=== PATIENT | female | born 1945 | race Caucasian/White ===

== ENCOUNTER 2017-10-29 13:05 | Inpatient (IN) | payer BC, MEDICARE ==
[2017-10-29] MEDS ORDERED: SODIUM CHLORIDE 0.9% 500 ML IV ONE (13:21)
--- NOTE | 2017-10-29 13:24 | ED ---
Weakness HPI - General Stated complaint: Weakness Time Seen by Provider: 10/29/17 13:13 Source: patient, EMS Mode of arrival: EMS Limitations: altered mental status - History of Present Illness Initial comments: This is a 72-year-old female with a history of diabetes, hypertension, L Olivares dementia who presents emergency department for generalized fatigue and inability to take her medications. History is obtained from EMS who states that the called them because she has been unable to ambulate and also has been not taking her medications. She does live at home with her only. Does not give any assistance. There is been discussion about possibly putting her into an assisted living or a memory care unit for care. Patient does not indicate any discomfort however is unable to answer many questions. not currently at bedside during the interview. - Related Data Home Medications Medication Instructions Recorded Confirmed Valsartan 80 mg PO DAILY 11/15/14 10/29/17 aMILoride-HCTZ 5-50 mg [Moduretic 1 tab PO DAILY 11/15/14 10/29/17 5-50] metFORMIN HCL [Glucophage] 500 mg PO DAILY 11/15/14 10/29/17 Levothyroxine Sodium [Synthroid] 150 mcg PO DAILY 08/16/15 10/29/17 sitaGLIPtin [Januvia] 100 mg PO DAILY 08/16/15 10/29/17 Simvastatin [Zocor] 40 mg PO HS 07/08/16 10/29/17 ALPRAZolam [Xanax] 0.25 mg PO Q8H PRN 10/29/17 10/29/17 Aspirin EC [Ecotrin Low Dose] 81 mg PO DAILY 10/29/17 10/29/17 Ferrous Sulfate [Feosol] 325 mg PO DAILY 10/29/17 10/29/17 Ibuprofen [Motrin] 800 mg PO Q8H PRN 10/29/17 10/29/17 Allergies Allergy/AdvReac Type Severity Reaction Status Date / Time atorvastatin [From Lipitor] Allergy Unknown Verified 10/29/17 13:58 enalaprilat [From Vasotec] Allergy Unknown Verified 10/29/17 13:58 propoxyphene napsylate Allergy Unknown Verified 10/29/17 13:57 [From Darvocet-N] Sulfa (Sulfonamide Allergy Itching,daniela Verified 10/29/17 13:57 Antibiotics) h Review of Systems ROS Statement: Those systems with pertinent positive or pertinent negative responses have been documented in the HPI. ROS Other: All systems not noted in ROS Statement are negative. Past Medical History Past Medical History: Cancer, Diabetes Mellitus, Hyperlipidemia, Hypertension, Memory Impairment, Thyroid Disorder Additional Past Medical History / Comment(s): non-hodgkins lymphoma-last chemo, varicose veins, arthritis, anemia, feel and injured rt shoulder Jul 2015, uses cane or wheelchair, History of Any Multi-Drug Resistant Organisms: None Reported Past Surgical History: Back Surgery, Hernia Repair, Joint Replacement Additional Past Surgical History / Comment(s): rt knee replacement, thyroid radioactive tx, cataracts Past Anesthesia/Blood Transfusion Reactions: Previous Problems w/ Anesthesia Additional Past Anesthesia/Blood Transfusion Reaction / Comment(s): years ago had diff breathing with anesthesia Past Psychological History: No Psychological Hx Reported Smoking Status: Never smoker Past Alcohol Use History: None Reported Past Drug Use History: None Reported - Past Family History Sister(s) Family Medical History: Cancer General Exam - General Exam Comments Initial Comments: Constitutional: Awake alert Appears comfortable Head: Normocephalic atraumatic Eyes: no conjunctival injection No scleral icterus EOMI Neck: No JVD Supple Heart: Regular rate rhythm normal S1-S2 no murmurs Lungs: Clear to auscultation bilaterally No wheezing No rales Abdomen: Soft nondistended nontender Extremities: Non edematous DP pulses intact Radial pulses intact Neuro: Awake and alert however does not answer questions. Is not somnolent No focal neurologic deficits Psych: Appropriate mood and affect Limitations: altered mental status Course Vital Signs 10/29/17 10/29/17 10/29/17 13:15 14:22 15:52 Pulse Rate 52 L 75 55 L Respiratory 18 20 13 Rate Blood Pressure 119/54 112/57 80/51 O2 Sat by Pulse 95 97 Oximetry EKG Findings - EKG Comments: EKG Findings:: EKG showing sinus bradycardia with a first-degree AV block at a rate of 49. There is no abnormal ST segment changes or T-wave inversions. QTC is 429. Other intervals normal. There is a right bundle-branch pattern. Medical Decision Making - Medical Decision Making This is a 72-year-old female who presents emergency department for difficulty with ambulation and mental status changes. She does have a history of dementia however usually she can get up and walk around. She is not anemic been able to walk at home. Is not taking her medications. She was evaluated and it was difficult to obtain a accurate temperature on her. She was placed on a bear hugger for possible hypothermia. She was found have a urinary tract infection and given antibiotics. Patient was given normal saline for mild dehydration as well. Due to her debility she's had be admitted to the hospital for further evaluation and for her urinary tract infection. at bedside agrees with plan - Lab Data Result diagrams: 10/29/17 14:02 10/29/17 14:02 Lab Results 10/29/17 10/29/17 10/29/17 Range/Units 13:55 14:02 14:02 WBC 5.5 (3.8-10.6) k/uL RBC 3.07 L (3.80-5.40) m/uL Hgb 9.7 L (11.4-16.0) gm/dL Hct 28.0 L (34.0-46.0) % MCV 91.2 (80.0-100.0) fL MCH 31.6 (25.0-35.0) pg MCHC 34.6 (31.0-37.0) g/dL RDW 14.6 (11.5-15.5) % Plt Count 95 L (150-450) k/uL Neutrophils % 88 % Lymphocytes % 4 % Monocytes % 5 % Eosinophils % 1 % Basophils % 0 % Neutrophils # 4.9 (1.3-7.7) k/uL Lymphocytes # 0.2 L (1.0-4.8) k/uL Monocytes # 0.3 (0-1.0) k/uL Eosinophils # 0.0 (0-0.7) k/uL Basophils # 0.0 (0-0.2) k/uL Manual Slide Review Performed Poikilocytosis Slight PT (9.0-12.0) sec INR (<1.2) APTT (22.0-30.0) sec Sodium 136 L (137-145) mmol/L Potassium 5.5 H (3.5-5.1) mmol/L Chloride 107 (98-107) mmol/L Carbon Dioxide 19 L (22-30) mmol/L Anion Gap 10 mmol/L BUN 58 H (7-17) mg/dL Creatinine 1.30 H (0.52-1.04) mg/dL Est GFR (MDRD) Af Amer 49 (>60 ml/min/1.73 sqM) Est GFR (MDRD) Non-Af 40 (>60 ml/min/1.73 sqM) Glucose 80 (74-99) mg/dL POC Glucose (mg/dL) 86 (75-99) mg/dL POC Glu Environmental Program Manager ID Laquita Gross Calcium 9.3 (8.4-10.2) mg/dL Total Bilirubin 0.3 (0.2-1.3) mg/dL AST 55 H (14-36) U/L ALT 86 H (9-52) U/L Alkaline Phosphatase 173 H (38-126) U/L CK-MB (CK-2) (0.0-2.4) ng/mL Troponin I (0.000-0.034) ng/mL Total Protein 5.4 L (6.3-8.2) g/dL Albumin 3.3 L (3.5-5.0) g/dL TSH (0.465-4.680) mIU/L Free T4 (0.78-2.19) ng/dL Urine Color Urine Appearance (Clear) Urine pH (5.0-8.0) Ur Specific [place] (1.001-1.035) Urine Protein (Negative) Urine Glucose (UA) (Negative) Urine Ketones (Negative) Urine Blood (Negative) Urine Nitrite (Negative) Urine Bilirubin (Negative) Urine Urobilinogen (<2.0) mg/dL Ur Leukocyte Esterase (Negative) Urine RBC (0-5) /hpf Urine WBC (0-5) /hpf Urine WBC Clumps (None) /hpf Urine Bacteria (None) /hpf Urine Mucus (None) /hpf 10/29/17 10/29/17 10/29/17 Range/Units 14:02 14:02 14:02 WBC (3.8-10.6) k/uL RBC (3.80-5.40) m/uL Hgb (11.4-16.0) gm/dL Hct (34.0-46.0) % MCV (80.0-100.0) fL MCH (25.0-35.0) pg MCHC (31.0-37.0) g/dL RDW (11.5-15.5) % Plt Count (150-450) k/uL Neutrophils % % Lymphocytes % % Monocytes % % Eosinophils % % Basophils % % Neutrophils # (1.3-7.7) k/uL Lymphocytes # (1.0-4.8) k/uL Monocytes # (0-1.0) k/uL Eosinophils # (0-0.7) k/uL Basophils # (0-0.2) k/uL Manual Slide Review Poikilocytosis PT 9.5 (9.0-12.0) sec INR 1.0 (<1.2) APTT 26.8 (22.0-30.0) sec Sodium (137-145) mmol/L Potassium (3.5-5.1) mmol/L Chloride (98-107) mmol/L Carbon Dioxide (22-30) mmol/L Anion Gap mmol/L BUN (7-17) mg/dL Creatinine (0.52-1.04) mg/dL Est GFR (MDRD) Af Amer (>60 ml/min/1.73 sqM) Est GFR (MDRD) Non-Af (>60 ml/min/1.73 sqM) Glucose (74-99) mg/dL POC Glucose (mg/dL) (75-99) mg/dL POC Glu Environmental Program Manager ID Calcium (8.4-10.2) mg/dL Total Bilirubin (0.2-1.3) mg/dL AST (14-36) U/L ALT (9-52) U/L Alkaline Phosphatase (38-126) U/L CK-MB (CK-2) 9.1 H* (0.0-2.4) ng/mL Troponin I <0.012 (0.000-0.034) ng/mL Total Protein (6.3-8.2) g/dL Albumin (3.5-5.0) g/dL TSH (0.465-4.680) mIU/L Free T4 (0.78-2.19) ng/dL Urine Color Yellow Urine Appearance Cloudy H (Clear) Urine pH 5.0 (5.0-8.0) Ur Specific [place] 1.009 (1.001-1.035) Urine Protein Negative (Negative) Urine Glucose (UA) Negative (Negative) Urine Ketones Negative (Negative) Urine Blood Negative (Negative) Urine Nitrite Positive H (Negative) Urine Bilirubin Negative (Negative) Urine Urobilinogen <2.0 (<2.0) mg/dL Ur Leukocyte Esterase Large H (Negative) Urine RBC 1 (0-5) /hpf Urine WBC 104 H (0-5) /hpf Urine WBC Clumps Many H (None) /hpf Urine Bacteria Many H (None) /hpf Urine Mucus Rare H (None) /hpf 10/29/17 Range/Units 14:02 WBC (3.8-10.6) k/uL RBC (3.80-5.40) m/uL Hgb (11.4-16.0) gm/dL Hct (34.0-46.0) % MCV (80.0-100.0) fL MCH (25.0-35.0) pg MCHC (31.0-37.0) g/dL RDW (11.5-15.5) % Plt Count (150-450) k/uL Neutrophils % % Lymphocytes % % Monocytes % % Eosinophils % % Basophils % % Neutrophils # (1.3-7.7) k/uL Lymphocytes # (1.0-4.8) k/uL Monocytes # (0-1.0) k/uL Eosinophils # (0-0.7) k/uL Basophils # (0-0.2) k/uL Manual Slide Review Poikilocytosis PT (9.0-12.0) sec INR (<1.2) APTT (22.0-30.0) sec Sodium (137-145) mmol/L Potassium (3.5-5.1) mmol/L Chloride (98-107) mmol/L Carbon Dioxide (22-30) mmol/L Anion Gap mmol/L BUN (7-17) mg/dL Creatinine (0.52-1.04) mg/dL Est GFR (MDRD) Af Amer (>60 ml/min/1.73 sqM) Est GFR (MDRD) Non-Af (>60 ml/min/1.73 sqM) Glucose (74-99) mg/dL POC Glucose (mg/dL) (75-99) mg/dL POC Glu Environmental Program Manager ID Calcium (8.4-10.2) mg/dL Total Bilirubin (0.2-1.3) mg/dL AST (14-36) U/L ALT (9-52) U/L Alkaline Phosphatase (38-126) U/L CK-MB (CK-2) (0.0-2.4) ng/mL Troponin I (0.000-0.034) ng/mL Total Protein (6.3-8.2) g/dL Albumin (3.5-5.0) g/dL TSH 0.233 L (0.465-4.680) mIU/L Free T4 2.43 H (0.78-2.19) ng/dL Urine Color Urine Appearance (Clear) Urine pH (5.0-8.0) Ur Specific [place] (1.001-1.035) Urine Protein (Negative) Urine Glucose (UA) (Negative) Urine Ketones (Negative) Urine Blood (Negative) Urine Nitrite (Negative) Urine Bilirubin (Negative) Urine Urobilinogen (<2.0) mg/dL Ur Leukocyte Esterase (Negative) Urine RBC (0-5) /hpf Urine WBC (0-5) /hpf Urine WBC Clumps (None) /hpf Urine Bacteria (None) /hpf Urine Mucus (None) /hpf Disposition Clinical Impression: UTI (urinary tract infection), Dehydration, Ambulatory dysfunction Disposition: ADMITTED IP TO THIS HOSP Condition: Stable
[2017-10-29 14:15] LABS: Glucose,Whole Blood 86 mg/dL (75-99)
[2017-10-29 14:40] LABS: Partial Thromboplastin Time 26.8 sec (22.0-30.0); Prothrombin Time 9.5 sec (9.0-12.0)
[2017-10-29 14:41] LABS: Albumin 3.3 g/dL (3.5-5.0); Calcium 9.3 mg/dL (8.4-10.2); Potassium 5.5 mmol/L (3.5-5.1); Total Bilirubin 0.3 mg/dL (0.2-1.3); Total Protein 5.4 g/dL (6.3-8.2)
--- NOTE | 2017-10-29 14:45 | XR ---
EXAMINATION TYPE: XR chest 1V DATE OF EXAM: 10/29/2017 COMPARISON: 08/13/2015 HISTORY: Pain TECHNIQUE: Single frontal view of the chest is obtained. FINDINGS: Postsurgical change right shoulder. Lungs are clear. No pneumothorax or pleural effusion. No overt failure. Heart size stable. Curvature the spine with hypertrophic and degenerative changes. IMPRESSION: No acute process.
[2017-10-29 14:48] LABS: Basophils % (A) 0 %; Eosinophils % (A) 1 %; HGB 9.7 gm/dL (11.4-16.0); Lymphocytes # (A) 0.2 k/uL (1.0-4.8); Lymphocytes % (A) 4 %; MCH 31.6 pg (25.0-35.0); MCHC 34.6 g/dL (31.0-37.0); MCV 91.2 fL (80.0-100.0); Mean Platelet Volume 8.9; Monocytes # (A) 0.3 k/uL (0-1.0); Monocytes % (A) 5 %; Neutrophils # (A) 4.9 k/uL (1.3-7.7); Neutrophils % (A) 88 %; Poikilocytosis Slight; RBC 3.07 m/uL (3.80-5.40); RDW 14.6 % (11.5-15.5); WBC 5.5 k/uL (3.8-10.6)
[2017-10-29 15:01] LABS: Troponin I <0.012 ng/mL (0.000-0.034)
[2017-10-29 15:03] LABS: Appearance,Urine Cloudy (Clear); Bacteria,Urine Many /hpf; Bilirubin,Urine Negative (Negative); Blood,Urine Negative (Negative); Color,Urine Yellow; Glucose,Urine (UA) Negative (Negative); Ketones,Urine Negative (Negative); Leukocyte Esterase,Urine Large (Negative); Mucus,Urine Rare /hpf; Protein,Urine Negative (Negative); RBC,Urine 1 /hpf (0-5); Specific Gravity,Urine 1.009 (1.001-1.035); Urobilinogen,Urine <2.0 mg/dL (<2.0); WBC,Urine 104 /hpf (0-5)
[2017-10-29 15:06] LABS: Creatine Kinase MB 9.1 ng/mL (0.0-2.4)
[2017-10-29] MEDS ORDERED: cefTRIAXone IN SWFI 1,000 MG/10 ML SYRINGE IVP STA (15:07)
[2017-10-29] MEDS: SODIUM CHLORIDE 0.9% 1,000 ML IV SCH (15:13)
[2017-10-29 15:14] LABS: Platelet Count 95 k/uL (150-450)
[2017-10-29 15:35] LABS: T4, Free (Free Thyroxine) 2.43 ng/dL (0.78-2.19)
[2017-10-29] MEDS ORDERED: SODIUM CHLORIDE 0.9% 1,000 ML IV ONE (15:53)
[2017-10-29] MEDS ORDERED: NALOXONE 0.4 MG/ML 1 ML VIAL IV PRN (15:56)
[2017-10-29] MEDS ORDERED: IBUPROFEN 800 MG TAB PO PRN (15:57)
--- NOTE | 2017-10-29 18:56 | CT ---
EXAMINATION TYPE: CT brain wo con DATE OF EXAM: 10/29/2017 COMPARISON: 07/08/2016 HISTORY: WEAKNESS CT DLP: 1153.9 mGycm Automated exposure control for dose reduction was used. FINDINGS: There is mild cerebral cortical atrophy. There is no mass effect nor midline shift. There is no sign of intracranial hemorrhage. The calvarium is intact. IMPRESSION: MILD CEREBRAL ATROPHY. NO ACUTE INTRACRANIAL ABNORMALITY. NO SIGNIFICANT CHANGE COMPARED TO OLD EXAM.
[2017-10-29 21:02] LABS: Glucose,Whole Blood 67 mg/dL (75-99)
[2017-10-29 21:17] LABS: Glucose,Whole Blood 104 mg/dL (75-99)
[2017-10-29] MEDS ORDERED: LORazepam 2 MG/ML INJ IV PRN (22:46)
--- NOTE | 2017-10-30 05:44 | HP ---
HISTORY AND PHYSICAL DATE OF SERVICE: 10/29/2017 CHIEF COMPLAINT: Weakness. HISTORY OF PRESENT ILLNESS: This 72-year-old woman with a past medical history of diabetes, hypertension, hyperlipidemia, history of memory impairment, non-Hodgkin's lymphoma, history of back surgery being followed by Dr. Pandya in the outpatient setting was found to be weak and confused. The patient has significant dementia. Apparently the was taking care of her. The patient has to be supported after getting extremely weak according to her and patient came to [facility] and was admitted for further evaluation and treatment. Otherwise the patient is stuporous, is unable to give coherent history. Most of the history taken from my discussion with staff and review of the chart. The patient had features of UTI, UTI with sepsis suspected. Patient has multiple biochemical and lab abnormalities also. The patient also had a low TSH and high free T4 also. PAST MEDICAL HISTORY: History of diabetes, hypertension, hyperlipidemia, memory impairment, hypothyroidism, non-Hodgkin's lymphoma. MEDICATIONS: Prior to admission include: 1. Levothyroxine 150 mcg. 2. Iron sulfate 325 mg. 3. Xanax 0.25 q.2h p.r.n. 4. Januvia 100 mg daily. 5. Glucophage 500 mg p.o. daily. 6. Moduretic 1 tab p.o. 7. Valsartan 80 mg p.o. 8. Zocor 40 mg q.h.s. 9. Motrin 800 mg q8h p.o. p.r.n. 10.Ecotrin 81 mg p.o. daily. ALLERGIES: LIPITOR, VASOTEC, DARVOCET N100 AND SULFONAMIDE. Family history, social history and review of systems could not be taken because of the change in mental status. PHYSICAL EXAMINATION: Patient is confused, not fully arousable. Pulse 77, blood pressure 140/52, respirations 18, temperature 98.7, pulse ox 94% on room air. HEENT: Conjunctivae normal. Oral mucosa moist. Neck is no jugular venous distention. No carotid bruit. No lymph node enlargement. Cardiovascular: S1-S2 muffled. Respiratory: Breath sounds diminished in the bases. A few scattered rhonchi and crackles. ABDOMEN: Soft, obese, nontender. LEGS: Minimal edema. Nervous system: The patient is extremely weak. A full neurologic exam cannot be done or carried out. The patient is unable to cooperate. SKIN: No ulcer, rash or bleeding. Lymphatics: No lymph nodes palpable in the neck, axillae or groin. Joints no active deforming arthropathy. LABS: WBC 5.5, hemoglobin 9.7, sodium 130, potassium 5.5, creatinine 1.30, AST is 55, ALT is 86, alkaline phosphatase 173, CK-MB is 9.1, total protein is 5.4. TSH is 0.2233 and free T4 is 2.43. UA noted. ASSESSMENT: 1. Urinary tract infection with sepsis present on admission. 2. Change in mental status, acute metabolic acidosis secondary to sepsis. 3. Increased AST and ALT. 4. Decrease TSH and increased T4 with possibly iatrogenic hyperthyroidism. 5. Hyperkalemia. 6. Hyponatremia. 7. Increased creatinine with mild acute renal failure. 8. Anemia normocytic anemia of chronic disease. 9. History of diabetes type 2. 10.Hypertension. 11.Hyperlipidemia. 12.History of dementia. 13.Gait dysfunction. 14.History of non-Hodgkin lymphoma. 15.History of degenerative joint disease. 16.History of back surgery. 17.FULL CODE. RECOMMENDATIONS AND DISCUSSION: This 72-year-old woman who presented with multiple complex medical issues, we will monitor the patient closely, continue the current medications, management and symptomatic treatment. We will initiate broad-spectrum IV antibiotics. Follow the cultures. Resume the home medication except levothyroxine which will be held and continue to monitor. Otherwise, continue IV fluids. The patient's lactic acid is low, but however the patient clinically has symptoms of sepsis. We will continue to monitor. Will also monitor blood sugars closely. PT, OT evaluation, possible ECF rehab. Overall prognosis guarded because of multiple complex medical issues. Discussed with staff. Medication reconciliation was done. Further recommendations to follow. A copy of dictation being forwarded to Dr. Pandya who is the primary physician. MMODL / IJN: [id number] /
[2017-10-30] MEDS ORDERED: LEVOTHYROXINE 75 MCG TAB PO SCH (06:30)
[2017-10-30 06:38] LABS: Glucose,Whole Blood 59 mg/dL (75-99)
[2017-10-30 06:50] LABS: Albumin 2.6 g/dL (3.5-5.0); Calcium 8.5 mg/dL (8.4-10.2); Total Bilirubin 0.2 mg/dL (0.2-1.3); Total Protein 4.5 g/dL (6.3-8.2)
[2017-10-30] MEDS: NON-FORMULARY DRUG (Simvastatin 40 MG) PO SCH ×2 (06:54→20:14)
[2017-10-30] MEDS: INSULIN ASPART 100 UNIT/ML 1 ML 10 ML VIAL SQ SCH ×4 (06:54→20:17)
[2017-10-30] MEDS: metFORMIN 500 MG TAB PO SCH (06:55)
[2017-10-30] MEDS: SODIUM CHLORIDE 0.9% 1,000 ML IV SCH ×5 (06:55→20:10)
[2017-10-30 06:59] LABS: Glucose,Whole Blood 192 mg/dL (75-99)
[2017-10-30] MEDS ORDERED: INSULIN REGULAR 100 UNIT/ML VIAL IV ONE (07:09)
[2017-10-30] MEDS ORDERED: DEXTROSE 50%-WATER 50 ML SYRINGE IVP ONE (07:12)
[2017-10-30] MEDS: LINAGLIPTIN 5 MG TABLET PO SCH (08:14)
[2017-10-30] MEDS: DEXTROSE 5%-0.45% NACL 1,000 ML IV SCH ×2 (08:14→20:17)
[2017-10-30] MEDS: ASPIRIN 81 MG PO SCH (08:24)
[2017-10-30] MEDS: FERROUS SULFATE 325 MG TAB PO SCH (08:24)
[2017-10-30] MEDS: VALSARTAN 80 MG TAB PO SCH (09:19)
[2017-10-30] MEDS: cefTRIAXone IN SWFI 1,000 MG/10 ML SYRINGE IVP SCH (09:19)
[2017-10-30 10:42] LABS: Glucose,Whole Blood 73 mg/dL (75-99)
[2017-10-30 12:25] LABS: Hemoglobin A1C 7.4 % (4.0-6.0)
[2017-10-30 12:38] LABS: Glucose,Whole Blood 92 mg/dL (75-99)
[2017-10-30 12:38] LABS: Glucose,Whole Blood 66 mg/dL (75-99)
--- NOTE | 2017-10-30 15:03 | CDI ---
Last Revision, August 2017 Documentation Clarification Form Date: 10/30/2017 2:49:00 PM From: Beverley CareyGermanERICK, CCDS Admit Date: 10/29/2017 3:56:00 PM Patient Name: Carla Crowley Visit Number: [id number] Discharge Date: ATTENTION: The Clinical Documentation Specialists (CDI) and [facility] Coding Staff appreciate your assistance in clarifying documentation. Please respond to the clarification below the line at the bottom and electronically sign. The CDI & [facility] Coding staff will review the response and follow-up if needed. Please note: Queries are made part of the Legal Health Record. If you have any questions, please contact the author of this message via ITS. Dr. Fabiano Fairbanks: Per the History & Physical documentation: "Urinary tract infection with sepsis present on admission. Change in mental status, acute metabolic acidosis secondary to sepsis." History/Risk factors: DM, Hypertension, Hyperlipidemia, hypothyroidism, history of Non-Hodgkin's lymphoma. Clinical Indicators: 72 yo, presented from home with generalized fatigue & inability to take her medications, unable to ambulate. Per H/P, patient is stuporus. VS: T 85.4*, P 52*, R 18, BP 119/54, PO 100 ra LAB: WBC (5.5), Na 136*, K 5.5^, BUN 58^, Cr 1.30^, Lactic Acid <0.5*, Alk Phos 173^, CKMB 9.1^^ Treatment: Blood & urine cultures (pending), IV fluid bolus x2, IV fluid rate 100, IV Rocephin, IV Narcan, IV Ativan In your professional opinion, can you please clarify the patients mental status , if known? Metabolic Encephalopathy Septic Encephalopathy Toxic Encephalopathy Other, please specify Unable to determine Please continue to document in your progress notes and discharge summary in order to capture severity of illness and risk of mortality. Include clinical findings that support your diagnosis. Metabolic Encephalopathy MTDD
[2017-10-30] MEDS ORDERED: SODIUM CHLORIDE 0.9% 500 ML IV ONE (16:31)
[2017-10-30 16:39] LABS: Glucose,Whole Blood 115 mg/dL (75-99)
[2017-10-30 17:04] LABS: Glucose,Whole Blood 103 mg/dL (75-99)
[2017-10-30] MEDS ORDERED: NOREPINEPHRIN 4 MG-0.9% NS PMX 4 MG/250 ML ML IV SCH (17:45)
--- NOTE | 2017-10-30 20:09 | P.PN ---
Subjective Progress Note Date: 10/30/17 Progress notel being dictated for Dr. Fairbanks. Interval history: This a 72-year-old female admitted with severe sepsis, acute UTI, acute metabolic encephalopathy and multiple other medical issues. Maintained on broad-spectrum IV antibiotics, IV fluid hydration. Creatinine mildly worsened. Urine cultures reporting gram-negative bacilli. Receiving fluid boluses for hypotension. Blood pressure dropped to 72/38, pulse 71, temperature 98.6, O2 sat on room air 99%, Became unresponsive, responding only to noxious stimuli, telemetry reporting around of ventricular tachycardia 18 beats. A team called, transferred to ICU. Review systems unable to obtain Active Medications Aspirin (Aspirin) 81 mg PO DAILY COUNTS INCLUDE 234 BEDS AT THE [facility] Last Admin: 10/30/17 08:24 Dose: 81 mg Ceftriaxone Sodium (Rocephin) 1,000 mg IVP Q24HR COUNTS INCLUDE 234 BEDS AT THE [facility] Last Admin: 10/30/17 09:19 Dose: 1,000 mg Ferrous Sulfate (Feosol) 325 mg PO DAILY COUNTS INCLUDE 234 BEDS AT THE [facility] Last Admin: 10/30/17 08:24 Dose: 325 mg Heparin Sodium (Porcine) (Heparin) 5,000 unit SQ Q8HR COUNTS INCLUDE 234 BEDS AT THE [facility] Sodium Chloride (Saline 0.9%) 1,000 mls @ 100 mls/hr IV .Q10H COUNTS INCLUDE 234 BEDS AT THE [facility] Last Admin: 10/30/17 15:54 Dose: Not Given Dextrose/Sodium Chloride (Dextrose 5%-1/2ns Iv Soln) 1,000 mls @ 75 mls/hr IV .[id number] COUNTS INCLUDE 234 BEDS AT THE [facility] Last Admin: 10/30/17 08:14 Dose: 75 mls/hr Norepinephrine Bitartrate (Levophed-0.9% Nacl 4 Mg/250ml Pmx) 4 mg in 250 mls @ 0 mls/hr IV .Q0M COUNTS INCLUDE 234 BEDS AT THE [facility]; Titrate PRN Reason: Protocol Ibuprofen (Motrin) 800 mg PO Q8H PRN PRN Reason: Mild Pain Insulin Aspart (Novolog) 0 unit SQ ACHS JOSEPH PRN Reason: Protocol Last Admin: 10/30/17 18:33 Dose: Not Given Linagliptin (Tradjenta) 5 mg PO DAILY COUNTS INCLUDE 234 BEDS AT THE [facility] Last Admin: 10/30/17 08:14 Dose: Not Given Lorazepam (Ativan) 0.5 mg IV Q6HR PRN PRN Reason: Agitation Metformin HCl (Glucophage) 500 mg PO AC-BRKFST COUNTS INCLUDE 234 BEDS AT THE [facility] Last Admin: 10/30/17 06:55 Dose: Not Given Naloxone HCl (Narcan) 0.2 mg IV Q2M PRN PRN Reason: Opioid Reversal Non-Formulary Medication (Simvastatin) 40 mg PO HS COUNTS INCLUDE 234 BEDS AT THE [facility] Last Admin: 10/30/17 06:54 Dose: Not Given Pantoprazole Sodium (Protonix) 40 mg IV DAILY COUNTS INCLUDE 234 BEDS AT THE [facility] Valsartan (Diovan) 80 mg PO DAILY COUNTS INCLUDE 234 BEDS AT THE [facility] Last Admin: 10/30/17 09:19 Dose: 80 mg Objective - Vital Signs Vital signs: Vital Signs Temp 98.6 F 10/30/17 16:00 Pulse 71 10/30/17 16:00 Resp 20 10/30/17 16:00 BP 72/38 10/30/17 16:00 Pulse Ox 99 10/30/17 16:00 Intake & Output 10/29/17 10/30/17 10/30/17 18:59 06:59 18:59 Intake Total 800 180 Balance 800 180 Weight 90.718 kg 87.5 kg Intake: Intake, IV Titration 800 Amount Sodium Chloride 0.9% 1, 800 000 ml @ 100 mls/hr IV . Q10H COUNTS INCLUDE 234 BEDS AT THE [facility] Rx#:[id number] Oral 180 Other: # Voids 1 1 # Bowel Movements 0 - Exam PHYSICAL EXAM: VITAL SIGNS: As above GENERAL: Unresponsive, responds to noxious stimuli only HEENT: Conjunctivae normal. eyes normal. NECK: No JVD. No thyroid enlargement. No LNs CARDIOVASCULAR: S1, S2 muffled. No murmur RESPIRATION: Breath sounds diminished in the bases. No rhonchi or crackles. ABDOMEN: Soft, nontender . No guarding. no masses palpable.Bowel sounds heard. LEGS: No edema. no swelling PSYCHIATRY/NERVOUS SYSTEM: Unable to evaluate at this time - Labs CBC & Chem 7: 10/29/17 14:02 10/30/17 10:30 Labs: Abnormal Lab Results - Last 24 Hours (Table) 10/29/17 10/29/17 10/29/17 Range/Units 14:03 19:49 20:43 Potassium (3.5-5.1) mmol/L Chloride (98-107) mmol/L Carbon Dioxide (22-30) mmol/L BUN (7-17) mg/dL Creatinine (0.52-1.04) mg/dL Glucose (74-99) mg/dL POC Glucose (mg/dL) 67 L (75-99) mg/dL Hemoglobin A1c (4.0-6.0) % Plasma Lactic Acid Ismael <0.5 L <0.5 L (0.7-2.0) mmol/L AST (14-36) U/L ALT (9-52) U/L Alkaline Phosphatase (38-126) U/L Total Protein (6.3-8.2) g/dL Albumin (3.5-5.0) g/dL 10/29/17 10/30/17 10/30/17 Range/Units 21:14 05:56 05:56 Potassium 6.0 H (3.5-5.1) mmol/L Chloride 114 H (98-107) mmol/L Carbon Dioxide 17 L (22-30) mmol/L BUN 50 H (7-17) mg/dL Creatinine 1.36 H (0.52-1.04) mg/dL Glucose 51 L (74-99) mg/dL POC Glucose (mg/dL) 104 H (75-99) mg/dL Hemoglobin A1c 7.4 H (4.0-6.0) % Plasma Lactic Acid Ismael (0.7-2.0) mmol/L AST 45 H (14-36) U/L ALT 64 H (9-52) U/L Alkaline Phosphatase 141 H (38-126) U/L Total Protein 4.5 L (6.3-8.2) g/dL Albumin 2.6 L (3.5-5.0) g/dL 10/30/17 10/30/17 10/30/17 Range/Units 06:28 06:57 10:22 Potassium (3.5-5.1) mmol/L Chloride (98-107) mmol/L Carbon Dioxide (22-30) mmol/L BUN (7-17) mg/dL Creatinine (0.52-1.04) mg/dL Glucose (74-99) mg/dL POC Glucose (mg/dL) 59 L 192 H 73 L (75-99) mg/dL Hemoglobin A1c (4.0-6.0) % Plasma Lactic Acid Ismael (0.7-2.0) mmol/L AST (14-36) U/L ALT (9-52) U/L Alkaline Phosphatase (38-126) U/L Total Protein (6.3-8.2) g/dL Albumin (3.5-5.0) g/dL 10/30/17 Range/Units 11:53 Potassium (3.5-5.1) mmol/L Chloride (98-107) mmol/L Carbon Dioxide (22-30) mmol/L BUN (7-17) mg/dL Creatinine (0.52-1.04) mg/dL Glucose (74-99) mg/dL POC Glucose (mg/dL) 66 L (75-99) mg/dL Hemoglobin A1c (4.0-6.0) % Plasma Lactic Acid Ismael (0.7-2.0) mmol/L AST (14-36) U/L ALT (9-52) U/L Alkaline Phosphatase (38-126) U/L Total Protein (6.3-8.2) g/dL Albumin (3.5-5.0) g/dL Microbiology - Last 24 Hours (Table) 10/29/17 14:02 Urine Culture - Preliminary Urine,Catheterized Assessment and Plan Assessment: 1. Acute UTI with gram-negative bacilli ,severe sepsis 2. Acute metabolic encephalopathy secondary to sepsis 3. Elevated LFTs 4. Decreased TSH and increased T4 possible iatrogenic hyperthyroidism 5. Hyperkalemia 6. Hyponatremia 7. Acute renal failure 8. Anemia of chronic disease 9. Diabetes mellitus type 2 10. V. tach Plan: Continue current medication regime ,monitoring and symptomatic treatment. Fluid boluses as ordered. IV fluid hydration. Transfer to ICU. Infectious disease consulted. Dr. Taylor consulted for ICU management. Cardiology consulted, EKG, troponins, echo ordered. Prognosis guarded given multiple complex medical issues. The impression and plan of care has been dictated as directed. : I performed a history and examination of this patient, discussed the same with the dictator. I agree with the dictator's note ,documented as a scribe. Any additional findings or plans will be noted.
[2017-10-30 20:18] LABS: Glucose,Whole Blood 88 mg/dL (75-99)
[2017-10-30] MEDS: HEPARIN SODIUM,PORCINE 5,000 UNIT/ML 1 ML VIAL SQ SCH (23:11)
[2017-10-31 04:16] LABS: Basophils % (A) 0 %; Eosinophils # (A) 0.1 k/uL (0-0.7); Eosinophils % (A) 1 %; HCT 27.7 % (34.0-46.0); HGB 8.6 gm/dL (11.4-16.0); Hypochromasia Moderate; Lymphocytes # (A) 0.4 k/uL (1.0-4.8); Lymphocytes % (A) 6 %; MCH 31.1 pg (25.0-35.0); Macrocytosis Slight; Mean Platelet Volume 8.5; Monocytes # (A) 0.5 k/uL (0-1.0); Monocytes % (A) 8 %; Neutrophils % (A) 82 %; Platelet Count 112 k/uL (150-450); RBC 2.76 m/uL (3.80-5.40); RDW 14.4 % (11.5-15.5); WBC 6.1 k/uL (3.8-10.6)
[2017-10-31 04:32] LABS: Albumin 2.5 g/dL (3.5-5.0); Calcium 8.7 mg/dL (8.4-10.2); Phosphorus 3.7 mg/dL (2.5-4.5); Potassium 5.3 mmol/L (3.5-5.1); Total Bilirubin 0.3 mg/dL (0.2-1.3); Total Protein 4.6 g/dL (6.3-8.2)
[2017-10-31 04:37] LABS: MCV 100.5 fL (80.0-100.0)
[2017-10-31] MEDS: SODIUM CHLORIDE 0.9% 1,000 ML IV SCH ×2 (04:53→17:57)
[2017-10-31] MEDS: DOPamine DRIP 800 MG in DEXTROSE/WATER 1 500ML.BAG IV SCH (08:45)
--- NOTE | 2017-10-31 08:48 | CDI ---
Last Revision, August 2017 Documentation Clarification Form Date: 10/31/2017 8:39:00 AM From: Beverley GermanERICK, CCDS Admit Date: 10/29/2017 3:56:00 PM Patient Name: Carla Crowley Visit Number: [id number] Discharge Date: ATTENTION: The Clinical Documentation Specialists (CDI) and [facility] Coding Staff appreciate your assistance in clarifying documentation. Please respond to the clarification below the line at the bottom and electronically sign. The CDI & [facility] Coding staff will review the response and follow-up if needed. Please note: Queries are made part of the Legal Health Record. If you have any questions, please contact the author of this message via ITS. Dr. Fabiano Fairbanks: Per the 10/30 progress note: "This a 72-year-old female admitted with severe sepsis, acute UTI, acute metabolic encephalopathy and multiple other medical issues. Maintained on broad-spectrum IV antibiotics, IV fluid hydration. Creatinine mildly worsened. Urine cultures reporting gram-negative bacilli. Receiving fluid boluses for hypotension. Blood pressure dropped to 72/38, pulse 71, temperature 98.6, O2 sat on room air 99%, Became unresponsive, responding only to noxious stimuli, telemetry reporting around of ventricular tachycardia 18 beats. A team called, transferred to ICU. Patient history/risk factors: Hypertension, Hx Non-Hodgkin's lymphoma, Dementia. Clinical Indicators: As above. Treatment: To ICU. IV fluid bolus x2, IV Norepinephrine. In your professional opinion, can you please specify the type of shock if known ? Septic Shock Cardiogenic Shock Hypovolemic Shock Other, please specify Unable to determine Please continue to document in your progress notes and discharge summary in order to capture severity of illness and risk of mortality. Include clinical findings that support your diagnosis. MTDD
[2017-10-31 09:01] LABS: Glucose,Whole Blood 190 mg/dL (75-99)
[2017-10-31] MEDS: INSULIN ASPART 100 UNIT/ML 1 ML 10 ML VIAL SQ SCH ×4 (09:01→21:32)
[2017-10-31] MEDS: HEPARIN SODIUM,PORCINE 5,000 UNIT/ML 1 ML VIAL SQ SCH ×2 (09:06→17:56)
[2017-10-31] MEDS: PANTOPRAZOLE 40 MG/10 ML VIAL IV SCH (09:06)
[2017-10-31] MEDS: cefTRIAXone IN SWFI 1,000 MG/10 ML SYRINGE IVP SCH (09:11)
--- NOTE | 2017-10-31 09:49 | ECHOF ---
Referral Reason:arrythmia, MEASUREMENTS -------- HEIGHT: 162.6 cm WEIGHT: 89.4 kg BP: 102/53 RVIDd: 3.4 cm (< 3.3) IVSd: 1.0 cm (0.6 - 1.1) LVIDd: 4.3 cm (3.9 - 5.3) LVPWd: 1.0 cm (0.6 - 1.1) IVSs: 1.6 cm LVIDs: 2.9 cm LVPWs: 1.3 cm LA Diam: 3.9 cm (2.7 - 3.8) LAESV Index (A-L): 27.16 ml/m Ao Diam: 3.2 cm (2.0 - 3.7) AV Cusp: 2.3 cm (1.5 - 2.6) MV EXCURSION: 16.269 mm (> 18.000) MV EF SLOPE: 98 mm/s (70 - 150) EPSS: 0.2 cm MV E Moi: 1.24 m/s MV DecT: 223 ms MV A Moi: 0.89 m/s MV E/A Ratio: 1.39 RAP: 5.00 mmHg RVSP: 21.98 mmHg FINDINGS -------- Resting bradycardia (HR<60bpm). This was a technically adequate study. The left ventricular size is normal. Left ventricular wall thickness is normal. Overall left vent ricular systolic function is normal with, an EF between 55 - 60 %. The right ventricle is normal in size. Normal LA size by volume 22+/-6 ml/m2. The right atrium is normal in size. Aortic valve is trileaflet and is moderately thickened. The mitral valve leaflets are mildly thickened. Mild mitral regurgitation is present. Mild tricuspid regurgitation present. Right ventricular systolic pressure is normal at < 35 mmHg. Trace/mild (physiologic) pulmonic regurgitation. CONCLUSIONS -------- 1. Resting bradycardia (HR<60bpm). 2. This was a technically adequate study. 3. The left ventricular size is normal. 4. Left ventricular wall thickness is normal. 5. Overall left ventricular systolic function is normal with, an EF between 55 - 60 %. 6. The right ventricle is normal in size. 7. Normal LA size by volume 22+/-6 ml/m2. 8. The right atrium is normal in size. 9. The mitral valve leaflets are mildly thickened. 10. Mild mitral regurgitation is present. 11. Mild tricuspid regurgitation present. 12. Right ventricular systolic pressure is normal at < 35 mmHg. 13. Trace/mild (physiologic) pulmonic regurgitation. CELL LINER: Idalmis Bashir RDCS
[2017-10-31] MEDS: DEXTROSE 5%-0.45% NACL 1,000 ML IV SCH (09:56)
[2017-10-31] MEDS: metFORMIN 500 MG TAB PO SCH (10:04)
[2017-10-31] MEDS: ASPIRIN 81 MG PO SCH (10:04)
[2017-10-31] MEDS: VALSARTAN 80 MG TAB PO SCH (10:05)
[2017-10-31] MEDS: LINAGLIPTIN 5 MG TABLET PO SCH (10:05)
[2017-10-31 10:30] LABS: T4, Free (Free Thyroxine) 2.04 ng/dL (0.78-2.19)
--- NOTE | 2017-10-31 12:02 | P.CNPUL ---
History of Present Illness Consult date: 10/31/17 Requesting physician: Fabiano Fairbanks Reason for consult: other (Acute sepsis and septic shock) Chief complaint: Weakness and worsening mental status History of present illness: This is a 72-year-old female with history of Alzheimer's disease, profound dementia which has been present for the last 9 years at least, but over the last 2 years, the patient has been deteriorating rather significantly. Patient is usually followed by Dr. Pandya on outpatient basis, and has been seen in the past by Dr. Sherlyn paz for her dementia. Patient is also known to have history of non-Hodgkin's lymphoma, hypertension, diabetes, and hypothyroidism. Patient lives with her who seems to be taking care of the patient by himself for the last 9 years. According to him, in the last few days the patient has become weaker, unable to walk or to the bathroom any more, and she is getting more and more confused. The patient herself is unable to give any history, Workup in the ER showed that the patient had a urinary tract infection , she had slightly elevated lactic acid, she was also hypotensive and given fluid boluses in the ER. In spite of fluid boluses, patient remained hypotensive, and she was bradycardic hence dopamine was started, and she is presently at 10 mcg/kg/m of dopamine. Her urinalysis showed bacteriuria and pyuria, blood cultures are pending and urine cultures are pending. Patient was admitted to the ICU, and I was asked to see her on consultation. No headaches, no blurred vision, no dizziness, no fever documented at home, no urinary symptoms according to the at home, no nausea no vomiting no abdominal pain. Again the seems to be mostly concerned about her worsening weakness, and he is at a point where he cannot take care of the patient by himself. Review of Systems 14 point review of systems were obtained, please refer to pertinent positives and negatives as per HPI. Otherwise remaining systems are negative. Review of systems was obtained from the Past Medical History Past Medical History: Cancer, Diabetes Mellitus, Hyperlipidemia, Hypertension, Memory Impairment, Thyroid Disorder Additional Past Medical History / Comment(s): non-hodgkins lymphoma-last chemo, varicose veins, arthritis, anemia, feel and injured rt shoulder Jul 2015, uses cane or wheelchair, History of Any Multi-Drug Resistant Organisms: None Reported Past Surgical History: Back Surgery, Hernia Repair, Joint Replacement Additional Past Surgical History / Comment(s): rt knee replacement, thyroid radioactive tx, cataracts Past Anesthesia/Blood Transfusion Reactions: Previous Problems w/ Anesthesia Additional Past Anesthesia/Blood Transfusion Reaction / Comment(s): years ago had diff breathing with anesthesia Past Psychological History: No Psychological Hx Reported Smoking Status: Never smoker Past Alcohol Use History: None Reported Past Drug Use History: None Reported - Past Family History Sister(s) Family Medical History: Cancer Medications and Allergies Home Medications Medication Instructions Recorded Confirmed Type Valsartan 80 mg PO DAILY 11/15/14 10/29/17 History aMILoride-HCTZ 5-50 mg [Moduretic 1 tab PO DAILY 11/15/14 10/29/17 History 5-50] metFORMIN HCL [Glucophage] 500 mg PO DAILY 11/15/14 10/29/17 History Levothyroxine Sodium [Synthroid] 150 mcg PO DAILY 08/16/15 10/29/17 History sitaGLIPtin [Januvia] 100 mg PO DAILY 08/16/15 10/29/17 History Simvastatin [Zocor] 40 mg PO HS 07/08/16 10/29/17 History ALPRAZolam [Xanax] 0.25 mg PO Q8H PRN 10/29/17 10/29/17 History Aspirin EC [Ecotrin Low Dose] 81 mg PO DAILY 10/29/17 10/29/17 History Ferrous Sulfate [Feosol] 325 mg PO DAILY 10/29/17 10/29/17 History Ibuprofen [Motrin] 800 mg PO Q8H PRN 10/29/17 10/29/17 History Allergies Allergy/AdvReac Type Severity Reaction Status Date / Time atorvastatin [From Lipitor] Allergy Unknown Verified 10/29/17 13:58 enalaprilat [From Vasotec] Allergy Unknown Verified 10/29/17 13:58 propoxyphene napsylate Allergy Unknown Verified 10/29/17 13:57 [From Darvocet-N] Sulfa (Sulfonamide Allergy Itching,daniela Verified 10/29/17 13:57 Antibiotics) h Physical Exam Vitals: Vital Signs Temp Pulse Pulse Resp BP BP Pulse Ox 10/31/17 08:45 59 L 12 142/45 97 10/31/17 08:30 40 L 13 112/42 99 10/31/17 08:15 36 L 11 L 127/47 98 10/31/17 08:00 97.4 F L 37 L 14 97/42 98 10/31/17 07:45 36 L 14 92/35 100 10/31/17 07:30 38 L 13 88/44 99 10/31/17 07:15 44 L 14 122/43 98 10/31/17 07:00 39 L 15 100/43 97 10/31/17 06:00 40 L 13 102/53 99 10/31/17 05:00 43 L 13 91/47 98 10/31/17 04:00 97.6 F 52 L 17 98/46 97 10/31/17 03:30 48 L 14 98/50 98 10/31/17 03:00 47 L 14 87/41 98 10/31/17 02:30 46 L 15 84/43 98 10/31/17 02:00 48 L 13 97/42 98 10/31/17 01:30 48 L 11 L 96/46 98 10/31/17 01:00 74 12 96/40 90 L 10/31/17 00:30 52 L 11 L 80/32 99 10/31/17 00:00 97.9 F 64 18 74/41 97 10/30/17 23:30 71 15 100/47 97 10/30/17 23:00 83 18 108/78 95 18 22:30 82 19 86/53 92 L 10/30/17 22:00 81 11 L 99/57 96 10/30/17 21:30 84 12 131/74 94 L 18 21:00 89 16 111/46 94 L 18 20:30 82 12 103/67 93 L 18 20:00 97.8 F 81 14 90/46 97 2018 19:30 80 16 76/43 94 L 2018 19:00 71 12 98/51 97 2018 18:30 72 20 90/50 98 18 18:00 72 13 102/44 96 18 17:30 72 18 87/44 97 18 17:00 98.8 F 68 27 H 79/30 96 18 16:00 98.6 F 71 20 72/38 99 10/30/17 12:00 97.1 F L 78 18 90/50 98 Intake and Output 10/30/17 10/31/17 10/31/17 22:59 06:59 14:59 Intake Total 1225 721.563 271.250 Output Total 1850 1465 75 Balance -625 -743.437 196.250 Intake: IV 225 675 75 Dextrose 5%-0.45% NaCl 1, 225 675 75 000 ml @ 75 mls/hr IV . [id number] JOSEPH Rx#:[id number] Intake, IV Titration 1000 46.563 196.250 Amount Norepinephrin 4 mg-0.9% 46.563 196.250 Ns Pmx 4 mg In 250 ml @ Titrate IV .Q0M JOSEPH Rx#: [id number] Sodium Chloride 0.9% 1, 1000 000 ml @ 999 mls/hr IV . Q1H1M JOSEPH Rx#:[id number] Output: Urine 1850 1465 75 Other: Voiding Method Indwelling Catheter Indwelling Catheter Indwelling Catheter # Voids 1 # Bowel Movements 0 1 Weight 89.7 kg Constitutional: Awake nonverbal, but was answering simple questions yes and no, Head: Normocephalic atraumatic Eyes: PERRLA, EOMI, no icterus noted. Neck: Short neck, neck masses, no JVD, no stridor, no lymphadenopathy, no thyromegaly noted. Heart: Regular rate rhythm normal S1-S2 no murmurs Lungs: Symmetrical chest expansion, no crackles or rhonchi or wheezes. No chest wall tenderness. Abdomen: Obese, soft, nontender, no megaly, no rebound, no guarding, positive bowel sounds. Extremities: Non edematous DP pulses intact Radial pulses intact Neuro: Awake and alert however does not answer questions. Except yes and no, Psych: Blunted affect, poor mental status examination, poor judgment and insight Results - Laboratory Findings CBC and BMP: 10/31/17 03:16 10/31/17 03:16 PT/INR, D-dimer PT 9.5 sec (9.0-12.0) 10/29/17 14:02 INR 1.0 (<1.2) 10/29/17 14:02 Abnormal lab findings: Abnormal Labs 10/29/17 10/29/17 10/29/17 14:02 14:02 14:02 RBC 3.07 L Hgb 9.7 L Hct 28.0 L MCV Plt Count 95 L Lymphocytes # 0.2 L Sodium 136 L Potassium 5.5 H Chloride Carbon Dioxide 19 L BUN 58 H Creatinine 1.30 H Glucose POC Glucose (mg/dL) Hemoglobin A1c Plasma Lactic Acid Ismael AST 55 H ALT 86 H Alkaline Phosphatase 173 H CK-MB (CK-2) 9.1 H* Total Protein 5.4 L Albumin 3.3 L TSH Free T4 Urine Appearance Urine Nitrite Ur Leukocyte Esterase Urine WBC Urine WBC Clumps Urine Bacteria Urine Mucus 10/29/17 10/29/17 10/29/17 14:02 14:02 14:03 RBC Hgb Hct MCV Plt Count Lymphocytes # Sodium Potassium Chloride Carbon Dioxide BUN Creatinine Glucose POC Glucose (mg/dL) Hemoglobin A1c Plasma Lactic Acid Ismael <0.5 L AST ALT Alkaline Phosphatase CK-MB (CK-2) Total Protein Albumin TSH 0.233 L Free T4 2.43 H Urine Appearance Cloudy H Urine Nitrite Positive H Ur Leukocyte Esterase Large H Urine WBC 104 H Urine WBC Clumps Many H Urine Bacteria Many H Urine Mucus Rare H 10/29/17 10/29/17 10/29/17 19:49 20:43 21:14 RBC Hgb Hct MCV Plt Count Lymphocytes # Sodium Potassium Chloride Carbon Dioxide BUN Creatinine Glucose POC Glucose (mg/dL) 67 L 104 H Hemoglobin A1c Plasma Lactic Acid Ismael <0.5 L AST ALT Alkaline Phosphatase CK-MB (CK-2) Total Protein Albumin TSH Free T4 Urine Appearance Urine Nitrite Ur Leukocyte Esterase Urine WBC Urine WBC Clumps Urine Bacteria Urine Mucus 10/30/17 10/30/17 10/30/17 05:56 05:56 06:28 RBC Hgb Hct MCV Plt Count Lymphocytes # Sodium Potassium 6.0 H Chloride 114 H Carbon Dioxide 17 L BUN 50 H Creatinine 1.36 H Glucose 51 L POC Glucose (mg/dL) 59 L Hemoglobin A1c 7.4 H Plasma Lactic Acid Ismael AST 45 H ALT 64 H Alkaline Phosphatase 141 H CK-MB (CK-2) Total Protein 4.5 L Albumin 2.6 L TSH Free T4 Urine Appearance Urine Nitrite Ur Leukocyte Esterase Urine WBC Urine WBC Clumps Urine Bacteria Urine Mucus 10/30/17 10/30/17 10/30/17 06:57 10:22 11:53 RBC Hgb Hct MCV Plt Count Lymphocytes # Sodium Potassium Chloride Carbon Dioxide BUN Creatinine Glucose POC Glucose (mg/dL) 192 H 73 L 66 L Hemoglobin A1c Plasma Lactic Acid Ismael AST ALT Alkaline Phosphatase CK-MB (CK-2) Total Protein Albumin TSH Free T4 Urine Appearance Urine Nitrite Ur Leukocyte Esterase Urine WBC Urine WBC Clumps Urine Bacteria Urine Mucus 10/30/17 10/30/17 10/31/17 16:32 16:55 03:16 RBC Hgb Hct MCV Plt Count Lymphocytes # Sodium Potassium 5.3 H Chloride 115 H Carbon Dioxide 16 L BUN 41 H Creatinine 1.40 H Glucose 139 H POC Glucose (mg/dL) 115 H 103 H Hemoglobin A1c Plasma Lactic Acid Ismael AST 51 H ALT 58 H Alkaline Phosphatase 136 H CK-MB (CK-2) Total Protein 4.6 L Albumin 2.5 L TSH Free T4 Urine Appearance Urine Nitrite Ur Leukocyte Esterase Urine WBC Urine WBC Clumps Urine Bacteria Urine Mucus 10/31/17 10/31/17 10/31/17 03:16 03:16 08:56 RBC 2.76 L Hgb 8.6 L Hct 27.7 L MCV 100.5 H D Plt Count 112 L Lymphocytes # 0.4 L Sodium Potassium Chloride Carbon Dioxide BUN Creatinine Glucose POC Glucose (mg/dL) 190 H Hemoglobin A1c Plasma Lactic Acid Ismael AST ALT Alkaline Phosphatase CK-MB (CK-2) Total Protein Albumin TSH 0.102 L Free T4 Urine Appearance Urine Nitrite Ur Leukocyte Esterase Urine WBC Urine WBC Clumps Urine Bacteria Urine Mucus - Diagnostic Findings Chest x-ray: image reviewed (No evidence of active disease.) Additional studies: CT of the brain is basically nondiagnostic. Assessment and Plan Assessment: Impression: 1 acute sepsis and septic shock secondary to urinary tract infection secondary to gram-negative bacilli. 2 hypotension secondary to septic shock requiring fluid boluses, and dopamine infusion. 3 history of profound dementia, Alzheimer's disease. 4 remote history of non-Hodgkin's lymphoma 5 history of degenerative joint disease. 6 history of type 2 diabetes 7 history of hypothyroidism. Recommendation: Patient is presently on antibiotics in the form of Rocephin, she received over 3 L of fluid boluses, and she is now on dopamine drip. Hence I will hold her blood pressure medication for now until the blood pressure recovers. Continue in the meantime the protocol for sepsis, continue to monitor in the ICU, I had a long discussion with the regarding her condition, she is clearly a DO NOT RESUSCITATE CODE STATUS, we'll continue to follow closely. Eventually the patient will need to be evaluated by social services coordinator for placement, and the seems to be agreeable to that idea. Time with Patient: Greater than 30
[2017-10-31 12:03] LABS: Glucose,Whole Blood 135 mg/dL (75-99)
[2017-10-31] MEDS: FERROUS SULFATE 325 MG TAB PO SCH (12:15)
--- NOTE | 2017-10-31 13:29 | P.PN ---
Subjective Progress Note Date: 10/31/17 72-year-old female who presented to the emergency room on 10/29/2017 secondary to generalized weakness and fatigue. Patient has also been unable to ambulate and has not been taking her medications. She was found to have a urinary tract infection. She was admitted to the hospital and placed on antibiotics and IV fluids. 10/30/2017-Notes per Abi Mcbride NP and Dr. Fairbanks (covering for Dr. Pandya) Interval history: This a 72-year-old female admitted with severe sepsis, acute UTI, acute metabolic encephalopathy and multiple other medical issues. Maintained on broad-spectrum IV antibiotics, IV fluid hydration. Creatinine mildly worsened. Urine cultures reporting gram-negative bacilli. Receiving fluid boluses for hypotension. Blood pressure dropped to 72/38, pulse 71, temperature 98.6, O2 sat on room air 99%, Became unresponsive, responding only to noxious stimuli, telemetry reporting around of ventricular tachycardia 18 beats. A team called, transferred to ICU. 10/31/2017 Patient seen and examined in the intensive care unit by Dr. Pandya. Patient was transferred to the ICU yesterday secondary to hypotension and unresponsiveness. Dr. Gamble was consulted for ICU management. Echocardiogram was completed revealing ejection fraction of 55-60%, mild mitral regurgitation, and mild tricuspid regurgitation. Blood cultures are negative at the 24 hour gee. Preliminary urine culture is positive for gram-negative bacilli. Patient remains on ceftriaxone 1 g every 24 hours. White count this morning is 6.1. Hemoglobin 8.6. Sodium 138. Potassium 5.3. BUN 41. Creatinine 1.40. Patient remains bradycardic and hypotensive this morning. She was started on dopamine per cardiology. Nurse practitioner spoke with patients at the bedside. Discussion regarding code status. In the event of a cardiopulmonary arrest, the would like the patient to be a DNR. Objective - Vital Signs Vital signs: Vital Signs Temp 97.4 F L 10/31/17 08:00 Pulse 59 L 10/31/17 08:45 Resp 12 10/31/17 08:45 BP 142/45 10/31/17 08:45 Pulse Ox 97 10/31/17 08:45 Intake & Output 10/30/17 10/31/17 10/31/17 18:59 06:59 18:59 Intake Total 1180 946.563 271.250 Output Total 650 2665 75 Balance 530 -1718.437 196.250 Weight 89.7 kg Intake: IV 900 75 Dextrose 5%-0.45% NaCl 1, 900 75 000 ml @ 75 mls/hr IV . [id number] JOSEPH Rx#:[id number] Intake, IV Titration 1000 46.563 196.250 Amount Norepinephrin 4 mg-0.9% 46.563 196.250 Ns Pmx 4 mg In 250 ml @ Titrate IV .Q0M JOSEPH Rx#: [id number] Sodium Chloride 0.9% 1, 1000 000 ml @ 999 mls/hr IV . Q1H1M JOSEPH Rx#:[id number] Oral 180 Output: Urine 650 2665 75 Other: Voiding Method Indwelling Catheter # Voids 1 # Bowel Movements 0 1 - Exam GENERAL: This is a 72-year-old female in no apparent distress at the time of examination. HEENT: Head is atraumatic, normocephalic. Pupils are equal, round, and reactive to light. Sclerae anicteric. Conjunctivae are clear. Mucus membranes of the mouth are dry. Neck is supple. RESPIRATORY: Clear to ausculation. No wheezes, rales, or rhonchi. No use of accessory muscles. Patient maintaining oxygen saturation greater than 92%. No chest wall tenderness is noted on palpation or with deep breathing. CARDIOVASCULAR: Bradycardic. Regular rate and rhythm. S1 and S2 noted. No systolic or diastolic murmur auscultated. No JVD noted. No S3 or S4 noted. GASTROINTESTINAL: No distention noted. Abdomen soft and round. Normal active bowel sounds auscultated x 4 quadrants. No pain or tenderness noted upon palpation. INTEGUMENTARY: No cyanosis. No jaundice. No rashes noted. No cellulitis noted. EXTREMITIES: 2+ peripheral pulses. No evidence of peripheral edema. No calf tenderness noted. NEUROLOGIC: Cranial nerves II-XII intact. PSYCHIATRIC: Awake and alert. Oriented X 1, which is her baseline - Labs CBC & Chem 7: 10/31/17 03:16 10/31/17 03:16 Labs: Abnormal Lab Results - Last 24 Hours (Table) 10/30/17 10/30/17 10/30/17 Range/Units 05:56 11:53 16:32 RBC (3.80-5.40) m/uL Hgb (11.4-16.0) gm/dL Hct (34.0-46.0) % MCV (80.0-100.0) fL Plt Count (150-450) k/uL Lymphocytes # (1.0-4.8) k/uL Potassium (3.5-5.1) mmol/L Chloride (98-107) mmol/L Carbon Dioxide (22-30) mmol/L BUN (7-17) mg/dL Creatinine (0.52-1.04) mg/dL Glucose (74-99) mg/dL POC Glucose (mg/dL) 66 L 115 H (75-99) mg/dL Hemoglobin A1c 7.4 H (4.0-6.0) % AST (14-36) U/L ALT (9-52) U/L Alkaline Phosphatase (38-126) U/L Total Protein (6.3-8.2) g/dL Albumin (3.5-5.0) g/dL TSH (0.465-4.680) mIU/L 10/30/17 10/31/17 10/31/17 Range/Units 16:55 03:16 03:16 RBC 2.76 L (3.80-5.40) m/uL Hgb 8.6 L (11.4-16.0) gm/dL Hct 27.7 L (34.0-46.0) % MCV 100.5 H D (80.0-100.0) fL Plt Count 112 L (150-450) k/uL Lymphocytes # 0.4 L (1.0-4.8) k/uL Potassium 5.3 H (3.5-5.1) mmol/L Chloride 115 H (98-107) mmol/L Carbon Dioxide 16 L (22-30) mmol/L BUN 41 H (7-17) mg/dL Creatinine 1.40 H (0.52-1.04) mg/dL Glucose 139 H (74-99) mg/dL POC Glucose (mg/dL) 103 H (75-99) mg/dL Hemoglobin A1c (4.0-6.0) % AST 51 H (14-36) U/L ALT 58 H (9-52) U/L Alkaline Phosphatase 136 H (38-126) U/L Total Protein 4.6 L (6.3-8.2) g/dL Albumin 2.5 L (3.5-5.0) g/dL TSH (0.465-4.680) mIU/L 10/31/17 10/31/17 Range/Units 03:16 08:56 RBC (3.80-5.40) m/uL Hgb (11.4-16.0) gm/dL Hct (34.0-46.0) % MCV (80.0-100.0) fL Plt Count (150-450) k/uL Lymphocytes # (1.0-4.8) k/uL Potassium (3.5-5.1) mmol/L Chloride (98-107) mmol/L Carbon Dioxide (22-30) mmol/L BUN (7-17) mg/dL Creatinine (0.52-1.04) mg/dL Glucose (74-99) mg/dL POC Glucose (mg/dL) 190 H (75-99) mg/dL Hemoglobin A1c (4.0-6.0) % AST (14-36) U/L ALT (9-52) U/L Alkaline Phosphatase (38-126) U/L Total Protein (6.3-8.2) g/dL Albumin (3.5-5.0) g/dL TSH 0.102 L (0.465-4.680) mIU/L Microbiology - Last 24 Hours (Table) 10/30/17 01:16 Blood Culture - Preliminary Blood No Growth after 24 hours 10/29/17 14:02 Urine Culture - Preliminary Urine,Catheterized Gram Neg Bacilli Assessment and Plan Plan: ASSESSMENT: Urinary tract infection, present on admission, preliminary cultures revealed gram negative bacilli Sepsis, present on admission, secondary to urinary tract infection Septic shock, patient hypotensive and unresponsive, requiring IV boluses and dopamine infusion, secondary to urinary tract infection Decreased TSH and increased T4, possible iatrogenic hyperthyroidism Ventricular tachycardia, 18 beat run Hyperkalemia Acute kidney injury Anemia of chronic disease, stable Diabetes mellitus, type II PLAN: requesting patient to be DNR Infectious disease on consult. Appreciate recommendations and input ICU management per Dr. Weeks Cardiology on consult. Appreciate recommendations and input Continue IV fluids Monitor blood pressure and heart rate Monitor potassium. Recheck at 1600. Home meds as appropriate Monitor labs GI prophylaxis: Protonix 40 mg IV Daily DVT prophylaxis: Heparin 5000 units subcu every 8 hours Further recommendations pending patient's course Nurse practitioner note has been reviewed by physician. Signing provider agrees with the documented findings, assessment, and plan of care.
[2017-10-31] MEDS ORDERED: SODIUM CHLORIDE 0.9% 1,000 ML IV ONE (14:21)
--- NOTE | 2017-10-31 15:34 | CONS ---
CONSULTATION DATE OF SERVICE: 10/31/2017 REASON FOR CONSULTATION: Urinary tract infection with sepsis. HISTORY OF PRESENT ILLNESS: The patient is a 72-year-old female brought into the ER at [facility] on 10/29/2017 with chief complaints of mental status changes. Apparently the patient who did have underlying dementia had been taken care of at home by the . Over the last few days, the patient seemed to be getting very weak. No energy, unable to ambulate. On arrival to the ER, the patient was noticed to be hypertensive, systolic down to 86 for which the patient did receive multiple fluid boluses. Subsequent admitted to ICU, has required dopamine currently to 5 mcg. She was hypothermic on arrival to the ER with temperature of 85.4. She would normalize to 97.6. Patient has been bradycardic as well. Overall improvement in the heart rate. She was noticed to have the white count to be normal. However, the UA was significantly positive and mildly elevated liver enzymes. Patient has been started on Rocephin and admitted to the ICU. Infectious Disease was consulted for further recommendation of antibiotic therapy. Most of the information has been obtained by review of the chart and talking to the nursing staff. The patient did have underlying dementia and unable to provide a reliable history. REVIEW OF SYSTEMS: Review of systems could not be reliably obtained. The positive points have been mentioned in the HPI. PAST MEDICAL HISTORY: Significant for hyperlipidemia, hypertension, dementia, diabetes mellitus, non- Hodgkin's lymphoma. PAST SURGICAL HISTORY: Hernia repair, right knee replacement, thyroid radiated therapy, and cataract surgery. SOCIAL HISTORY: No history of smoking, drinking or drug use. FAMILY HISTORY: Sister with a history of cancer of unknown type. ALLERGIES: LIPITOR, ENALAPRIL, PROPOXYPHENE. MEDICATION: Include the patient is currently on aspirin, Rocephin 1 g daily. She is on dopamine, iron sulfate, heparin, Motrin, NovoLog, Synthroid, Tradjenta, Ativan, Glucophage, Narcan, Protonix. PHYSICAL EXAMINATION: Her blood pressure is 98/45 with a pulse of 83, temperature of 98. She is 96% on room air. General description is an elderly female, lying in bed in no distress. No tachypnea or accessory muscle for respiration use. HEENT: Shows slight pallor. No scleral icterus. Oral mucosa is moist. No pharyngeal edema or thrush. NECK: Trachea central, no thyromegaly. LUNGS: Unlabored breathing, clear to auscultation. No wheeze or crackle. HEART: S1, S2, regular rate and rhythm. ABDOMEN: Soft, no tenderness. No guarding or rigidity. No organomegaly. EXTREMITIES: No edema of the feet. SKIN EXAMINATION: No rash or mass palpable. NEUROLOGICAL: Patient awake and alert. Orientation could not be done because of underlying dementia. LABS: Hemoglobin 8.6, white count 6.1, BUN of 41, creatinine 1.40. Liver enzymes were mildly elevated at 51 and 58. Urine showing gram-negative. Blood culture has been negative so far. Chest x-ray with no acute process. DIAGNOSTIC IMPRESSION AND PLAN: Patient admitted to the hospital with sepsis and the patient was noted to be hypothermic, hypertensive source is likely urinary. The patient did have significantly positive UA not showing gram-negative. Patient currently on Rocephin. Still requiring a pressure support. Would recall for resistant gram-negative pathogen while waiting for the culture to finalize. No other clinical focus of infection. This is reported to be negative. No clinical findings on lung auscultation. Abdomen was soft, no tenderness or any organomegaly and no evidence of any cellulitis or joint swelling. Also need further workup to make sure no evidence of any structural abnormality. PLAN: 1. Discontinue the Rocephin. 2. We will start the patient on cefepime 2 g q.12. 3. We will obtain ultrasound of the bladder and kidney area. 4. Gentle IV fluid. 5. We will follow up on clinical condition and culture to further adjust medication if needed. Family present at the bedside. Their questions were answered. MMODL / IJN: [id number] /
[2017-10-31] MEDS: LEVOTHYROXINE 100 MCG TAB PO SCH (15:54)
[2017-10-31] MEDS: LEVOTHYROXINE 75 MCG TAB PO SCH (15:54)
[2017-10-31] MEDS: CEFEPIME 2 GM in SODIUM CHLORIDE 0.9% 50 ML IVPB SCH (16:00)
[2017-10-31] MEDS ORDERED: SODIUM CHLORIDE 0.9% 1,000 ML IV SCH (16:45)
[2017-10-31 17:43] LABS: Glucose,Whole Blood 139 mg/dL (75-99)
--- NOTE | 2017-10-31 18:42 | CONS ---
CONSULTATION This is a 72-year-old lady with a history of type 2 diabetes, hypertension, hyperlipidemia who presented to the emergency room with generalized weakness, fatigue and lack of energy, inability to take medications. Apparently, the called because she has not been able to ambulate, not taking her medication. She lives at home with her . On questioning, the patient indicates and does not give me much information. She may have underlying memory issues. Patient was not at the bedside during my interview with her. However, I was asked to see her mainly because of a significant bradycardia off which was sinus bradycardia in the low 40s that occurred while she was in the ICU. She came in with what seems to be a possibility of UTI, dehydration with underlying dementia, but while she was here on a Levophed drip to support the blood pressure and fluids, she developed bradycardia and I was asked to see her. I switched the drip from Levophed to dopamine and the heart rate came up to almost in the 80s or 90s sinus and she seems to be more stable at the time of my evaluation. PAST MEDICAL HISTORY: 1. Hypertension. 2. Type 2 diabetes mellitus. 3. Hyperlipidemia. 4. Probable underlying dementia. MEDICATIONS: At home include metformin, Synthroid, Januvia, Zocor, Xanax, aspirin. Valsartan, and Moduretic. ALLERGIES: SHE IS ALLERGIC TO ATORVASTATIN, I AM NOT SURE WHAT KIND OF ALLERGY THIS IS. VASOTEC AND SULFA. REVIEW OF SYMPTOMS: Review of systems could not be obtained. PAST SURGICAL HISTORY: Past surgical history includes right knee arthroplasty, radioactive thyroid treatment, and cataract surgery. EXAMINATION: Blood pressure is about 108/60, pulse rate is about 67 per minute. HEENT unremarkable. Fundus was not examined by me. NECK: Supple. I cannot appreciate any JVD. There is no carotid bruit. Heart examination reveals S1, S2 with somewhat distant heart sounds and there is a short systolic murmur audible at the base. Lungs reveal fine rales over both bases. ABDOMEN: Soft, nontender. Lower extremities reveal diminished pulses. Central nervous system is grossly within normal limits, but there is generalized weakness. IMPRESSION: 1. Acute sepsis probably urinary tract infection being managed by Dr. Weeks. 2. Hypotension secondary to sepsis and dehydration. 3. Dementia. 4. Remote history of non-Hodgkin's lymphoma. 5. Type 2 diabetes mellitus. 6. Hypothyroidism. 7. Asymptomatic bradycardia. RECOMMENDATION: I advised some thyroid function tests and will increase the dose of thyroid supplement to 100 mcg daily. I have also switched her from Levophed to dopamine drip. Echo revealed good systolic function. We will continue hydration and based on clinical course, I will make further recommendations. No other intervention is necessary, but we will continue telemetry, hydration, dopamine drip for the heart rate as well as for blood pressure and based on clinical course, further recommendations will be made. I discussed my thoughts in detail with the patient. Her was not available. I am not sure how much she comprehends. MMODL / IJN: [id number] /
[2017-10-31] MEDS: NON-FORMULARY DRUG (Simvastatin 40 MG) PO SCH (20:39)
[2017-10-31 21:31] LABS: Glucose,Whole Blood 117 mg/dL (75-99)
[2017-11-01] MEDS: HEPARIN SODIUM,PORCINE 5,000 UNIT/ML 1 ML VIAL SQ SCH ×4 (00:28→23:28)
[2017-11-01] MEDS: SODIUM CHLORIDE 0.9% 1,000 ML IV SCH ×4 (00:29→23:29)
[2017-11-01] MEDS: CEFEPIME 2 GM in SODIUM CHLORIDE 0.9% 50 ML IVPB SCH ×3 (00:29→23:28)
[2017-11-01 05:37] LABS: Basophils % (A) 0 %; Eosinophils # (A) 0.1 k/uL (0-0.7); Eosinophils % (A) 2 %; HCT 24.8 % (34.0-46.0); HGB 7.7 gm/dL (11.4-16.0); Lymphocytes # (A) 0.3 k/uL (1.0-4.8); Lymphocytes % (A) 5 %; MCH 30.6 pg (25.0-35.0); MCHC 31.1 g/dL (31.0-37.0); MCV 98.3 fL (80.0-100.0); Macrocytosis Slight; Mean Platelet Volume 7.4; Monocytes # (A) 0.3 k/uL (0-1.0); Monocytes % (A) 6 %; Neutrophils # (A) 4.5 k/uL (1.3-7.7); Neutrophils % (A) 86 %; Platelet Count 115 k/uL (150-450); RBC 2.52 m/uL (3.80-5.40); RDW 14.3 % (11.5-15.5); WBC 5.3 k/uL (3.8-10.6)
[2017-11-01] MEDS: LEVOTHYROXINE 75 MCG TAB PO SCH (05:43)
[2017-11-01] MEDS: LEVOTHYROXINE 100 MCG TAB PO SCH (05:43)
[2017-11-01 05:56] LABS: ALT 62 U/L (9-52); AST 44 U/L (14-36); Albumin 2.8 g/dL (3.5-5.0); Alkaline Phosphatase 157 U/L (38-126); Anion Gap 6 mmol/L; Blood Urea Nitrogen 27 mg/dL (7-17); Calcium 9.2 mg/dL (8.4-10.2); Carbon Dioxide 18 mmol/L (22-30); Chloride 116 mmol/L (98-107); Glucose 80 mg/dL (74-99); Phosphorus 3.5 mg/dL (2.5-4.5); Potassium 5.6 mmol/L (3.5-5.1); Sodium 140 mmol/L (137-145); Total Bilirubin 0.3 mg/dL (0.2-1.3); Total Protein 4.9 g/dL (6.3-8.2)
[2017-11-01] MEDS ORDERED: Magnesium Replacement Protocol 1 EACH MISC MISCELLANE PRN (06:57)
[2017-11-01 07:28] LABS: Glucose,Whole Blood 91 mg/dL (75-99)
[2017-11-01] MEDS: INSULIN ASPART 100 UNIT/ML 1 ML 10 ML VIAL SQ SCH ×4 (07:38→21:08)
[2017-11-01] MEDS: MAGNESIUM SULFATE-D5W PMX 1 GM in DEXTROSE/WATER 1 100ML.BAG IVPB SCH ×2 (07:40→08:56)
[2017-11-01] MEDS: metFORMIN 500 MG TAB PO SCH (07:41)
[2017-11-01] MEDS: LINAGLIPTIN 5 MG TABLET PO SCH (07:42)
[2017-11-01] MEDS: PANTOPRAZOLE 40 MG/10 ML VIAL IV SCH (07:42)
[2017-11-01] MEDS: ASPIRIN 81 MG PO SCH (07:42)
[2017-11-01] MEDS: DOPamine DRIP 800 MG in DEXTROSE/WATER 1 500ML.BAG IV SCH (07:43)
[2017-11-01] MEDS: FERROUS SULFATE 325 MG TAB PO SCH (07:43)
--- NOTE | 2017-11-01 08:22 | US ---
EXAMINATION TYPE: US kidneys/renal and bladder DATE OF EXAM: 10/31/2017 COMPARISON: NONE CLINICAL HISTORY: recurrent UTI/Sepsis. Recurrent UTI's, exam done portable in ICU. EXAM MEASUREMENTS: Right Kidney: 9.6 x 4.1 x 4.7 cm Left Kidney: 9.6 x 5.2 x 4.5 cm Difficult and limited study due to patient body habitus. Right Kidney: 1.8 x 1.6 x 1.3cm cystic area mid pole, possible cyst vs. Hydronephrosis, inferior pole obscured by overlying bowel gas Left Kidney: no hydro or masses seen, inferior pole obscured by overlying bowel gas Bladder: not distended, barnhart catheter Bilateral Jets seen: no Cortical medullary differentiation maintained in the visualized portions of the kidney. There is no a scites. IMPRESSION: Limited exam. No significant hydronephrosis is evident. There may be parapelvic cyst or extrarenal pe lvis on the right versus mild hydronephrosis.
[2017-11-01] MEDS ORDERED: NOREPINEPHRIN 4 MG-0.9% NS PMX 4 MG/250 ML ML IV SCH (09:00)
--- NOTE | 2017-11-01 10:08 | PN ---
PROGRESS NOTE HISTORY: This is a 72-year-old lady with underlying sick sinus syndrome, UTI, dehydration and underlying dementia. Yesterday, I placed her on a dopamine drip and her heart rate, which was low in the 30s, came back up. She is in a sinus rhythm with a long MD interval. Blood pressure is 100 systolic on 3 mics of dopamine. Advised to continue the same for now. No other intervention cardiac-vora. Her sepsis is being addressed and she also is receiving IV fluids. Blood pressure is 1/100 systolic. Pulse rate is about 84. Appears to be first-degree AV block with long MD interval. S1-S2 heard normally. Lungs reveal bilateral air entry. Abdomen is soft. Lower extremities reveal diminished pulses. Central nervous system is normal. Echo revealed preserved systolic function. PLAN: Continue current medications, treat her with antibiotics as already outlined by the technical support technician. No intervention other than the current medical regimen. Prognosis remains guarded. If she develops any hypotension, we should use Levophed for blood pressure support. MMODL / IJN: [id number] /
[2017-11-01] MEDS ORDERED: LACTATED RINGERS 1,000 ML IV ONE (10:45)
[2017-11-01 12:07] LABS: Glucose,Whole Blood 103 mg/dL (75-99)
--- NOTE | 2017-11-01 14:55 | P.PN ---
Subjective Progress Note Date: 11/01/17 Principal diagnosis: Acute sepsis and septic shock secondary to Enterobacter cloaca. Urinary tract infection This is a 72-year-old female with history of Alzheimer's disease, profound dementia which has been present for the last 9 years at least, but over the last 2 years, the patient has been deteriorating rather significantly. Patient is usually followed by Dr. Pandya on outpatient basis, and has been seen in the past by Dr. Sherlyn paz for her dementia. Patient is also known to have history of non-Hodgkin's lymphoma, hypertension, diabetes, and hypothyroidism. Patient lives with her who seems to be taking care of the patient by himself for the last 9 years. According to him, in the last few days the patient has become weaker, unable to walk or to the bathroom any more, and she is getting more and more confused. The patient herself is unable to give any history, Workup in the ER showed that the patient had a urinary tract infection , she had slightly elevated lactic acid, she was also hypotensive and given fluid boluses in the ER. In spite of fluid boluses, patient remained hypotensive, and she was bradycardic hence dopamine was started, and she is presently at 10 mcg/kg/m of dopamine. Her urinalysis showed bacteriuria and pyuria, blood cultures are pending and urine cultures are pending. Patient was admitted to the ICU, and I was asked to see her on consultation. No headaches, no blurred vision, no dizziness, no fever documented at home, no urinary symptoms according to the at home, no nausea no vomiting no abdominal pain. Again the seems to be mostly concerned about her worsening weakness, and he is at a point where he cannot take care of the patient by himself. Patient was reevaluated today on 11/01/2017, doing much better compared to yesterday, blood pressure remains marginal, still requiring 3 g of dopamine. This is being titrated, and the patient is relatively asymptomatic. Her urine culture is positive for Enterobacter cloacae. Her labs were reviewed potassium is a bit on the high side, renal profile is improving. Hemoglobin is 7.7 with normal WBC count. Objective - Vital Signs Vital signs: Vital Signs Temp 97.6 F 11/01/17 12:00 Pulse 71 11/01/17 14:00 Resp 24 11/01/17 14:00 BP 124/82 11/01/17 14:00 Pulse Ox 97 11/01/17 14:00 Intake & Output 10/31/17 11/01/17 11/01/17 18:59 06:59 18:59 Intake Total 3376.250 0383.762 7239.303 Output Total 1500 1855 1050 Balance 1876.250 -58.089 694.303 Weight 96.4 kg Intake: IV 675 1450 1699 Dextrose 5%-0.45% NaCl 1, 675 000 ml @ 75 mls/hr IV . [id number] [facility] Rx#:[id number] Lactated Ringers 1,000 ml 999 @ 999 mls/hr IV .Q1H1M [facility] Rx#:[id number] Sodium Chloride 0.9% 1, 100 700 000 ml @ 100 mls/hr IV . Q10H [facility] Rx#:[id number] Sodium Chloride 0.9% 1, 1350 000 ml @ 125 mls/hr IV . Q8H [facility] Rx#:[id number] Intake, IV Titration 2671.250 346.911 15.303 Amount Cefepime 2 gm In Sodium 100 Chloride 0.9% 50 ml @ 100 mls/hr IVPB Q12HR@0000, 1200 [facility] Rx#:[id number] DOPamine DRIP 800 mg In 346.911 15.303 Dextrose/Water 1 500ml. bag @ 5 MCG/KG/MIN 16.81 mls/hr IV .Q24H [facility] Rx#: [id number] Norepinephrin 4 mg-0.9% 196.250 Ns Pmx 4 mg In 250 ml @ Titrate IV .Q0M [facility] Rx#: [id number] Sodium Chloride 0.9% 1, 375 000 ml @ 125 mls/hr IV . Q8H [facility] Rx#:[id number] Sodium Chloride 0.9% 1, 1000 000 ml @ 999 mls/hr IV . Q1H1M [facility] Rx#:[id number] Sodium Chloride 0.9% 500 1000 ml @ 999 mls/hr IV .Q31M [facility] Rx#:[id number] Oral 30 30 Output: Urine 1500 1855 1050 Other: Voiding Method Indwelling Catheter Indwelling Catheter Indwelling Catheter - Exam Constitutional: Awake nonverbal, but was answering simple questions yes and no, Head: Normocephalic atraumatic Eyes: PERRLA, EOMI, no icterus noted. Neck: Short neck, neck masses, no JVD, no stridor, no lymphadenopathy, no thyromegaly noted. Heart: Regular rate rhythm normal S1-S2 no murmurs Lungs: Symmetrical chest expansion, no crackles or rhonchi or wheezes. No chest wall tenderness. Abdomen: Obese, soft, nontender, no megaly, no rebound, no guarding, positive bowel sounds. Extremities: Non edematous DP pulses intact Radial pulses intact Neuro: Awake and alert however does not answer questions. Except yes and no, Psych: Blunted affect, poor mental status examination, poor judgment and insight - Labs CBC & Chem 7: 11/01/17 04:51 11/01/17 04:51 Labs: Abnormal Lab Results - Last 24 Hours (Table) 10/31/17 10/31/17 10/31/17 Range/Units 16:15 17:41 20:52 RBC (3.80-5.40) m/uL Hgb (11.4-16.0) gm/dL Hct (34.0-46.0) % Plt Count (150-450) k/uL Lymphocytes # (1.0-4.8) k/uL Potassium 5.6 H (3.5-5.1) mmol/L Chloride (98-107) mmol/L Carbon Dioxide (22-30) mmol/L BUN (7-17) mg/dL POC Glucose (mg/dL) 139 H (75-99) mg/dL AST (14-36) U/L ALT (9-52) U/L Alkaline Phosphatase (38-126) U/L Troponin I 0.106 H* (0.000-0.034) ng/mL Total Protein (6.3-8.2) g/dL Albumin (3.5-5.0) g/dL 10/31/17 10/31/17 11/01/17 Range/Units 20:52 21:30 04:51 RBC 2.52 L (3.80-5.40) m/uL Hgb 7.7 L (11.4-16.0) gm/dL Hct 24.8 L (34.0-46.0) % Plt Count 115 L (150-450) k/uL Lymphocytes # 0.3 L (1.0-4.8) k/uL Potassium 5.6 H (3.5-5.1) mmol/L Chloride (98-107) mmol/L Carbon Dioxide (22-30) mmol/L BUN (7-17) mg/dL POC Glucose (mg/dL) 117 H (75-99) mg/dL AST (14-36) U/L ALT (9-52) U/L Alkaline Phosphatase (38-126) U/L Troponin I (0.000-0.034) ng/mL Total Protein (6.3-8.2) g/dL Albumin (3.5-5.0) g/dL 11/01/17 11/01/17 Range/Units 04:51 11:52 RBC (3.80-5.40) m/uL Hgb (11.4-16.0) gm/dL Hct (34.0-46.0) % Plt Count (150-450) k/uL Lymphocytes # (1.0-4.8) k/uL Potassium 5.6 H (3.5-5.1) mmol/L Chloride 116 H (98-107) mmol/L Carbon Dioxide 18 L (22-30) mmol/L BUN 27 H (7-17) mg/dL POC Glucose (mg/dL) 103 H (75-99) mg/dL AST 44 H (14-36) U/L ALT 62 H (9-52) U/L Alkaline Phosphatase 157 H (38-126) U/L Troponin I (0.000-0.034) ng/mL Total Protein 4.9 L (6.3-8.2) g/dL Albumin 2.8 L (3.5-5.0) g/dL Microbiology - Last 24 Hours (Table) 10/30/17 01:16 Blood Culture - Preliminary Blood No Growth after 48 hours 10/29/17 14:02 Urine Culture - Final Urine,Catheterized Enterobacter cloacae Assessment and Plan Assessment: Impression: 1 acute sepsis and septic shock secondary to urinary tract infection secondary to Enterobacter cloacae Sensitive to Rocephin and patient is on Rocephin. 2 hypotension secondary to septic shock requiring fluid boluses, and dopamine infusion. 3 history of profound dementia, Alzheimer's disease. 4 remote history of non-Hodgkin's lymphoma 5 history of degenerative joint disease. 6 history of type 2 diabetes 7 history of hypothyroidism. Recommendation: Patient is presently on antibiotics in the form of Rocephin, she received over 3 L of fluid boluses, and she is now on dopamine drip. At 3 mcg/kg/m, being tapered down. Continue present supportive care measures, continue to taper that dopamine and possibly discontinue today, and the patient could be transferred out of the ICU otherwise will need to keep in the ICU for another 24 hours. Time with Patient: Less than 30
[2017-11-01 17:40] LABS: Glucose,Whole Blood 104 mg/dL (75-99)
--- NOTE | 2017-11-01 17:44 | PN ---
PROGRESS NOTE DATE OF SERVICE: 11/01/2017. REASON FOR FOLLOWUP: Urinary tract infection complicated with possible sepsis. INTERVAL HISTORY: The patient is afebrile. She seems to be more awake, alert, hemodynamically stable. Denies any chest pain, abdominal pain, nausea, vomiting, diarrhea. EXAMINATION: Blood pressure 124/82 with a pulse of 71, temperature 97.6. She is 97% on 2 L nasal cannula. General description is an elderly female up in the bed in no distress. Respiratory system unlabored breathing. Clear to auscultation anteriorly. Heart S1, S2 regular rate and rhythm. Abdomen soft. No tenderness. Central nervous system: No focal deficits. LABS: Hemoglobin 7.7, white count 5.3 with a BUN of 27, creatinine 1.01. Urine with Enterobacter cloacae and sensitivity to ceftriaxone, cefepime as well as Cipro. DIAGNOSTIC IMPRESSION AND PLAN: Patient with Enterobacter urinary tract infection. Patient admitted to the hospital with sepsis. Ultrasound abdomen was negative for any significant abnormality with mild right-sided hydronephrosis. The patient continues to be on Cefepime with the plan to finish therapy with oral Cipro. has been present at bedside. His questions and concerns were answered. MMODL / IJN: [id number] /
[2017-11-01 21:06] LABS: Glucose,Whole Blood 127 mg/dL (75-99)
[2017-11-01] MEDS: NON-FORMULARY DRUG (Simvastatin 40 MG) PO SCH (21:12)
[2017-11-02 05:30] LABS: Basophils % (A) 0 %; Eosinophils # (A) 0.1 k/uL (0-0.7); Eosinophils % (A) 2 %; HCT 24.8 % (34.0-46.0); HGB 8.1 gm/dL (11.4-16.0); Lymphocytes # (A) 0.3 k/uL (1.0-4.8); Lymphocytes % (A) 6 %; MCH 31.5 pg (25.0-35.0); MCHC 32.7 g/dL (31.0-37.0); MCV 96.4 fL (80.0-100.0); Monocytes # (A) 0.3 k/uL (0-1.0); Monocytes % (A) 7 %; Neutrophils # (A) 3.7 k/uL (1.3-7.7); Neutrophils % (A) 83 %; Platelet Count 83 k/uL (150-450); Poikilocytosis Slight; RBC 2.57 m/uL (3.80-5.40); RDW 14.8 % (11.5-15.5); WBC 4.5 k/uL (3.8-10.6)
[2017-11-02 06:03] LABS: ALT 64 U/L (9-52); AST 44 U/L (14-36); Albumin 2.5 g/dL (3.5-5.0); Alkaline Phosphatase 146 U/L (38-126); Anion Gap 8 mmol/L; Blood Urea Nitrogen 24 mg/dL (7-17); Calcium 9.2 mg/dL (8.4-10.2); Carbon Dioxide 17 mmol/L (22-30); Chloride 115 mmol/L (98-107); Glucose 64 mg/dL (74-99); Phosphorus 3.3 mg/dL (2.5-4.5); Potassium 5.4 mmol/L (3.5-5.1); Sodium 140 mmol/L (137-145); Total Bilirubin 0.3 mg/dL (0.2-1.3); Total Protein 4.6 g/dL (6.3-8.2)
[2017-11-02] MEDS: LEVOTHYROXINE 100 MCG TAB PO SCH (06:37)
[2017-11-02] MEDS: LEVOTHYROXINE 75 MCG TAB PO SCH (06:37)
[2017-11-02 07:00] LABS: Glucose,Whole Blood 100 mg/dL (75-99)
[2017-11-02 07:42] LABS: Glucose,Whole Blood 82 mg/dL (75-99)
[2017-11-02] MEDS: INSULIN ASPART 100 UNIT/ML 1 ML 10 ML VIAL SQ SCH ×4 (08:10→20:38)
[2017-11-02] MEDS: HEPARIN SODIUM,PORCINE 5,000 UNIT/ML 1 ML VIAL SQ SCH ×2 (08:11→17:32)
[2017-11-02] MEDS: metFORMIN 500 MG TAB PO SCH (08:11)
[2017-11-02] MEDS: DOPamine DRIP 800 MG in DEXTROSE/WATER 1 500ML.BAG IV SCH (08:11)
[2017-11-02] MEDS: FERROUS SULFATE 325 MG TAB PO SCH (08:11)
[2017-11-02] MEDS: PANTOPRAZOLE 40 MG/10 ML VIAL IV SCH (08:12)
[2017-11-02] MEDS: ASPIRIN 81 MG PO SCH (08:12)
[2017-11-02] MEDS: LINAGLIPTIN 5 MG TABLET PO SCH (08:12)
[2017-11-02] MEDS: CEFEPIME 2 GM in SODIUM CHLORIDE 0.9% 50 ML IVPB SCH (11:24)
[2017-11-02] MEDS: SODIUM CHLORIDE 0.9% 1,000 ML IV SCH ×2 (11:26→19:48)
[2017-11-02 12:07] LABS: Glucose,Whole Blood 78 mg/dL (75-99)
--- NOTE | 2017-11-02 13:25 | P.PN ---
Subjective Progress Note Date: 11/02/17 Principal diagnosis: Acute sepsis and septic shock secondary to Enterobacter cloaca. Urinary tract infection This is a 72-year-old female with history of Alzheimer's disease, profound dementia which has been present for the last 9 years at least, but over the last 2 years, the patient has been deteriorating rather significantly. Patient is usually followed by Dr. Pandya on outpatient basis, and has been seen in the past by Dr. Sherlyn paz for her dementia. Patient is also known to have history of non-Hodgkin's lymphoma, hypertension, diabetes, and hypothyroidism. Patient lives with her who seems to be taking care of the patient by himself for the last 9 years. According to him, in the last few days the patient has become weaker, unable to walk or to the bathroom any more, and she is getting more and more confused. The patient herself is unable to give any history, Workup in the ER showed that the patient had a urinary tract infection , she had slightly elevated lactic acid, she was also hypotensive and given fluid boluses in the ER. In spite of fluid boluses, patient remained hypotensive, and she was bradycardic hence dopamine was started, and she is presently at 10 mcg/kg/m of dopamine. Her urinalysis showed bacteriuria and pyuria, blood cultures are pending and urine cultures are pending. Patient was admitted to the ICU, and I was asked to see her on consultation. No headaches, no blurred vision, no dizziness, no fever documented at home, no urinary symptoms according to the at home, no nausea no vomiting no abdominal pain. Again the seems to be mostly concerned about her worsening weakness, and he is at a point where he cannot take care of the patient by himself. Patient was reevaluated today on 11/01/2017, doing much better compared to yesterday, blood pressure remains marginal, still requiring 3 g of dopamine. This is being titrated, and the patient is relatively asymptomatic. Her urine culture is positive for Enterobacter cloacae. Her labs were reviewed potassium is a bit on the high side, renal profile is improving. Hemoglobin is 7.7 with normal WBC count. Patient was reevaluated today on 09/01/2018, doing much better, hemodynamically stable, off pressors, in no form of respiratory distress. Labs were all reviewed, medications were all reviewed, urine culture was positive for Enterobacter cloacae. Patient remains on Rocephin. Objective - Vital Signs Vital signs: Vital Signs Temp 97.4 F L 11/02/17 08:00 Pulse 77 11/02/17 09:00 Resp 24 11/02/17 09:00 BP 143/66 11/02/17 09:00 Pulse Ox 92 L 11/02/17 09:00 Intake & Output 11/01/17 11/02/17 11/02/17 18:59 06:59 18:59 Intake Total 2308.543 1100 300 Output Total 1470 1580 195 Balance 838.543 -480 105 Weight 95.5 kg Intake: IV 2199 200 Lactated Ringers 1,000 ml 999 @ 999 mls/hr IV .Q1H1M [facility] Rx#:[id number] Sodium Chloride 0.9% 1, 1200 200 000 ml @ 100 mls/hr IV . Q10H [facility] Rx#:[id number] Intake, IV Titration 79.543 1100 100 Amount DOPamine DRIP 800 mg In 79.543 Dextrose/Water 1 500ml. bag @ 5 MCG/KG/MIN 16.81 mls/hr IV .Q24H [facility] Rx#: [id number] Sodium Chloride 0.9% 1, 1100 100 000 ml @ 100 mls/hr IV . Q10H [facility] Rx#:[id number] Oral 30 Output: Urine 1470 1580 195 Other: Voiding Method Indwelling Catheter Indwelling Catheter Indwelling Catheter # Voids 1 # Bowel Movements 1 - Exam Constitutional: Awake , seems more responsive, verbalizing but confused. Head: Normocephalic atraumatic Eyes: PERRLA, EOMI, no icterus noted. Neck: Short neck, neck masses, no JVD, no stridor, no lymphadenopathy, no thyromegaly noted. Heart: Regular rate rhythm normal S1-S2 no murmurs Lungs: Symmetrical chest expansion, no crackles or rhonchi or wheezes. No chest wall tenderness. Abdomen: Obese, soft, nontender, no megaly, no rebound, no guarding, positive bowel sounds. Extremities: Non edematous DP pulses intact Radial pulses intact Neuro: Awake and alert however does not answer questions. Except yes and no, Psych: Blunted affect, poor mental status examination, poor judgment and insight - Labs CBC & Chem 7: 11/02/17 04:55 11/02/17 04:55 Labs: Abnormal Lab Results - Last 24 Hours (Table) 11/01/17 11/01/17 11/02/17 Range/Units 17:37 21:04 04:55 RBC 2.57 L (3.80-5.40) m/uL Hgb 8.1 L (11.4-16.0) gm/dL Hct 24.8 L (34.0-46.0) % Plt Count 83 L (150-450) k/uL Lymphocytes # 0.3 L (1.0-4.8) k/uL Potassium (3.5-5.1) mmol/L Chloride (98-107) mmol/L Carbon Dioxide (22-30) mmol/L BUN (7-17) mg/dL Glucose (74-99) mg/dL POC Glucose (mg/dL) 104 H 127 H (75-99) mg/dL AST (14-36) U/L ALT (9-52) U/L Alkaline Phosphatase (38-126) U/L Total Protein (6.3-8.2) g/dL Albumin (3.5-5.0) g/dL 11/02/17 11/02/17 Range/Units 04:55 06:58 RBC (3.80-5.40) m/uL Hgb (11.4-16.0) gm/dL Hct (34.0-46.0) % Plt Count (150-450) k/uL Lymphocytes # (1.0-4.8) k/uL Potassium 5.4 H (3.5-5.1) mmol/L Chloride 115 H (98-107) mmol/L Carbon Dioxide 17 L (22-30) mmol/L BUN 24 H (7-17) mg/dL Glucose 64 L (74-99) mg/dL POC Glucose (mg/dL) 100 H (75-99) mg/dL AST 44 H (14-36) U/L ALT 64 H (9-52) U/L Alkaline Phosphatase 146 H (38-126) U/L Total Protein 4.6 L (6.3-8.2) g/dL Albumin 2.5 L (3.5-5.0) g/dL Microbiology - Last 24 Hours (Table) 10/30/17 01:16 Blood Culture - Preliminary Blood No Growth after 72 hours Assessment and Plan Assessment: Impression: 1 acute sepsis and septic shock secondary to urinary tract infection secondary to Enterobacter cloacae Sensitive to Rocephin and patient is on Rocephin. 2 hypotension secondary to septic shock requiring fluid boluses, and dopamine infusion. 3 history of profound dementia, Alzheimer's disease. 4 remote history of non-Hodgkin's lymphoma 5 history of degenerative joint disease. 6 history of type 2 diabetes 7 history of hypothyroidism. Recommendation: Considering the patient is doing well today, and she is off pressors, hemodynamically stable, I will recommend morning the patient out of the ICU to a regular medical floor, continue Rocephin, and we'll continue to follow. Patient will likely need director social to evaluate for placement. Time with Patient: Less than 30
--- NOTE | 2017-11-02 16:30 | PN ---
PROGRESS NOTE DATE OF SERVICE: 11/02/2017 REASON FOR FOLLOWUP: Urinary tract infection. INTERVAL HISTORY: The patient is afebrile. She has been hemodynamically stable, breathing comfortably. Denies having any chest pain or cough. No abdominal pain or any diarrhea. PHYSICAL EXAMINATION: Blood pressure 143/66, pulse of 77, temperature 97.4. She is 92% on room air. General description is an elderly female lying in bed in no distress. RESPIRATORY SYSTEM: Unlabored breathing. Clear to auscultation anteriorly. HEART: S1, S2. Regular rate and rhythm. ABDOMEN: Soft. No tenderness. LABS: Hemoglobin 8.1, white count 4.5. BUN of 24, creatinine 0.97. DIAGNOSTIC IMPRESSION AND PLAN: Patient with enterobacter urinary tract infection, currently on cefepime. Recommend finishing therapy with oral Cipro 500 b.i.d. for another 7 to 10 days. Ultrasound was negative for abnormality. was present at bedside; his questions were answered. MMODL / IJN: [id number] /
--- NOTE | 2017-11-02 17:12 | PN ---
PROGRESS NOTE Mrs. Crowley is offered dopamine and Levophed. Her blood pressure is good. Heart rate is in the 60s. She is in sinus with a first-degree AV block. Blood pressure and heart rate are much better and she seems to be more alert. Blood pressure 120/70, pulse rate 68 per minute. S1, S2 heard normally. Short systolic murmur noted. Lungs are clear. Abdomen and lower extremity exam unchanged. She can be sent to the medical floor. I am recommending that, given her sick sinus syndrome, she should not be on any rate-lowering agents. Discussed my thoughts in detail with the patient and her . Thank you very much for the consult. I will see her as needed. MMODL / IJN: [id number] /
[2017-11-02 17:14] LABS: Glucose,Whole Blood 146 mg/dL (75-99)
[2017-11-02 19:59] LABS: Glucose,Whole Blood 108 mg/dL (75-99)
[2017-11-02] MEDS: NON-FORMULARY DRUG (Simvastatin 40 MG) PO SCH (20:40)
[2017-11-03] MEDS: HEPARIN SODIUM,PORCINE 5,000 UNIT/ML 1 ML VIAL SQ SCH ×3 (00:24→16:08)
[2017-11-03] MEDS: CEFEPIME 2 GM in SODIUM CHLORIDE 0.9% 50 ML IVPB SCH ×3 (00:24→23:58)
[2017-11-03] MEDS: SODIUM CHLORIDE 0.9% 1,000 ML IV SCH ×2 (05:32→14:59)
[2017-11-03] MEDS: LEVOTHYROXINE 75 MCG TAB PO SCH (06:06)
[2017-11-03] MEDS: LEVOTHYROXINE 100 MCG TAB PO SCH (06:06)
[2017-11-03 06:54] LABS: Glucose,Whole Blood 69 mg/dL (75-99)
[2017-11-03] MEDS: INSULIN ASPART 100 UNIT/ML 1 ML 10 ML VIAL SQ SCH ×4 (07:06→22:17)
[2017-11-03 07:12] LABS: Basophils % (A) 0 %; Eosinophils # (A) 0.1 k/uL (0-0.7); Eosinophils % (A) 2 %; HCT 23.4 % (34.0-46.0); HGB 7.8 gm/dL (11.4-16.0); Lymphocytes # (A) 0.3 k/uL (1.0-4.8); Lymphocytes % (A) 7 %; MCH 31.5 pg (25.0-35.0); MCHC 33.2 g/dL (31.0-37.0); Mean Platelet Volume 8.2; Monocytes # (A) 0.2 k/uL (0-1.0); Monocytes % (A) 6 %; Neutrophils # (A) 3.1 k/uL (1.3-7.7); Neutrophils % (A) 81 %; Poikilocytosis Slight; RBC 2.46 m/uL (3.80-5.40); RDW 14.9 % (11.5-15.5); WBC 3.8 k/uL (3.8-10.6)
[2017-11-03 07:32] LABS: ALT 51 U/L (9-52); AST 32 U/L (14-36); Albumin 2.5 g/dL (3.5-5.0); Alkaline Phosphatase 130 U/L (38-126); Anion Gap 6 mmol/L; Blood Urea Nitrogen 22 mg/dL (7-17); Carbon Dioxide 20 mmol/L (22-30); Chloride 116 mmol/L (98-107); Glucose 65 mg/dL (74-99); Phosphorus 3.1 mg/dL (2.5-4.5); Potassium 4.9 mmol/L (3.5-5.1); Sodium 142 mmol/L (137-145); Total Bilirubin 0.4 mg/dL (0.2-1.3); Total Protein 4.8 g/dL (6.3-8.2)
[2017-11-03] MEDS: metFORMIN 500 MG TAB PO SCH (07:44)
[2017-11-03] MEDS: ASPIRIN 81 MG PO SCH (07:44)
[2017-11-03] MEDS: FERROUS SULFATE 325 MG TAB PO SCH (07:44)
[2017-11-03] MEDS: LINAGLIPTIN 5 MG TABLET PO SCH (07:44)
[2017-11-03] MEDS: PANTOPRAZOLE 40 MG/10 ML VIAL IV SCH (07:44)
[2017-11-03 07:59] LABS: Platelet Count 78 k/uL (150-450)
[2017-11-03 11:31] LABS: Glucose,Whole Blood 70 mg/dL (75-99)
--- NOTE | 2017-11-03 13:07 | P.PN ---
Subjective Progress Note Date: 11/03/17 Principal diagnosis: Acute sepsis and septic shock secondary to Enterobacter cloaca. Urinary tract infection This is a 72-year-old female with history of Alzheimer's disease, profound dementia which has been present for the last 9 years at least, but over the last 2 years, the patient has been deteriorating rather significantly. Patient is usually followed by Dr. Pandya on outpatient basis, and has been seen in the past by Dr. Sherlyn paz for her dementia. Patient is also known to have history of non-Hodgkin's lymphoma, hypertension, diabetes, and hypothyroidism. Patient lives with her who seems to be taking care of the patient by himself for the last 9 years. According to him, in the last few days the patient has become weaker, unable to walk or to the bathroom any more, and she is getting more and more confused. The patient herself is unable to give any history, Workup in the ER showed that the patient had a urinary tract infection , she had slightly elevated lactic acid, she was also hypotensive and given fluid boluses in the ER. In spite of fluid boluses, patient remained hypotensive, and she was bradycardic hence dopamine was started, and she is presently at 10 mcg/kg/m of dopamine. Her urinalysis showed bacteriuria and pyuria, blood cultures are pending and urine cultures are pending. Patient was admitted to the ICU, and I was asked to see her on consultation. No headaches, no blurred vision, no dizziness, no fever documented at home, no urinary symptoms according to the at home, no nausea no vomiting no abdominal pain. Again the seems to be mostly concerned about her worsening weakness, and he is at a point where he cannot take care of the patient by himself. Patient was reevaluated today on 11/01/2017, doing much better compared to yesterday, blood pressure remains marginal, still requiring 3 g of dopamine. This is being titrated, and the patient is relatively asymptomatic. Her urine culture is positive for Enterobacter cloacae. Her labs were reviewed potassium is a bit on the high side, renal profile is improving. Hemoglobin is 7.7 with normal WBC count. Patient was reevaluated today on 09/01/2018, doing much better, hemodynamically stable, off pressors, in no form of respiratory distress. Labs were all reviewed, medications were all reviewed, urine culture was positive for Enterobacter cloacae. Patient remains on Rocephin. The patient is seen again today 11/03/2017 in follow-up on the regular medical floor. She is currently resting quite comfortably in bed. She is maintaining good O2 saturations in the high 90s on room air. She is afebrile. Hemodynamically stable. No leukocytosis. Hemoglobin 7.8. Creatinine 1.03. Her is at the bedside. Objective - Vital Signs Vital signs: Vital Signs Temp 98.0 F 11/03/17 07:00 Pulse 63 11/03/17 08:00 Resp 16 11/03/17 08:00 BP 107/74 11/03/17 07:00 Pulse Ox 99 11/03/17 07:00 Intake & Output 11/02/17 11/03/17 11/03/17 18:59 06:59 18:59 Intake Total 900 Output Total 195 Balance 705 Intake: IV 200 Sodium Chloride 0.9% 1, 200 000 ml @ 100 mls/hr IV . Q10H JOSEPH Rx#:[id number] Intake, IV Titration 700 Amount Sodium Chloride 0.9% 1, 700 000 ml @ 100 mls/hr IV . Q10H JOSEPH Rx#:[id number] Output: Urine 195 Other: Voiding Method Indwelling Catheter Incontinent Diaper Incontinent # Voids 1 # Bowel Movements 1 1 - Exam Constitutional: Resting comfortably in bed. Remains confused. Head: Normocephalic atraumatic Eyes: PERRLA, EOMI, no icterus noted. Neck: Short neck, neck masses, no JVD, no stridor, no lymphadenopathy, no thyromegaly noted. Heart: Regular rate rhythm normal S1-S2 no murmurs Lungs: Symmetrical chest expansion, no crackles or rhonchi or wheezes. No chest wall tenderness. Abdomen: Obese, soft, nontender, no megaly, no rebound, no guarding, positive bowel sounds. Extremities: Non edematous DP pulses intact Radial pulses intact Neuro: Awake and alert however does not answer questions. Except yes and no, Psych: Blunted affect, poor mental status examination, poor judgment and insight - Labs CBC & Chem 7: 11/03/17 06:49 11/03/17 06:49 Labs: Abnormal Lab Results - Last 24 Hours (Table) 11/02/17 11/02/17 11/03/17 Range/Units 17:12 19:58 06:49 RBC 2.46 L (3.80-5.40) m/uL Hgb 7.8 L (11.4-16.0) gm/dL Hct 23.4 L (34.0-46.0) % Plt Count 78 L (150-450) k/uL Lymphocytes # 0.3 L (1.0-4.8) k/uL Chloride (98-107) mmol/L Carbon Dioxide (22-30) mmol/L BUN (7-17) mg/dL Glucose (74-99) mg/dL POC Glucose (mg/dL) 146 H 108 H (75-99) mg/dL Alkaline Phosphatase (38-126) U/L Total Protein (6.3-8.2) g/dL Albumin (3.5-5.0) g/dL 11/03/17 11/03/17 11/03/17 Range/Units 06:49 06:53 11:29 RBC (3.80-5.40) m/uL Hgb (11.4-16.0) gm/dL Hct (34.0-46.0) % Plt Count (150-450) k/uL Lymphocytes # (1.0-4.8) k/uL Chloride 116 H (98-107) mmol/L Carbon Dioxide 20 L (22-30) mmol/L BUN 22 H (7-17) mg/dL Glucose 65 L (74-99) mg/dL POC Glucose (mg/dL) 69 L 70 L (75-99) mg/dL Alkaline Phosphatase 130 H (38-126) U/L Total Protein 4.8 L (6.3-8.2) g/dL Albumin 2.5 L (3.5-5.0) g/dL Microbiology - Last 24 Hours (Table) 10/30/17 01:16 Blood Culture - Preliminary Blood No Growth after 96 hours Assessment and Plan Assessment: Impression: 1 acute sepsis and septic shock secondary to urinary tract infection secondary to Enterobacter cloacae Sensitive to Rocephin and patient is on Rocephin. 2 hypotension secondary to septic shock requiring fluid boluses, and dopamine infusion. Recovered. 3 history of profound dementia, Alzheimer's disease. 4 remote history of non-Hodgkin's lymphoma 5 history of degenerative joint disease. 6 history of type 2 diabetes 7 history of hypothyroidism. Plan: The patient was seen and evaluated by Dr. Weeks. She she is stable from the pulmonary and critical care standpoint. We'll continue with her current medications. Discharge planning is in place. I, the cosigning physician, performed a history & physical examination of the patient. Lungs sounds are clear. Maintaining good O2 saturations in the 90s on room air. I discussed the assessment and plan of care with my nurse practitioner, Lisbeth Phan. I attest to the above note as dictated by her.
[2017-11-03 17:35] LABS: Glucose,Whole Blood 72 mg/dL (75-99)
[2017-11-03 19:59] LABS: Glucose,Whole Blood 116 mg/dL (75-99)
[2017-11-03] MEDS: NON-FORMULARY DRUG (Simvastatin 40 MG) PO SCH (22:17)
--- NOTE | 2017-11-03 22:30 | PN ---
PROGRESS NOTE DATE OF SERVICE: 11/03/2017 This 72-year-old woman was admitted with acute urinary tract infection with Enterobacter cloacae, is being closely monitored. At this time the patient is on . The patient is on IV pain she is evaluation progress. PT/OT are evaluating the patient for possible ECF rehab. P.o. intake appears to be very minimal. PAST MEDICAL HISTORY: Reviewed. REVIEW OF SYSTEMS: Could not be taken. CURRENT MEDICATIONS: Reviewed, include: 1. Aspirin 81 mg. 4. Heparin 5 units subcutaneously b.i.d. 5. Motrin 800 mg p.o. q.i.d. 6. NovoLog scale. 7. Levothyroxine 100 mcg p.o. daily and 75 daily. 8. Tradjenta 5 mg p.o. daily. 9. Ativan. 10.Narcan 0.2 q.2h p.r.n. 11.Simvastatin 40 mg q.h.s. 12.Protonix 40 mg p.o. daily. PHYSICAL EXAM: Patient is stuporous. The patient is the patient is conscious, but confused. Pulse 61, blood pressure 106/57, respirations 16, temperature 98.4, pulse ox 100% on room air. HEENT: Conjunctivae normal. Oral mucosa moist. NECK: No jugular venous distention. No carotid bruits. No lymph node enlargement. CARDIOVASCULAR: S1, S2 muffled. No S3. No S4. RESPIRATORY: Breath sounds diminished in the bases. A few scattered rhonchi. Expiratory wheezing present. ABDOMEN: Soft, nontender. No mass palpable. LEGS: No edema. NERVOUS SYSTEM: Diffusely weak. WBC 3.8, hemoglobin 7.8 and glucose 69, 70. ASSESSMENT: 1. Acute urinary tract infection with Enterobacter cloacae with severe sepsis, present on admission. 2. Acute metabolic encephalopathy with change in mental status secondary to sepsis. 3. Diminished p.o. intake. 4. Elevated LFTs. 5. Decreased TSH, increased T4, possibly iatrogenic hyperthyroidism. 6. Hypokalemia. 7. Hyponatremia. 8. Acute renal failure. 9. Anemia of chronic disease. 10.Diabetes mellitus type 2. 11.History of ventricular tachycardia. RECOMMENDATION AND DISCUSSION: Recommend to continue current medical management and symptomatic treatment. Otherwise at this time, I would recommend continuing with current medications, continue with IV antibiotics, continue the rest of the medications. Encourage p.o. fluids. Monitor blood sugars closely. PT/OT evaluation. Increase ambulation. Would also repeat a chest x-ray to ensure normalcy. Otherwise, CT of the brain showed mild cerebral atrophy. The abdominal ultrasound was limited. Prognosis guarded. Further recommendations to follow. IKE / MEGHAN: [id number] / MTDD
[2017-11-04] MEDS: SODIUM CHLORIDE 0.9% 1,000 ML IV SCH ×2 (00:32→14:07)
[2017-11-04] MEDS: HEPARIN SODIUM,PORCINE 5,000 UNIT/ML 1 ML VIAL SQ SCH ×3 (00:34→17:07)
[2017-11-04] MEDS: LEVOTHYROXINE 100 MCG TAB PO SCH (06:14)
[2017-11-04] MEDS: LEVOTHYROXINE 75 MCG TAB PO SCH (06:14)
[2017-11-04 07:12] LABS: Glucose,Whole Blood 82 mg/dL (75-99)
[2017-11-04] MEDS: INSULIN ASPART 100 UNIT/ML 1 ML 10 ML VIAL SQ SCH ×4 (07:15→20:26)
[2017-11-04] MEDS: LINAGLIPTIN 5 MG TABLET PO SCH (07:36)
[2017-11-04] MEDS: metFORMIN 500 MG TAB PO SCH (07:36)
[2017-11-04] MEDS: ASPIRIN 81 MG PO SCH (07:36)
[2017-11-04] MEDS: FERROUS SULFATE 325 MG TAB PO SCH (07:36)
[2017-11-04] MEDS: PANTOPRAZOLE 40 MG TABLET PO SCH (07:37)
[2017-11-04 07:58] LABS: Basophils % (A) 1 %; Eosinophils # (A) 0.1 k/uL (0-0.7); Eosinophils % (A) 2 %; HCT 22.5 % (34.0-46.0); HGB 7.1 gm/dL (11.4-16.0); Hypochromasia Slight; Lymphocytes # (A) 0.3 k/uL (1.0-4.8); Lymphocytes % (A) 7 %; MCH 31.7 pg (25.0-35.0); MCHC 31.5 g/dL (31.0-37.0); MCV 100.6 fL (80.0-100.0); Macrocytosis Slight; Mean Platelet Volume 8.1; Monocytes # (A) 0.2 k/uL (0-1.0); Monocytes % (A) 5 %; Neutrophils # (A) 3.6 k/uL (1.3-7.7); Neutrophils % (A) 84 %; RBC 2.24 m/uL (3.80-5.40); RDW 14.9 % (11.5-15.5); WBC 4.3 k/uL (3.8-10.6)
[2017-11-04 08:11] LABS: Platelet Count 78 k/uL (150-450)
[2017-11-04 11:10] LABS: Anion Gap 5 mmol/L; Blood Urea Nitrogen 20 mg/dL (7-17); Calcium 8.4 mg/dL (8.4-10.2); Carbon Dioxide 17 mmol/L (22-30); Chloride 117 mmol/L (98-107); Glucose 72 mg/dL (74-99); Potassium 4.6 mmol/L (3.5-5.1); Sodium 139 mmol/L (137-145)
[2017-11-04] MEDS: CEFEPIME 2 GM in SODIUM CHLORIDE 0.9% 50 ML IVPB SCH (11:18)
[2017-11-04 11:23] LABS: Glucose,Whole Blood 85 mg/dL (75-99)
[2017-11-04 12:01] LABS: Amorphous Sediment,Urine Occasional /hpf; Appearance,Urine Cloudy (Clear); Bilirubin,Urine Negative (Negative); Blood,Urine Negative (Negative); Color,Urine Light Yellow; Glucose,Urine (UA) Negative (Negative); Hyaline Casts,Urine 9 /lpf (0-2); Ketones,Urine Negative (Negative); Leukocyte Esterase,Urine Large (Negative); Mucus,Urine Few /hpf; Protein,Urine Negative (Negative); Specific Gravity,Urine 1.008 (1.001-1.035); Squamous Epithelial Cell,Urine 1 /hpf (0-4); Urobilinogen,Urine <2.0 mg/dL (<2.0); WBC,Urine 17 /hpf (0-5)
[2017-11-04 17:31] LABS: Glucose,Whole Blood 92 mg/dL (75-99)
--- NOTE | 2017-11-04 19:09 | PN ---
PROGRESS NOTE DATE OF SERVICE: 11/04/2017 I am covering for Dr. Pandya. This 72-year-old woman who was admitted with acute urinary tract infection with Enterobacter cloacae in the outpatient setting was monitored closely. The sensorium appears to be slightly better. The p.o. intake is also improving. No chest pain. No palpitations. No fever. PHYSICAL EXAM: Alert and oriented x2. Pulse 79. Blood pressure 129/59, respirations 16, temperature 97.8, pulse ox 97% room air. HEENT: Conjunctivae normal. NECK: No jugular venous distention. CARDIOVASCULAR: S1, S2 muffled. RESPIRATORY: Breath sounds diminished in the bases. No rhonchi, no crackles. ABDOMEN: Soft, nontender. No mass palpable. LEGS: No edema, no swelling. NEUROLOGIC: Higher function as mentioned earlier. Moves all four limbs. No focal deficits. Diffusely weak. LYMPHATIC: No lymphadenopathy in the neck, axillae, groin. SKIN: No ulcer, rash, bleeding. LABS: WBC 4.2, hemoglobin 7.1. UA noted. ASSESSMENT: 1. Acute urinary tract infection with Enterobacter cloacae with severe sepsis, present on admission. 2. Acute metabolic encephalopathy with change in mental status secondary to sepsis. 3. Diminished p.o. intake. 4. Elevated LFTs. 5. Decreased TSH and normal free T4, possibly iatrogenic hyperthyroidism. 6. Hypokalemia. 7. Hyponatremia. 8. Acute renal failure. 9. Anemia of chronic disease. 10.Diabetes mellitus type 2. 11.History ventricular tachycardia. RECOMMENDATIONS AND DISCUSSION: I recommend to continue current management and symptomatic treatment. We will monitor the patient closely. Dr. Pandya will follow. Currently patient is on IV cefepime. Infectious Disease is following the patient closely. Further recommendations to follow. Urine culture is growing Enterobacter cloacae 19. Further recommendations to follow. MMODL / IJN: [id number] /
[2017-11-04 20:13] LABS: Glucose,Whole Blood 158 mg/dL (75-99)
[2017-11-04] MEDS: NON-FORMULARY DRUG (Simvastatin 40 MG) PO SCH (20:27)
--- NOTE | 2017-11-04 21:21 | PN ---
PROGRESS NOTE DATE OF SERVICE: 11/04/2017. REASON FOR FOLLOWUP VISIT: Urinary tract infection. INTERVAL HISTORY: The patient is afebrile. She is awake, alert, pleasantly confused. Denies having any chest pain or shortness of breath or cough. No abdominal pain. No diarrhea. EXAMINATION: Blood pressure 121/59 with a pulse of 79, temperature 97.9. She is 97% on room air. General description is an elderly female up in the bed in no distress. Respiratory system: Unlabored breathing. Clear to auscultation anteriorly. Heart S1, S2. Regular rate and rhythm. Abdomen soft, no tenderness. LABS: No new labs have been obtained today. DIAGNOSTIC IMPRESSION AND PLAN: Patient with urinary tract infection on admission to the hospital with sepsis, responding to cefepime. Continue with plan to finish therapy with oral Cipro for another week. Continue supportive care. MMODL / IJN: [id number] /
[2017-11-05] MEDS: CEFEPIME 2 GM in SODIUM CHLORIDE 0.9% 50 ML IVPB SCH (00:52)
[2017-11-05] MEDS: HEPARIN SODIUM,PORCINE 5,000 UNIT/ML 1 ML VIAL SQ SCH ×4 (01:47→22:30)
[2017-11-05] MEDS: SODIUM CHLORIDE 0.9% 1,000 ML IV SCH ×3 (03:33→17:59)
[2017-11-05] MEDS: LEVOTHYROXINE 100 MCG TAB PO SCH (06:18)
[2017-11-05] MEDS: LEVOTHYROXINE 75 MCG TAB PO SCH (06:18)
[2017-11-05 07:10] LABS: Glucose,Whole Blood 78 mg/dL (75-99)
[2017-11-05] MEDS: INSULIN ASPART 100 UNIT/ML 1 ML 10 ML VIAL SQ SCH ×4 (07:50→21:40)
[2017-11-05] MEDS: PANTOPRAZOLE 40 MG TABLET PO SCH (07:52)
[2017-11-05] MEDS: metFORMIN 500 MG TAB PO SCH (07:52)
[2017-11-05] MEDS: FERROUS SULFATE 325 MG TAB PO SCH (07:53)
[2017-11-05] MEDS: ASPIRIN 81 MG PO SCH (07:53)
[2017-11-05] MEDS: LINAGLIPTIN 5 MG TABLET PO SCH (07:54)
[2017-11-05 08:09] LABS: Anion Gap 7 mmol/L; Blood Urea Nitrogen 18 mg/dL (7-17); Calcium 8.3 mg/dL (8.4-10.2); Carbon Dioxide 20 mmol/L (22-30); Chloride 114 mmol/L (98-107); Glucose 70 mg/dL (74-99); Potassium 4.6 mmol/L (3.5-5.1); Sodium 141 mmol/L (137-145)
[2017-11-05 08:11] LABS: Basophils % (A) 0 %; Eosinophils # (A) 0.1 k/uL (0-0.7); Eosinophils % (A) 1 %; Lymphocytes # (A) 0.2 k/uL (1.0-4.8); Lymphocytes % (A) 4 %; MCH 31.2 pg (25.0-35.0); MCHC 31.7 g/dL (31.0-37.0); MCV 98.5 fL (80.0-100.0); Macrocytosis Slight; Mean Platelet Volume 8.5; Monocytes # (A) 0.3 k/uL (0-1.0); Monocytes % (A) 6 %; Neutrophils # (A) 4.5 k/uL (1.3-7.7); Neutrophils % (A) 86 %; RBC 1.98 m/uL (3.80-5.40); RDW 14.8 % (11.5-15.5); WBC 5.3 k/uL (3.8-10.6)
[2017-11-05 08:31] LABS: HGB 6.2 gm/dL (11.4-16.0)
[2017-11-05 08:32] LABS: HCT 19.5 % (34.0-46.0); Platelet Count 91 k/uL (150-450)
[2017-11-05 11:51] LABS: Glucose,Whole Blood 95 mg/dL (75-99)
[2017-11-05 11:54] VITALS: BMI 36.1
--- NOTE | 2017-11-05 13:20 | P.GSCN ---
<Adriana Lopez - Last Filed: 11/05/17 13:10> History of Present Illness Consult date: 11/05/17 Reason for Consult: Rule out GI bleed History of present illness: 72-year-old female being seen at the request of the attending for a surgical eval. Patient has severe dementia who lives with a spouse who provides 24 7 for all of her care. History has been obtained from interviewing the spouse at the bedside. According to the spouse patient was brought into the hospital for generalized weakness. Was found to have an acute UTI with sepsis. Patient was has been treated with IV antibiotics. Did have an episode necessitating the need to be transferred to the intensive care unit on the due to hypotension and unresponsiveness. Patient was able to be stabilized and the indicated per advance directives patient was to be DO NOT RESUSCITATE this morning the hemoglobin was down to 6.2 from 7.1. According to the nursing staff and the patient's spouse patient has not had any bright red rectal bleeding has not had any hematemesis. According to the spouse the patient did pull her IV out last night with a moderate amount of blood noted. Spouse states he is not certain when the patient has had a colonoscopy last . Spouse is also verbalizing concerns the patient would not be able to tolerate undergoing a workup for the anemia at this time spouse is indicating incline to have conservative measures only Review of Systems Not able to adequately obtain Past Medical History Past Medical History: Cancer, Diabetes Mellitus, Hyperlipidemia, Hypertension, Memory Impairment, Thyroid Disorder Additional Past Medical History / Comment(s): non-hodgkins lymphoma-last chemo, varicose veins, arthritis, anemia, feel and injured rt shoulder Jul 2015, uses cane or wheelchair, History of Any Multi-Drug Resistant Organisms: None Reported Past Surgical History: Back Surgery, Hernia Repair, Joint Replacement Additional Past Surgical History / Comment(s): rt knee replacement, thyroid radioactive tx, cataracts Past Anesthesia/Blood Transfusion Reactions: Previous Problems w/ Anesthesia Additional Past Anesthesia/Blood Transfusion Reaction / Comm: years ago had diff breathing with anesthesia Past Psychological History: No Psychological Hx Reported Smoking Status: Never smoker Past Alcohol Use History: None Reported Past Drug Use History: None Reported - Past Family History Sister(s) Family Medical History: Cancer Medications and Allergies Home Medications Medication Instructions Recorded Confirmed Type Valsartan 80 mg PO DAILY 11/15/14 10/29/17 History aMILoride-HCTZ 5-50 mg [Moduretic 1 tab PO DAILY 11/15/14 10/29/17 History 5-50] metFORMIN HCL [Glucophage] 500 mg PO DAILY 11/15/14 10/29/17 History Levothyroxine Sodium [Synthroid] 150 mcg PO DAILY 08/16/15 10/29/17 History sitaGLIPtin [Januvia] 100 mg PO DAILY 08/16/15 10/29/17 History Simvastatin [Zocor] 40 mg PO HS 07/08/16 10/29/17 History ALPRAZolam [Xanax] 0.25 mg PO Q8H PRN 10/29/17 10/29/17 History Aspirin EC [Ecotrin Low Dose] 81 mg PO DAILY 10/29/17 10/29/17 History Ferrous Sulfate [Feosol] 325 mg PO DAILY 10/29/17 10/29/17 History Ibuprofen [Motrin] 800 mg PO Q8H PRN 10/29/17 10/29/17 History Allergies Allergy/AdvReac Type Severity Reaction Status Date / Time atorvastatin [From Lipitor] Allergy Unknown Verified 10/29/17 13:58 enalaprilat [From Vasotec] Allergy Unknown Verified 10/29/17 13:58 propoxyphene napsylate Allergy Unknown Verified 10/29/17 13:57 [From Darvocet-N] Sulfa (Sulfonamide Allergy Itching,daniela Verified 10/29/17 13:57 Antibiotics) h Surgical - Exam Vital Signs Temp Pulse Resp BP Pulse Ox 85.4 F L 52 L 18 119/54 100 10/29/17 13:15 10/29/17 13:15 10/29/17 13:15 10/29/17 13:15 10/29/17 13:15 Physical exam Severe profound dementia, Alzheimer's disease history of non-Hodgkin lymphoma Acute sepsis with septic shock secondary to urinary tract infection secondary to Enterobacter cloacae Memory impairment acute on chronic anemia unclear etiology Plan Agree with a hematology consult to workup the anemia No evidence of an acute surgical abdomen at this time We'll follow with you Patient may not be able to tolerate endoscopic as part of a workup for the anemia due to profound dementia DVT and GI prophylaxis Surgical consultation note dictated for dr lopez The above impression and plan of care have been discussed and directed by signing physician. Adriana Lopez nurse practitioner acting as scribe for signing physician. Results - Labs 11/05/17 07:14 11/05/17 07:14 Abnormal Lab Results - Last 24 Hours (Table) 11/04/17 11/05/17 11/05/17 Range/Units 20:12 07:14 07:14 RBC 1.98 L (3.80-5.40) m/uL Hgb 6.2 L* (11.4-16.0) gm/dL Hct 19.5 L* (34.0-46.0) % Plt Count 91 L (150-450) k/uL Lymphocytes # 0.2 L (1.0-4.8) k/uL Chloride 114 H (98-107) mmol/L Carbon Dioxide 20 L (22-30) mmol/L BUN 18 H (7-17) mg/dL Creatinine 1.05 H (0.52-1.04) mg/dL Glucose 70 L (74-99) mg/dL POC Glucose (mg/dL) 158 H (75-99) mg/dL Calcium 8.3 L (8.4-10.2) mg/dL Microbiology - Last 24 Hours (Table) 10/30/17 01:16 Blood Culture - Final Blood No Growth after 144 hours Diabetes panel 11/05/17 Range/Units 07:14 Sodium 141 (137-145) mmol/L Potassium 4.6 (3.5-5.1) mmol/L Chloride 114 H (98-107) mmol/L Carbon Dioxide 20 L (22-30) mmol/L BUN 18 H (7-17) mg/dL Creatinine 1.05 H (0.52-1.04) mg/dL Glucose 70 L (74-99) mg/dL Calcium 8.3 L (8.4-10.2) mg/dL Calcium panel 11/05/17 Range/Units 07:14 Calcium 8.3 L (8.4-10.2) mg/dL Pituitary panel 11/05/17 Range/Units 07:14 Sodium 141 (137-145) mmol/L Potassium 4.6 (3.5-5.1) mmol/L Chloride 114 H (98-107) mmol/L Carbon Dioxide 20 L (22-30) mmol/L BUN 18 H (7-17) mg/dL Creatinine 1.05 H (0.52-1.04) mg/dL Glucose 70 L (74-99) mg/dL Calcium 8.3 L (8.4-10.2) mg/dL Adrenal panel 11/05/17 Range/Units 07:14 Sodium 141 (137-145) mmol/L Potassium 4.6 (3.5-5.1) mmol/L Chloride 114 H (98-107) mmol/L Carbon Dioxide 20 L (22-30) mmol/L BUN 18 H (7-17) mg/dL Creatinine 1.05 H (0.52-1.04) mg/dL Glucose 70 L (74-99) mg/dL Calcium 8.3 L (8.4-10.2) mg/dL <Nader Lopez - Last Filed: 11/05/17 16:50> Surgical - Exam Vital Signs Temp Pulse Resp BP Pulse Ox 85.4 F L 52 L 18 119/54 100 10/29/17 13:15 10/29/17 13:15 10/29/17 13:15 10/29/17 13:15 10/29/17 13:15 Results - Labs 11/05/17 07:14 11/05/17 07:14 Abnormal Lab Results - Last 24 Hours (Table) 11/04/17 11/05/17 11/05/17 Range/Units 20:12 07:14 07:14 RBC 1.98 L (3.80-5.40) m/uL Hgb 6.2 L* (11.4-16.0) gm/dL Hct 19.5 L* (34.0-46.0) % Plt Count 91 L (150-450) k/uL Lymphocytes # 0.2 L (1.0-4.8) k/uL Chloride 114 H (98-107) mmol/L Carbon Dioxide 20 L (22-30) mmol/L BUN 18 H (7-17) mg/dL Creatinine 1.05 H (0.52-1.04) mg/dL Glucose 70 L (74-99) mg/dL POC Glucose (mg/dL) 158 H (75-99) mg/dL Calcium 8.3 L (8.4-10.2) mg/dL Microbiology - Last 24 Hours (Table) 10/30/17 01:16 Blood Culture - Final Blood No Growth after 144 hours Diabetes panel 11/05/17 Range/Units 07:14 Sodium 141 (137-145) mmol/L Potassium 4.6 (3.5-5.1) mmol/L Chloride 114 H (98-107) mmol/L Carbon Dioxide 20 L (22-30) mmol/L BUN 18 H (7-17) mg/dL Creatinine 1.05 H (0.52-1.04) mg/dL Glucose 70 L (74-99) mg/dL Calcium 8.3 L (8.4-10.2) mg/dL Calcium panel 11/05/17 Range/Units 07:14 Calcium 8.3 L (8.4-10.2) mg/dL Pituitary panel 11/05/17 Range/Units 07:14 Sodium 141 (137-145) mmol/L Potassium 4.6 (3.5-5.1) mmol/L Chloride 114 H (98-107) mmol/L Carbon Dioxide 20 L (22-30) mmol/L BUN 18 H (7-17) mg/dL Creatinine 1.05 H (0.52-1.04) mg/dL Glucose 70 L (74-99) mg/dL Calcium 8.3 L (8.4-10.2) mg/dL Adrenal panel 11/05/17 Range/Units 07:14 Sodium 141 (137-145) mmol/L Potassium 4.6 (3.5-5.1) mmol/L Chloride 114 H (98-107) mmol/L Carbon Dioxide 20 L (22-30) mmol/L BUN 18 H (7-17) mg/dL Creatinine 1.05 H (0.52-1.04) mg/dL Glucose 70 L (74-99) mg/dL Calcium 8.3 L (8.4-10.2) mg/dL Assessment and Plan Assessment: Anemia. Patient be observed. If she has significant GI bleed was scheduled for upper and lower endoscopy.
[2017-11-05 16:52] LABS: Glucose,Whole Blood 127 mg/dL (75-99)
[2017-11-05] MEDS: NON-FORMULARY DRUG (Simvastatin 40 MG) PO SCH (21:17)
[2017-11-05] MEDS: CIPROFLOXACIN HCL 500 MG TAB PO SCH (21:19)
[2017-11-05 21:51] LABS: Glucose,Whole Blood 145 mg/dL (75-99)
--- NOTE | 2017-11-05 23:04 | PN ---
PROGRESS NOTE DATE OF SERVICE: 11/05/2017. REASON FOR FOLLOWUP: Enterobacter urinary tract infection. INTERVAL HISTORY: The patient is afebrile. The patient remains to be pleasantly confused. Apparently the patient did pull off her IV and did have a significant amount of bleeding this morning. This morning she was noticed to have a hemoglobin of 6.2, for which Surgery has been consulted. No nausea, no vomiting. Denies any active symptoms when asked specifically. EXAMINATION: Blood pressure is 105/74 with a pulse of 70, temperature of 98.8, she is 97% on room air. GENERAL DESCRIPTION: An elderly female lying in bed in no distress. RESPIRATORY SYSTEM: Unlabored breathing. Clear to auscultation anteriorly. HEART: S1, S2. Regular rate and rhythm. ABDOMEN: Soft. EXTREMITIES: No edema of the feet. LABS: Hemoglobin 6.2 with a white count of 5.3, BUN of 18, creatinine 1.05. DIAGNOSTIC IMPRESSION AND PLAN: Patient with urinary tract infection, admitted to the hospital with sepsis. Ultrasound negative for any structural abnormality. The patient did pull of her IV. Made the decision to switch her over to oral Cipro, which she will continue for about a week to finish a course of therapy. Continue supportive care. MMODL / IJN: [id number] /
--- NOTE | 2017-11-06 01:03 | PN ---
PROGRESS NOTE DATE OF SERVICE: 11/05/2017. HISTORY: The patient is a pleasant 72-year-old. She is awake and comfortable without any complaints. However, her hemoglobin has dropped to 6.2. She had some heavy bleeding out of the IV site last evening. She denies any blood in the stool. Her is at bedside. Denies any bleeding. Blood pressure has remained stable. PHYSICAL EXAM: She is alert and answering questions. She does get pleasantly confused on occasion. HEENT: Head is normocephalic. NECK: Supple. No JVD. HEART: Regular rate and rhythm. LUNGS: Clear to auscultation. ABDOMEN: Soft, nontender. IMPRESSION: 1. Acute urinary tract infection with sepsis. 2. Acute on chronic anemia. 3. Acute metabolic encephalopathy with a baseline of Alzheimer's dementia. 4. Parkinson. 5. Chronic kidney disease with acute renal injury. 6. Diabetes. PLAN: Continue to follow management with IV hydration and antibiotics. Will ask for GI evaluation and possible Hematology consultation. MMODL / IJN: [id number] /
[2017-11-06] MEDS: LEVOTHYROXINE 75 MCG TAB PO SCH (06:07)
[2017-11-06] MEDS: LEVOTHYROXINE 100 MCG TAB PO SCH (06:07)
[2017-11-06] MEDS: SODIUM CHLORIDE 0.9% 1,000 ML IV SCH ×2 (06:08→15:05)
[2017-11-06 07:21] LABS: Glucose,Whole Blood 96 mg/dL (75-99)
[2017-11-06] MEDS: INSULIN ASPART 100 UNIT/ML 1 ML 10 ML VIAL SQ SCH ×4 (07:51→21:47)
[2017-11-06] MEDS: PANTOPRAZOLE 40 MG TABLET PO SCH (08:11)
[2017-11-06] MEDS: LINAGLIPTIN 5 MG TABLET PO SCH (08:11)
[2017-11-06] MEDS: FERROUS SULFATE 325 MG TAB PO SCH (08:11)
[2017-11-06] MEDS: metFORMIN 500 MG TAB PO SCH (08:11)
[2017-11-06] MEDS: CIPROFLOXACIN HCL 500 MG TAB PO SCH ×2 (08:11→20:58)
[2017-11-06 09:12] LABS: Anisocytosis Slight; Basophils % (A) 0 %; Eosinophils # (A) 0.1 k/uL (0-0.7); Eosinophils % (A) 1 %; HCT 21.9 % (34.0-46.0); HGB 7.2 gm/dL (11.4-16.0); Lymphocytes # (A) 0.3 k/uL (1.0-4.8); Lymphocytes % (A) 5 %; MCH 30.9 pg (25.0-35.0); MCHC 32.7 g/dL (31.0-37.0); MCV 94.6 fL (80.0-100.0); Mean Platelet Volume 8.1; Monocytes # (A) 0.4 k/uL (0-1.0); Monocytes % (A) 6 %; Neutrophils # (A) 5.2 k/uL (1.3-7.7); Neutrophils % (A) 85 %; Poikilocytosis Slight; RBC 2.32 m/uL (3.80-5.40); RDW 16.3 % (11.5-15.5); WBC 6.1 k/uL (3.8-10.6)
[2017-11-06 09:13] LABS: Platelet Count 98 k/uL (150-450)
[2017-11-06] MEDS: ASPIRIN 81 MG PO SCH (10:17)
[2017-11-06] MEDS: HEPARIN SODIUM,PORCINE 5,000 UNIT/ML 1 ML VIAL SQ SCH ×3 (10:17→23:44)
[2017-11-06 11:22] LABS: Glucose,Whole Blood 134 mg/dL (75-99)
--- NOTE | 2017-11-06 11:40 | P.PN ---
Subjective Progress Note Date: 11/06/17 9-year-old female seen and examined this morning at bedside pleasant cooperative oriented to self. Spouse at bedside. Spouse indicates that he is not interested in having any aggressive workup for the anemia is opting for conservative management hemoglobin this morning is 7.2 up from 6.2. Did receive 1 unit of packed red blood cells yesterday. This been no documentation of hematemesis or or melena . Patient has history of severe dementia lives with spouse who does provide for 24 7 care Objective - Vital Signs Vital signs: Vital Signs Temp 98.4 F 11/06/17 07:00 Pulse 58 L 11/06/17 08:00 Resp 18 11/06/17 08:00 BP 85/49 11/06/17 07:00 Pulse Ox 95 11/06/17 07:00 Intake & Output 11/05/17 11/06/17 11/06/17 18:59 06:59 18:59 Intake Total 560 720 Output Total 400 400 Balance 160 320 Weight 95.5 kg Intake: IV 250 Sodium Chloride 0.9% 1, 250 000 ml @ 100 mls/hr IV . Q10H [facility] Rx#:[id number] Oral 720 Blood Product 310 Rc As-1 Unit 310 [id number] Output: Urine 400 400 Other: Voiding Method Incontinent Incontinent Incontinent # Voids 2 # Bowel Movements 3 2 1 - Exam Physical exam 72-year-old female oriented to self sitting up in bed not able to identify spouse Lungs adequate air movement bilaterally Heart S1-S2 audible and regular Abdomen indwelling Camara catheter in place soft nondistended bowel tones present no nausea no vomiting no stool Extremities no edema noted - Labs CBC & Chem 7: 11/06/17 08:41 11/05/17 07:14 Labs: Abnormal Lab Results - Last 24 Hours (Table) 11/05/17 11/05/17 11/05/17 Range/Units 16:51 20:32 21:39 RBC (3.80-5.40) m/uL Hgb (11.4-16.0) gm/dL Hct (34.0-46.0) % RDW (11.5-15.5) % Plt Count (150-450) k/uL Lymphocytes # (1.0-4.8) k/uL POC Glucose (mg/dL) 127 H 145 H (75-99) mg/dL Crossmatch See Detail 11/06/17 11/06/17 Range/Units 08:41 11:18 RBC 2.32 L (3.80-5.40) m/uL Hgb 7.2 L (11.4-16.0) gm/dL Hct 21.9 L (34.0-46.0) % RDW 16.3 H (11.5-15.5) % Plt Count 98 L (150-450) k/uL Lymphocytes # 0.3 L (1.0-4.8) k/uL POC Glucose (mg/dL) 134 H (75-99) mg/dL Crossmatch Assessment and Plan Assessment: Impression Severe profound dementia, Alzheimer's disease history of non-Hodgkin lymphoma Acute sepsis with septic shock secondary to urinary tract infection secondary to Enterobacter cloacae Memory impairment acute on chronic anemia unclear etiology Plan Per advance directives patient is a no CODE STATUS spouse is opting for conservative workup Hematology consult pending No evidence of an acute surgical abdomen at this time Given patient's profound dementia felt patient would not be able to tolerate upper or lower endoscopic Will follow with you DVT and GI prophylaxis The above impression and plan of care have been discussed and directed by signing physician. Adriana Lopez nurse practitioner acting as scribe for signing physician.
--- NOTE | 2017-11-06 13:15 | CDI ---
Last Revision, August 2017 Documentation Clarification Form Date: 11/06/2017 1:03:00 PM From: Beverley German CCS, CCDS Admit Date: 10/29/2017 3:56:00 PM Patient Name: Carla Crowley Visit Number: [id number] Discharge Date: ATTENTION: The Clinical Documentation Specialists (CDI) and [facility] Coding Staff appreciate your assistance in clarifying documentation. Please respond to the clarification below the line at the bottom and electronically sign. The CDI & [facility] Coding staff will review the response and follow-up if needed. Please note: Queries are made part of the Legal Health Record. If you have any questions, please contact the author of this message via ITS. Dr. Sumeet Pandya: 72 yo female, admitted from home with weakness due to UTI, dehydration & ambulatory dysfunction per ED note. Per your 11/06 progress note: Chronic kidney disease with acute renal injury is documented. History/Risk Factors: DM, Hypertension, Hyperlipidemia, memory impairment, Non Hodgkin's Lymphoma, Alzheimer's dementia & Parkinson's disease. Clinical Indicators: Current BUN/CR/GFR: 58 / 1.30 / 40 Patients Current: BUN/CR/GFR: 18 / 1.05 / 52 Treatment on admission: IV fluid bolus x2, IV Rocephin, IV Narcan, IV Ativan. Current treatement: IV fluid rate 100, IV MagSulfate, IV Cefepime, IV Rocephin, Cipro Home meds: Synthroid, Feosol, Xanax, Januvia, Metformin, Valsartan, Zocor, Motrin & Ecotrin In order to capture the severity of condition, please clarify if the condition signifies: CKD Stage 1 (GFR > 90) CKD Stage 2 (GFR 60-89) CKD Stage 3 (GFR 30-59) CKD Stage 4 (GFR 15-29) CKD Stage 5 (GFR <15) ESRD Other, please specify Unable to determine Please continue to document in your progress notes and discharge summary in order to capture severity of illness and risk of mortality. Include clinical findings that support your diagnosis. MTDD
--- NOTE | 2017-11-06 14:17 | PN ---
PROGRESS NOTE DATE OF SERVICE: 11/06/2017 REASON FOR FOLLOWUP: Enterobacter urinary tract infection. INTERVAL HISTORY: The patient is afebrile. She is breathing comfortably, hemodynamically stable. No nausea, vomiting, or any diarrhea. PHYSICAL EXAMINATION: Blood pressure 107/64 with a pulse of 58, temperature 98.4. She is 95% on room air. General description is an elderly female, lying in bed in no distress. RESPIRATORY SYSTEM: Unlabored breathing, clear to auscultation anteriorly. HEART: S1, S2. Regular rate and rhythm. ABDOMEN: Soft, no tenderness. LABS: Hemoglobin is 7.2, white count of 6.1. DIAGNOSTIC IMPRESSION AND PLAN: Patient with bacteremia urinary tract infection, currently on oral Cipro. She will continue for another 5 to 7 days to finish the course of therapy. Continue supportive care. MMODL / IJN: [id number] /
--- NOTE | 2017-11-06 16:49 | P.CONS ---
History of Present Illness - Reason for Consult Consult date: 11/06/17 anemia, Hx NHL Requesting physician: Sumeet Pandya - Chief Complaint AMS - History of Present Illness Mrs. Crowley is a pleasant female who was initially seen in consult in 02/15 for anemia, Hgb in the 8 range, anemia work up was negative other than borderline iron deficiency, EGD by Dr. Ha in 03/17 was negative, colonoscopy was done within the previous 2-3 years was also been negative. She was started on PO iron and responded well, though she was not able to take the full dose due to some GI side effects, Hgb increased back to baseline. She was lost to follow up until she had a CBC done by her PCP Dr. 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 She was treated with 6 cycles of Treanda and Rituxan, completing treatment in February of 2014, she then had maintenance Rituxan, 8 cycles, competing those in 02/23, she has been on follow up since with no evidence of disease. Unfortunately pt has had underlying memory problems, progressive, she now requires 24/7 care. When seen today pt is lethargic, she opened her eyes to loud voice and touch but did not verbally answer any questions, she did not exhibit s/s of pain or respiratory distress Review of Systems ROS unobtainable: due to mental status Past Medical History Past Medical History: Cancer, Diabetes Mellitus, Hyperlipidemia, Hypertension, Memory Impairment, Thyroid Disorder Additional Past Medical History / Comment(s): non-hodgkins lymphoma-last chemo, varicose veins, arthritis, anemia, feel and injured rt shoulder Jul 2015, uses cane or wheelchair, History of Any Multi-Drug Resistant Organisms: None Reported Past Surgical History: Back Surgery, Hernia Repair, Joint Replacement Additional Past Surgical History / Comment(s): rt knee replacement, thyroid radioactive tx, cataracts Past Anesthesia/Blood Transfusion Reactions: Previous Problems w/ Anesthesia Additional Past Anesthesia/Blood Transfusion Reaction / Comm: years ago had diff breathing with anesthesia Past Psychological History: No Psychological Hx Reported Smoking Status: Never smoker Past Alcohol Use History: None Reported Past Drug Use History: None Reported - Past Family History Sister(s) Family Medical History: Cancer Medications and Allergies Home Medications Medication Instructions Recorded Confirmed Type Valsartan 80 mg PO DAILY 11/15/14 10/29/17 History aMILoride-HCTZ 5-50 mg [Moduretic 1 tab PO DAILY 11/15/14 10/29/17 History 5-50] metFORMIN HCL [Glucophage] 500 mg PO DAILY 11/15/14 10/29/17 History Levothyroxine Sodium [Synthroid] 150 mcg PO DAILY 08/16/15 10/29/17 History sitaGLIPtin [Januvia] 100 mg PO DAILY 08/16/15 10/29/17 History Simvastatin [Zocor] 40 mg PO HS 07/08/16 10/29/17 History ALPRAZolam [Xanax] 0.25 mg PO Q8H PRN 10/29/17 10/29/17 History Aspirin EC [Ecotrin Low Dose] 81 mg PO DAILY 10/29/17 10/29/17 History Ferrous Sulfate [Feosol] 325 mg PO DAILY 10/29/17 10/29/17 History Ibuprofen [Motrin] 800 mg PO Q8H PRN 10/29/17 10/29/17 History Allergies Allergy/AdvReac Type Severity Reaction Status Date / Time atorvastatin [From Lipitor] Allergy Unknown Verified 10/29/17 13:58 enalaprilat [From Vasotec] Allergy Unknown Verified 10/29/17 13:58 propoxyphene napsylate Allergy Unknown Verified 10/29/17 13:57 [From Darvocet-N] Sulfa (Sulfonamide Allergy Itching,daniela Verified 10/29/17 13:57 Antibiotics) h Physical Exam Vitals: Vital Signs Temp Pulse Pulse Pulse Pulse Resp BP 11/06/17 15:59 58 L 18 11/06/17 08:00 58 L 18 11/06/17 07:00 98.4 F 58 L 18 11/06/17 00:48 98.5 F 67 18 117/56 11/06/17 00:02 75 11/05/17 23:14 98.4 F 74 16 82/50 11/05/17 23:00 67 18 11/05/17 22:51 98.3 F 11/05/17 22:44 99.2 F 68 18 101/51 11/05/17 22:34 98.6 F 67 18 102/50 11/05/17 22:29 97.3 F L 76 20 96/49 11/05/17 21:23 11/05/17 20:30 98.5 F 84 18 BP Pulse Ox 11/06/17 15:59 11/06/17 08:00 11/06/17 07:00 85/49 95 11/06/17 00:48 100 11/06/17 00:02 107/64 11/05/17 23:14 100 11/05/17 23:00 11/05/17 22:51 11/05/17 22:44 98 11/05/17 22:34 100 11/05/17 22:29 100 11/05/17 21:23 108/59 11/05/17 20:30 80/42 98 Intake and Output 11/06/17 11/06/17 11/06/17 06:59 14:59 22:59 Intake Total 310 2520 Output Total 400 400 400 Balance -90 2120 -400 Intake: Intake, IV Titration 600 Amount Sodium Chloride 0.9% 1, 600 000 ml @ 100 mls/hr IV . Q10H [facility] Rx#:[id number] Oral 1920 Blood Product 310 Rc As-1 Unit 310 [id number] Output: Urine 400 400 400 Other: Voiding Method Incontinent Incontinent Indwelling Catheter # Voids 2 # Bowel Movements 2 1 - Constitutional lethargic, opens eyes, no verbal response to questions General appearance: obese - EENT Eyes: anicteric sclerae - Neck Neck: no lymphadenopathy - Respiratory mildly labored respirations, no audible wheezing, breath sounds anteriorly diminished but pt not taking deep inspirations - Cardiovascular Heart sounds: normal: S1, S2 leg Peripheral Edema: bilateral: 1+ - Gastrointestinal General gastrointestinal: no absent bowel sounds, no decreased bowel sounds, no distended, no hepatomegaly, no hyperactive bowel sounds, normal bowel sounds, no organomegaly, no rigid, no scaphoid, soft, no splenomegaly, no tenderness, no umbilical hernia, no ventral hernia - Integumentary Integumentary: pale - Musculoskeletal Musculoskeletal: generalized weakness - Psychiatric lethargic, no verbal communication Psychiatric: no A&O x's 3, no appropriate affect, no intact judgment & insight Results CBC & Chem 7: 11/06/17 08:41 11/05/17 07:14 Labs: Abnormal Lab Results - Last 24 Hours (Table) 11/05/17 11/05/17 11/05/17 Range/Units 16:51 20:32 21:39 RBC (3.80-5.40) m/uL Hgb (11.4-16.0) gm/dL Hct (34.0-46.0) % RDW (11.5-15.5) % Plt Count (150-450) k/uL Lymphocytes # (1.0-4.8) k/uL POC Glucose (mg/dL) 127 H 145 H (75-99) mg/dL Crossmatch See Detail 11/06/17 11/06/17 Range/Units 08:41 11:18 RBC 2.32 L (3.80-5.40) m/uL Hgb 7.2 L (11.4-16.0) gm/dL Hct 21.9 L (34.0-46.0) % RDW 16.3 H (11.5-15.5) % Plt Count 98 L (150-450) k/uL Lymphocytes # 0.3 L (1.0-4.8) k/uL POC Glucose (mg/dL) 134 H (75-99) mg/dL Crossmatch Assessment and Plan (1) Normochromic normocytic anemia Narrative/Plan: Pt does have a history of weakened marrow from past treatment and Hgb and platelet do drop when pt is acutely ill. Hgb in Aug was 12.5. Pt has been transfused with stable Hgb at this time, no evidence of acute bleeding. Conservative transfusions Iron studies are going to be falsely elevated due to transfusion. Pt has follow up with Dr. Alves in the next few weeks, will request iron studies at that time as they will more accurately reflect pt iron status. Current Visit: Yes Status: Acute Code(s): D64.9 - ANEMIA, UNSPECIFIED SNOMED Code(s): 20369080 (2) Thrombocytopenia Narrative/Plan: Plt counts known to drop in acute illness, No acute intervention. CBC will be monitored Current Visit: Yes Status: Acute Priority: Medium Code(s): D69.6 - THROMBOCYTOPENIA, UNSPECIFIED SNOMED Code(s): 259035028 (3) Non-Hodgkin lymphoma Narrative/Plan: Remote history of, treated and has been on follow up, last visit with Dr. Alves was in Aug 2017 with no evidence of disease. No further work up at this time from Hem/Onc standpoint Current Visit: No Status: Chronic Priority: Medium Code(s): C85.90 - NON- HODGKIN LYMPHOMA, UNSPECIFIED, UNSPECIFIED SITE SNOMED Code(s): 536454461 Plan: Agree with conservative mgmt of anemia and treatment of underlying infection for now.
[2017-11-06 17:21] LABS: Glucose,Whole Blood 107 mg/dL (75-99)
[2017-11-06] MEDS: NON-FORMULARY DRUG (Simvastatin 40 MG) PO SCH (20:58)
[2017-11-06 21:10] LABS: Glucose,Whole Blood 204 mg/dL (75-99)
[2017-11-07] MEDS: SODIUM CHLORIDE 0.9% 1,000 ML IV SCH ×2 (05:26→12:17)
[2017-11-07] MEDS: LEVOTHYROXINE 75 MCG TAB PO SCH (06:20)
[2017-11-07] MEDS: LEVOTHYROXINE 100 MCG TAB PO SCH (06:20)
[2017-11-07 07:31] LABS: Glucose,Whole Blood 99 mg/dL (75-99)
[2017-11-07 07:45] LABS: Anisocytosis Slight; Basophils % (A) 0 %; Eosinophils # (A) 0.1 k/uL (0-0.7); Eosinophils % (A) 2 %; HCT 20.9 % (34.0-46.0); Lymphocytes # (A) 0.3 k/uL (1.0-4.8); Lymphocytes % (A) 6 %; MCH 30.4 pg (25.0-35.0); MCHC 32.6 g/dL (31.0-37.0); MCV 93.3 fL (80.0-100.0); Mean Platelet Volume 8.7; Monocytes # (A) 0.3 k/uL (0-1.0); Monocytes % (A) 7 %; Neutrophils # (A) 4.1 k/uL (1.3-7.7); Neutrophils % (A) 83 %; Platelet Count 112 k/uL (150-450); Poikilocytosis Slight; RBC 2.24 m/uL (3.80-5.40); RDW 16.2 % (11.5-15.5); WBC 4.9 k/uL (3.8-10.6)
[2017-11-07 07:50] LABS: HGB 6.8 gm/dL (11.4-16.0)
[2017-11-07] MEDS: INSULIN ASPART 100 UNIT/ML 1 ML 10 ML VIAL SQ SCH ×4 (08:06→20:43)
[2017-11-07] MEDS: metFORMIN 500 MG TAB PO SCH (08:37)
[2017-11-07] MEDS: HEPARIN SODIUM,PORCINE 5,000 UNIT/ML 1 ML VIAL SQ SCH (08:37)
[2017-11-07] MEDS: CIPROFLOXACIN HCL 500 MG TAB PO SCH ×2 (08:37→20:43)
[2017-11-07] MEDS: FERROUS SULFATE 325 MG TAB PO SCH (08:37)
[2017-11-07] MEDS: PANTOPRAZOLE 40 MG TABLET PO SCH (08:37)
[2017-11-07] MEDS: LINAGLIPTIN 5 MG TABLET PO SCH (08:37)
[2017-11-07] MEDS: ASPIRIN 81 MG PO SCH (08:41)
--- NOTE | 2017-11-07 11:16 | P.PN ---
Subjective Progress Note Date: 11/07/17 9-year-old female seen and examined at bedside spouse at bedside sitting up in bed eyes closed does not consistently open eyes to verbal stimuli does not consistently follow simple commands. Patient did receive a unit of packed red blood cells total of 2 for hemoglobin of 6.8 this morning no hematemesis no bright red rectal bleeding stools have been dark in color likely due to the iron supplements spouse continues to verbalize not wanting to have patient undergo any upper and lower scopes as part of a workup for the anemia . He is opting for conservative management. Did note the patient has been seen yesterday by Dr. Alves oncology hematology last office visit was August 2017 was no evidence of non-Hodgkin lymphoma noted Objective - Vital Signs Vital signs: Vital Signs Temp 97.9 F 11/07/17 11:02 Pulse 64 11/07/17 11:02 Resp 16 11/07/17 11:02 BP 104/51 11/07/17 11:02 Pulse Ox 97 11/07/17 11:02 Intake & Output 11/06/17 11/07/17 11/07/17 18:59 06:59 18:59 Intake Total 2520 1500 480 Output Total 1400 600 Balance 1120 900 480 Weight 95.5 kg Intake: IV 1200 Sodium Chloride 0.9% 1, 1200 000 ml @ 100 mls/hr IV . Q10H [facility] Rx#:[id number] Intake, IV Titration 600 Amount Sodium Chloride 0.9% 1, 600 000 ml @ 100 mls/hr IV . Q10H [facility] Rx#:[id number] Oral 1920 300 480 Blood Product 0 Rc As-1 Unit 0 [id number] Output: Urine 1400 600 Straight 600 Other: Voiding Method Indwelling Catheter Indwelling Catheter Indwelling Catheter # Voids 2 # Bowel Movements 1 1 1 - Exam Physical exam 72-year-old female lethargic does not consistently open eyes to verbal stimuli Lungs adequate air movement no shortness of breath noted Heart S1-S2 audible and regular Abdomen indwelling Camara catheter in place soft nondistended bowel tones present no nausea no vomiting no stool Extremities no edema noted - Labs CBC & Chem 7: 11/07/17 07:15 11/05/17 07:14 Labs: Abnormal Lab Results - Last 24 Hours (Table) 11/05/17 11/06/17 11/06/17 Range/Units 20:32 11:18 17:19 RBC (3.80-5.40) m/uL Hgb (11.4-16.0) gm/dL Hct (34.0-46.0) % RDW (11.5-15.5) % Plt Count (150-450) k/uL Lymphocytes # (1.0-4.8) k/uL POC Glucose (mg/dL) 134 H 107 H (75-99) mg/dL Crossmatch See Detail 11/06/17 11/07/17 Range/Units 20:48 07:15 RBC 2.24 L (3.80-5.40) m/uL Hgb 6.8 L* (11.4-16.0) gm/dL Hct 20.9 L (34.0-46.0) % RDW 16.2 H (11.5-15.5) % Plt Count 112 L (150-450) k/uL Lymphocytes # 0.3 L (1.0-4.8) k/uL POC Glucose (mg/dL) 204 H (75-99) mg/dL Crossmatch Assessment and Plan Assessment: Impression Severe profound dementia, Alzheimer's disease history of non-Hodgkin lymphoma Acute sepsis with septic shock secondary to urinary tract infection secondary to Enterobacter cloacae Memory impairment acute on chronic anemia Plan Per advance directives patient is a no CODE STATUS spouse is opting for conservative workup No evidence of an acute surgical abdomen at this time Given patient's profound dementia felt patient would not be able to tolerate upper or lower endoscopic Will follow with you DVT and GI prophylaxis The above impression and plan of care have been discussed and directed by signing physician. Adriana Lopez nurse practitioner acting as scribe for signing physician.
[2017-11-07 11:25] LABS: Glucose,Whole Blood 151 mg/dL (75-99)
--- NOTE | 2017-11-07 12:03 | PN ---
PROGRESS NOTE DATE OF SERVICE: 11/07/2017 REASON FOR FOLLOWUP: Urinary tract infection. INTERVAL HISTORY: The patient is afebrile. She seems to be breathing comfortably. Hemodynamically stable. No nausea, vomiting. Still having hemoglobin. PHYSICAL EXAMINATION: On examination, blood pressure 104/51 with a pulse of 64, temperature 97.9. She is 97% on room air. General description is an elderly female, lying in bed in no distress. RESPIRATORY SYSTEM: Unlabored breathing, clear to auscultation anteriorly. HEART: S1, S2, regular rate and rhythm. ABDOMEN: Soft, no tenderness. EXTREMITIES: No edema of the feet. LABS: Hemoglobin 6.8, white count 4.9. DIAGNOSTIC IMPRESSION AND PLAN: Patient with Enterobacter urinary tract infection. will continue on the oral Cipro for another 5 days to finish course of therapy. was present at bedside. His questions and concerns were answered. MMODL / IJN: [id number] /
[2017-11-07 16:41] LABS: Glucose,Whole Blood 151 mg/dL (75-99)
[2017-11-07 20:08] LABS: Glucose,Whole Blood 208 mg/dL (75-99)
[2017-11-07] MEDS: NON-FORMULARY DRUG (Simvastatin 40 MG) PO SCH (20:46)
[2017-11-08] MEDS: SODIUM CHLORIDE 0.9% 1,000 ML IV SCH ×3 (05:45→17:22)
[2017-11-08] MEDS: LEVOTHYROXINE 100 MCG TAB PO SCH (06:08)
[2017-11-08] MEDS: LEVOTHYROXINE 75 MCG TAB PO SCH (06:08)
[2017-11-08 07:12] LABS: Anisocytosis Slight; Basophils % (A) 1 %; Eosinophils # (A) 0.1 k/uL (0-0.7); Eosinophils % (A) 2 %; HCT 25.5 % (34.0-46.0); HGB 8.2 gm/dL (11.4-16.0); Lymphocytes # (A) 0.3 k/uL (1.0-4.8); Lymphocytes % (A) 7 %; MCH 30.3 pg (25.0-35.0); MCHC 32.1 g/dL (31.0-37.0); MCV 94.4 fL (80.0-100.0); Macrocytosis Slight; Mean Platelet Volume 8.5; Monocytes # (A) 0.3 k/uL (0-1.0); Monocytes % (A) 8 %; Neutrophils # (A) 3.4 k/uL (1.3-7.7); Neutrophils % (A) 79 %; Platelet Count 136 k/uL (150-450); Poikilocytosis Slight; RDW 16.9 % (11.5-15.5); WBC 4.3 k/uL (3.8-10.6)
[2017-11-08 07:19] LABS: Glucose,Whole Blood 99 mg/dL (75-99)
[2017-11-08] MEDS: INSULIN ASPART 100 UNIT/ML 1 ML 10 ML VIAL SQ SCH ×4 (07:30→20:29)
[2017-11-08 07:37] LABS: ALT 43 U/L (9-52); AST 32 U/L (14-36); Albumin 2.1 g/dL (3.5-5.0); Alkaline Phosphatase 99 U/L (38-126); Anion Gap 6 mmol/L; Blood Urea Nitrogen 27 mg/dL (7-17); Carbon Dioxide 19 mmol/L (22-30); Chloride 116 mmol/L (98-107); Glucose 87 mg/dL (74-99); Potassium 4.9 mmol/L (3.5-5.1); Sodium 141 mmol/L (137-145); Total Bilirubin 0.5 mg/dL (0.2-1.3); Total Protein 4.2 g/dL (6.3-8.2)
[2017-11-08] MEDS: metFORMIN 500 MG TAB PO SCH (09:04)
[2017-11-08] MEDS: CIPROFLOXACIN HCL 500 MG TAB PO SCH ×2 (09:04→20:29)
[2017-11-08] MEDS: FERROUS SULFATE 325 MG TAB PO SCH (09:04)
[2017-11-08] MEDS: ASPIRIN 81 MG PO SCH (09:04)
[2017-11-08] MEDS: PANTOPRAZOLE 40 MG TABLET PO SCH (09:04)
[2017-11-08] MEDS: LINAGLIPTIN 5 MG TABLET PO SCH (09:05)
[2017-11-08 11:10] LABS: Glucose,Whole Blood 160 mg/dL (75-99)
--- NOTE | 2017-11-08 11:52 | P.PN ---
Subjective Progress Note Date: 11/08/17 72-year-old female who presented to the emergency room on 10/29/2017 secondary to generalized weakness and fatigue. Patient has also been unable to ambulate and has not been taking her medications. She was found to have a urinary tract infection. She was admitted to the hospital and placed on antibiotics and IV fluids. 10/30/2017-Notes per Abi Mcbride NP and Dr. Fairbanks (covering for Dr. Pandya) Interval history: This a 72-year-old female admitted with severe sepsis, acute UTI, acute metabolic encephalopathy and multiple other medical issues. Maintained on broad-spectrum IV antibiotics, IV fluid hydration. Creatinine mildly worsened. Urine cultures reporting gram-negative bacilli. Receiving fluid boluses for hypotension. Blood pressure dropped to 72/38, pulse 71, temperature 98.6, O2 sat on room air 99%, Became unresponsive, responding only to noxious stimuli, telemetry reporting around of ventricular tachycardia 18 beats. A team called, transferred to ICU. 10/31/2017 Patient seen and examined in the intensive care unit by Dr. Pandya. Patient was transferred to the ICU yesterday secondary to hypotension and unresponsiveness. Dr. Gamble was consulted for ICU management. Echocardiogram was completed revealing ejection fraction of 55-60%, mild mitral regurgitation, and mild tricuspid regurgitation. Blood cultures are negative at the 24 hour gee. Preliminary urine culture is positive for gram-negative bacilli. Patient remains on ceftriaxone 1 g every 24 hours. White count this morning is 6.1. Hemoglobin 8.6. Sodium 138. Potassium 5.3. BUN 41. Creatinine 1.40. Patient remains bradycardic and hypotensive this morning. She was started on dopamine per cardiology. Nurse practitioner spoke with patients at the bedside. Discussion regarding code status. In the event of a cardiopulmonary arrest, the would like the patient to be a DNR. 11/01/2017-11/06/2017- Notes per Dr. Pandya and covering providers 11/07/2017 Patient examined at the bedside on rounds with Dr. Pandya. Spouse at the bedside. Patient is lethargic but does arouse easily to verbal stimulation. Patients hemoglobin this morning is 6.8. Hgb yesterday was 7.2. Patient did receive a unit of blood on 11/05/2017 for hemoglobin of 6.2. Patient has had dark colored stools, which may be secondary to iron supplmentation. General surgery has been consulted. Patient is not a candidate for upper/lower scope at this time. Dr. Alves, hematology/oncology is also consulted. Conservative management of anemia was recommended. Patient was hypotensive this morning with SBP 80-90s which has improved. Last blood pressure is 121/59. 11/08/2017 Patient examined at the bedside on rounds with Dr. Pandya. Spouse at the bedside. Patient is much more awake and alert this morning. Eating breakfast. Patient received 1 unit of packed RBCs yesterday. Repeat hemoglobin this morning is 8.2. IV fluids infusing at 100 mL an hour. Blood pressure has improved with systolic blood pressure in the low 100s. Urine culture is positive for Enterobacter cloacae. Patient remains on Cipro. Discharge planning includes [facility]. Objective - Vital Signs Vital signs: Vital Signs Temp 98 F 11/08/17 07:00 Pulse 63 11/08/17 07:00 Resp 18 11/08/17 07:00 BP 108/69 11/08/17 07:00 Pulse Ox 96 11/08/17 07:00 Intake & Output 11/07/17 11/08/17 11/08/17 18:59 06:59 18:59 Intake Total 3380 700 Output Total 1200 1400 400 Balance 2180 -700 -400 Weight 95.5 kg Intake: IV 600 700 Sodium Chloride 0.9% 1, 600 700 000 ml @ 100 mls/hr IV . Q10H [facility] Rx#:[id number] Oral 2160 Blood Product 620 Rc As-1 Unit 310 [id number] Output: Urine 1200 1400 400 Straight 600 Uretheral (Camara) 1100 400 Other: Voiding Method Indwelling Catheter Indwelling Catheter Indwelling Catheter # Voids 600 # Bowel Movements 1 2 - Exam GENERAL: This is a 72-year-old female in no apparent distress at the time of examination. HEENT: Head is atraumatic, normocephalic. Pupils are equal, round, and reactive to light. Sclerae anicteric. Conjunctivae are clear. Mucus membranes of the mouth are moist. Neck is supple. RESPIRATORY: Clear to ausculation. No wheezes, rales, or rhonchi. No use of accessory muscles. Patient maintaining oxygen saturation greater than 92%. No chest wall tenderness is noted on palpation or with deep breathing. CARDIOVASCULAR: Regular rate and rhythm. S1 and S2 noted. No systolic or diastolic murmur auscultated. No JVD noted. No S3 or S4 noted. GASTROINTESTINAL: No distention noted. Abdomen soft and round. Normal active bowel sounds auscultated x 4 quadrants. No pain or tenderness noted upon palpation. INTEGUMENTARY: No cyanosis. No jaundice. No rashes noted. No cellulitis noted. EXTREMITIES: 2+ peripheral pulses. No evidence of peripheral edema. No calf tenderness noted. NEUROLOGIC: Cranial nerves II-XII intact. PSYCHIATRIC: Awake and alert. Oriented X 1, which is her baseline - Labs CBC & Chem 7: 11/08/17 06:37 11/08/17 06:37 Labs: Abnormal Lab Results - Last 24 Hours (Table) 11/05/17 11/07/17 11/07/17 Range/Units 20:32 16:33 20:06 RBC (3.80-5.40) m/uL Hgb (11.4-16.0) gm/dL Hct (34.0-46.0) % RDW (11.5-15.5) % Plt Count (150-450) k/uL Lymphocytes # (1.0-4.8) k/uL Chloride (98-107) mmol/L Carbon Dioxide (22-30) mmol/L BUN (7-17) mg/dL POC Glucose (mg/dL) 151 H 208 H (75-99) mg/dL Calcium (8.4-10.2) mg/dL Total Protein (6.3-8.2) g/dL Albumin (3.5-5.0) g/dL Crossmatch See Detail 11/08/17 11/08/17 11/08/17 Range/Units 06:37 06:37 11:02 RBC 2.70 L (3.80-5.40) m/uL Hgb 8.2 L (11.4-16.0) gm/dL Hct 25.5 L (34.0-46.0) % RDW 16.9 H (11.5-15.5) % Plt Count 136 L (150-450) k/uL Lymphocytes # 0.3 L (1.0-4.8) k/uL Chloride 116 H (98-107) mmol/L Carbon Dioxide 19 L (22-30) mmol/L BUN 27 H (7-17) mg/dL POC Glucose (mg/dL) 160 H (75-99) mg/dL Calcium 8.0 L (8.4-10.2) mg/dL Total Protein 4.2 L (6.3-8.2) g/dL Albumin 2.1 L (3.5-5.0) g/dL Crossmatch Assessment and Plan Plan: ASSESSMENT: Urinary tract infection, present on admission, cultures positive for Enterobacter cloacae Normochromic normocytic anemia, unspecified Sepsis, present on admission, secondary to urinary tract infection, improving Septic shock, patient hypotensive and unresponsive, requiring IV boluses and dopamine infusion, secondary to urinary tract infection, resolved Decreased TSH and increased T4, possible iatrogenic hyperthyroidism, resolved most recent TSH 0.702 Ventricular tachycardia, 18 beat run Hyperkalemia, resolved Acute kidney injury, secondary to hypotension and hemodynamic instability, improving Chronic kidney disease, stage III, GFR 52 Diabetes mellitus, type II history of non-Hodgkin's lymphoma PLAN: Monitor blood pressure. Decrease IV fluids to 50cc/hr Encourage fluid intake Monitor hemoglobin. recheck in AM Infectious disease on consult. Appreciate recommendations and input Antibiotic regimen per infectious disease. Patient currently receiving Cipro. Hematology/oncology on consult. Appreciate recommendations and input Patient to follow-up outpatient to repeat iron studies as they are falsely elevated due to transfusion Home meds as appropriate Monitor labs GI prophylaxis: Protonix 40 mg PO Daily DVT prophylaxis: Venodyne's to bilateral lower extremities Further recommendations pending patient's course Anticipate discharge tomorrow to [facility] if patient remains stable Nurse practitioner note has been reviewed by physician. Signing provider agrees with the documented findings, assessment, and plan of care.
--- NOTE | 2017-11-08 12:35 | P.PN ---
Subjective Progress Note Date: 11/08/17 72-year-old female seen and examined at bedside sitting up in bed is more awake. Oriented to self only. not able to identify spouse at bedside spouse continues to indicate that he is not interested in any aggressive workup for the anemia. Endoscopic is are on hold hemoglobin stable after 2 units total packed red blood cells the hemoglobin this morning is 8.2 no further episodes of any hematemesis or bloody stools Objective - Vital Signs Vital signs: Vital Signs Temp 98 F 11/08/17 07:00 Pulse 63 11/08/17 07:00 Resp 18 11/08/17 07:00 BP 108/69 11/08/17 07:00 Pulse Ox 96 11/08/17 07:00 Intake & Output 11/07/17 11/08/17 11/08/17 18:59 06:59 18:59 Intake Total 3380 700 Output Total 1200 1400 1100 Balance 2180 -700 -1100 Weight 95.5 kg Intake: IV 600 700 Sodium Chloride 0.9% 1, 600 700 000 ml @ 50 mls/hr IV . Q20H REPLACED BY [facility] Rx#:[id number] Oral 2160 Blood Product 620 Rc As-1 Unit 310 [id number] Output: Urine 1200 1400 1100 Straight 600 Uretheral (Camara) 1100 400 Other: Voiding Method Indwelling Catheter Indwelling Catheter Indwelling Catheter # Voids 600 # Bowel Movements 1 2 - Exam Physical exam 72-year-old female sitting up in bed oriented to self only pleasant and cooperative Lungs adequate air movement no shortness of breath noted Heart S1-S2 audible and regular Abdomen indwelling Camara catheter in place soft nondistended bowel tones present no nausea no vomiting no stool Extremities no edema noted - Labs CBC & Chem 7: 11/08/17 06:37 11/08/17 06:37 Labs: Abnormal Lab Results - Last 24 Hours (Table) 11/05/17 11/07/17 11/07/17 Range/Units 20:32 16:33 20:06 RBC (3.80-5.40) m/uL Hgb (11.4-16.0) gm/dL Hct (34.0-46.0) % RDW (11.5-15.5) % Plt Count (150-450) k/uL Lymphocytes # (1.0-4.8) k/uL Chloride (98-107) mmol/L Carbon Dioxide (22-30) mmol/L BUN (7-17) mg/dL POC Glucose (mg/dL) 151 H 208 H (75-99) mg/dL Calcium (8.4-10.2) mg/dL Total Protein (6.3-8.2) g/dL Albumin (3.5-5.0) g/dL Crossmatch See Detail 11/08/17 11/08/17 11/08/17 Range/Units 06:37 06:37 11:02 RBC 2.70 L (3.80-5.40) m/uL Hgb 8.2 L (11.4-16.0) gm/dL Hct 25.5 L (34.0-46.0) % RDW 16.9 H (11.5-15.5) % Plt Count 136 L (150-450) k/uL Lymphocytes # 0.3 L (1.0-4.8) k/uL Chloride 116 H (98-107) mmol/L Carbon Dioxide 19 L (22-30) mmol/L BUN 27 H (7-17) mg/dL POC Glucose (mg/dL) 160 H (75-99) mg/dL Calcium 8.0 L (8.4-10.2) mg/dL Total Protein 4.2 L (6.3-8.2) g/dL Albumin 2.1 L (3.5-5.0) g/dL Crossmatch Assessment and Plan Assessment: Impression Severe profound dementia, Alzheimer's disease history of non-Hodgkin lymphoma Acute sepsis with septic shock secondary to urinary tract infection secondary to Enterobacter cloacae Memory impairment acute on chronic anemia Plan We'll sign off and re-eval as needed Per advance directives patient is a no CODE STATUS spouse is opting for conservative workup No evidence of an acute surgical abdomen at this time Given patient's profound dementia felt patient would not be able to tolerate upper or lower endoscopic DVT and GI prophylaxis The above impression and plan of care have been discussed and directed by signing physician. Adriana Lopez nurse practitioner acting as scribe for signing physician.
--- NOTE | 2017-11-08 15:27 | PN ---
PROGRESS NOTE DATE OF SERVICE: 11/08/2017. REASON FOR FOLLOWUP: Enterobacter urinary tract infection. INTERVAL HISTORY: The patient is afebrile. She seems to be more awake, alert. She is up in the chair. Denies having any chest pain or shortness of breath or cough. No abdominal pain and no diarrhea. EXAMINATION: Blood pressure 108/59 with a pulse of 53, temperature of 98. She is 96% on room air. General description is an elderly female up in the chair in no distress. RESPIRATORY SYSTEM: Unlabored breathing. Clear to auscultation anteriorly. HEART: S1, S2. Regular rate and rhythm. ABDOMEN: Soft, no tenderness. LABS: Hemoglobin 8.8, white count 4.3 with a BUN of 27, creatinine 1.02. DIAGNOSTIC IMPRESSION AND PLAN: Patient with Enterobacter cloacae urinary tract infection. Currently on oral Ceftin for another 2-3 days to finish a course of therapy. Continue supportive care. was present at bedside and his questions were answered. MMODL / IJN: [id number] /
[2017-11-08 15:37] VITALS: RESP 16
[2017-11-08 17:03] LABS: Glucose,Whole Blood 148 mg/dL (75-99)
[2017-11-08] MEDS: NON-FORMULARY DRUG (Simvastatin 40 MG) PO SCH (20:08)
[2017-11-08 20:16] LABS: Glucose,Whole Blood 150 mg/dL (75-99)
[2017-11-09] MEDS: LEVOTHYROXINE 75 MCG TAB PO SCH (06:22)
[2017-11-09] MEDS: LEVOTHYROXINE 100 MCG TAB PO SCH (06:22)
--- NOTE | 2017-11-09 07:31 | P.PN ---
Subjective Progress Note Date: 11/07/17 72-year-old female who presented to the emergency room on 10/29/2017 secondary to generalized weakness and fatigue. Patient has also been unable to ambulate and has not been taking her medications. She was found to have a urinary tract infection. She was admitted to the hospital and placed on antibiotics and IV fluids. 10/30/2017-Notes per Abi Mcbride NP and Dr. Fairbanks (covering for Dr. Pandya) Interval history: This a 72-year-old female admitted with severe sepsis, acute UTI, acute metabolic encephalopathy and multiple other medical issues. Maintained on broad-spectrum IV antibiotics, IV fluid hydration. Creatinine mildly worsened. Urine cultures reporting gram-negative bacilli. Receiving fluid boluses for hypotension. Blood pressure dropped to 72/38, pulse 71, temperature 98.6, O2 sat on room air 99%, Became unresponsive, responding only to noxious stimuli, telemetry reporting around of ventricular tachycardia 18 beats. A team called, transferred to ICU. 10/31/2017 Patient seen and examined in the intensive care unit by Dr. Pandya. Patient was transferred to the ICU yesterday secondary to hypotension and unresponsiveness. Dr. Gamble was consulted for ICU management. Echocardiogram was completed revealing ejection fraction of 55-60%, mild mitral regurgitation, and mild tricuspid regurgitation. Blood cultures are negative at the 24 hour gee. Preliminary urine culture is positive for gram-negative bacilli. Patient remains on ceftriaxone 1 g every 24 hours. White count this morning is 6.1. Hemoglobin 8.6. Sodium 138. Potassium 5.3. BUN 41. Creatinine 1.40. Patient remains bradycardic and hypotensive this morning. She was started on dopamine per cardiology. Nurse practitioner spoke with patients at the bedside. Discussion regarding code status. In the event of a cardiopulmonary arrest, the would like the patient to be a DNR. 11/01/2017-11/06/2017- Notes per Dr. Pandya and covering providers 11/07/2017 Patient examined at the bedside on rounds with Dr. Pandya. Spouse at the bedside. Patient is lethargic but does arouse easily to verbal stimulation. Patients hemoglobin this morning is 6.8. Hgb yesterday was 7.2. Patient did receive a unit of blood on 11/05/2017 for hemoglobin of 6.2. Patient has had dark colored stools, which may be secondary to iron supplmentation. General surgery has been consulted. Patient is not a candidate for upper/lower scope at this time. Dr. Alves, hematology/oncology is also consulted. Conservative management of anemia was recommended. Patient was hypotensive this morning with SBP 80-90s which has improved. Last blood pressure is 121/59. Objective - Vital Signs Vital signs: Vital Signs Temp 97.8 F 11/07/17 12:55 Pulse 58 L 11/07/17 12:55 Resp 16 11/07/17 12:55 BP 121/59 11/07/17 12:55 Pulse Ox 96 11/07/17 12:55 Intake & Output 11/06/17 11/07/17 11/07/17 18:59 06:59 18:59 Intake Total 2520 1500 1510 Output Total 1400 600 Balance 9960 088 8165 Weight 95.5 kg Intake: IV 1200 Sodium Chloride 0.9% 1, 1200 000 ml @ 100 mls/hr IV . Q10H [facility] Rx#:[id number] Intake, IV Titration 600 Amount Sodium Chloride 0.9% 1, 600 000 ml @ 100 mls/hr IV . Q10H [facility] Rx#:[id number] Oral 1180 640 1651 Blood Product 310 Rc As-1 Unit 310 [id number] Output: Urine 1400 600 Straight 600 Other: Voiding Method Indwelling Catheter Indwelling Catheter Indwelling Catheter # Voids 2 # Bowel Movements 1 1 1 - Exam GENERAL: This is a 72-year-old female in no apparent distress at the time of examination. lethargic but easily arousable with verbal stimulation. HEENT: Head is atraumatic, normocephalic. Pupils are equal, round, and reactive to light. Sclerae anicteric. Conjunctivae are clear. Mucus membranes of the mouth are moist. Neck is supple. RESPIRATORY: Clear to ausculation. No wheezes, rales, or rhonchi. No use of accessory muscles. Patient maintaining oxygen saturation greater than 92%. No chest wall tenderness is noted on palpation or with deep breathing. CARDIOVASCULAR: Regular rate and rhythm. S1 and S2 noted. No systolic or diastolic murmur auscultated. No JVD noted. No S3 or S4 noted. GASTROINTESTINAL: No distention noted. Abdomen soft and round. Normal active bowel sounds auscultated x 4 quadrants. No pain or tenderness noted upon palpation. INTEGUMENTARY: No cyanosis. No jaundice. No rashes noted. No cellulitis noted. EXTREMITIES: 2+ peripheral pulses. No evidence of peripheral edema. No calf tenderness noted. NEUROLOGIC: Cranial nerves II-XII intact. PSYCHIATRIC: lethargic. Oriented X 1, which is her baseline - Labs CBC & Chem 7: 11/07/17 07:15 11/05/17 07:14 Labs: Abnormal Lab Results - Last 24 Hours (Table) 11/05/17 11/06/17 11/06/17 Range/Units 20:32 17:19 20:48 RBC (3.80-5.40) m/uL Hgb (11.4-16.0) gm/dL Hct (34.0-46.0) % RDW (11.5-15.5) % Plt Count (150-450) k/uL Lymphocytes # (1.0-4.8) k/uL POC Glucose (mg/dL) 107 H 204 H (75-99) mg/dL Crossmatch See Detail 11/07/17 11/07/17 Range/Units 07:15 11:18 RBC 2.24 L (3.80-5.40) m/uL Hgb 6.8 L* (11.4-16.0) gm/dL Hct 20.9 L (34.0-46.0) % RDW 16.2 H (11.5-15.5) % Plt Count 112 L (150-450) k/uL Lymphocytes # 0.3 L (1.0-4.8) k/uL POC Glucose (mg/dL) 151 H (75-99) mg/dL Crossmatch Assessment and Plan Plan: ASSESSMENT: Urinary tract infection, present on admission, preliminary cultures positive for Enterobacter cloacae Normochromic normocytic anemia, unspecified Sepsis, present on admission, secondary to urinary tract infection, improving Septic shock, patient hypotensive and unresponsive, requiring IV boluses and dopamine infusion, secondary to urinary tract infection, resolved Decreased TSH and increased T4, possible iatrogenic hyperthyroidism Ventricular tachycardia, 18 beat run Hyperkalemia, resolved Acute kidney injury, secondary to hypotension and hemodynamic instability, improving Chronic kidney disease, stage III, GFR 52 Diabetes mellitus, type II history of non-Hodgkin's lymphoma PLAN: Transfuse 1 unit packed RBCs. Repeat hemoglobin in a.m. Infectious disease on consult. Appreciate recommendations and input Antibiotic regimen per infectious disease. Patient currently receiving Cipro. Hematology/oncology on consult. Appreciate recommendations and input Patient to follow-up outpatient to repeat iron studies as they are falsely elevated due to transfusion Home meds as appropriate Monitor labs GI prophylaxis: Protonix 40 mg IV Daily DVT prophylaxis: Venodyne's to bilateral lower extremities Further recommendations pending patient's course Nurse practitioner note has been reviewed by physician. Signing provider agrees with the documented findings, assessment, and plan of care.
[2017-11-09] MEDS: INSULIN ASPART 100 UNIT/ML 1 ML 10 ML VIAL SQ SCH ×3 (07:33→17:40)
[2017-11-09 07:42] LABS: Glucose,Whole Blood 101 mg/dL (75-99)
[2017-11-09 07:46] LABS: Anisocytosis Slight; Basophils % (A) 1 %; Eosinophils # (A) 0.1 k/uL (0-0.7); Eosinophils % (A) 3 %; HCT 24.1 % (34.0-46.0); HGB 7.9 gm/dL (11.4-16.0); Lymphocytes # (A) 0.3 k/uL (1.0-4.8); Lymphocytes % (A) 7 %; MCH 30.4 pg (25.0-35.0); MCHC 32.6 g/dL (31.0-37.0); MCV 93.3 fL (80.0-100.0); Mean Platelet Volume 8.1; Monocytes # (A) 0.3 k/uL (0-1.0); Monocytes % (A) 9 %; Neutrophils # (A) 2.6 k/uL (1.3-7.7); Neutrophils % (A) 76 %; Platelet Count 149 k/uL (150-450); Poikilocytosis Slight; RBC 2.59 m/uL (3.80-5.40); RDW 16.6 % (11.5-15.5); WBC 3.4 k/uL (3.8-10.6)
[2017-11-09 07:58] VITALS: PULSE 57
[2017-11-09 08:08] LABS: ALT 42 U/L (9-52); AST 32 U/L (14-36); Albumin 2.2 g/dL (3.5-5.0); Alkaline Phosphatase 109 U/L (38-126); Anion Gap 6 mmol/L; Blood Urea Nitrogen 29 mg/dL (7-17); Calcium 8.3 mg/dL (8.4-10.2); Carbon Dioxide 22 mmol/L (22-30); Chloride 113 mmol/L (98-107); Glucose 91 mg/dL (74-99); Potassium 4.7 mmol/L (3.5-5.1); Sodium 141 mmol/L (137-145); Total Bilirubin 0.5 mg/dL (0.2-1.3); Total Protein 4.2 g/dL (6.3-8.2)
[2017-11-09] MEDS: LINAGLIPTIN 5 MG TABLET PO SCH (08:44)
[2017-11-09] MEDS: PANTOPRAZOLE 40 MG TABLET PO SCH (08:44)
[2017-11-09] MEDS: FERROUS SULFATE 325 MG TAB PO SCH (08:44)
[2017-11-09] MEDS: ASPIRIN 81 MG PO SCH (08:44)
[2017-11-09] MEDS: metFORMIN 500 MG TAB PO SCH (08:44)
[2017-11-09] MEDS: CIPROFLOXACIN HCL 500 MG TAB PO SCH (08:44)
[2017-11-09] MEDS: SODIUM CHLORIDE 0.9% 1,000 ML IV SCH (08:45)
--- NOTE | 2017-11-09 10:18 | P.DS ---
Providers Date of admission: 10/29/17 15:56 Expected date of discharge: 11/09/17 Attending physician: Sumeet Pandya Consults: 10/30/17 16:31 Consult Physician Routine Consulting Provider: Josy Borden Consult Reason/Comments: severe sepsis Do you want consulting provider notified?: Yes 10/30/17 16:35 Consult Physician Routine Consulting Provider: Chapito Weeks Consult Reason/Comments: ICU management Do you want consulting provider notified?: Yes 10/30/17 20:00 Consult Physician Routine Consulting Provider: Diogo Nation Consult Reason/Comments: V tach Do you want consulting provider notified?: Yes 11/05/17 08:31 Consult Physician Routine Consulting Provider: Nader Buchanan Consult Reason/Comments: GI Bleed Do you want consulting provider notified?: Already Contacted 11/05/17 12:40 Consult Physician Routine Consulting Provider: Kenny Alves Consult Reason/Comments: Anemia/Hx. of Non Hodgkins Lymphoma Do you want consulting provider notified?: Yes Primary care physician: Sumeet Pandya Hospital Course: 72-year-old female who presented to the emergency room on 10/29/2017 secondary to generalized weakness and fatigue. Patient has also been unable to ambulate and has not been taking her medications. She was found to have a urinary tract infection. She was admitted to the hospital and placed on antibiotics and IV fluids. On 10/30/2017 the patient became unresponsive and was only responding to noxious stimuli and was hypotensive with a systolic blood pressure in the 70s. the patient also had a 18 be run of V. tach. At that time the patient was transferred to the intensive care unit. She was on Levaquin for a short period of time. She was also found to be bradycardic. Cardiology evaluated the patient and she was started on dopamine. The patient's condition improved with IV fluids and medications. Her dopamine was weaned off and the patient was transferred out of the intensive care unit to a general medical floor. Echocardiogram was completed revealing ejection fraction of 55-60%, mild mitral regurgitation, and mild tricuspid regurgitation. Blood cultures are negative at the 144 hour gee. urine culture is positive for Enterobacter cloecae. Infectious disease was on consult and followed patient during hospitalization. She was on IV antibiotics and has since been transitioned to oral. Dr. Borden recommends 3 more days of Cipro at the time of discharge to complete antibiotic course. The patient has a history of anemia, but during her hospitalization hemoglobin dropped to 6.2. The patient received 1 unit of packed red blood cells. repeat hemoglobin was 7.2. the following day her hemoglobin was 6.8. At that time the patient received a second unit of packed RBCs. Repeat hemoglobin was 8.2. Hemoglobin on 11/09/2017 is 7.9. No acute bleeding has been noted. The patient has had slightly dark stools which was thought to be secondary to iron supplementation. Hematology and general surgery were consulted. Dr. Buchanan did not feel the patient was a candidate for upper or lower scope. Patient's is agreeable and wishes to continue with conservative management. Hematology recommends follow-up on an outpatient basis as iron studies are falsely elevated secondary to blood transfusion. No acute intervention during hospitalization from hematology standpoint. The patient was on aspirin prior to hospitalization. Per Dr. Pandya, the patient 's aspirin is to be held for one week and then repeat hemoglobin at [facility]. Hemoglobin remains above 8, patient may resume aspirin otherwise continue to hold at that time. The patient was expressing urinary retention during hospitalization. A indwelling urinary catheter was inserted. Patient to be discharged to [facility] with urinary catheter and to remain in place for one week and then may discontinue catheter and attempt voiding trial. Amiloride-HCTZ and Valsartan were discontinued in hospital secondary to hyperkalemia and hypotension Synthroid was increased during hospitalization per cardiology. Patient to repeat thyroid studies at follow up appointment with Dr. Pandya. The patient was deemed stable [facility] [facility]. She is to follow up on an outpatient basis. DISCHARGE DIAGNOSIS: Urinary tract infection, present on admission, cultures positive for Enterobacter cloacae Normochromic normocytic anemia, unspecified Sepsis, present on admission, secondary to urinary tract infection, resolved Septic shock, patient hypotensive and unresponsive, requiring IV boluses and dopamine infusion, secondary to urinary tract infection, resolved Decreased TSH and increased T4, possible iatrogenic hyperthyroidism, resolved most recent TSH 0.702 Ventricular tachycardia, 18 beat run Hyperkalemia, resolved Acute kidney injury, secondary to hypotension and hemodynamic instability, improving Chronic kidney disease, stage III, GFR 52 Diabetes mellitus, type II history of non-Hodgkin's lymphoma Nurse practitioner note has been reviewed by physician. Signing provider agrees with the documented findings, assessment, and plan of care. Patient Condition at Discharge: Stable Plan - Discharge Summary New Discharge Prescriptions: New Ciprofloxacin HCl [Cipro] 500 mg PO BID #6 tab Levothyroxine Sodium [Synthroid] 75 mcg PO DAILY@0630 tab Levothyroxine Sodium [Synthroid] 100 mcg PO DAILY@0630 tab Pantoprazole [Protonix] 40 mg PO DAILY tablet.dr Continue metFORMIN HCL [Glucophage] 500 mg PO DAILY sitaGLIPtin [Januvia] 100 mg PO DAILY Simvastatin [Zocor] 40 mg PO HS Ferrous Sulfate [Iron (65 MG Elemental)] 325 mg PO DAILY ALPRAZolam [Xanax] 0.25 mg PO Q8H PRN #30 tab PRN Reason: Anxiety Discontinued aMILoride-HCTZ 5-50 mg [Moduretic 5-50] 1 tab PO DAILY Valsartan 80 mg PO DAILY Levothyroxine Sodium [Synthroid] 150 mcg PO DAILY Ibuprofen [Motrin] 800 mg PO Q8H PRN PRN Reason: Pain Aspirin EC [Ecotrin Low Dose] 81 mg PO DAILY Discharge Medication List metFORMIN HCL [Glucophage] 500 mg PO DAILY 11/15/14 [History] sitaGLIPtin [Januvia] 100 mg PO DAILY 08/16/15 [History] Simvastatin [Zocor] 40 mg PO HS 07/08/16 [History] Ferrous Sulfate [Iron (65 MG Elemental)] 325 mg PO DAILY 10/29/17 [History] ALPRAZolam [Xanax] 0.25 mg PO Q8H PRN #30 tab 11/09/17 [Rx] Ciprofloxacin HCl [Cipro] 500 mg PO BID #6 tab 11/09/17 [Rx] Levothyroxine Sodium [Synthroid] 75 mcg PO DAILY@0630 tab 11/09/17 [Rx] Levothyroxine Sodium [Synthroid] 100 mcg PO DAILY@0630 tab 11/09/17 [Rx] Pantoprazole [Protonix] 40 mg PO DAILY tablet. 11/09/17 [Rx] Follow up Appointment(s)/Referral(s): Kenny Alves MD [STAFF PHYSICIAN] - 11/20/17 1:00 pm (this appt is at the [place] office ) Sumeet Pandya DO [Primary Care Provider] - 1 Week (1 week after DC from ECF) Ambulatory/Diagnostic Orders: Complete Blood Count w/diff [LAB.AMB] Time Frame: 1 Week, Location: Determined By Patient Comprehensive Metabolic Panel [LAB.AMB] Time Frame: 1 Week, Location: Determined By Patient Activity/Diet/Wound Care/Special Instructions: Patients aspirin to be held for one week and then repeat hemoglobin. If hemoglobin remains above 8.0, may resume aspirin Amiloride-HCTZ and Valsartan were discontinued in hospital secondary to hyperkalemia and hypotension Synthroid was increased during hospitalization per cardiology. Patient to repeat thyroid studies at follow up appointment with Dr. Pandya. Urinary catheter to remain in place for 1 week at [facility]. Then discontinue and attempt voiding trial Avoid NSAIDS if possible Activity as tolerated Diet: Dysphagia level II: Ground foods Discharge Disposition: TRANSFER TO SNF/ECF
[2017-11-09 12:20] LABS: Glucose,Whole Blood 146 mg/dL (75-99)
--- NOTE | 2017-11-09 14:25 | PN ---
PROGRESS NOTE DATE OF SERVICE: 11/09/2017 REASON FOR FOLLOWUP: Enterobacter urinary tract infection. INTERVAL HISTORY: The patient is afebrile. She has been breathing comfortably. Denies having any chest pain. No cough. No abdominal pain and no diarrhea. PHYSICAL EXAMINATION: Blood pressure is 111/56 with a pulse of 87, temperature 97.9, she is 95% on 2 L nasal cannula. General description is an elderly female, lying in bed in no distress. RESPIRATORY SYSTEM: Unlabored breathing, clear to auscultation anteriorly. HEART: S1, S2. Regular rate and rhythm. ABDOMEN: Soft, no tenderness. LABS: Hemoglobin is 7.8, white count of 3.4, BUN of 29, creatinine 1.04. DIAGNOSTIC IMPRESSION AND PLAN: Patient with bacteremia urinary tract infection with sepsis, underlying infection has been treated. May give a short course of oral Cipro for another day or 2. present at the bedside. His questions were answered. MMODL / IJN: [id number] /
[2017-11-09 16:13] VITALS: BP 103/68; TEMP 98
[2017-11-09 16:47] LABS: Glucose,Whole Blood 154 mg/dL (75-99)
== END 2017-11-09 18:37 | DRG 871 ==
LOC: EC 13:05 → 6SEL 15:56 → 6ICU 10-30 16:42 → 5MS5E 11-02 13:09
PROVIDERS: ADMIT Family Medicine; ATTEND Family Medicine
DX: A41.59 Other Gram-negative sepsis (principal); G93.41 Metabolic encephalopathy; R65.21 Severe sepsis with septic shock; I47.2 Ventricular tachycardia; N17.9 Acute kidney failure, unspecified; C85.90 Non-Hodgkin lymphoma, unspecified, unspecified site; N18.3 Chronic kidney disease, stage 3 (moderate); E87.1 Hypo-osmolality and hyponatremia; E87.2 Acidosis; N39.0 Urinary tract infection, site not specified; D69.6 Thrombocytopenia, unspecified; E11.22 Type 2 diabetes mellitus with diabetic chronic kidney disease; I49.5 Sick sinus syndrome; E86.0 Dehydration; D63.8 Anemia in other chronic diseases classified elsewhere; E03.9 Hypothyroidism, unspecified; E78.5 Hyperlipidemia, unspecified; E87.5 Hyperkalemia; F02.80 Dementia in other diseases classified elsewhere, unspecified severity, without behavioral disturbance, psychotic disturbance, mood disturbance, and anxiety; G20 Parkinson's disease; G30.9 Alzheimer's disease, unspecified; I08.1 Rheumatic disorders of both mitral and tricuspid valves; I12.9 Hypertensive chronic kidney disease with stage 1 through stage 4 chronic kidney disease, or unspecified chronic kidney disease; I44.0 Atrioventricular block, first degree; Z66 Do not resuscitate; Z79.4 Long term (current) use of insulin; Z79.82 Long term (current) use of aspirin; Z79.899 Other long term (current) drug therapy; Z80.9 Family history of malignant neoplasm, unspecified; Z86.79 Personal history of other diseases of the circulatory system; Z96.651 Presence of right artificial knee joint; E05.90 Thyrotoxicosis, unspecified without thyrotoxic crisis or storm; Z88.2 Allergy status to sulfonamides
CPT/HCPCS: 00000; 36415; 70450; 71045; 76770; 80048; 80053; 81001; 82553; 83036; 83605; 83735; 84100; 84132; 84439; 84443; 84481; 84484; 85025; 85610; 85730; 86850; 86900; 86901; 86920; 87040; 87077; 87086; 87186; 93005; 93306; 96361; 96374; 99285

== ENCOUNTER 2018-02-13 00:01 | Inpatient (IN) | payer MEDICARE ==
[2018-02-13] MEDS ORDERED: cefTRIAXone IN SWFI 2,000 MG/20 ML SYRINGE IVP STA (00:48)
[2018-02-13 01:17] LABS: HCT 34.5 % (34.0-46.0); HGB 12.3 gm/dL (11.4-16.0); MCH 32.4 pg (25.0-35.0); MCHC 35.7 g/dL (31.0-37.0); Mean Platelet Volume 6.9; Platelet Count 188 k/uL (150-450); RBC 3.79 m/uL (3.80-5.40); RDW 12.7 % (11.5-15.5)
[2018-02-13] MEDS: SODIUM CHLORIDE 0.9% 500 ML IV SCH ×2 (01:18→01:19)
[2018-02-13 01:21] LABS: WBC 0.9 k/uL (3.8-10.6)
[2018-02-13 01:26] LABS: Albumin 3.6 g/dL (3.5-5.0); Calcium 9.3 mg/dL (8.4-10.2); Potassium 4.2 mmol/L (3.5-5.1); Total Bilirubin 0.3 mg/dL (0.2-1.3); Total Protein 5.7 g/dL (6.3-8.2)
[2018-02-13 01:29] LABS: Appearance,Urine Cloudy (Clear); Bilirubin,Urine Negative (Negative); Blood,Urine Small (Negative); Color,Urine Yellow; Glucose,Urine (UA) Negative (Negative); Ketones,Urine Negative (Negative); Leukocyte Esterase,Urine Small (Negative); Mucus,Urine Rare /hpf; Nitrite,Urine Negative (Negative); Protein,Urine Negative (Negative); RBC,Urine 3 /hpf (0-5); Specific Gravity,Urine 1.016 (1.001-1.035); Squamous Epithelial Cell,Urine 3 /hpf (0-4); Urobilinogen,Urine <2.0 mg/dL (<2.0); WBC,Urine 4 /hpf (0-5)
[2018-02-13 01:32] LABS: Prothrombin Time 9.8 sec (9.0-12.0)
[2018-02-13 01:40] LABS: Partial Thromboplastin Time 21.9 sec (22.0-30.0)
--- NOTE | 2018-02-13 01:54 | XR ---
EXAMINATION TYPE: XR chest 2V DATE OF EXAM: 02/13/2018 COMPARISON: 10/29/2017 HISTORY: Fever TECHNIQUE: Frontal and lateral views of the chest are obtained. FINDINGS: There is no heart failure nor confluent pneumonic infiltrate. There is right shoulder pros thesis. Costophrenic angles are clear. IMPRESSION: No active cardiopulmonary disease. Heart appears increased in size compared to old exam.
--- NOTE | 2018-02-13 02:47 | ED ---
General Adult HPI - General Chief complaint: Recheck/Abnormal Lab/Rx Stated complaint: abn labs Time Seen by Provider: 02/13/18 00:39 Source: family Mode of arrival: wheelchair Limitations: no limitations - History of Present Illness Initial comments: 72 years old female with a history of non-Hodgkin's lymphoma was sent in by primary care physician considering white count was quite low, she herself has dementia hasn't noticed any fever no chills no cough she does have a history of bladder infections, devious system is unremarkable otherwise - Related Data Home Medications Medication Instructions Recorded Confirmed metFORMIN HCL [Glucophage] 500 mg PO DAILY 11/15/14 10/29/17 sitaGLIPtin [Januvia] 100 mg PO DAILY 08/16/15 10/29/17 Simvastatin [Zocor] 40 mg PO HS 07/08/16 10/29/17 Ferrous Sulfate [Iron (65 MG 325 mg PO DAILY 10/29/17 10/29/17 Elemental)] Previous Rx's Medication Instructions Recorded ALPRAZolam [Xanax] 0.25 mg PO Q8H PRN #30 tab 11/09/17 Ciprofloxacin HCl [Cipro] 500 mg PO BID #6 tab 11/09/17 Levothyroxine Sodium [Synthroid] 75 mcg PO DAILY@0630 tab 11/09/17 Levothyroxine Sodium [Synthroid] 100 mcg PO DAILY@0630 tab 11/09/17 Pantoprazole [Protonix] 40 mg PO DAILY tablet. 11/09/17 Allergies Allergy/AdvReac Type Severity Reaction Status Date / Time atorvastatin [From Lipitor] Allergy Unknown Verified 02/13/18 00:21 enalaprilat [From Vasotec] Allergy Unknown Verified 02/13/18 00:21 propoxyphene napsylate Allergy Unknown Verified 02/13/18 00:21 [From Darvocet-N] Sulfa (Sulfonamide Allergy Itching,daniela Verified 02/13/18 00:21 Antibiotics) h Review of Systems ROS Statement: Those systems with pertinent positive or pertinent negative responses have been documented in the HPI. ROS Other: All systems not noted in ROS Statement are negative. Past Medical History Past Medical History: Cancer, Diabetes Mellitus, Hyperlipidemia, Hypertension, Memory Impairment, Thyroid Disorder Additional Past Medical History / Comment(s): non-hodgkins lymphoma-last chemo, varicose veins, arthritis, anemia, feel and injured rt shoulder Jul 2015, uses cane or wheelchair, History of Any Multi-Drug Resistant Organisms: None Reported Past Surgical History: Back Surgery, Hernia Repair, Joint Replacement Additional Past Surgical History / Comment(s): rt knee replacement, thyroid radioactive tx, cataracts Past Anesthesia/Blood Transfusion Reactions: Previous Problems w/ Anesthesia Additional Past Anesthesia/Blood Transfusion Reaction / Comment(s): years ago had diff breathing with anesthesia Past Psychological History: No Psychological Hx Reported Smoking Status: Never smoker Past Alcohol Use History: None Reported Past Drug Use History: None Reported - Past Family History Sister(s) Family Medical History: Cancer General Exam - General Exam Comments Initial Comments: General: The patient is awake and alert, in no distress, and does not appear acutely ill. Skin: Skin is warm and dry and no rashes or lesions are noted. Eye: Pupils are equal, round and reactive to light, extra-ocular movements are intact; there is normal conjunctiva bilaterally. Ears, nose, mouth and throat: There are moist mucous membranes and no oral lesions. Neck: The neck is supple, there is no tenderness or JVD. Cardiovascular: There is A. fib noticed though ventricular rate is quite controlled Respiratory: To auscultation bilateral, no wheezing no rhonchi no distress respiratory vora noticed Gastrointestinal: Soft, non-distended, non-tender abdomen without masses or organomegaly noted. There is no rebound or guarding present. Bowel sounds are unremarkable. Back: There is no tenderness to palpation in the midline. There is no obvious deformity. Musculoskeletal: Normal ROM, no tenderness, There is no pedal edema. There is no calf tenderness or swelling. No cords were appreciated. Neurological: CN II-XII intact, Cranial nerves III through XII are intact. There are no obvious motor or sensory deficits. Coordination appears grossly intact. Speech is normal. Psychiatric: Cooperative, seems very quiet him a depressed he. Limitations: no limitations Course Vital Signs 02/13/18 00:16 Temperature 98.3 F Pulse Rate 66 Respiratory 20 Rate Blood Pressure 145/84 O2 Sat by Pulse 100 Oximetry Labs are reviewed, white count is 0.9 INR is negative compressive metabolic panel troponin urinalysis chest x-ray are unremarkable EKG shows atrial fibrillation he seems like it's a new onset and did get an old EKG which was sinus rhythm and I couldn't find any evidence of any A. fib in the past she be admitted considering neutropenia she had developed this neutropenia over the last few weeks her last white count and beginning of the mandibles normalafebrile will consult Dr. Zuniga and she be treated prophylactically with some antibiotics so she is afebrile and she'll get 1 mg/kg of Lovenox for atrial fibrillation since it pops up her chances of CVA and TIA EKG Findings - EKG Comments: EKG Findings:: G is atrial fibrillation with right bundle branch block ventricular rate is 60 QRS duration is 162 QT//QTc is 460/460 review of this EKG does not reveal any ST elevation Medical Decision Making - Lab Data Result diagrams: 02/13/18 01:00 02/13/18 01:00 Lab Results 02/13/18 02/13/18 02/13/18 Range/Units 01:00 01:00 01:00 WBC 0.9 L* (3.8-10.6) k/uL RBC 3.79 L (3.80-5.40) m/uL Hgb 12.3 (11.4-16.0) gm/dL Hct 34.5 (34.0-46.0) % MCV 91.0 (80.0-100.0) fL MCH 32.4 (25.0-35.0) pg MCHC 35.7 (31.0-37.0) g/dL RDW 12.7 (11.5-15.5) % Plt Count 188 (150-450) k/uL Differential Comment Manual Slide Review Performed PT (9.0-12.0) sec INR (<1.2) APTT (22.0-30.0) sec Sodium 139 (137-145) mmol/L Potassium 4.2 (3.5-5.1) mmol/L Chloride 100 (98-107) mmol/L Carbon Dioxide 28 (22-30) mmol/L Anion Gap 11 mmol/L BUN 28 H (7-17) mg/dL Creatinine 0.80 (0.52-1.04) mg/dL Est GFR (CKD-EPI)AfAm 87 (>60 ml/min/1.73 sqM) Est GFR (CKD-EPI)NonAf 75 (>60 ml/min/1.73 sqM) Glucose 130 H (74-99) mg/dL Plasma Lactic Acid Ismael 0.9 (0.7-2.0) mmol/L Calcium 9.3 (8.4-10.2) mg/dL Total Bilirubin 0.3 (0.2-1.3) mg/dL AST 33 (14-36) U/L ALT 40 (9-52) U/L Alkaline Phosphatase 134 H (38-126) U/L Troponin I (0.000-0.034) ng/mL Total Protein 5.7 L (6.3-8.2) g/dL Albumin 3.6 (3.5-5.0) g/dL Urine Color Urine Appearance (Clear) Urine pH (5.0-8.0) Ur Specific [place] (1.001-1.035) Urine Protein (Negative) Urine Glucose (UA) (Negative) Urine Ketones (Negative) Urine Blood (Negative) Urine Nitrite (Negative) Urine Bilirubin (Negative) Urine Urobilinogen (<2.0) mg/dL Ur Leukocyte Esterase (Negative) Urine RBC (0-5) /hpf Urine WBC (0-5) /hpf Ur Squamous Epith Cells (0-4) /hpf Urine Mucus (None) /hpf 02/13/18 02/13/18 02/13/18 Range/Units 01:00 01:00 01:10 WBC (3.8-10.6) k/uL RBC (3.80-5.40) m/uL Hgb (11.4-16.0) gm/dL Hct (34.0-46.0) % MCV (80.0-100.0) fL MCH (25.0-35.0) pg MCHC (31.0-37.0) g/dL RDW (11.5-15.5) % Plt Count (150-450) k/uL Differential Comment Manual Slide Review PT 9.8 (9.0-12.0) sec INR 1.0 (<1.2) APTT 21.9 L (22.0-30.0) sec Sodium (137-145) mmol/L Potassium (3.5-5.1) mmol/L Chloride (98-107) mmol/L Carbon Dioxide (22-30) mmol/L Anion Gap mmol/L BUN (7-17) mg/dL Creatinine (0.52-1.04) mg/dL Est GFR (CKD-EPI)AfAm (>60 ml/min/1.73 sqM) Est GFR (CKD-EPI)NonAf (>60 ml/min/1.73 sqM) Glucose (74-99) mg/dL Plasma Lactic Acid Ismael (0.7-2.0) mmol/L Calcium (8.4-10.2) mg/dL Total Bilirubin (0.2-1.3) mg/dL AST (14-36) U/L ALT (9-52) U/L Alkaline Phosphatase (38-126) U/L Troponin I <0.012 (0.000-0.034) ng/mL Total Protein (6.3-8.2) g/dL Albumin (3.5-5.0) g/dL Urine Color Yellow Urine Appearance Cloudy H (Clear) Urine pH 5.0 (5.0-8.0) Ur Specific [place] 1.016 (1.001-1.035) Urine Protein Negative (Negative) Urine Glucose (UA) Negative (Negative) Urine Ketones Negative (Negative) Urine Blood Small H (Negative) Urine Nitrite Negative (Negative) Urine Bilirubin Negative (Negative) Urine Urobilinogen <2.0 (<2.0) mg/dL Ur Leukocyte Esterase Small H (Negative) Urine RBC 3 (0-5) /hpf Urine WBC 4 (0-5) /hpf Ur Squamous Epith Cells 3 (0-4) /hpf Urine Mucus Rare H (None) /hpf Disposition Clinical Impression: Neutropenia, Atrial fibrillation, new onset Disposition: ADMITTED IP TO THIS [facility] Condition: Good Referrals: Rc Barr MD [Primary Care Provider] - 1-2 days
[2018-02-13] MEDS ORDERED: ENOXAPARIN 100 MG/ML SYRINGE SQ STA (03:02)
[2018-02-13] MEDS ORDERED: NALOXONE 0.4 MG/ML 1 ML VIAL IV PRN (03:04)
[2018-02-13] MEDS ORDERED: ONDANSETRON 4 MG/2 ML VIAL IVP PRN (03:04)
[2018-02-13 04:50] VITALS: BMI 34.2
[2018-02-13 06:15] LABS: Glucose,Whole Blood 141 mg/dL (75-99)
[2018-02-13] MEDS: LEVOTHYROXINE 100 MCG TAB PO SCH (07:00)
[2018-02-13] MEDS: LEVOTHYROXINE 75 MCG TAB PO SCH (07:00)
[2018-02-13] MEDS: LINAGLIPTIN 5 MG TABLET PO SCH (08:23)
[2018-02-13] MEDS: metFORMIN 500 MG TAB PO SCH (08:23)
[2018-02-13] MEDS: CIPROFLOXACIN HCL 500 MG TAB PO SCH ×2 (08:23→20:55)
[2018-02-13] MEDS: FERROUS SULFATE 325 MG TAB PO SCH (08:23)
[2018-02-13] MEDS: PANTOPRAZOLE 40 MG TABLET PO SCH (08:23)
--- NOTE | 2018-02-13 09:18 | P.CRDCN ---
History of Present Illness Consult date: 02/13/18 Requesting physician: Rc Barr Consult reason: atrial fibrillation Chief complaint: Neutropenia History of present illness: This is a pleasant 72-year-old female, most of the history was obtained from the medical record as the patient does have dementia and her is not currently present. Patient has a history of non-Hodgkin's lymphoma, diabetes, hypertension, hyperlipidemia, dementia, who was apparently directed to come to the hospital because of a low white blood count. Initial EKG performed in the emergency room was read as atrial fibrillation and for this reason a cardiology consultation was requested. Upon review of the EKG it appears that the patient is in a sinus bradycardia with a right bundle branch block pattern and occasional PACs. Chest x-ray did not reveal any active cardiopulmonary disease. Blood pressure on admission 144/80 with a heart rate in the 60s, temperature 98.3, 100% on room air. White blood cell count 0.9, hemoglobin 12.3, platelet count 188. Sodium 139, potassium 4.2, BUN 28, creatinine 0.8. Troponin 0.012. Currently on the monitor patient is in a normal sinus rhythm with occasional PACs. She is quite confused, however pleasant, denying any discomfort, no shortness of breath. Past Medical History Past Medical History: Cancer, Diabetes Mellitus, Hyperlipidemia, Hypertension, Memory Impairment, Thyroid Disorder Additional Past Medical History / Comment(s): non-hodgkins lymphoma-last chemo 2 years ago, varicose veins, arthritis, anemia, fell and injured rt shoulder Jul 2015, uses wheelchair or walker History of Any Multi-Drug Resistant Organisms: None Reported Past Surgical History: Back Surgery, Hernia Repair, Joint Replacement Additional Past Surgical History / Comment(s): rt knee replacement, rt shoulder replacement, thyroid radioactive tx, cataracts Past Anesthesia/Blood Transfusion Reactions: Previous Problems w/ Anesthesia Additional Past Anesthesia/Blood Transfusion Reaction / Comment(s): years ago had diff breathing with anesthesia Past Psychological History: No Psychological Hx Reported Smoking Status: Never smoker Past Alcohol Use History: None Reported Past Drug Use History: None Reported - Past Family History Sister(s) Family Medical History: Cancer Medications and Allergies Home Medications Medication Instructions Recorded Confirmed Type metFORMIN HCL [Glucophage] 500 mg PO HS 11/15/14 02/13/18 History Simvastatin [Zocor] 40 mg PO HS 07/08/16 02/13/18 History Ferrous Sulfate [Iron (65 MG 325 mg PO DAILY 10/29/17 02/13/18 History Elemental)] Levothyroxine Sodium [Synthroid] 75 mcg PO DAILY@0630 tab 11/09/17 02/13/18 Rx Levothyroxine Sodium [Synthroid] 100 mcg PO DAILY@0630 tab 11/09/17 02/13/18 Rx Amoxicillin 2,000 mg PO ONCE PRN 02/13/18 02/13/18 History Cranberry Fruit Concentrate 450 mg PO DAILY 02/13/18 02/13/18 History [Cranberry] Insulin Aspart [NovoLOG See Protocol SQ ACHS 02/13/18 02/13/18 History (formulary)] Melatonin 3 mg PO HS@199902/13/18 02/13/18 History Omeprazole 20 mg PO DAILY 02/13/18 02/13/18 History sitaGLIPtin [Januvia] 100 mg PO DAILY 02/13/18 02/13/18 History Allergies Allergy/AdvReac Type Severity Reaction Status Date / Time atorvastatin [From Lipitor] Allergy Unknown Verified 02/13/18 07:54 enalaprilat [From Vasotec] Allergy Unknown Verified 02/13/18 07:54 propoxyphene napsylate Allergy Unknown Verified 02/13/18 07:54 [From Darvocet-N] Sulfa (Sulfonamide Allergy Itching,daniela Verified 02/13/18 07:54 Antibiotics) h Physical Exam Vitals: Vital Signs Temp Pulse Pulse Resp BP BP Pulse Ox 02/13/18 08:00 96.7 F L 79 16 116/55 93 L 02/13/18 04:25 96.4 F L 60 18 134/61 100 02/13/18 04:08 98.1 F 79 16 133/71 98 02/13/18 00:16 98.3 F 66 20 145/84 100 Intake and Output 02/12/18 02/13/18 02/13/18 22:59 06:59 14:59 Other: Voiding Method Toilet Diaper # Voids 1 Weight 106 kg PHYSICAL EXAMINATION: GENERAL: 72-year-old female in no apparent distress at the time of my examination HEENT: Head is atraumatic, normocephalic. Pupils equal, round. Sclera anicteric. Conjunctiva are clear. Mucous membranes of the mouth are moist. Neck is supple. There is no elevated jugular venous pressure.] bruit is heard. HEART EXAMINATION: Heart S1, S2 normal. No murmur or gallop heard. CHEST EXAMINATION: Lungs are clear to auscultation and precussion. No chest wall tenderness is noted on palpation or with deep breathing. ABDOMEN: Soft, nontender. Bowel sounds are heard. No organomegaly noted. EXTREMITIES: 2+ peripheral pulses with no evidence of peripheral edema and no calf tenderness noted. NEUROLOGIC [patient is awake, alert, confused Results 02/13/18 01:00 02/13/18 01:00 Cardiac Enzymes 02/13/18 02/13/18 Range/Units 01:00 01:00 AST 33 (14-36) U/L Troponin I <0.012 (0.000-0.034) ng/mL Coagulation 02/13/18 Range/Units 01:00 PT 9.8 (9.0-12.0) sec APTT 21.9 L (22.0-30.0) sec CBC 02/13/18 Range/Units 01:00 WBC 0.9 L* (3.8-10.6) k/uL RBC 3.79 L (3.80-5.40) m/uL Hgb 12.3 (11.4-16.0) gm/dL Hct 34.5 (34.0-46.0) % Plt Count 188 (150-450) k/uL Comprehensive Metabolic Panel 02/13/18 Range/Units 01:00 Sodium 139 (137-145) mmol/L Potassium 4.2 (3.5-5.1) mmol/L Chloride 100 (98-107) mmol/L Carbon Dioxide 28 (22-30) mmol/L BUN 28 H (7-17) mg/dL Creatinine 0.80 (0.52-1.04) mg/dL Glucose 130 H (74-99) mg/dL Calcium 9.3 (8.4-10.2) mg/dL AST 33 (14-36) U/L ALT 40 (9-52) U/L Alkaline Phosphatase 134 H (38-126) U/L Total Protein 5.7 L (6.3-8.2) g/dL Albumin 3.6 (3.5-5.0) g/dL Current Medications Generic Name Dose Route Start Last Admin Trade Name Freq PRN Reason Stop Dose Admin Acetaminophen 650 mg 02/13/18 03:04 Tylenol Tab PO Q6HR PRN Mild Pain or Fever > 100.5 Alprazolam 0.25 mg 02/13/18 03:08 Xanax PO Q8H PRN Anxiety Ciprofloxacin 500 mg 02/13/18 09:00 02/13/18 08:23 Cipro PO 500 mg BID JOSEPH Administration Ferrous Sulfate 325 mg 02/13/18 09:00 02/13/18 08:23 Feosol PO 325 mg DAILY JOSEPH Administration Levothyroxine Sodium 75 mcg 02/13/18 06:30 02/13/18 07:00 Synthroid PO 75 mcg DAILY@0630 JOSEPH Administration Levothyroxine Sodium 100 mcg 02/13/18 06:30 02/13/18 07:00 Synthroid PO 100 mcg DAILY@0630 JOSEPH Administration Linagliptin 5 mg 02/13/18 09:00 02/13/18 08:23 Tradjenta PO 5 mg DAILY JOSEPH Administration Metformin HCl 500 mg 02/13/18 09:00 02/13/18 08:23 Glucophage PO 500 mg DAILY JOSEPH Administration Naloxone HCl 0.2 mg 02/13/18 03:04 Narcan IV Q2M PRN Opioid Reversal Simvastatin 40 Mg 40 mg 02/13/18 21:00 PO HS JOSEPH Ondansetron HCl 4 mg 02/13/18 03:04 Zofran IVP Q8HR PRN Nausea And Vomiting Pantoprazole Sodium 40 mg 02/13/18 09:00 02/13/18 08:23 Protonix PO 40 mg DAILY JOSEPH Administration Intake and Output 02/12/18 02/13/18 02/13/18 22:59 06:59 14:59 Other: Voiding Method Toilet Diaper # Voids 1 Weight 106 kg 02/13/18 01:00 02/13/18 01:00 EKG Interpretations (text) EKG shows a normal sinus rhythm with occasional PACs. Assessment and Plan Plan: Assessment and plan #1 neutropenia #2 questionable A. fib, upon review of the EKG patient is in a normal sinus rhythm with occasional PACs. No evidence of atrial fibrillation. #3 hypertension #4 hyperlipidemia #5 hypothyroidism #6 non-Hodgkin's lymphoma #7 dementia Plan We will not repeat an echocardiogram with Doppler study, patient had an echo performed in October 2017 which revealed a normal left ventricular systolic function. Patient does have a history of sick sinus syndrome therefore we recommend continuing to hold off on any rate lowering medications. Consult was requested for A. fib, patient does not have any evidence of atrial fibrillation. We will follow this patient with you now on an as-needed basis only, please don't hesitate to call with any questions. DNP note has been reviewed, I agree with a documented findings and plan of care. Patient was seen and examined.
[2018-02-13 11:41] LABS: Glucose,Whole Blood 116 mg/dL (75-99)
[2018-02-13] MEDS: FILGRASTIM-SNDZ 480 MCG/0.8 ML SYRINGE SQ SCH (12:04)
--- NOTE | 2018-02-13 12:19 | P.CONS ---
History of Present Illness - Reason for Consult Consult date: 02/13/18 history of lymphoma, leukopenia Requesting physician: Negro Borden - Chief Complaint abnormal lab value - History of Present Illness Ms Crowley is a very pleasantly confused female patient of Dr. Alves with a history of chemo treatment for Non-Hodgkin's lymphoma, diabetes mellitus and progressive dementia. She was last seen in the office on 12/26/2017 for post-hospitalization follow-up, she was admitted end of Oct with UTI and her CBC dropped, as it has in the past, during acute illness/hospitalization, on f/u CBC was within normal limits. Patient was sent to the hospital by PCP for abnormal white blood cell count, 0.9 with no detectable differential, hemoglobin and platelet counts are within normal limits. Patient is confused and unable to recall or discuss recent health or events, she is not sure if she' s had fever, chart review patient did not report fevers or concerns for acute illness. Patient denies nausea, pain or need to go to the bathroom, patient does not know where she is, she refers to herself by her middle name. Malignancy history: Patient seen initially seen in consult in 02/15 for acute anemia, workup showed borderline iron deficiency. EGD and colonoscopy were negative. she was briefly on oral iron supplement but had to stop due to side effects, hemoglobin returned to baseline. She did well until May 2013, routine CBC at PCP revealed hemoglobin of 7.5 with low iron indices, workup ordered, parenteral iron infused, however ferritin was elevated indicating inflammatory suppression. 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 She completed 6 cycles of chemotherapy in January 2014, had 8 cycles of maintenance Rituxan completed in February 2016, no evidence of disease since. Patient continues on monitoring. Patient does have episodes of pancytopenia with episodes of acute illness. Review of Systems review of systems that was able to be obtained is as stated in HPI ROS unobtainable: due to mental status Past Medical History Past Medical History: Cancer, Dementia, Diabetes Mellitus, Hyperlipidemia, Hypertension, Memory Impairment, Thyroid Disorder Additional Past Medical History / Comment(s): non-hodgkins lymphoma-last chemo 2 years ago, varicose veins, arthritis, anemia, fell and injured rt shoulder Jul 2015, uses wheelchair or walker History of Any Multi-Drug Resistant Organisms: None Reported Past Surgical History: Back Surgery, Hernia Repair, Joint Replacement Additional Past Surgical History / Comment(s): rt knee replacement, rt shoulder replacement, thyroid radioactive tx, cataracts, bone marrow biopsy and aspirate Past Anesthesia/Blood Transfusion Reactions: Previous Problems w/ Anesthesia Additional Past Anesthesia/Blood Transfusion Reaction / Comm: years ago had diff breathing with anesthesia Past Psychological History: No Psychological Hx Reported Smoking Status: Never smoker Past Alcohol Use History: None Reported Past Drug Use History: None Reported - Past Family History Sister(s) Family Medical History: Cancer Medications and Allergies Home Medications Medication Instructions Recorded Confirmed Type metFORMIN HCL [Glucophage] 500 mg PO HS 11/15/14 02/13/18 History Simvastatin [Zocor] 40 mg PO HS 07/08/16 02/13/18 History Ferrous Sulfate [Iron (65 MG 325 mg PO DAILY 10/29/17 02/13/18 History Elemental)] Levothyroxine Sodium [Synthroid] 75 mcg PO DAILY@0630 tab 11/09/17 02/13/18 Rx Levothyroxine Sodium [Synthroid] 100 mcg PO DAILY@0630 tab 11/09/17 02/13/18 Rx Amoxicillin 2,000 mg PO ONCE PRN 02/13/18 02/13/18 History Cranberry Fruit Concentrate 450 mg PO DAILY 02/13/18 02/13/18 History [Cranberry] Insulin Aspart [NovoLOG See Protocol SQ ACHS 02/13/18 02/13/18 History (formulary)] Melatonin 3 mg PO HS@199902/13/18 02/13/18 History Omeprazole 20 mg PO DAILY 02/13/18 02/13/18 History sitaGLIPtin [Januvia] 100 mg PO DAILY 02/13/18 02/13/18 History Allergies Allergy/AdvReac Type Severity Reaction Status Date / Time atorvastatin [From Lipitor] Allergy Unknown Verified 02/13/18 07:54 enalaprilat [From Vasotec] Allergy Unknown Verified 02/13/18 07:54 propoxyphene napsylate Allergy Unknown Verified 02/13/18 07:54 [From Darvocet-N] Sulfa (Sulfonamide Allergy Itching,daniela Verified 02/13/18 07:54 Antibiotics) h Physical Exam Vitals: Vital Signs Temp Pulse Pulse Resp BP BP Pulse Ox 02/13/18 08:00 96.7 F L 79 16 116/55 93 L 02/13/18 04:25 96.4 F L 60 18 134/61 100 02/13/18 04:08 98.1 F 79 16 133/71 98 02/13/18 00:16 98.3 F 66 20 145/84 100 Intake and Output 02/12/18 02/13/18 02/13/18 22:59 06:59 14:59 Intake Total 240 Balance 240 Intake: Oral 240 Other: Voiding Method Toilet Diaper # Voids 1 Weight 106 kg - Constitutional General appearance: cooperative, disheveled, mild distress, obese - EENT Eyes: EOMI - Neck Neck: no lymphadenopathy - Respiratory Respiratory: bilateral: CTA - Cardiovascular Heart sounds: normal: S1, S2 leg Peripheral Edema: bilateral: None - Gastrointestinal General gastrointestinal: no absent bowel sounds, no decreased bowel sounds, no distended, no hepatomegaly, no hyperactive bowel sounds, normal bowel sounds, no organomegaly, no rigid, no scaphoid, soft, no splenomegaly, no tenderness, no umbilical hernia, no ventral hernia - Integumentary Integumentary: normal - Neurologic Neurologic: CNII-XII intact - Musculoskeletal Musculoskeletal: strength equal bilaterally - Psychiatric Psychiatric: no A&O x's 3, no intact judgment & insight Results CBC & Chem 7: 02/13/18 01:00 02/13/18 01:00 Labs: Abnormal Lab Results - Last 24 Hours (Table) 02/13/18 02/13/18 02/13/18 Range/Units 01:00 01:00 01:00 WBC 0.9 L* (3.8-10.6) k/uL RBC 3.79 L (3.80-5.40) m/uL APTT 21.9 L (22.0-30.0) sec BUN 28 H (7-17) mg/dL Glucose 130 H (74-99) mg/dL POC Glucose (mg/dL) (75-99) mg/dL Alkaline Phosphatase 134 H (38-126) U/L Total Protein 5.7 L (6.3-8.2) g/dL TSH (0.465-4.680) mIU/L Urine Appearance (Clear) Urine Blood (Negative) Ur Leukocyte Esterase (Negative) Urine Mucus (None) /hpf 02/13/18 02/13/18 02/13/18 Range/Units 01:00 01:10 06:11 WBC (3.8-10.6) k/uL RBC (3.80-5.40) m/uL APTT (22.0-30.0) sec BUN (7-17) mg/dL Glucose (74-99) mg/dL POC Glucose (mg/dL) 141 H (75-99) mg/dL Alkaline Phosphatase (38-126) U/L Total Protein (6.3-8.2) g/dL TSH 9.890 H (0.465-4.680) mIU/L Urine Appearance Cloudy H (Clear) Urine Blood Small H (Negative) Ur Leukocyte Esterase Small H (Negative) Urine Mucus Rare H (None) /hpf 02/13/18 Range/Units 11:39 WBC (3.8-10.6) k/uL RBC (3.80-5.40) m/uL APTT (22.0-30.0) sec BUN (7-17) mg/dL Glucose (74-99) mg/dL POC Glucose (mg/dL) 116 H (75-99) mg/dL Alkaline Phosphatase (38-126) U/L Total Protein (6.3-8.2) g/dL TSH (0.465-4.680) mIU/L Urine Appearance (Clear) Urine Blood (Negative) Ur Leukocyte Esterase (Negative) Urine Mucus (None) /hpf Microbiology - Last 24 Hours (Table) 02/13/18 01:10 Urine Culture - Preliminary Urine,Voided Chest x-ray: report reviewed Assessment and Plan (1) Neutropenia Narrative/Plan: Acute leukopenia and neutropenia. Possibility for low white count as a viral syndrome or an underlying infection, downey cultures are pending. Empiric, prophylactic antibiotics ordered. G-CSF ordered. CBC daily Current Visit: Yes Status: Acute Priority: High Code(s): D70.9 - NEUTROPENIA, UNSPECIFIED SNOMED Code(s): 890713714 (2) Non-Hodgkin lymphoma Narrative/Plan: Patient has been treated, current on follow-up, no evidence of disease. Patient's history of treatment does make her susceptible to pancytopenia, especially during acute illness, hemoglobin and platelets are within normal limits, leukopenia being treated with GCSF. Current Visit: No Status: Chronic Priority: Low Code(s): C85.90 - NON- HODGKIN LYMPHOMA, UNSPECIFIED, UNSPECIFIED SITE SNOMED Code(s): 738910235 (3) B12 deficiency Narrative/Plan: Patient has been treated in the past for deficiency, will check labs to see if patient needs additional supplementation Current Visit: No Status: Chronic Priority: Medium Code(s): E53.8 - DEFICIENCY OF OTHER SPECIFIED B GROUP VITAMINS SNOMED Code(s): 511068593 (4) Iron deficiency anemia Narrative/Plan: Patient has history of iron deficiency, seems to be tolerating oral supplementation, and from chart review appears to be taking at home. Hemoglobin is stable and recovered from Oct visit, no additional workup at this time Current Visit: No Status: Chronic Priority: Low Code(s): D50.9 - IRON DEFICIENCY ANEMIA, UNSPECIFIED SNOMED Code(s): 21617453 Plan: Doctor attests: I performed a history and physical examination of this patient, discussed with dictator. I agree with dictators note, documented as a scribe.
--- NOTE | 2018-02-13 13:40 | HP ---
HISTORY AND PHYSICAL CHIEF COMPLAINT: A 72-year-old white female with atrial fibrillation, new onset, and severe leukopenia for which she is admitted at this time. She has a history of in remission non- Hodgkin's lymphoma, hypertension, dementia, dyslipidemia. She came in white count is 0.6. She came in for severe neutropenia and new onset atrial fibrillation. She is quite confused. Labs were reviewed, etc. PAST MEDICAL HISTORY: Non-Hodgkin's lymphoma, diabetes mellitus, dementia, hypertension, dyslipidemia, hypothyroidism, arthritis, anemia. She has hernia repair, joint replacement, back surgery, right shoulder replacement, right knee replacement, thyroid radioactive treatments. SOCIAL HISTORY: Lives at [facility]. No smoking. No alcohol. No illicit drugs. HOME MEDICATIONS: 1. Metformin for diabetes 500 mg 1 daily. 2. Zocor 40 mg daily. 3. Iron sulfate 325 daily. 4. Levothyroxine 75 mcg daily and 100 mcg daily. 5. Melatonin. 6. Omeprazole. 7. Januvia. ALLERGIES: LIPITOR, DARVOCET, SULFA. PHYSICAL EXAMINATION: Temp 96, pulse 70s, respiratory rate 16 to 18, blood pressure is 116 to 134 over 50 to 60s. She is a pleasant female. BMI is over 30. Lungs are clear. CARDIOVASCULAR: Regular rate, rhythm, S1, S2. ABDOMEN: Soft, nontender. 2+ peripheral pulses. GI: Distended due to obesity. NEUROLOGIC: Alert, oriented x1, given answers, but some confusion. White count 0.9 here at the hospital. Glucose 130. Creatinine 0.8, BUN is 28. Hemoglobin is 12.3, platelets 188. ASSESSMENT: 1. Severe neutropenia. 2. Questionable paroxysmal atrial fibrillation. 3. Hypertension. 4. Dyslipidemia. 5. Hypothyroidism. 6. Non-Hodgkin's lymphoma. 7. Dementia. 8. B-12 deficiency. 9. Iron deficiency anemia. Hematology/Oncology saw the patient. Assessed as acute leukopenia and neutropenia. Possible viral syndrome causing it. Empiric antibiotics ordered. Cultures are pending. Treat for infection. Await oncology referral. Cardiology has cleared her. Sepsis workup pending. Please see further orders. MMODL / IJN: [id number] /
--- NOTE | 2018-02-13 14:00 | ECHOF ---
Referral Reason:afib MEASUREMENTS -------- HEIGHT: 165.1 cm WEIGHT: 105.7 kg BP: 140/60 RVIDd: 2.7 cm (< 3.3) IVSd: 1.1 cm (0.6 - 1.1) LVIDd: 4.7 cm (3.9 - 5.3) LVPWd: 1.0 cm (0.6 - 1.1) IVSs: 1.4 cm LVIDs: 3.4 cm LVPWs: 1.2 cm LA Diam: 3.1 cm (2.7 - 3.8) LAESV Index (A-L): 25.55 ml/m Ao Diam: 3.1 cm (2.0 - 3.7) AV Cusp: 1.8 cm (1.5 - 2.6) LA Diam: 3.2 cm (2.7 - 3.8) MV EXCURSION: 16.312 mm (> 18.000) MV EF SLOPE: 137 mm/s (70 - 150) EPSS: 1.1 cm MV E Moi: 0.96 m/s MV DecT: 141 ms MV A Moi: 0.05 m/s MV E/A Ratio: 20.68 RAP: 5.00 mmHg RVSP: 10.82 mmHg FINDINGS -------- Sinus rhythm. This was a technically adequate study. The left ventricular size is normal. There is mild concentric left ventricular hypertrophy. Overa ll left ventricular systolic function is low-normal with, an EF between 50 - 55 %. The right ventricle is normal in size. The left atrial size is normal. The right atrial size is normal. There is mild aortic valve sclerosis. There is no evidence of aortic regurgitation. Mild mitral annular calcification present. Mild mitral regurgitation is present. Mild tricuspid regurgitation present. There is no evidence of pulmonary hypertension. The right v entricular systolic pressure, as measured by Doppler, is 10.82mmHg. There is no pulmonic regurgitation present. The aortic root size is normal. There is no pericardial effusion. CONCLUSIONS -------- 1. This was a technically adequate study. 2. The left ventricular size is normal. 3. There is mild concentric left ventricular hypertrophy. 4. Overall left ventricular systolic function is low-normal with, an EF between 50 - 55 %. 5. The left atrial size is normal. 6. There is mild aortic valve sclerosis. 7. Mild mitral annular calcification present. 8. Mild mitral regurgitation is present. 9. Mild tricuspid regurgitation present. 10. There is no evidence of pulmonary hypertension. 11. There is no pulmonic regurgitation present. 12. The aortic root size is normal. 13. There is no pericardial effusion. HSE SPECIALIST: Elizabeth Luna RDCS
[2018-02-13 16:27] LABS: Glucose,Whole Blood 161 mg/dL (75-99)
[2018-02-13 20:51] LABS: Glucose,Whole Blood 197 mg/dL (75-99)
--- NOTE | 2018-02-13 23:10 | CONS ---
CONSULTATION DATE OF SERVICE: 02/13/2018 REASON FOR CONSULTATION: Neutropenia and antibiotic recommendation. HISTORY OF PRESENT ILLNESS: The patient is a 72-year-old female with a past medical history significant for low-grade B-cell non-Hodgkin lymphoma, for which apparently the patient completed her chemotherapy in January of 2014 followed by 8 cycles of maintenance Rituxan completed back in February of 2016. The patient was evaluated in the outpatient setting by her primary care physician, where the patient did have a CBC. She was noticed to have evidence of leukopenia with a white count of 0.9, for which the patient has been admitted to hospital for further workup of the same. The patient's main symptom has been feeling weak and tired, with no energy, though denies having any high-grade fever, rigors or any chill. The patient denies having any chest pain or shortness of breath or cough. No abdominal pain or any diarrhea. With these symptoms the patient was evaluated by the ER physician. On arrival in the ER the patient had a chest x-ray which showed no acute cardiopulmonary disease. The patient had a UA which showed small leukocyte esterases but no significant pyuria. Her liver enzymes have been normal as well as BUN and creatinine. White count was 0.9 with no differential performed. The patient had blood cultures obtained which are currently pending. The patient did receive a dose of Rocephin in the ER. Subsequently she was started on ciprofloxacin. Infectious Disease was consulted for further recommendations regarding antibiotic therapy. The patient has been evaluated by Hematology/Oncology and she has been started on Zarxio to boost her white cells. REVIEW OF SYSTEMS: CONSTITUTIONAL: Positive for weakness. No fever or chill. EYES: No complaint. ENT: No complaint. RESPIRATORY: No complaint. CARDIOVASCULAR: No complaint. GENITOURINARY: No complaint. GASTROINTESTINAL: No complaint. MUSCULOSKELETAL: No complaint. INTEGUMENTARY: No complaint. PSYCHOLOGICAL: No complaint. ENDOCRINE: No complaint. NEUROLOGICAL: No complaint. PAST MEDICAL HISTORY: 1. Dementia. 2. Diabetes mellitus. 3. Hypertension. 4. Hyperlipidemia. 5. Hypothyroidism. 6. Non-Hodgkin lymphoma. Last chemo 2 years ago. PAST SURGERY HISTORY: 1. Right knee replacement. 2. Right shoulder replacement. 3. Radioactive treatment related to thyroid. 4. Bone biopsy and aspirate. 5. Back surgery. SOCIAL HISTORY: No history of smoking, drinking or drug use. FAMILY HISTORY: Sister with a history of cancer. ALLERGIES: 1. LIPITOR. 2. ENALAPRIL. 3. PROPOXYPHENE. 4. SULFA. CURRENT MEDICATIONS: 1. Tylenol. 2. Xanax. 3. Ciprofloxacin. 4. Iron sulfate. 5. Zarxio. 6. Synthroid. 7. Tradjenta. 8. Glucophage. 9. Narcan. 10.Protonix. PHYSICAL EXAMINATION: Blood pressure is 171/90 with a pulse of 89, temperature 97.1. She is 95% on room air. General description is an elderly female lying in bed in no distress. No tachypnea or accessory muscle of respiration use. HEENT examination shows no pallor or scleral icterus. Oral mucosa membrane is moist. No pharyngeal erythema or thrush. NECK: Trachea is central. No thyromegaly. LUNGS: Unlabored breathing. Clear to auscultation. No wheeze or crackle. HEART: S1, S2. Regular rate and rhythm. No added sound. ABDOMEN: Soft. No tenderness. No guarding or rigidity. No organomegaly. EXTREMITIES: No edema of feet. SKIN EXAMINATION: No rash or mass palpable. Neurologically patient is awake, alert, oriented x2. Mood and affect normal. LABS: Hemoglobin is 12.3, white count 0.9, BUN of 28, creatinine 0.80. Electrolytes have been normal. Liver enzymes are normal. Urine culture currently pending. Blood culture so far negative. DIAGNOSTIC IMPRESSION AND PLAN: Patient with neutropenia in a patient with underlying history of non-Hodgkin lymphoma without any clear focus of infection. Main symptom has been weakness. UA was very mildly positive, but no significant urinary symptoms. No evidence of any pneumonia or cellulitis. PLAN: 1. Antibiotic will be adjusted to Levaquin, which is usually recommended. Patient is expected to be more than 7 days. 2. Will watch her clinical course closely as well as cultures. If the patient spikes any fever, the culture will be repeated before starting her on any broad-spectrum antibiotic therapy. Thank you for this consultation. Will follow this patient along with you. MMODL / IJN: [id number] /
[2018-02-14] MEDS: LEVOTHYROXINE 75 MCG TAB PO SCH (06:49)
[2018-02-14] MEDS: LEVOTHYROXINE 100 MCG TAB PO SCH (06:49)
[2018-02-14 07:18] LABS: Glucose,Whole Blood 117 mg/dL (75-99)
[2018-02-14] MEDS: PANTOPRAZOLE 40 MG TABLET PO SCH (07:40)
[2018-02-14] MEDS: LEVOFLOXACIN 500 MG TAB PO SCH (07:40)
[2018-02-14] MEDS: LINAGLIPTIN 5 MG TABLET PO SCH (07:40)
[2018-02-14] MEDS: metFORMIN 500 MG TAB PO SCH (07:40)
[2018-02-14] MEDS: FERROUS SULFATE 325 MG TAB PO SCH (07:40)
[2018-02-14 08:13] LABS: HCT 33.4 % (34.0-46.0); HGB 11.6 gm/dL (11.4-16.0); MCH 31.9 pg (25.0-35.0); MCHC 34.8 g/dL (31.0-37.0); MCV 91.6 fL (80.0-100.0); Mean Platelet Volume 7.2; Platelet Count 159 k/uL (150-450); RBC 3.64 m/uL (3.80-5.40); RDW 12.4 % (11.5-15.5)
[2018-02-14 08:14] LABS: WBC 0.9 k/uL (3.8-10.6)
[2018-02-14] MEDS: FILGRASTIM-SNDZ 480 MCG/0.8 ML SYRINGE SQ SCH (08:26)
[2018-02-14] MEDS: ALPRAZolam 0.25 MG TAB PO PRN (09:51)
[2018-02-14 11:28] LABS: Glucose,Whole Blood 140 mg/dL (75-99)
[2018-02-14 17:55] LABS: Glucose,Whole Blood 178 mg/dL (75-99)
[2018-02-14 19:58] LABS: Glucose,Whole Blood 242 mg/dL (75-99)
--- NOTE | 2018-02-14 22:38 | PN ---
PROGRESS NOTE DATE OF SERVICE: 02/14/2018. REASON FOR FOLLOWUP: Neutropenia. INTERVAL HISTORY: The patient is afebrile. She is breathing comfortably. Denies having any chest pain, shortness of breath or cough. No abdominal pain or any diarrhea. EXAMINATION: Blood pressure 124/77, pulse of 84, temperature of 99. She is 97% on room air. General description is an elderly female, lying in bed in no distress. RESPIRATORY SYSTEM: Unlabored breathing. Clear to auscultation anteriorly. HEART: S1, S2. Regular rate and rhythm. ABDOMEN: Soft. No tenderness. LABS: Hemoglobin is 11.3, white count 0.9. Blood and urine cultures were negative. DIAGNOSTIC IMPRESSION AND PLAN: Patient admitted to the hospital with significant weakness in a patient who did have evidence of neutropenia, currently afebrile, has no clear focus of infection, on antibiotic Levaquin that will be continued, watching her clinical course closely. Continue with supportive care. MMODL / IJN: [id number] /
--- NOTE | 2018-02-14 23:02 | PN ---
PROGRESS NOTE DATE OF SERVICE: 02/14/2018. SUBJECTIVE: A 72-year-old white female with leukopenia, Dr. Borden has her on Levaquin. White count is under 1, down to 0.7. IV injections to stimulate white blood cell count. Cardiovascular S1 and S2. Lungs clear. GI soft. Hematology. Negative Homans. Psych fair mood and affect. Neurologic alert and oriented x3. ASSESSMENT: 1. Non-Hodgkin's lymphoma. 2. Leukopenia secondary to possible non-Hodgkin's lymphoma. 3. Dementia. 4. Diabetes mellitus. 5. Hypertension. 6. Hypothyroidism. 7. Dementia. PLAN: Continue current treatments. Levaquin will be given. White count stimulating medications will be given. Please see further orders. MMODL / IJN: [id number] /
[2018-02-15] MEDS: LEVOTHYROXINE 75 MCG TAB PO SCH (06:09)
[2018-02-15] MEDS: LEVOTHYROXINE 100 MCG TAB PO SCH (06:09)
[2018-02-15 06:59] LABS: Glucose,Whole Blood 111 mg/dL (75-99)
[2018-02-15 07:06] LABS: HCT 32.6 % (34.0-46.0); HGB 11.3 gm/dL (11.4-16.0); MCHC 34.8 g/dL (31.0-37.0); MCV 91.8 fL (80.0-100.0); Mean Platelet Volume 7.1; Platelet Count 137 k/uL (150-450); RBC 3.55 m/uL (3.80-5.40); RDW 12.5 % (11.5-15.5)
[2018-02-15 07:19] LABS: Albumin 3.1 g/dL (3.5-5.0); Calcium 8.6 mg/dL (8.4-10.2); Potassium 4.2 mmol/L (3.5-5.1); Total Bilirubin 0.6 mg/dL (0.2-1.3); Total Protein 4.8 g/dL (6.3-8.2)
[2018-02-15 07:23] LABS: WBC 1.4 k/uL (3.8-10.6)
[2018-02-15 07:56] LABS: Basophils # (M) 0.06 k/uL (0-0.2); Eosinophils # (M) 0.07 k/uL (0-0.7); Monocytes # (M) 0.46 k/uL (0-1.0); Neutrophils # (M) 0.11 k/uL (1.3-7.7); Neutrophils % (M) 8 %; Nucleated Red Blood Cells 0 /100 WBC (0-0); Total Cells Counted 100
[2018-02-15 07:57] LABS: Anisocytosis (M) Present; Spherocytes Present
[2018-02-15] MEDS: metFORMIN 500 MG TAB PO SCH (08:23)
[2018-02-15] MEDS: LINAGLIPTIN 5 MG TABLET PO SCH (08:23)
[2018-02-15] MEDS: FERROUS SULFATE 325 MG TAB PO SCH (08:23)
[2018-02-15] MEDS: PANTOPRAZOLE 40 MG TABLET PO SCH (08:23)
[2018-02-15] MEDS: LEVOFLOXACIN 500 MG TAB PO SCH (08:24)
[2018-02-15] MEDS: ALPRAZolam 0.25 MG TAB PO PRN ×2 (08:25→20:33)
[2018-02-15] MEDS: FILGRASTIM-SNDZ 480 MCG/0.8 ML SYRINGE SQ SCH (08:25)
[2018-02-15 11:42] LABS: Glucose,Whole Blood 122 mg/dL (75-99)
--- NOTE | 2018-02-15 15:54 | P.PN ---
Subjective Progress Note Date: 02/15/18 The patient remains lethargic, and confused with poor recall. No history of fevers/chills/nausea/vomiting/obvious bleeding/skin rash/joint swelling. Objective - Vital Signs Vital signs: Vital Signs Temp 98 F 02/15/18 13:55 Pulse 75 02/15/18 13:55 Resp 18 02/15/18 13:55 BP 118/70 02/15/18 13:55 Pulse Ox 97 02/15/18 13:55 Intake & Output 02/14/18 02/15/18 02/15/18 18:59 06:59 18:59 Intake Total 590 Balance 590 Intake: Oral 590 Other: Voiding Method Toilet Toilet Toilet # Voids 2 1 1 - Constitutional General appearance: Present: no acute distress - EENT Eyes: Present: PERRLA ENT: Present: hearing grossly normal, normal oropharynx - Respiratory Respiratory: bilateral: CTA - Cardiovascular Rhythm: regular Heart sounds: normal: S1, S2 - Gastrointestinal General gastrointestinal: Present: normal bowel sounds, soft - Integumentary Integumentary: Present: normal - Neurologic Neurologic: Present: CNII-XII intact - Musculoskeletal Musculoskeletal: Present: generalized weakness, strength equal bilaterally - Psychiatric Psychiatric Comment(s): Confused, lethargic, slow affect and poor recall - Labs CBC & Chem 7: 02/15/18 06:41 02/15/18 06:41 Labs: Abnormal Lab Results - Last 24 Hours (Table) 02/13/18 02/14/18 02/14/18 Range/Units 01:00 17:14 19:57 WBC (3.8-10.6) k/uL RBC (3.80-5.40) m/uL Hgb (11.4-16.0) gm/dL Hct (34.0-46.0) % Plt Count (150-450) k/uL Neutrophils # (Manual) (1.3-7.7) k/uL Lymphocytes # (Manual) (1.0-4.8) k/uL BUN (7-17) mg/dL Glucose (74-99) mg/dL POC Glucose (mg/dL) 178 H 242 H (75-99) mg/dL AST (14-36) U/L Total Protein (6.3-8.2) g/dL Albumin (3.5-5.0) g/dL RBC Folate 1,008 H (280 - 791) ng/mL 02/15/18 02/15/18 02/15/18 Range/Units 06:41 06:41 06:49 WBC 1.4 L* (3.8-10.6) k/uL RBC 3.55 L (3.80-5.40) m/uL Hgb 11.3 L (11.4-16.0) gm/dL Hct 32.6 L (34.0-46.0) % Plt Count 137 L (150-450) k/uL Neutrophils # (Manual) 0.11 L (1.3-7.7) k/uL Lymphocytes # (Manual) 0.70 L (1.0-4.8) k/uL BUN 22 H (7-17) mg/dL Glucose 110 H (74-99) mg/dL POC Glucose (mg/dL) 111 H (75-99) mg/dL AST 12 L (14-36) U/L Total Protein 4.8 L (6.3-8.2) g/dL Albumin 3.1 L (3.5-5.0) g/dL RBC Folate (280 - 791) ng/mL 02/15/18 Range/Units 11:39 WBC (3.8-10.6) k/uL RBC (3.80-5.40) m/uL Hgb (11.4-16.0) gm/dL Hct (34.0-46.0) % Plt Count (150-450) k/uL Neutrophils # (Manual) (1.3-7.7) k/uL Lymphocytes # (Manual) (1.0-4.8) k/uL BUN (7-17) mg/dL Glucose (74-99) mg/dL POC Glucose (mg/dL) 122 H (75-99) mg/dL AST (14-36) U/L Total Protein (6.3-8.2) g/dL Albumin (3.5-5.0) g/dL RBC Folate (280 - 791) ng/mL Microbiology - Last 24 Hours (Table) 02/13/18 01:10 Urine Culture - Final Urine,Voided 02/13/18 01:00 Blood Culture - Preliminary Blood No Growth after 48 hours Assessment and Plan (1) Neutropenia Narrative/Plan: The patient is isolated neutropenia, which is fortunately asymptomatic at this time. So far she has had essentially no response from filgrastim. The etiology of this is unknown at this time. This is unlikely to be suppression from a viral type infection, as that would typically respond quickly to filgrastim. Given her prior history of possibility could be an autoimmune phenomenon. At this time I will continue the filgrastim, and give her a trial of steroids and IVIG. If she does respond, indicating an autoimmune phenomenon, then we can consider repeating Rituxan as an outpatient. The above was discussed in detail with her was present at the bedside Current Visit: Yes Status: Acute Priority: High Code(s): D70.9 - NEUTROPENIA, UNSPECIFIED SNOMED Code(s): 430865828 (2) Non-Hodgkin lymphoma Narrative/Plan: The patient has been in remission for several years. Recurrence of her lymphoma as a cause for neutropenia is unlikely, as previously all cell lines were affected. However if her WBC does not respond, we would need to consider repeat bone marrow Current Visit: No Status: Chronic Priority: Low Code(s): C85.90 - NON- HODGKIN LYMPHOMA, UNSPECIFIED, UNSPECIFIED SITE SNOMED Code(s): 658978665
[2018-02-15] MEDS ORDERED: IMMUNE GLOBULIN (HUMAN-IGG) 10 GM in EMPTY BAG 1 BAG IV ONE (16:00)
[2018-02-15] MEDS ORDERED: IMMUNE GLOBULIN (HUMAN-IGG) 20 GM in EMPTY BAG 1 BAG IV ONE (16:00)
--- NOTE | 2018-02-15 16:09 | PN ---
PROGRESS NOTE DATE OF SERVICE: 02/15/2018 REASON FOR FOLLOWUP: Neutropenia. INTERVAL HISTORY: The patient is currently afebrile. She seemed to be breathing comfortably. Denies having any chest pain or shortness of breath, cough, no abdominal pain or any diarrhea. PHYSICAL EXAMINATION: VITAL SIGNS: Blood pressure 118/72 with a pulse of 95, temperature 98. She is 97% on room air. GENERAL DESCRIPTION is an elderly female up in the chair in no distress. RESPIRATORY system: Unlabored breathing. Clear to auscultation anteriorly. HEART S1, S2 regular rate and rhythm. ABDOMEN: Soft, no tenderness. LABS: Hemoglobin 11.2, white count of 1.4, BUN of 22, creatinine 0.95. Blood and urine culture so far negative. DIAGNOSTIC IMPRESSION AND PLAN: Patient with neutropenia with no evidence of any fever. So far, no clear focus of infection. Currently on oral Levaquin. Continue while waiting for her neutropenia to resolve. Continue supportive care. has been present at bedside and his questions were all answered. MMODL / IJN: [id number] /
[2018-02-15] MEDS ORDERED: IMMUNE GLOBULIN 20 GM/200 ML IV ONE (16:15)
[2018-02-15] MEDS: methylPREDNISolone SOD SUCCI 40 MG/ML 1 ML VIAL IV SCH ×2 (16:29→22:53)
[2018-02-15 17:07] LABS: Glucose,Whole Blood 142 mg/dL (75-99)
--- NOTE | 2018-02-15 19:54 | PN ---
PROGRESS NOTE SUBJECTIVE: This is a white female with neutropenia, systemic inflammatory response syndrome, non- Hodgkin's lymphoma, dementia, hypertension; remains on medicine to increase white count. On oral Levaquin for infection prophylaxis. CARDIOVASCULAR: S1, S2. LUNGS: Clear. GI: Soft. PSYCH: Alert and oriented x1. ASSESSMENT: 1. Dementia. 2. Hypertension. 3. Non-Hodgkin's lymphoma. 4. Neutropenia. 5. Systemic inflammatory response syndrome. Continue current treatment. Follow up in the next 24 to 48 hours and will go from there for possible discharge home on oral Levaquin if the white count increases back to the rehab center at [facility] under Dr. Barr's name. MMODL / IJN: [id number] /
[2018-02-15 20:14] LABS: Glucose,Whole Blood 343 mg/dL (75-99)
[2018-02-16] MEDS: LEVOTHYROXINE 75 MCG TAB PO SCH (06:07)
[2018-02-16] MEDS: LEVOTHYROXINE 100 MCG TAB PO SCH (06:07)
[2018-02-16 06:51] LABS: Glucose,Whole Blood 268 mg/dL (75-99)
[2018-02-16 07:16] LABS: HCT 34.3 % (34.0-46.0); MCHC 34.9 g/dL (31.0-37.0); MCV 91.6 fL (80.0-100.0); Platelet Count 130 k/uL (150-450); RBC 3.74 m/uL (3.80-5.40); RDW 12.3 % (11.5-15.5)
[2018-02-16 08:02] LABS: WBC 1.6 k/uL (3.8-10.6)
[2018-02-16] MEDS: FERROUS SULFATE 325 MG TAB PO SCH (08:09)
[2018-02-16] MEDS: metFORMIN 500 MG TAB PO SCH (08:09)
[2018-02-16] MEDS: PANTOPRAZOLE 40 MG TABLET PO SCH (08:09)
[2018-02-16] MEDS: LEVOFLOXACIN 500 MG TAB PO SCH (08:09)
[2018-02-16] MEDS: LINAGLIPTIN 5 MG TABLET PO SCH (08:09)
[2018-02-16] MEDS: methylPREDNISolone SOD SUCCI 40 MG/ML 1 ML VIAL IV SCH ×3 (08:12→23:29)
--- NOTE | 2018-02-16 10:02 | P.PN ---
<Ashley Beltrán E - Last Filed: 02/16/18 09:53> Subjective Progress Note Date: 02/16/18 This is a 72-year-old female patient being seen examined and evaluated today while covering for Dr. Saucedo. She does have a history of dementia, non- Hodgkin's lymphoma, diabetes, hypertension, hyperlipidemia and was noted to be neutropenic. Patient is being seen by Dr. Alves and is on filgrastim. White blood cell count today is similar to be 1.6. She is also on Levaquin prophylactically. Upon examination the patient's resting up in bed on room air. She denies any fevers pain or other complaints. States her breathing has been stable. She is noted to have confusion which is her baseline. Objective - Vital Signs Vital signs: Vital Signs Temp 97.9 F 02/16/18 05:57 Pulse 90 02/16/18 05:57 Resp 18 02/16/18 05:57 BP 125/84 02/16/18 05:57 Pulse Ox 96 02/16/18 05:57 Intake & Output 02/15/18 02/16/18 02/16/18 18:59 06:59 18:59 Intake Total 52.5 400 Balance 52.5 400 Intake: IV 400 Immune Globulin (Human- 200 IgG) 20 gm In Empty Bag 1 bag @ Titrate IV .Q0M ONE Rx#:[id number] Immune Globulin (Human- 200 IgG) 20 gm In Empty Bag 1 bag @ Titrate IV .Q0M ONE Rx#:[id number] Intake, IV Titration 52.5 Amount Immune Globulin (Human- 52.5 IgG) 10 gm In Empty Bag 1 bag @ Titrate IV .Q0M ONE Rx#:[id number] Other: Voiding Method Toilet Diaper Incontinent # Voids 1 1 - Exam GENERAL EXAM: Alert, confusion at baseline, comfortable in no apparent distress. HEAD: Normocephalic. EYES: Normal reaction of pupils, equal size. NOSE: Clear with pink turbinates. THROAT: No erythema or exudates. NECK: No masses, no JVD. CHEST: No chest wall deformity. LUNGS: Equal air entry with no crackles, wheeze, rhonchi or dullness. CVS: S1 and S2 normal with no audible mumurs, regular rhythm. ABDOMEN: No hepatosplenomegaly, normal bowel sounds, no guarding or rigidity. EXTREMITIES: No edema noted, pedal pulses palpable. CENTRAL NERVOUS SYSTEM: No focal deficits, tone is normal in all 4 extremities. - Labs CBC & Chem 7: 02/16/18 06:40 02/15/18 06:41 Labs: Abnormal Lab Results - Last 24 Hours (Table) 02/15/18 02/15/18 02/15/18 Range/Units 11:39 17:04 20:13 WBC (3.8-10.6) k/uL RBC (3.80-5.40) m/uL Plt Count (150-450) k/uL POC Glucose (mg/dL) 122 H 142 H 343 H (75-99) mg/dL 02/16/18 02/16/18 Range/Units 06:40 06:46 WBC 1.6 L* (3.8-10.6) k/uL RBC 3.74 L (3.80-5.40) m/uL Plt Count 130 L (150-450) k/uL POC Glucose (mg/dL) 268 H (75-99) mg/dL Microbiology - Last 24 Hours (Table) 02/13/18 01:00 Blood Culture - Preliminary Blood No Growth after 72 hours 02/13/18 01:10 Urine Culture - Final Urine,Voided Assessment and Plan Assessment: Assessment Sirs Dementia Hypertension Non-Hodgkin's lymphoma Neutropenia Diabetes mellitus Plan Medications have been reviewed and will be continued as ordered. Prophylactic antibiotics related to neutropenia Monitor CBGs, insulin sliding scale Appreciate hematology recommendations. Infectious disease on consult Continue with pulmonary hygiene, coughing and deep breathing exercises, and supportive care. Supplemental oxygen to maintain oxygen saturations of 92% or better if needed. GI and DVT prophylaxis. We will continue to monitor labs/results and adjust treatment as necessary. Further recommendations pending. I performed an examination of the patient and discussed their management with the nurse practitioner. I have reviewed the nurse practitioner's note and agree with the documented findings and plan of care. <Radha Waller - Last Filed: 02/16/18 10:14> Objective - Vital Signs Vital signs: Vital Signs Temp 97.9 F 02/16/18 05:57 Pulse 75 02/16/18 08:35 Resp 18 02/16/18 08:35 BP 125/84 02/16/18 05:57 Pulse Ox 96 02/16/18 05:57 Intake & Output 02/15/18 02/16/18 02/16/18 18:59 06:59 18:59 Intake Total 52.5 400 Balance 52.5 400 Intake: IV 400 Immune Globulin (Human- 200 IgG) 20 gm In Empty Bag 1 bag @ Titrate IV .Q0M ONE Rx#:[id number] Immune Globulin (Human- 200 IgG) 20 gm In Empty Bag 1 bag @ Titrate IV .Q0M ONE Rx#:[id number] Intake, IV Titration 52.5 Amount Immune Globulin (Human- 52.5 IgG) 10 gm In Empty Bag 1 bag @ Titrate IV .Q0M ONE Rx#:[id number] Other: Voiding Method Toilet Diaper Diaper Incontinent Incontinent # Voids 1 1 - Labs CBC & Chem 7: 02/16/18 06:40 02/15/18 06:41 Labs: Abnormal Lab Results - Last 24 Hours (Table) 02/15/18 02/15/18 02/15/18 Range/Units 11:39 17:04 20:13 WBC (3.8-10.6) k/uL RBC (3.80-5.40) m/uL Plt Count (150-450) k/uL POC Glucose (mg/dL) 122 H 142 H 343 H (75-99) mg/dL 02/16/18 02/16/18 Range/Units 06:40 06:46 WBC 1.6 L* (3.8-10.6) k/uL RBC 3.74 L (3.80-5.40) m/uL Plt Count 130 L (150-450) k/uL POC Glucose (mg/dL) 268 H (75-99) mg/dL Microbiology - Last 24 Hours (Table) 02/13/18 01:00 Blood Culture - Preliminary Blood No Growth after 72 hours 02/13/18 01:10 Urine Culture - Final Urine,Voided Assessment and Plan Assessment: Patient seen and examined covering for Dr. Saucedo. The patient is confused. She does become agitated upon further questioning. She denies any fevers, chills, pain. Per nursing her blood sugars have been elevated. She is started on sliding scale insulin. Patient is hemodynamically stable. Hematology recommendations appreciated. ~Radha Waller DO
[2018-02-16 10:42] LABS: Band Neutrophils % 4 %; Lymphocytes # (M) 0.48 k/uL (1.0-4.8); Metamyelocytes # (M) 0.03 k/uL (0); Metamyelocytes % 2 %; Monocytes # (M) 0.72 k/uL (0-1.0); Neutrophils % (M) 19 %; Nucleated Red Blood Cells 0 /100 WBC (0-0); Poikilocytosis (M) Present; Total Cells Counted 100
[2018-02-16] MEDS: HEPARIN SODIUM,PORCINE 5,000 UNIT/ML 1 ML VIAL SQ SCH ×2 (11:08→20:31)
[2018-02-16] MEDS: FILGRASTIM-SNDZ 480 MCG/0.8 ML SYRINGE SQ SCH (11:09)
[2018-02-16 11:30] LABS: Glucose,Whole Blood 289 mg/dL (75-99)
[2018-02-16] MEDS: INSULIN ASPART 100 UNIT/ML 1 ML 10 ML VIAL SQ SCH ×3 (13:19→20:31)
[2018-02-16 17:32] LABS: Glucose,Whole Blood 135 mg/dL (75-99)
--- NOTE | 2018-02-16 20:07 | PN ---
PROGRESS NOTE DATE OF SERVICE: 02/16/2018. REASON FOR FOLLOW UP: Neutropenia. INTERVAL HISTORY: The patient is currently afebrile. She is breathing comfortably. Denies having any chest pain, shortness of breath or cough. No abdominal pain. No diarrhea reported. EXAMINATION: Blood pressure 115/59 with a pulse of 90, temperature 98. She is 92% on room air. General description is an elderly female lying in bed in no distress. RESPIRATORY SYSTEM: Unlabored breathing. Clear to auscultation anteriorly. HEART: S1, S2. Regular rate and rhythm. ABDOMEN: Soft, no tenderness. LABS: Hemoglobin 12.1, white count 1.6. Blood and urine culture so far negative. DIAGNOSTIC IMPRESSION AND PLAN: Patient admitted to the hospital with neutropenia with concern for prolonged currently on Levaquin for prophylaxis with culture currently negative and white count seemed to showing upward trend. Continue supportive care. MMODL / IJN: [id number] /
[2018-02-16 20:31] LABS: Glucose,Whole Blood 251 mg/dL (75-99)
[2018-02-16] MEDS: ALPRAZolam 0.25 MG TAB PO PRN (22:19)
[2018-02-17] MEDS: LEVOTHYROXINE 75 MCG TAB PO SCH (06:19)
[2018-02-17] MEDS: LEVOTHYROXINE 100 MCG TAB PO SCH (06:19)
[2018-02-17 07:24] LABS: Glucose,Whole Blood 242 mg/dL (75-99)
[2018-02-17 07:57] LABS: HCT 34.2 % (34.0-46.0); HGB 11.8 gm/dL (11.4-16.0); MCH 31.8 pg (25.0-35.0); MCHC 34.4 g/dL (31.0-37.0); MCV 92.4 fL (80.0-100.0); Mean Platelet Volume 7.5; Platelet Count 134 k/uL (150-450); RDW 12.3 % (11.5-15.5); WBC 5.5 k/uL (3.8-10.6)
[2018-02-17] MEDS: INSULIN ASPART 100 UNIT/ML 1 ML 10 ML VIAL SQ SCH ×4 (08:00→20:18)
[2018-02-17] MEDS: metFORMIN 500 MG TAB PO SCH (08:20)
[2018-02-17] MEDS: LEVOFLOXACIN 500 MG TAB PO SCH (08:20)
[2018-02-17] MEDS: LINAGLIPTIN 5 MG TABLET PO SCH (08:21)
[2018-02-17] MEDS: methylPREDNISolone SOD SUCCI 40 MG/ML 1 ML VIAL IV SCH (08:21)
[2018-02-17] MEDS: PANTOPRAZOLE 40 MG TABLET PO SCH (08:21)
[2018-02-17] MEDS: FERROUS SULFATE 325 MG TAB PO SCH (08:21)
[2018-02-17] MEDS: HEPARIN SODIUM,PORCINE 5,000 UNIT/ML 1 ML VIAL SQ SCH ×2 (08:21→20:22)
[2018-02-17 08:30] LABS: Band Neutrophils % 16 %; Lymphocytes # (M) 0.39 k/uL (1.0-4.8); Metamyelocytes # (M) 0.11 k/uL (0); Metamyelocytes % 2 %; Monocytes # (M) 1.54 k/uL (0-1.0); Myelocytes # (M) 0.06 k/uL (0); Myelocytes % 1 %; Neutrophils % (M) 48 %; Nucleated Red Blood Cells 0 /100 WBC (0-0); Total Cells Counted 200
[2018-02-17 08:31] LABS: Poikilocytosis (M) Present
[2018-02-17] MEDS: ALPRAZolam 0.25 MG TAB PO PRN (08:54)
[2018-02-17 11:39] LABS: Glucose,Whole Blood 221 mg/dL (75-99)
[2018-02-17] MEDS: FILGRASTIM-SNDZ 480 MCG/0.8 ML SYRINGE SQ SCH (11:54)
--- NOTE | 2018-02-17 12:23 | P.PN ---
Subjective Progress Note Date: 02/17/18 Principal diagnosis: Neutropenia Patient seen and examined covering for Dr. Barr. The patient is sitting up in the chair with her at bedside. The patient is tearful and states that she is getting depressed. She wants to know when she can go home. The patient will be discharged back to [facility]. She apparently became confused overnight and pulled out her IV. Neutropenia is now resolved. Objective - Vital Signs Vital signs: Vital Signs Temp 97.6 F 02/17/18 06:46 Pulse 70 02/17/18 08:40 Resp 16 02/17/18 08:40 BP 141/75 02/17/18 06:46 Pulse Ox 95 02/17/18 06:46 Intake & Output 02/16/18 02/17/18 02/17/18 18:59 06:59 18:59 Intake Total 240 240 Balance 240 240 Intake: IV 20 saline flush 20 Oral 240 220 Other: Voiding Method Diaper Diaper Diaper Incontinent Incontinent Incontinent # Voids 5 1 # Bowel Movements 2 - Exam GENERAL EXAM: Alert, confusion at baseline, comfortable in no apparent distress. HEAD: Normocephalic. EYES: Normal reaction of pupils, equal size. NOSE: Clear with pink turbinates. THROAT: No erythema or exudates. NECK: No masses, no JVD. CHEST: No chest wall deformity. LUNGS: Equal air entry with no crackles, wheeze, rhonchi or dullness. CVS: S1 and S2 normal with no audible mumurs, regular rhythm. ABDOMEN: No hepatosplenomegaly, normal bowel sounds, no guarding or rigidity. EXTREMITIES: No edema noted, pedal pulses palpable. CENTRAL NERVOUS SYSTEM: No focal deficits, tone is normal in all 4 extremities. - Labs CBC & Chem 7: 02/17/18 07:09 02/15/18 06:41 Labs: Abnormal Lab Results - Last 24 Hours (Table) 02/16/18 02/16/18 02/17/18 Range/Units 17:29 20:30 07:09 RBC 3.70 L (3.80-5.40) m/uL Plt Count 134 L (150-450) k/uL Lymphocytes # (Manual) 0.39 L (1.0-4.8) k/uL Monocytes # (Manual) 1.54 H (0-1.0) k/uL Metamyelocytes # (Man) 0.11 H (0) k/uL Myelocytes # (Manual) 0.06 H (0) k/uL POC Glucose (mg/dL) 135 H 251 H (75-99) mg/dL 02/17/18 02/17/18 Range/Units 07:21 11:33 RBC (3.80-5.40) m/uL Plt Count (150-450) k/uL Lymphocytes # (Manual) (1.0-4.8) k/uL Monocytes # (Manual) (0-1.0) k/uL Metamyelocytes # (Man) (0) k/uL Myelocytes # (Manual) (0) k/uL POC Glucose (mg/dL) 242 H 221 H (75-99) mg/dL Microbiology - Last 24 Hours (Table) 02/13/18 01:00 Blood Culture - Preliminary Blood No Growth after 96 hours Assessment and Plan Assessment: Sirs with neutropenia Dementia Hypertension Non-Hodgkin's lymphoma Neutropenia Diabetes mellitus Plan Medications have been reviewed and will be continued as ordered. Prophylactic antibiotics related to neutropenia - Levaquin per ID Monitor CBGs, insulin sliding scale Appreciate hematology recommendations. Infectious disease on consult Continue with pulmonary hygiene, coughing and deep breathing exercises, and supportive care. Supplemental oxygen to maintain oxygen saturations of 92% or better if needed. GI and DVT prophylaxis. Discontinue Solu-Medrol and initiate oral prednisone We will continue to monitor labs/results and adjust treatment as necessary. Further recommendations pending. Discharge planning
[2018-02-17 17:47] LABS: Glucose,Whole Blood 83 mg/dL (75-99)
[2018-02-17 20:16] LABS: Glucose,Whole Blood 128 mg/dL (75-99)
--- NOTE | 2018-02-17 22:20 | PN ---
PROGRESS NOTE DATE OF SERVICE: 02/17/2018. REASON FOR FOLLOW UP: Neutropenia. INTERVAL HISTORY: The patient is currently afebrile. She is breathing comfortably. Denies any chest pain or shortness of breath, no cough or abdominal pain or any diarrhea reported. EXAMINATION: Blood pressure is 124/57 with pulse of 78, temperature 98. She is 98% on room air. General description is an elderly female up in the chair in no distress. Respiratory system: Unlabored breathing, clear to auscultation anteriorly. Heart S1, S2. Regular rate and rhythm. ABDOMEN: Soft, no tenderness. LABS: Hemoglobin is 11.8, white count 5.5. Blood and urine cultures have been negative. DIAGNOSTIC IMPRESSION AND PLAN: Patient with neutropenia which has resolved. Culture has been negative so far. Antibiotic can be safely discontinued on discharge. Continue supportive care. present at bedside. His questions were answered. MMODL / IJN: [id number] /
[2018-02-18] MEDS: LEVOTHYROXINE 75 MCG TAB PO SCH (05:59)
[2018-02-18] MEDS: LEVOTHYROXINE 100 MCG TAB PO SCH (05:59)
[2018-02-18 07:13] LABS: Glucose,Whole Blood 117 mg/dL (75-99)
[2018-02-18] MEDS: INSULIN ASPART 100 UNIT/ML 1 ML 10 ML VIAL SQ SCH ×4 (07:22→20:24)
[2018-02-18] MEDS: PANTOPRAZOLE 40 MG TABLET PO SCH (08:16)
[2018-02-18] MEDS: FILGRASTIM-SNDZ 480 MCG/0.8 ML SYRINGE SQ SCH (08:16)
[2018-02-18] MEDS: ALPRAZolam 0.25 MG TAB PO PRN ×2 (08:16→20:17)
[2018-02-18] MEDS: FERROUS SULFATE 325 MG TAB PO SCH (08:16)
[2018-02-18] MEDS: metFORMIN 500 MG TAB PO SCH (08:16)
[2018-02-18] MEDS: LEVOFLOXACIN 500 MG TAB PO SCH (08:16)
[2018-02-18] MEDS: HEPARIN SODIUM,PORCINE 5,000 UNIT/ML 1 ML VIAL SQ SCH ×2 (08:16→20:18)
[2018-02-18] MEDS: LINAGLIPTIN 5 MG TABLET PO SCH (08:16)
[2018-02-18] MEDS ORDERED: predniSONE 20 MG TAB PO SCH (09:00)
[2018-02-18 11:55] LABS: Glucose,Whole Blood 206 mg/dL (75-99)
--- NOTE | 2018-02-18 15:49 | P.PN ---
Subjective Progress Note Date: 02/18/18 Principal diagnosis: Neutropenia Patient seen in follow-up today, she is still with confusion. No acute Complaints. Objective - Vital Signs Vital signs: Vital Signs Temp 97.5 F L 02/18/18 06:18 Pulse 78 02/18/18 08:00 Resp 18 02/18/18 08:00 BP 122/65 02/18/18 06:18 Pulse Ox 92 L 02/18/18 06:18 Intake & Output 02/17/18 02/18/18 02/18/18 18:59 06:59 18:59 Intake Total 1200 Balance 1200 Intake: Oral 1200 Other: Voiding Method Diaper Diaper Diaper Incontinent Incontinent Incontinent # Voids 2 2 3 - Constitutional General appearance: Present: average body habitus, cooperative, no acute distress - EENT Eyes: Present: EOMI, PERRLA, dentition normal ENT: Present: hard of hearing, NA/AT, normal oropharynx - Neck Neck: Present: normal ROM - Respiratory Respiratory: bilateral: CTA (no increased effort) - Cardiovascular Rhythm: regular Heart sounds: normal: S1, S2 - Gastrointestinal General gastrointestinal: Present: normal bowel sounds, soft - Integumentary Integumentary: Present: pale - Musculoskeletal Musculoskeletal: Present: generalized weakness, strength equal bilaterally - Psychiatric Psychiatric Comment(s): Confusion and disorientation - Labs CBC & Chem 7: 02/17/18 07:09 02/15/18 06:41 Labs: Abnormal Lab Results - Last 24 Hours (Table) 02/17/18 02/18/18 02/18/18 Range/Units 20:15 07:05 11:53 POC Glucose (mg/dL) 128 H 117 H 206 H (75-99) mg/dL Microbiology - Last 24 Hours (Table) 02/13/18 01:00 Blood Culture - Preliminary Blood No Growth after 120 hours Assessment and Plan Plan: Assessment and Plan (1) Neutropenia Narrative/Plan: - The patient is isolated neutropenia, which is fortunately asymptomatic at this time. So far she has had essentially no response from filgrastim. The etiology of this is unknown at this time. This is unlikely to be suppression from a viral type infection, as that would typically respond quickly to filgrastim. Given her prior history of possibility could be an autoimmune phenomenon. - She is status post IVIG and responding to steroids, therefore we will continue on steroids (adjust to PO dosing) - Her response to steroids indicated an autoimmune phenomenon, therefore we will set up for Rituxan as an outpatient. Current Visit: Yes Status: Acute Priority: High Code(s): D70.9 - NEUTROPENIA, UNSPECIFIED SNOMED Code(s): 340364865 (2) Non-Hodgkin lymphoma Narrative/Plan: The patient has been in remission for several years. Recurrence of her lymphoma as a cause for neutropenia is unlikely, as previously all cell lines were affected. However if her WBC does not respond, or repeat neutropenia presentsm we would need to consider repeat bone marrow Current Visit: No Status: Chronic Priority: Low Code(s): C85.90 - NON- HODGKIN LYMPHOMA, UNSPECIFIED, UNSPECIFIED SITE SNOMED Code(s): 404354172 Physician Attestation: I have completed the Full history and physical of this patient and agree with above dictation by Zulay Conner NP Dictated as a scribe.
[2018-02-18 17:35] LABS: Glucose,Whole Blood 288 mg/dL (75-99)
[2018-02-18] MEDS: ACETAMINOPHEN TAB 325 MG TAB PO PRN (20:17)
[2018-02-18 20:22] LABS: Glucose,Whole Blood 301 mg/dL (75-99)
--- NOTE | 2018-02-18 20:49 | PN ---
PROGRESS NOTE DATE OF SERVICE: 02/18/2018 REASON FOR FOLLOWUP: Neutropenia. INTERVAL HISTORY: The patient is currently afebrile. She is breathing comfortably. Denies having any chest pain or shortness of breath. No cough. No abdominal pain or diarrhea. EXAMINATION: Blood pressure 125/63 with a pulse of 95, temperature 97.9. She is 91% on room air. General description is a middle-aged female up in the chair in no distress. RESPIRATORY SYSTEM: Unlabored breathing, clear to auscultation anteriorly. HEART: S1, S2. Regular rate and rhythm. ABDOMEN: Soft, no tenderness. LABS: No new labs have been obtained today. Culture has been negative. DIAGNOSTIC IMPRESSION AND PLAN: Patient with neutropenia that has resolved. Patient is currently on Levaquin that can be discontinued. Has no clinical focus of infection and neutropenia has resolved. Continue supportive care. MMODL / IJN: [id number] /
--- NOTE | 2018-02-18 22:36 | PN ---
PROGRESS NOTE SUBJECTIVE: 72-year-old white female with neutropenia unclear etiology. White count of 5.4. Possible discharge home in the morning. Antibiotics discontinued. Possible autoimmune suppression. Blood pressure possibly prednisone will be given long-term to increase white count. Cardiovascular: S1, S2. Lungs clear. GI soft. Hematology: Negative Homans. Psych: Fair mood and affect. ASSESSMENT AND PLAN: 1. Dementia. 2. Insulin-dependent diabetes mellitus. 3. Autoimmune suppression. 4. Neutropenia, unclear etiology if it is related to non-Hodgkin's lymphoma. 5. Follow up as an outpatient with current medications and treatment. MMODL / IJN: [id number] /
[2018-02-19] MEDS: LEVOTHYROXINE 75 MCG TAB PO SCH (06:20)
[2018-02-19] MEDS: LEVOTHYROXINE 100 MCG TAB PO SCH (06:20)
[2018-02-19 06:56] LABS: Glucose,Whole Blood 134 mg/dL (75-99)
[2018-02-19] MEDS: ALPRAZolam 0.25 MG TAB PO PRN ×2 (07:04→20:51)
[2018-02-19] MEDS: INSULIN ASPART 100 UNIT/ML 1 ML 10 ML VIAL SQ SCH ×4 (08:55→20:50)
[2018-02-19 08:58] LABS: HCT 35.2 % (34.0-46.0); HGB 12.2 gm/dL (11.4-16.0); MCH 31.8 pg (25.0-35.0); MCHC 34.6 g/dL (31.0-37.0); Mean Platelet Volume 7.2; Platelet Count 112 k/uL (150-450); RBC 3.82 m/uL (3.80-5.40); RDW 12.6 % (11.5-15.5)
[2018-02-19] MEDS: LINAGLIPTIN 5 MG TABLET PO SCH (08:59)
[2018-02-19] MEDS: FERROUS SULFATE 325 MG TAB PO SCH (09:00)
[2018-02-19] MEDS ORDERED: predniSONE 10 MG TAB PO SCH (09:00)
[2018-02-19] MEDS: PANTOPRAZOLE 40 MG TABLET PO SCH (09:00)
[2018-02-19] MEDS: HEPARIN SODIUM,PORCINE 5,000 UNIT/ML 1 ML VIAL SQ SCH ×2 (09:00→20:51)
[2018-02-19] MEDS: metFORMIN 500 MG TAB PO SCH (09:00)
[2018-02-19 09:04] LABS: WBC 24.8 k/uL (3.8-10.6)
[2018-02-19] MEDS: ACETAMINOPHEN TAB 325 MG TAB PO PRN (09:13)
[2018-02-19 10:15] LABS: Band Neutrophils % 16 %; Eosinophils # (M) 0.25 k/uL (0-0.7); Lymphocytes # (M) 0.99 k/uL (1.0-4.8); Monocytes # (M) 0.99 k/uL (0-1.0); Neutrophils % (M) 75 %; Nucleated Red Blood Cells 0 /100 WBC (0-0); Total Cells Counted 100
[2018-02-19 11:06] LABS: Glucose,Whole Blood 172 mg/dL (75-99)
--- NOTE | 2018-02-19 11:37 | P.PN ---
Subjective Progress Note Date: 02/19/18 Principal diagnosis: Neutropenia Patient seen in follow-up today, she is still with confusion. No acute Complaints. Objective - Vital Signs Vital signs: Vital Signs Temp 97 F L 02/19/18 05:41 Pulse 56 L 02/19/18 05:41 Resp 18 02/19/18 05:41 BP 117/68 02/19/18 05:41 Pulse Ox 98 02/19/18 05:41 Intake & Output 02/18/18 02/19/18 02/19/18 18:59 06:59 18:59 Intake Total 1200 200 Output Total 500 Balance 700 200 Intake: Oral 1200 200 Output: Urine 500 Other: Voiding Method Diaper Diaper Incontinent Incontinent # Voids 3 2 - Constitutional General appearance: Present: average body habitus, cooperative, no acute distress - EENT Eyes: Present: EOMI, PERRLA, dentition normal ENT: Present: hard of hearing, NA/AT, normal oropharynx - Neck Neck: Present: normal ROM - Respiratory Respiratory: bilateral: CTA (No increased effort) - Cardiovascular Rhythm: regular Heart sounds: normal: S1, S2 - Integumentary Integumentary: Present: pale - Neurologic Neurologic: Present: CNII-XII intact - Musculoskeletal Musculoskeletal: Present: generalized weakness, strength equal bilaterally - Psychiatric Psychiatric Comment(s): Inappropriate pleasanty confused - Labs CBC & Chem 7: 02/19/18 08:35 02/15/18 06:41 Labs: Abnormal Lab Results - Last 24 Hours (Table) 02/18/18 02/18/18 02/18/18 Range/Units 11:53 17:28 20:05 WBC (3.8-10.6) k/uL Plt Count (150-450) k/uL Neutrophils # (Manual) (1.3-7.7) k/uL Lymphocytes # (Manual) (1.0-4.8) k/uL POC Glucose (mg/dL) 206 H 288 H 301 H (75-99) mg/dL 02/19/18 02/19/18 02/19/18 Range/Units 06:54 08:35 11:04 WBC 24.8 H (3.8-10.6) k/uL Plt Count 112 L (150-450) k/uL Neutrophils # (Manual) 22.50 H (1.3-7.7) k/uL Lymphocytes # (Manual) 0.99 L (1.0-4.8) k/uL POC Glucose (mg/dL) 134 H 172 H (75-99) mg/dL Microbiology - Last 24 Hours (Table) 02/13/18 01:00 Blood Culture - Final Blood No Growth after 144 hours Assessment and Plan Plan: Assessment and Plan (1) Neutropenia Narrative/Plan: - The patient is isolated neutropenia, which is fortunately asymptomatic at this time. So far she has had essentially no response from filgrastim. The etiology of this is unknown at this time. This is unlikely to be suppression from a viral type infection, as that would typically respond quickly to filgrastim. Given her prior history of possibility could be an autoimmune phenomenon. - She is status post IVIG and responding to steroids, therefore we will continue on steroids (adjusted to PO dosing) - Her response to steroids indicated an autoimmune phenomenon, therefore we will set up for Rituxan as an outpatient. - Prednisone taper has been initiated and added to discharge medications - Please discharge patient on PPI as well - 02/26/18 @ 3:45 a follow-up with dr. Alves and RNs will call patient to schedule Rituxan infusions weekly x4. Current Visit: Yes Status: Acute Priority: High Code(s): D70.9 - NEUTROPENIA, UNSPECIFIED SNOMED Code(s): 992347375 (2) Non-Hodgkin lymphoma Narrative/Plan: The patient has been in remission for several years. Recurrence of her lymphoma as a cause for neutropenia is unlikely, as previously all cell lines were affected. However if her WBC does not respond, or repeat neutropenia presentsm we would need to consider repeat bone marrow Current Visit: No Status: Chronic Priority: Low Code(s): C85.90 - NON- HODGKIN LYMPHOMA, UNSPECIFIED, UNSPECIFIED SITE SNOMED Code(s): 263562599 Physician Attestation: I have completed the Full history and physical of this patient and agree with above dictation by Zulay Conner NP Dictated as a scribe.
--- NOTE | 2018-02-19 12:11 | P.CN ---
Psychiatric Consult - . Consult date: 02/19/18 Consult:: IDENTIFYING DATA: The patient is 72-year-old female admitted to medicine service for evaluation of severe leukopenia. Her attending submitted a psychiatric consult to evaluate psychosis. HISTORY OF PRESENT ILLNESS: I reviewed the medical record and interviewed the patient. In addition to a history of non-Hodgkin's lymphoma and diabetes mellitus she has a history of a "progressive dementia." The interview was limited due to the severity of her dementia. For example, she was not oriented to place (location, city, state or country) or time. She repeated several times during interview that she was "only a young girl ... I'm only [age] years old." A few times during interview she requested I speak with her for more information. She denied current concerns or problems other than wishing "to be a good girl". With regard to psychiatric symptoms denied that she feels depressed, sad, worthless or hopeless. She denied feeling anxious but appeared restless and tense during the interview. She did not demonstrate compulsive rituals obsessional thoughts. She denied feeling frightened, scared or apprehensive. She denied that she feels that her imagination is been planned checks on her. She denied that she was hearing or seeing things or people did not see or hear. PAST PSYCHIATRIC HISTORY: She denied a history of psychiatric problems, mental health treatment or psychiatric hospitalization. PAST MEDICAL HISTORY: According to record she has history of diabetes mellitus, hyperlipidemia, hypertension, thyroid disorder, non-Hodgkin's lymphoma (last chemotherapy approximately 2 years ago), varicose veins, arthritis, anemia and joint replacements.. ALLERGIES: She has multiple ALLERGIES including atorvastatin, enalaprilat, propoxyphene and sulfa drugs SUBSTANCE USE HISTORY: She denied history of alcohol problems.. FAMILY PSYCHIATRIC/SUBSTANCE USE HISTORY: She appeared confused when I asked about a family history of psychiatric or substance use problems. SOCIAL HISTORY: She is and lives in [facility] with her .. MENTAL STATUS EXAM: She presented as a frail elderly woman who was restless and fidgety. As I walked into the room the wander alarm sounded several nurses/ aides responded. She made eye contact and appeared to attend to the interview. She had no prominent physical abnormalities. She had a anxious facial expression. She was alert and oriented to person only. She was restless but not agitated. She had no abnormal movements. I did not evaluate her gait. His speech was spontaneous with a childish quality and tone. She had no articulation difficulties. Her affect was anxious but stable and appropriate. She denied suicidal ideation, wishes or homicidal ideation. She denied such depressive cognitions as hopelessness, helplessness or worthlessness. She did not express ideas reference, paranoid ideation or delusional thoughts. Her thinking was concrete and associations appeared coherent. She denied hallucinations and did not appear to be responding to internal stimuli. I attempted to administer the Mini-Mental State Examination. She had difficulty attending to and concentrating on the examination. Her total score was 7 consistent with severe cognitive impairment. She was not oriented to year , season, date, day or month. She did not know the state, country, [facility], hospital or floor. She was able to register 3 memory words (Apple, orange and umbrella) but did not recall 3 words after the distraction exercise. She was unable to spell the word "world" forward or backwards and was unable to perform serial sevens. She was able to name a pen and a pair of glasses. She was able to repeat the phrase "no if's, and's, of buts.". She was unable to follow 3 stage command, read and obey a sentence, write a sentence or copy the diagram of intersecting pentagrams. IMPRESSIONS: She is a 72-year-old woman with multiple medical problems who presented to Hospital for evaluation of severe neutropenia. Her attending submitted a psychiatric consult to evaluate her for a psychosis. The most prominent feature of the interview was the severity of her cognitive impairment. Her performance on formal mental status testing places her in the severe range with marked impairment in cognitive functioning. I was unable to identify clear psychotic symptoms but she became easily agitated and anxious during the interview. She was obviously confused and talk to him agitated in a childish fashion. She is definitely at risk for developing periods of increased confusion, misperceptions, illogical and invalid beliefs and possible periods of paranoia. These neurocognitive symptoms may worsen as her dementia progresses. 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 However, considering the severity of her cognitive impairment and if has not failed a trial, she may benefit from an anticholinesterase inhibitor such as Aricept and/or NMDA receptor antagonist Namenda. If she begins developed behavioral problems such as agitation, increasing anxiety, impulsiveness or or aggression consider an SSRI antidepressant such as citalopram, Lexapro or Zoloft at very low doses as a first-line agent before prescribing other psychotropic medications. We usually try to avoid benzodiazepines in the elderly with dementia since they may increase confusion and contribute to falls. Thank you for this consult. 02/19/18 11:37
[2018-02-19] MEDS: predniSONE 20 MG TAB PO SCH (12:51)
--- NOTE | 2018-02-19 15:39 | PN ---
PROGRESS NOTE DATE OF SERVICE: 02/19/2018 REASON FOR FOLLOWUP: Neutropenia. INTERVAL HISTORY: The patient is currently afebrile. She is breathing comfortably. Denies having any chest pain or cough. No abdominal pain. She remains pleasantly confused. Unable to provide any reliable history, though. PHYSICAL EXAMINATION: Blood pressure is 117/68 with a pulse of 56, temperature 97. She is 98% on room air. General description is an elderly female lying in bed in no distress. RESPIRATORY SYSTEM: Unlabored breathing. Clear to auscultation anteriorly. HEART: S1, S2. Regular rate and rhythm. ABDOMEN: Soft. No tenderness. LABS: White count is up to 24,000 today. DIAGNOSTIC IMPRESSION AND PLAN: Patient with neutropenia that has resolved, now with white count elevation, more likely secondary to medication effect. Plan at this time is no antibiotic therapy. Continue with supportive care. MMLULYL / FRANCON: [id number] /
[2018-02-19 17:20] LABS: Glucose,Whole Blood 284 mg/dL (75-99)
[2018-02-19 20:19] LABS: Glucose,Whole Blood 348 mg/dL (75-99)
--- NOTE | 2018-02-19 20:55 | PN ---
PROGRESS NOTE CHIEF COMPLAINT: A 72-year-old with neutropenia with leukocytosis now up to 25,000. She is way more confused today, yelling out, screaming out, possibly due to steroids, possibly due to Levaquin, possibly due to leukocytosis type medications. I will stop all these, especially as the white count has jumped to 25,000. Psych appears progressive with paranoia and total confusion, unsure where she is at or who we are. Temp 97, pulse 56, respiratory 16 to 18, blood pressure 117/68, O2 98% on room air. Cardiovascular: S1, S2. Lungs are clear. GI soft. Hematology: Negative Homans. Psych as above. White count 24.3, hemoglobin 12.2, sodium 139, potassium 1.2. ASSESSMENT: 1. Neutropenia which is improved. Will take her off steroids. 2. Non-Hodgkin's lymphoma in remission for many years and did not suspect this is the cause of her leukocytosis. 3. Confusion secondary to possible steroids and delirium with worsening dementia. 4. Insulin-dependent diabetes mellitus stabilized. Psychiatry saw the patient, assessed possible major neurocognitive disorder with Alzheimer's. Recommend Aricept and possible Namenda for aggressive impulses and aggressiveness possibly Citalopram are probably low doses. Please see further orders in the chart. MMODL / IJN: [id number] /
[2018-02-19] MEDS ORDERED: DONEPEZIL 5 MG TAB PO SCH (22:30)
[2018-02-19] MEDS: MEMANTINE 5 MG TAB PO SCH (22:37)
--- NOTE | 2018-02-19 23:46 | DS ---
DISCHARGE SUMMARY DISCHARGE MEDICATIONS: 1. Prednisone 10 mg daily. 2. Tylenol 650 q.4 hours p.r.n. 3. Aricept 5 mg daily. 4. NovoLog before meals and at bedtime. 5. Synthroid 175 mcg daily. 6. Tradjenta 5 mg daily. 7. Melatonin 3 mg at bedtime. 8. Omeprazole 20 daily. 9. Januvia 100 daily. 10.Metformin 500 daily. 11.Zocor 40 daily. 12.Iron sulfate 325 daily. 13.Cranberry extract 450 daily. 14.Accu-Cheks before meals and at bedtime. . 15.Namenda 5 mg b.i.d. 16.Aricept 5 mg daily. 17.Tradjenta 5 mg daily. CONDITION: Stable. PROGNOSIS: Guarded. Ambulate as tolerated. 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 Aricept and Namenda were started. Medications were given to elevate white count by Oncology. Will follow up as an outpatient. Local neutropenia improved with medication per Oncology as well as steroids. She will be sent home on a low dose steroid to follow up with Oncology and Dr. Cortney moser at the [facility]. Continue with Aricept and Namenda for behavioral disturbances and Alzheimer's. MMODL / IJN: [id number] /
[2018-02-20 06:20] VITALS: BP 130/62; PULSE 66; RESP 18; TEMP 97.7
[2018-02-20] MEDS: LEVOTHYROXINE 75 MCG TAB PO SCH (06:20)
[2018-02-20] MEDS: LEVOTHYROXINE 100 MCG TAB PO SCH (06:20)
[2018-02-20 06:44] LABS: Glucose,Whole Blood 195 mg/dL (75-99)
[2018-02-20] MEDS: ALPRAZolam 0.25 MG TAB PO PRN (07:47)
[2018-02-20] MEDS: metFORMIN 500 MG TAB PO SCH (07:48)
[2018-02-20] MEDS: HEPARIN SODIUM,PORCINE 5,000 UNIT/ML 1 ML VIAL SQ SCH (07:48)
[2018-02-20] MEDS: LINAGLIPTIN 5 MG TABLET PO SCH (07:48)
[2018-02-20] MEDS: predniSONE 20 MG TAB PO SCH (07:48)
[2018-02-20] MEDS: MEMANTINE 5 MG TAB PO SCH (07:48)
[2018-02-20] MEDS: PANTOPRAZOLE 40 MG TABLET PO SCH (07:48)
[2018-02-20] MEDS: FERROUS SULFATE 325 MG TAB PO SCH (07:48)
[2018-02-20] MEDS: INSULIN ASPART 100 UNIT/ML 1 ML 10 ML VIAL SQ SCH (07:49)
[2018-02-20 11:12] LABS: Glucose,Whole Blood 247 mg/dL (75-99)
== END 2018-02-20 12:05 | DRG 809 ==
LOC: EC 00:01 → 6SEL 03:08 → 5MS5E 22:31
PROVIDERS: ADMIT Family Medicine; ATTEND Family Medicine
DX: D61.818 Other pancytopenia (principal); C85.90 Non-Hodgkin lymphoma, unspecified, unspecified site; F02.81 Dementia in other diseases classified elsewhere, unspecified severity, with behavioral disturbance; R65.10 Systemic inflammatory response syndrome (SIRS) of non-infectious origin without acute organ dysfunction; F05 Delirium due to known physiological condition; D50.9 Iron deficiency anemia, unspecified; D72.829 Elevated white blood cell count, unspecified; E03.9 Hypothyroidism, unspecified; E11.9 Type 2 diabetes mellitus without complications; E53.8 Deficiency of other specified B group vitamins; E78.5 Hyperlipidemia, unspecified; G30.9 Alzheimer's disease, unspecified; I10 Essential (primary) hypertension; I45.10 Unspecified right bundle-branch block; I48.91 Unspecified atrial fibrillation; Z79.4 Long term (current) use of insulin; Z79.899 Other long term (current) drug therapy; Z80.9 Family history of malignant neoplasm, unspecified; Z92.21 Personal history of antineoplastic chemotherapy; Z96.611 Presence of right artificial shoulder joint; Z96.651 Presence of right artificial knee joint; Z98.42 Cataract extraction status, left eye; Z98.41 Cataract extraction status, right eye; Z79.890 Hormone replacement therapy; Z88.5 Allergy status to narcotic agent; Z88.2 Allergy status to sulfonamides; Z88.8 Allergy status to other drugs, medicaments and biological substances; T38.0X5A Adverse effect of glucocorticoids and synthetic analogues, initial encounter; T37.8X5A Adverse effect of other specified systemic anti-infectives and antiparasitics, initial encounter; E86.0 Dehydration
CPT/HCPCS: 36415; 71046; 80053; 81001; 82607; 82747; 83036; 83605; 83921; 84443; 84484; 85025; 85027; 85610; 85730; 87040; 87086; 93005; 93306; 94760; 96361; 96372; 96374; 99284

== ENCOUNTER 2019-01-31 09:22 | Inpatient (IN) | payer MEDICARE ==
[2019-01-31] MEDS ORDERED: SODIUM CHLORIDE 0.9% 1,000 ML IV STA ×2 (09:48)
--- NOTE | 2019-01-31 10:16 | ED ---
General Adult HPI <Jarek Uriostegui - Last Filed: 01/31/19 11:52> - General Source: EMS, RN notes reviewed, old records reviewed Mode of arrival: EMS Limitations: altered mental status <Danya Keith - Last Filed: 01/31/19 11:59> - General Chief complaint: Recheck/Abnormal Lab/Rx Stated complaint: Constipation Time Seen by Provider: 01/31/19 09:26 - History of Present Illness Initial comments: Patient is a 73-year-old female with a history of severe dementia, and on 1. Patient relates to be referred to his hat". Patient currently lives at [facility], apparently Patient has not had a bowel movement in over 8 days. Patient had milk of magnesia with no results. Patient's reports that she's had a known hernia over her left side of her abdomen. He reports it seems to be more prominent and Patient has been screaming in pain with palpation over this. Patient has had 2 previous hernia repair surgeries but hasn't does not know the date and who was the surgeon. Patient is a difficult historian, history is obtained by and EMS report. Patient's reports that she fell out of her wheelchair 4 weeks ago, and has bruising around her eyes. (Danya Keith) - Related Data Home Medications Medication Instructions Recorded Confirmed metFORMIN HCL [Glucophage] 500 mg PO HS 11/15/14 02/13/18 Simvastatin [Zocor] 40 mg PO HS 07/08/16 02/13/18 Ferrous Sulfate [Iron (65 MG 325 mg PO DAILY 10/29/17 02/13/18 Elemental)] Cranberry Fruit Concentrate 450 mg PO DAILY 02/13/18 02/13/18 [Cranberry] INSULIN ASPART (NovoLOG) [NovoLOG See Protocol SQ ACHS 02/13/18 02/13/18 (formulary)] Melatonin 3 mg PO HS@199902/13/18 02/13/18 Omeprazole 20 mg PO DAILY 02/13/18 02/13/18 sitaGLIPtin [Januvia] 100 mg PO DAILY 02/13/18 02/13/18 Previous Rx's Medication Instructions Recorded Acetaminophen Tab [Tylenol] 650 mg PO Q6HR PRN tab 02/19/18 Donepezil [Aricept] 5 mg PO HS tab 02/19/18 INSULIN ASPART (NovoLOG) [NovoLOG 0 unit SQ ACHS vial 02/19/18 (formulary)] Levothyroxine Sodium [Synthroid] 100 mcg PO DAILY@0630 tab 02/19/18 Linagliptin [Tradjenta] 5 mg PO DAILY tablet 02/19/18 Memantine [Namenda] 5 mg PO BID tab 02/19/18 predniSONE 0 mg PO DIRECTED #50 tab 02/19/18 Allergies Allergy/AdvReac Type Severity Reaction Status Date / Time atorvastatin [From Lipitor] Allergy Unknown Verified 01/31/19 09:32 enalaprilat [From Vasotec] Allergy Unknown Verified 01/31/19 09:32 propoxyphene napsylate Allergy Unknown Verified 01/31/19 09:32 [From Darvocet-N] Sulfa (Sulfonamide Allergy Itching,daniela Verified 01/31/19 09:32 Antibiotics) h Review of Systems ROS Other: All systems not noted in ROS Statement are negative. <Jarek Uriostegui - Last Filed: 01/31/19 11:52> ROS Other: All systems not noted in ROS Statement are negative. <Danya Keith - Last Filed: 01/31/19 11:59> ROS Statement: Those systems with pertinent positive or pertinent negative responses have been documented in the HPI. Past Medical History Past Medical History: Cancer, Diabetes Mellitus, Hyperlipidemia, Hypertension, Memory Impairment, Thyroid Disorder Additional Past Medical History / Comment(s): non-hodgkins lymphoma-last chemo 2 years ago, varicose veins, arthritis, anemia, fell and injured rt shoulder Jul 2015, uses wheelchair or walker History of Any Multi-Drug Resistant Organisms: None Reported Past Surgical History: Back Surgery, Hernia Repair, Joint Replacement Additional Past Surgical History / Comment(s): rt knee replacement, rt shoulder replacement, thyroid radioactive tx, cataracts Past Anesthesia/Blood Transfusion Reactions: Previous Problems w/ Anesthesia Additional Past Anesthesia/Blood Transfusion Reaction / Comment(s): years ago had diff breathing with anesthesia Past Psychological History: No Psychological Hx Reported Smoking Status: Never smoker Past Alcohol Use History: None Reported Past Drug Use History: None Reported - Past Family History Sister(s) Family Medical History: Cancer <Danya Keith - Last Filed: 01/31/19 11:59> General Exam Limitations: altered mental status General appearance: anxious Head exam: Present: atraumatic, normocephalic, normal inspection Eye exam: Present: normal appearance, PERRL, EOMI. Absent: scleral icterus, conjunctival injection, periorbital swelling ENT exam: Present: normal exam, mucous membranes moist Neck exam: Present: normal inspection. Absent: tenderness, meningismus, lymphadenopathy Respiratory exam: Present: normal lung sounds bilaterally. Absent: respiratory distress, wheezes, rales, rhonchi, stridor Cardiovascular Exam: Present: regular rate, normal rhythm, normal heart sounds. Absent: systolic murmur, diastolic murmur, rubs, gallop, clicks GI/Abdominal exam: Present: soft, tenderness (over large hernia. no skin changes), normal bowel sounds. Absent: distended, guarding, rebound, rigid Extremities exam: Present: normal inspection, full ROM, normal capillary refill. Absent: tenderness, pedal edema, joint swelling, calf tenderness Back exam: Present: normal inspection Neurological exam: Present: alert, oriented X3, CN II-XII intact Psychiatric exam: Present: normal affect, normal mood <Danya Keith - Last Filed: 01/31/19 11:59> - General Exam Comments Initial Comments: Patient is a 73-year-old female history of dementia. Alert 1, Patient has anxious, shouting in pain. (Danya Keith) Course <Danya Keith - Last Filed: 01/31/19 11:59> Vital Signs 01/31/19 01/31/19 01/31/19 09:29 09:33 11:00 Temperature 98.2 F Pulse Rate 72 71 Respiratory 16 18 Rate Blood Pressure 90/70 105/81 O2 Sat by Pulse 99 96 Oximetry - Reevaluation(s) Reevaluation #1: 01/31/19 11:15 While in emergency department Patient did have a large bowel movement. (Danya Keith) Medical Decision Making - Lab Data Result diagrams: 01/31/19 10:00 01/31/19 10:00 <Jarek Uriostegui - Last Filed: 01/31/19 11:52> - Lab Data Result diagrams: 01/31/19 10:00 01/31/19 10:00 - Radiology Data Radiology results: report reviewed <Danya Keith - Last Filed: 01/31/19 11:59> - Medical Decision Making 73-year-old female with history of abdominal distention and one week of constipation. Patient has an anterior abdominal hernia which is not reducible on exam. Labs are obtained, normal white blood cell count, lactic mildly elevated 2.9. She does receive CT of the abdomen which shows a anterior abdominal hernia with bowel and small amount of free air. This finding is discussed with Dr. Buchanan, he will admit the patient, recommends IV fluids, antibiotics and patient will be Nothing by mouth. Medicine, Dr. Barr will be placed on consult who is familiar with this patient and is able to evaluate the patient in the emergency department. (Jarek Uriostegui) - Lab Data Lab Results 01/31/19 01/31/19 01/31/19 Range/Units 10:00 10:00 10:00 WBC 8.1 (3.8-10.6) k/uL RBC 3.46 L (3.80-5.40) m/uL Hgb 11.4 (11.4-16.0) gm/dL Hct 34.0 (34.0-46.0) % MCV 98.1 (80.0-100.0) fL MCH 32.9 (25.0-35.0) pg MCHC 33.5 (31.0-37.0) g/dL RDW 14.0 (11.5-15.5) % Plt Count 311 D (150-450) k/uL Neutrophils % 86 % Lymphocytes % 6 % Monocytes % 5 % Eosinophils % 1 % Basophils % 0 % Neutrophils # 7.0 (1.3-7.7) k/uL Lymphocytes # 0.5 L (1.0-4.8) k/uL Monocytes # 0.4 (0-1.0) k/uL Eosinophils # 0.1 (0-0.7) k/uL Basophils # 0.0 (0-0.2) k/uL Sodium 145 (137-145) mmol/L Potassium 4.7 (3.5-5.1) mmol/L Chloride 103 (98-107) mmol/L Carbon Dioxide 36 H (22-30) mmol/L Anion Gap 6 mmol/L BUN 49 H (7-17) mg/dL Creatinine 0.92 (0.52-1.04) mg/dL Est GFR (CKD-EPI)AfAm 73 (>60 ml/min/1.73 sqM) Est GFR (CKD-EPI)NonAf 63 (>60 ml/min/1.73 sqM) Glucose 85 (74-99) mg/dL Plasma Lactic Acid Ismael 2.9 H* (0.7-2.0) mmol/L Calcium 9.3 (8.4-10.2) mg/dL Total Bilirubin 0.5 (0.2-1.3) mg/dL AST 31 (14-36) U/L ALT 26 (9-52) U/L Alkaline Phosphatase 137 H (38-126) U/L Total Protein 5.4 L (6.3-8.2) g/dL Albumin 3.2 L (3.5-5.0) g/dL Amylase <30 L (30-110) U/L Lipase 27 (23-300) U/L Urine Color Urine Appearance (Clear) Urine pH (5.0-8.0) Ur Specific Manter (1.001-1.035) Urine Protein (Negative) Urine Glucose (UA) (Negative) Urine Ketones (Negative) Urine Blood (Negative) Urine Nitrite (Negative) Urine Bilirubin (Negative) Urine Urobilinogen (<2.0) mg/dL Ur Leukocyte Esterase (Negative) Urine WBC (0-5) /hpf Urine Bacteria (None) /hpf Urine Mucus (None) /hpf 01/31/19 Range/Units 10:20 WBC (3.8-10.6) k/uL RBC (3.80-5.40) m/uL Hgb (11.4-16.0) gm/dL Hct (34.0-46.0) % MCV (80.0-100.0) fL MCH (25.0-35.0) pg MCHC (31.0-37.0) g/dL RDW (11.5-15.5) % Plt Count (150-450) k/uL Neutrophils % % Lymphocytes % % Monocytes % % Eosinophils % % Basophils % % Neutrophils # (1.3-7.7) k/uL Lymphocytes # (1.0-4.8) k/uL Monocytes # (0-1.0) k/uL Eosinophils # (0-0.7) k/uL Basophils # (0-0.2) k/uL Sodium (137-145) mmol/L Potassium (3.5-5.1) mmol/L Chloride (98-107) mmol/L Carbon Dioxide (22-30) mmol/L Anion Gap mmol/L BUN (7-17) mg/dL Creatinine (0.52-1.04) mg/dL Est GFR (CKD-EPI)AfAm (>60 ml/min/1.73 sqM) Est GFR (CKD-EPI)NonAf (>60 ml/min/1.73 sqM) Glucose (74-99) mg/dL Plasma Lactic Acid Ismael (0.7-2.0) mmol/L Calcium (8.4-10.2) mg/dL Total Bilirubin (0.2-1.3) mg/dL AST (14-36) U/L ALT (9-52) U/L Alkaline Phosphatase (38-126) U/L Total Protein (6.3-8.2) g/dL Albumin (3.5-5.0) g/dL Amylase (30-110) U/L Lipase (23-300) U/L Urine Color Yellow Urine Appearance Cloudy H (Clear) Urine pH 5.0 (5.0-8.0) Ur Specific Manter 1.022 (1.001-1.035) Urine Protein Trace H (Negative) Urine Glucose (UA) Negative (Negative) Urine Ketones Negative (Negative) Urine Blood Negative (Negative) Urine Nitrite Negative (Negative) Urine Bilirubin Negative (Negative) Urine Urobilinogen 2.0 (<2.0) mg/dL Ur Leukocyte Esterase Negative (Negative) Urine WBC 4 (0-5) /hpf Urine Bacteria Many H (None) /hpf Urine Mucus Occasional H (None) /hpf - Radiology Data Subcutaneous air and a small amount of free air both external and internal in the anterior abdominal wall hernia sac. Fecal debris is noted throughout the colon. Chronic for fecal impaction of the rectum. (Danya Keith) Critical Care Time Critical Care Time: Yes Total Critical Care Time: 30 <Danya Keith - Last Filed: 01/31/19 11:59> Disposition <Jarek Uriostegui - Last Filed: 01/31/19 11:52> Is patient prescribed a controlled substance at d/c from ED?: No Time of Disposition: 11:59 <Danya Keith - Last Filed: 01/31/19 11:59> Clinical Impression: Lactic acidosis, Hernia of abdominal wall, Free intraperitoneal air, Dementia Disposition: ADMITTED IP TO THIS HOSP Condition: Stable Referrals: Rc Barr MD [Primary Care Provider] - 1-2 days
[2019-01-31 10:48] LABS: Basophils % (A) 0 %; Eosinophils # (A) 0.1 k/uL (0-0.7); Eosinophils % (A) 1 %; HGB 11.4 gm/dL (11.4-16.0); Lymphocytes # (A) 0.5 k/uL (1.0-4.8); Lymphocytes % (A) 6 %; MCH 32.9 pg (25.0-35.0); MCHC 33.5 g/dL (31.0-37.0); MCV 98.1 fL (80.0-100.0); Mean Platelet Volume 7.5; Monocytes # (A) 0.4 k/uL (0-1.0); Monocytes % (A) 5 %; Neutrophils % (A) 86 %; RBC 3.46 m/uL (3.80-5.40); WBC 8.1 k/uL (3.8-10.6)
[2019-01-31 10:48] LABS: Appearance,Urine Cloudy (Clear); Bacteria,Urine Many /hpf; Bilirubin,Urine Negative (Negative); Blood,Urine Negative (Negative); Color,Urine Yellow; Glucose,Urine (UA) Negative (Negative); Ketones,Urine Negative (Negative); Leukocyte Esterase,Urine Negative (Negative); Mucus,Urine Occasional /hpf; Nitrite,Urine Negative (Negative); Protein,Urine Trace (Negative); Specific Gravity,Urine 1.022 (1.001-1.035); WBC,Urine 4 /hpf (0-5)
[2019-01-31 10:51] LABS: ALT 26 U/L (9-52); AST 31 U/L (14-36); African American GFR (CKD) 73 (>60 ml/min/1.73 sqM); Albumin 3.2 g/dL (3.5-5.0); Alkaline Phosphatase 137 U/L (38-126); Amylase <30 U/L (30-110); Anion Gap 6 mmol/L; Blood Urea Nitrogen 49 mg/dL (7-17); Calcium 9.3 mg/dL (8.4-10.2); Carbon Dioxide 36 mmol/L (22-30); Chloride 103 mmol/L (98-107); Glucose 85 mg/dL (74-99); Lipase 27 U/L (23-300); Potassium 4.7 mmol/L (3.5-5.1); Sodium 145 mmol/L (137-145); Total Bilirubin 0.5 mg/dL (0.2-1.3); Total Protein 5.4 g/dL (6.3-8.2)
[2019-01-31 10:58] LABS: Platelet Count 311 k/uL (150-450)
[2019-01-31] MEDS ORDERED: PIPERACILLIN-TAZOBACTAM 3.375 GM in SODIUM CHLORIDE 0.9% 100 ML IVPB STA (11:44)
--- NOTE | 2019-01-31 11:45 | CT ---
EXAMINATION TYPE: CT abdomen pelvis w con DATE OF EXAM: 01/31/2019 COMPARISON: CT chest abdomen pelvis 08/15/2013 INDICATION: abdominal pain and mass, known henia. DLP: 1444.4 mGycm, Automated exposure control for dose reduction was used. CONTRAST: 100 mL of Isovue 300. Study performed without Oral Contrast TECHNIQUE: Axial images were obtained from above the diaphragm to the pubic rami in the axial plane a t 5 mm thick sections. Reconstructed images are reviewed on the computer in the coronal plane. FINDINGS: Limited CT sections are obtained the lung bases. There is a small area of pneumonitis above the left diaphragm. Atelectasis and pneumonia could be considered.. Small to moderate size hiatal hernia is present. CT ABDOMEN: Liver: Normal Spleen: Normal Pancreas: Somewhat atrophic Adrenal glands: The adrenal glands are normal. Gallbladder: Normal Kidneys: No masses are evident. No hydronephrosis is present. No cysts are present. Delayed images were obtained through the kidneys, which remain unremarkable. Aorta: Vascular calcification is within the aorta. Inferior vena cava: Normal. CT PELVIS: There is an anterior mid abdominal wall hernia with loops of colon. Fecal debris is throug h this region. The opening is 3.3 cm. Small amount of free air within this area is adjacent to the co janine. This could be subcutaneous air anterior to the hernia sac. Loops of bowel within the abdomen and pelvis are normal. Study is performed without oral contrast limiting bowel evaluation. Abundant fecal debris is throughout the colon. Obstruction at the level o f the anterior abdominal wall hernia is not evident. Fecal impaction at the level the rectum should b e considered. Appendix: Not identified. No suspicious inflammatory changes or dilated tubular structures are eviden t. Urinary bladder: Distended Genitourinary structures: Uterus is unremarkable. Adnexal regions are clear. No free fluid is within the pelvis. Osseous structures: No suspicious lytic or sclerotic lesions. Prior fracture of the right ischio iain s is evident. Pubic ramus appears intact. Degenerative changes are at the left hip. Some degenerative changes are also present at the right hip. Postsurgical changes are within the lower lumbar spine wi th fixation screws. IMPRESSIONS: 1. Subcutaneous air and small amount of free air both external and internal to the anterior abdomina l wall hernia sac. 2. Fecal debris is throughout the colon. Correlate for fecal impaction at the rectum. 3. Report was called to emergency room TARUN Keith by Dr. Irvin by telephone at time of interpreta tion.
[2019-01-31] MEDS ORDERED: ACETAMINOPHEN TAB 325 MG TAB PO PRN (11:59)
[2019-01-31] MEDS ORDERED: NALOXONE 0.4 MG/ML 1 ML VIAL IV PRN (11:59)
[2019-01-31] MEDS ORDERED: IBUPROFEN 400 MG TAB PO PRN (11:59)
[2019-01-31] MEDS ORDERED: KETOROLAC 30 MG/ML 1 ML VIAL IVP PRN (11:59)
[2019-01-31] MEDS ORDERED: SODIUM CHLORIDE 0.9% 1,000 ML IV SCH (12:00)
--- NOTE | 2019-01-31 12:18 | HP ---
HISTORY AND PHYSICAL A 73-year-old white female is admitted to hospital from the retirement sent from the retirement due to severe abdominal swelling and severe crying out in pain. CAT scan apparently showed some free air in hernia in her abdomen for which surgical consultation is pending. PAST MEDICAL HISTORY: She has a past medical history of dementia, diabetes, hypertension, and is mostly confused most of time. ALLERGIES: Allergies are ATORVASTATIN, ENALAPRIL, PROPOXYPHENE, SULFA. MEDICATIONS: See list. REVIEW OF SYSTEMS: Fourteen point review of systems negative except for mentioned above. PHYSICAL EXAMINATION: Blood pressure is 105/81, oxygen level 96% on room air, respiratory 16 to 18, pulse rate 71 to 72, temp 98.2. CARDIOVASCULAR: S1, S2. LUNGS: Clear. PSYCH: Alert and oriented x1. ENDOCRINE: BMI is over 40. ABDOMEN: Distended. She has a large ventral hernia in the epigastric area. Slightly increased bowel sounds. EXTREMITIES: Shows 2 to 3+ edema. Generalized obese. NEUROLOGIC: Cranial nerves appear intact. White count 8.1, hemoglobin 11.4. Creatinine 0.92, BUN is 49. Alkaline phosphatase 137. Amylase is less than 30. Albumin is 3.2. Lipase 27. UA shows many bacteria. Lactic acid 2.9. ASSESSMENT: 1. Possible bowel perforation with free air in the ventral hernia. Stat surgical consult with Dr. Buchanan is undertaken. 2. Diabetes. 3. Hypertension. 4. Dementia. 5. Possible urinary tract infection. 6. Prerenal renal insufficiency. 7. Severe dementia. Continue current treatments, broad-spectrum antibiotics. Surgical consultation. MMODL / IJN: [id number] /
--- NOTE | 2019-01-31 15:40 | P.GSCN ---
History of Present Illness Consult date: 01/31/19 Reason for Consult: Abdominal pain, constipation History of present illness: This a 73-year-old female who was admitted to the hospital with complaints of abdominal pain and constipation. Patient has not had a bowel movement several days. She had a CAT scan performed which showed a tiny amount of free air within a ventral hernia as well as simultaneous air. Patient had multiple bowel movements in the emergency. She states she feels better. She is currently resting in bed without any significant abdominal pain. Past Medical History Past Medical History: Atrial Fibrillation, Cancer, Diabetes Mellitus, GERD/Reflux, Hyperlipidemia, Hypertension, Memory Impairment, Osteoarthritis (OA), Renal Disease, Thyroid Disorder Additional Past Medical History / Comment(s): IDDM type II, neuropathy bilateral legs/feet, paroxysmal afib, Vtach, severe dementia, dysphagia, nonhodgkins lymphoma with last chemo 2015, neutropenia, anemia, goiter, received radioactive iodine-hypothyroid, CKD stage III, UTIs, UTI with sepsis, varicosities, generalized arthritis, low back pain, R shoulder injury from fall in 2014, constipation, current wound coccyx-/L heel, L shoulder blister, allergic rhinitis, sleep disorder, incontinence. History of Any Multi-Drug Resistant Organisms: None Reported Past Surgical History: Back Surgery, Breast Surgery, Hernia Repair, Joint Replacement, Tubal Ligation Additional Past Surgical History / Comment(s): rt knee replacement, rt shoulder replacement, low back surgery-has screws, back injections, bilateral cataracts removed/lens implants, L breast biopsy, colonoscopy. Past Anesthesia/Blood Transfusion Reactions: Previous Problems w/ Anesthesia Additional Past Anesthesia/Blood Transfusion Reaction / Comm: years ago had diff breathing with anesthesia Smoking Status: Never smoker - Past Family History Sister(s) Family Medical History: Cancer Additional Family Medical History / Comment(s): Uterine cancer Medications and Allergies Home Medications Medication Instructions Recorded Confirmed Type metFORMIN HCL [Glucophage] 500 mg PO HS 11/15/14 01/31/19 History Simvastatin [Zocor] 40 mg PO HS 07/08/16 01/31/19 History Ferrous Sulfate [Iron (65 MG 325 mg PO DAILY 10/29/17 01/31/19 History Elemental)] Cranberry Fruit Concentrate 450 mg PO BID 02/13/18 01/31/19 History [Cranberry] Melatonin 3 mg PO HS@199902/13/18 01/31/19 History ALPRAZolam [Xanax] 0.5 mg PO BID 01/31/19 01/31/19 History Acetaminophen [Tylenol Arthritis] 650 mg PO DAILY 01/31/19 01/31/19 History Aspirin EC [Ecotrin Low Dose] 81 mg PO HS 01/31/19 01/31/19 History Cetirizine HCl [Zyrtec] 10 mg PO HS 01/31/19 01/31/19 History Divalproex Sodium [Depakote 250 mg PO TID 01/31/19 01/31/19 History Sprinkle] Exenatide Microspheres [Bydureon 2 mg SQ WE 01/31/19 01/31/19 History Pen] Furosemide [Lasix] 20 mg PO DAILY 01/31/19 01/31/19 History Insulin Glargine [Lantus] 7 unit SQ DIRECTED 01/31/19 01/31/19 History Levothyroxine Sodium [Synthroid] 125 mcg PO DAILY 01/31/19 01/31/19 History Magnesium Hydroxide [Milk of 2,400 mg PO DAILY PRN 01/31/19 01/31/19 History Magnesia] QUEtiapine [SEROquel] 150 mg PO HS 01/31/19 01/31/19 History Ranitidine HCl [Zantac] 75 mg PO BID 01/31/19 01/31/19 History Allergies Allergy/AdvReac Type Severity Reaction Status Date / Time atorvastatin [From Lipitor] Allergy Unknown Verified 01/31/19 12:20 enalaprilat [From Vasotec] Allergy Unknown Verified 01/31/19 12:20 propoxyphene napsylate Allergy Unknown Verified 01/31/19 12:20 [From Darvocet-N] Sulfa (Sulfonamide Allergy Itching,daniela Verified 01/31/19 12:20 Antibiotics) h Surgical - Exam Vital Signs Temp Pulse Resp Pulse Ox 98.2 F 72 16 99 01/31/19 09:29 01/31/19 09:29 01/31/19 09:29 01/31/19 09:29 - General well developed, no distress - Eyes PERRL - ENT normal pinna - Neck no masses - Respiratory normal expansion - Cardiovascular Rhythm: regular - Abdomen There is a midline ventral hernia. There is no rebound there is no guarding. There is no peritoneal signs. Abdomen: soft, non tender Results - Labs 01/31/19 10:00 01/31/19 10:00 Abnormal Lab Results - Last 24 Hours (Table) 01/31/19 01/31/19 01/31/19 Range/Units 10:00 10:00 10:00 RBC 3.46 L (3.80-5.40) m/uL Lymphocytes # 0.5 L (1.0-4.8) k/uL Carbon Dioxide 36 H (22-30) mmol/L BUN 49 H (7-17) mg/dL Plasma Lactic Acid Ismael 2.9 H* (0.7-2.0) mmol/L Alkaline Phosphatase 137 H (38-126) U/L Total Protein 5.4 L (6.3-8.2) g/dL Albumin 3.2 L (3.5-5.0) g/dL Amylase <30 L (30-110) U/L Urine Appearance (Clear) Urine Protein (Negative) Urine Bacteria (None) /hpf Urine Mucus (None) /hpf 01/31/19 Range/Units 10:20 RBC (3.80-5.40) m/uL Lymphocytes # (1.0-4.8) k/uL Carbon Dioxide (22-30) mmol/L BUN (7-17) mg/dL Plasma Lactic Acid Ismael (0.7-2.0) mmol/L Alkaline Phosphatase (38-126) U/L Total Protein (6.3-8.2) g/dL Albumin (3.5-5.0) g/dL Amylase (30-110) U/L Urine Appearance Cloudy H (Clear) Urine Protein Trace H (Negative) Urine Bacteria Many H (None) /hpf Urine Mucus Occasional H (None) /hpf Diabetes panel 01/31/19 Range/Units 10:00 Sodium 145 (137-145) mmol/L Potassium 4.7 (3.5-5.1) mmol/L Chloride 103 (98-107) mmol/L Carbon Dioxide 36 H (22-30) mmol/L BUN 49 H (7-17) mg/dL Creatinine 0.92 (0.52-1.04) mg/dL Glucose 85 (74-99) mg/dL Calcium 9.3 (8.4-10.2) mg/dL AST 31 (14-36) U/L ALT 26 (9-52) U/L Alkaline Phosphatase 137 H (38-126) U/L Total Protein 5.4 L (6.3-8.2) g/dL Albumin 3.2 L (3.5-5.0) g/dL Calcium panel 01/31/19 Range/Units 10:00 Calcium 9.3 (8.4-10.2) mg/dL Albumin 3.2 L (3.5-5.0) g/dL Pituitary panel 01/31/19 Range/Units 10:00 Sodium 145 (137-145) mmol/L Potassium 4.7 (3.5-5.1) mmol/L Chloride 103 (98-107) mmol/L Carbon Dioxide 36 H (22-30) mmol/L BUN 49 H (7-17) mg/dL Creatinine 0.92 (0.52-1.04) mg/dL Glucose 85 (74-99) mg/dL Calcium 9.3 (8.4-10.2) mg/dL Adrenal panel 01/31/19 Range/Units 10:00 Sodium 145 (137-145) mmol/L Potassium 4.7 (3.5-5.1) mmol/L Chloride 103 (98-107) mmol/L Carbon Dioxide 36 H (22-30) mmol/L BUN 49 H (7-17) mg/dL Creatinine 0.92 (0.52-1.04) mg/dL Glucose 85 (74-99) mg/dL Calcium 9.3 (8.4-10.2) mg/dL Total Bilirubin 0.5 (0.2-1.3) mg/dL AST 31 (14-36) U/L ALT 26 (9-52) U/L Alkaline Phosphatase 137 H (38-126) U/L Total Protein 5.4 L (6.3-8.2) g/dL Albumin 3.2 L (3.5-5.0) g/dL Assessment and Plan Assessment: Constipation, Ventral hernia Questional free air. There is no evidence of any peritoneal signs. Patient's white count was normal. We will repeat her CAT scan with oral contrast.
[2019-01-31 16:33] LABS: Glucose,Whole Blood 91 mg/dL (75-99)
[2019-01-31] MEDS: MELATONIN 3 MG TABLET PO SCH (19:51)
[2019-01-31] MEDS: PIPERACILLIN-TAZOBACTAM 3.375 GM in SODIUM CHLORIDE 0.9% 100 ML IVPB SCH (19:52)
[2019-01-31] MEDS: DEXTROSE 5%-0.9% NACL 1,000 ML IV SCH (19:52)
[2019-01-31 20:41] LABS: Glucose,Whole Blood 88 mg/dL (75-99)
[2019-01-31] MEDS: ALPRAZolam 0.5 MG TAB PO SCH (22:46)
[2019-01-31] MEDS: QUEtiapine 50 MG TAB PO SCH (22:46)
[2019-01-31] MEDS: DIVALPROEX SPRINKLE 125 MG CAP.SPRINK PO SCH (22:46)
[2019-02-01] MEDS: MORPHINE SULFATE 4 MG/ML SYRINGE IV PRN (04:38)
[2019-02-01] MEDS: PIPERACILLIN-TAZOBACTAM 3.375 GM in SODIUM CHLORIDE 0.9% 100 ML IVPB SCH ×3 (04:39→21:58)
[2019-02-01] MEDS: LEVOTHYROXINE 125 MCG TAB PO SCH (04:40)
[2019-02-01 07:11] LABS: Glucose,Whole Blood 97 mg/dL (75-99)
[2019-02-01] MEDS: IOPAMIDOL-300 CONTRAST 30 ML VIAL (ORAL USE) PO PRN ×2 (07:35→08:33)
[2019-02-01] MEDS: FUROSEMIDE 20 MG TAB PO SCH (08:02)
[2019-02-01] MEDS: DIVALPROEX SPRINKLE 125 MG CAP.SPRINK PO SCH ×2 (08:02→17:21)
[2019-02-01 10:35] LABS: HCT 28.1 % (34.0-46.0); MCH 31.9 pg (25.0-35.0); MCHC 33.2 g/dL (31.0-37.0); MCV 96.3 fL (80.0-100.0); Mean Platelet Volume 6.6; Platelet Count 255 k/uL (150-450); RBC 2.91 m/uL (3.80-5.40); RDW 13.7 % (11.5-15.5); WBC 5.7 k/uL (3.8-10.6)
[2019-02-01 10:42] LABS: HGB 9.3 gm/dL (11.4-16.0)
[2019-02-01 10:44] LABS: Albumin 2.6 g/dL (3.5-5.0); Calcium 8.4 mg/dL (8.4-10.2); Potassium 3.4 mmol/L (3.5-5.1); Total Bilirubin 0.6 mg/dL (0.2-1.3); Total Protein 4.6 g/dL (6.3-8.2)
[2019-02-01 11:33] VITALS: BMI 30.7
--- NOTE | 2019-02-01 11:34 | P.PN ---
Progress Note - Text Progress Note Date: 02/01/19 Patient's resting comfortably in her bed. She has no acute complaints. Her white count is normal. On exam her vital signs are stable. Her abdomen soft. Her ventral hernia is reducible. Patient's CAT scan has been performed. There are no results available as of yet. Patient has no significant abdominal pain. We will start her diet tomorrow. We will follow with you.
[2019-02-01 11:37] LABS: Glucose,Whole Blood 172 mg/dL (75-99)
--- NOTE | 2019-02-01 12:47 | CT ---
EXAMINATION TYPE: CT abdomen pelvis wo con DATE OF EXAM: 02/01/2019 COMPARISON: 01/31/2019 INDICATION: Free air hernia, constipation and dementia DLP: 1081.4 mGycm, Automated exposure control for dose reduction was used. CONTRAST: 0 mL of Isovue 300. Study performed with Oral Contrast TECHNIQUE: Axial images were obtained from above the diaphragm to the pubic rami in the axial plane a t 5 mm thick sections. Reconstructed images are reviewed on the computer in the coronal plane. FINDINGS: Limited CT sections are obtained the lung bases. Small consolidation is in the posterior right lung base which is an interval development. Correlate for atelectasis. Early pneumonia could be considered . Note is made of coronary artery calcification. Reflux into the esophagus is evident. CT ABDOMEN: Liver: Normal Spleen: Normal Pancreas: Normal Adrenal glands: The adrenal glands are normal. Gallbladder: Distended. Kidneys: No masses are evident. No hydronephrosis is present. No cysts are present. Aorta: Vascular calcification is within the aorta. Inferior vena cava: Normal. CT PELVIS: Loops of bowel within the abdomen and pelvis are normal. There are loops of bowel which are incom pletely distended or lack oral contrast limiting their evaluation. Attention is paid to the anterior abdominal wall hernia. Small amount of air adjacent to the hernia s ac in the right lower quadrant was present previously. This appears stable in appearance and position ing. Appendix: Not identified Urinary bladder: Normal. Genitourinary structures: Uterus and ovaries are unremarkable. Osseous structures: Postsurgical changes are within the lower lumbar spine. IMPRESSIONS: 1. There appears to be free air adjacent to the loops of bowel within the hernia sac remain present. This is stable in position. It is unclear whether this is subcutaneous or within the hernia sac on t hese images. 2. Right lower lobe atelectasis or pneumonia.
[2019-02-01] MEDS: ALPRAZolam 0.5 MG TAB PO SCH ×2 (16:26→20:53)
[2019-02-01] MEDS: DEXTROSE 5%-0.9% NACL 1,000 ML IV SCH ×2 (16:26→21:58)
[2019-02-01 17:26] LABS: Glucose,Whole Blood 149 mg/dL (75-99)
--- NOTE | 2019-02-01 20:27 | CONS ---
CONSULTATION DATE OF SERVICE: 02/01/2019. REASON FOR CONSULTATION: Pressure ulcer. 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 The patient given milk of magnesia without any resolve. Apparently the patient did have a history of hernia per the , did have previous history of hernia surgery. With these symptoms, the patient has been evaluated by the ER physician. On arrival to the ER, the patient has been afebrile and the patient did not have any elevated white count. The patient did have a CT abdominal pelvis completed which was reported to have a subcutaneous area with small amount of free air in both external and internal to the anterior abdominal wall hernia sac. Fecal evidence throughout the colon correlate for fecal impaction. General surgery saw the patient and had recommended medical management with a repeat CT scan completed this morning. The patient also noticed to have multiple pressure ulcers on her left shoulder sacral area and to the left heel which apparently he patient has had for a couple of weeks now and mentioned that she has developed a new pressure ulcer on the heel that she has been banging the heel while trying to move with wheelchair. No clear history of what specifically has been done as far as the local wound care to those wounds. The patient herself is unable to provide reliable history, so most of the information has been obtained from review of the chart. REVIEW OF SYSTEMS: Could not be reliably obtained. The positive points have been mentioned in HPI. PAST MEDICAL HISTORY: Diabetes mellitus, hypertension, hyperlipidemia, dementia, non-Hodgkin's lymphoma, osteoarthritis. PAST SURGICAL HISTORY: Back surgery, hernia repair, right knee replacement and right shoulder replacement, treatment of thyroid and cataract surgery. SOCIAL HISTORY: No history of smoking, drinking, or drug use. Currently a jail resident. FAMILY HISTORY: Sister with a history of cancer. ALLERGIES: TO ATORVASTATIN, ENALAPRIL, SULFA ANTIBIOTICS. MEDICATIONS: The patient is currently on Tylenol, Xanax, Depakote, Lasix, Motrin, Toradol, Synthroid, melatonin, morphine sulfate, Narcan, Zofran, Zosyn and Seroquel. PHYSICAL EXAMINATION: Blood pressure is 103/67 with a pulse of 75, temperature 98.6. Pulse ox is 96% on room air. General description is an elderly female who is lying in bed in no distress. No tachypnea or accessory muscle of respiration use. HEENT: Shows pallor. No scleral icterus. Oral mucosa is dry. LUNGS unlabored breathing, decreased breath sounds no wheeze. HEART S1, S2. Regular rate and rhythm. ABDOMEN: Soft, no tenderness. EXTREMITIES are no edema of the feet. Examination of the left shoulder area did have a stage I pressure ulcer with no evidence of any cellulitis. Examination of sacral area did have a stage II sacral pressure ulcer but no slough tissue or surrounding cellulitis. The patient did have a considerable pressure ulcer to the left heel area with dry necrotic skin, but no evidence of any cellulitis. NEUROLOGICAL patient is awake, however, orientation could not be determined. LABS: Hemoglobin 9.8, white count 5.7, BUN of 37, creatinine 1.01. White count has been normal. Liver enzymes normal. DIAGNOSTIC IMPRESSION AND PLAN: 1. Patient with multiple pressure ulcers with stage I to the left shoulder, stage II to the sacral area and unstageable to the left heel, that will be treated locally. No need for any systematic antibiotic therapy. 2. Patient admitted to the hospital with no bowel movement for 8 days with concern for some air on the CT scan. General surgery is following the patient. PLAN: 1. Continue with a short course of Zosyn while her abdominal condition stabilizes and general surgery is on the case. 2. Left shoulder area should be covered with foam dressing to protect it. 3. Sacral pressure ulcer. Will be treated with Aquacel Silver dressing to apply dry and keep the area off the pressure dry. 4. Left heel unstageable pressure will be treated with heel protector. No application of any cream or lotion. 5. We will follow up on clinical condition and further adjust medication if needed. was present at bedside. Questions and concerns were answered. MMODL / IJN: [id number] / WERO
[2019-02-01] MEDS: QUEtiapine 50 MG TAB PO SCH (20:53)
[2019-02-01 21:18] LABS: Glucose,Whole Blood 153 mg/dL (75-99)
[2019-02-02] MEDS: MELATONIN 3 MG TABLET PO SCH ×2 (01:57→20:21)
[2019-02-02] MEDS: DIVALPROEX SPRINKLE 125 MG CAP.SPRINK PO SCH ×4 (01:57→22:19)
[2019-02-02] MEDS: PIPERACILLIN-TAZOBACTAM 3.375 GM in SODIUM CHLORIDE 0.9% 100 ML IVPB SCH ×3 (03:54→20:22)
[2019-02-02] MEDS: LEVOTHYROXINE 125 MCG TAB PO SCH (03:56)
[2019-02-02 07:15] LABS: Glucose,Whole Blood 132 mg/dL (75-99)
--- NOTE | 2019-02-02 10:25 | P.PN ---
Progress Note - Text Progress Note Date: 02/02/19 Patient feels better. She has no significant complaints of pain. On exam her vital signs are stable. Her abdomen soft. The hernia soft. Patient will start on a clear liquid diet. We will plan for hernia repair next week.
[2019-02-02] MEDS: MORPHINE SULFATE 4 MG/ML SYRINGE IV PRN (11:04)
[2019-02-02] MEDS: ALPRAZolam 0.5 MG TAB PO SCH ×3 (11:06→20:21)
[2019-02-02] MEDS: FUROSEMIDE 20 MG TAB PO SCH (11:06)
[2019-02-02] MEDS: DEXTROSE 5%-0.9% NACL 1,000 ML IV SCH (11:06)
[2019-02-02 11:52] LABS: Glucose,Whole Blood 187 mg/dL (75-99)
--- NOTE | 2019-02-02 15:46 | PN ---
PROGRESS NOTE DATE OF SERVICE: 02/02/2019. REASON FOR FOLLOW UP: 1. Multiple pressure ulcers. 2. Abnormal CT of the abdomen. INTERVAL HISTORY: The patient is currently afebrile. The patient still seems to be having some abdominal discomfort and did not have any bowel movement per the . No nausea, no vomiting has been reported. Patient with underlying dementia, unable to provide any history. PHYSICAL EXAMINATION: Blood pressure is 111/71 with a pulse of 82. Temperature is 97.7. She is 97% on room air. General description is an elderly female lying in bed in no distress. Respiratory system: Unlabored breathing. Clear to auscultation anteriorly. Heart S1, S2. Regular rate and rhythm. Abdomen soft, no tenderness. LABS: No new labs have been obtained today. DIAGNOSTIC IMPRESSION/PLAN: 1. Patient with admission to the hospital with constipation and no bowel movement with abnormal CT, being monitored by General Surgery. The patient is afebrile. White count has been normal. Continue the patient on Zosyn at this time. 2. Patient with a stage II sacral pressure ulcer. Local wound care with Santyl. 3. Unstageable pressure ulcer to the heel area. Heel protector. No need for any lotion or cream. The at bedside. Questions answered. MMODL / IJN: [id number] /
[2019-02-02 17:04] LABS: Glucose,Whole Blood 128 mg/dL (75-99)
[2019-02-02] MEDS: QUEtiapine 50 MG TAB PO SCH (20:21)
--- NOTE | 2019-02-02 20:37 | PN ---
PROGRESS NOTE SUBJECTIVE: A 73-year-old white female with free air under the abdomen in a hernia. Dr. Buchanan thinks it is a chronic type thing from constipation and not really an acute process. White count is normal. No fever. He recommends advancing diet and possibly working her up as an outpatient, which we are doing at this time. She is also being treated by Dr. Borden for decubitus ulcers on her buttocks. Dr. Borden saw her and recommended continuing with Zojared and Marlenayl. Local wound care with Santyl on the on the decubitus ulcers and the heel pressure ulcer. Heel protector to be used. ASSESSMENT: 1. Dementia. 2. Hypothyroidism. 3. Diabetes mellitus. 4. Decubitus ulcers. 5. Heel ulcer. 6. Free air in the umbilical and ventral hernia. 7. Behavior disturbances versus bipolar. Continue current treatments. Follow up in the next 24-48 hours. For possible discharge back to longterm if diet is advanced without any significant pain, etc. MMODL / IJN: [id number] /
[2019-02-02 21:15] LABS: Glucose,Whole Blood 149 mg/dL (75-99)
[2019-02-03] MEDS: DEXTROSE 5%-0.9% NACL 1,000 ML IV SCH ×3 (01:46→21:01)
[2019-02-03] MEDS: PIPERACILLIN-TAZOBACTAM 3.375 GM in SODIUM CHLORIDE 0.9% 100 ML IVPB SCH ×3 (03:06→21:00)
[2019-02-03 07:07] LABS: Glucose,Whole Blood 162 mg/dL (75-99)
[2019-02-03 08:17] LABS: Basophils % (A) 1 %; Eosinophils # (A) 0.2 k/uL (0-0.7); Eosinophils % (A) 4 %; HCT 29.6 % (34.0-46.0); HGB 9.7 gm/dL (11.4-16.0); Lymphocytes # (A) 0.5 k/uL (1.0-4.8); Lymphocytes % (A) 11 %; MCH 32.7 pg (25.0-35.0); MCHC 32.7 g/dL (31.0-37.0); Macrocytosis Slight; Mean Platelet Volume 7.1; Monocytes # (A) 0.4 k/uL (0-1.0); Monocytes % (A) 8 %; Neutrophils # (A) 3.7 k/uL (1.3-7.7); Neutrophils % (A) 76 %; Platelet Count 208 k/uL (150-450); RBC 2.96 m/uL (3.80-5.40); RDW 13.9 % (11.5-15.5); WBC 4.9 k/uL (3.8-10.6)
[2019-02-03 08:27] LABS: Albumin 2.6 g/dL (3.5-5.0); Calcium 8.3 mg/dL (8.4-10.2); Potassium 3.7 mmol/L (3.5-5.1); Total Bilirubin 0.6 mg/dL (0.2-1.3); Total Protein 4.6 g/dL (6.3-8.2)
[2019-02-03] MEDS: LEVOTHYROXINE 125 MCG TAB PO SCH (09:27)
[2019-02-03] MEDS: DIVALPROEX SPRINKLE 125 MG CAP.SPRINK PO SCH ×3 (09:27→23:29)
[2019-02-03] MEDS: FUROSEMIDE 20 MG TAB PO SCH (09:27)
[2019-02-03] MEDS: ALPRAZolam 0.5 MG TAB PO SCH ×2 (09:28→21:00)
--- NOTE | 2019-02-03 11:06 | P.PN ---
Progress Note - Text Progress Note Date: 02/03/19 The patient is resting comfortably bed. She's had minimal oral intake. She denies a significant abdominal pain. On exam her vital signs are stable. Her abdomen soft. Hernia is reducible. Ventral hernia. Patient will undergo repair this Sunday. We will increase her diet.
[2019-02-03 11:53] LABS: Glucose,Whole Blood 176 mg/dL (75-99)
[2019-02-03 16:58] LABS: Glucose,Whole Blood 165 mg/dL (75-99)
--- NOTE | 2019-02-03 17:41 | PN ---
PROGRESS NOTE DATE OF SERVICE: 02/03/2019. REASON FOR FOLLOW UP: Multiple pressure ulcer. INTERVAL HISTORY: The patient is currently afebrile. The patient did have a few bowel movements and seemed to be more calmer now, not yelling out for help or any distress noted by the . The patient is unable to provide any history because of underlying dementia. On examination, blood pressure 109/63 with a pulse of 68, temperature 97.7, she is 94% on room air. General description is an elderly female lying in bed in no distress. Respiratory system: Unlabored breathing. Clear to auscultation anteriorly. Heart S1, S2. Regular rate and rhythm. Examination of sacral wound did show a slight area of necrosis with surrounding redness has improved. No drainage. LABS: Hemoglobin 9.7, white count 4.9, BUN of 24, creatinine 0.96. Blood culture has been negative. DIAGNOSTIC IMPRESSION/PLAN: 1. Patient with multiple pressure ulcer with a stage II to the sacral area. Currently no evidence of any cellulitis. Local wound care to continue with Aquacel Silver. Keep the area off the pressure and dry. 2. Left heel unstageable pressure ulcer. Keep the area protected with a heel protector. No need for any specific lotion or cream. 3. Patient with abnormal CT of abdomen in this patient who did have underlying constipation and the patient did have a hernia. Surgery is pending operative repair of the hernia on Sunday. 's had questions, those were answered. MMODL / IJN: [id number] /
[2019-02-03 20:32] LABS: Glucose,Whole Blood 203 mg/dL (75-99)
[2019-02-03] MEDS: INSULIN ASPART (NovoLOG) 100 UNIT/ML VIAL SQ SCH (20:58)
[2019-02-03] MEDS: MELATONIN 3 MG TABLET PO SCH (21:00)
[2019-02-03] MEDS: QUEtiapine 50 MG TAB PO SCH (21:00)
--- NOTE | 2019-02-04 00:47 | PN ---
PROGRESS NOTE SUBJECTIVE: 73-year-old white female, free air in the umbilical hernia awaiting surgical evaluation. Wants to operate on her. At risk for high perforation of the further hernia for which surgery will be needed. Discussed the case with the who has cleared the patient for surgery. Cardiovascular: S1-S2. Lungs clear. GI soft. ASSESSMENT: 1. Free air hernia. 2. Bowel perforation. 3. Dementia. 4. Diabetes. 5. Hypertension. 6. Delirium. PLAN: Surgery is planned on Sunday, continue on clear liquid diet. IV antibiotics prophylaxis. MMODL / IJN: [id number] /
[2019-02-04] MEDS: PIPERACILLIN-TAZOBACTAM 3.375 GM in SODIUM CHLORIDE 0.9% 100 ML IVPB SCH ×3 (04:48→20:24)
[2019-02-04 07:00] LABS: Glucose,Whole Blood 160 mg/dL (75-99)
[2019-02-04] MEDS: LEVOTHYROXINE 125 MCG TAB PO SCH (07:51)
[2019-02-04] MEDS: ALPRAZolam 0.5 MG TAB PO SCH (07:51)
[2019-02-04] MEDS: DIVALPROEX SPRINKLE 125 MG CAP.SPRINK PO SCH ×2 (07:51→14:56)
[2019-02-04] MEDS: INSULIN ASPART (NovoLOG) 100 UNIT/ML VIAL SQ SCH ×4 (08:58→20:25)
[2019-02-04] MEDS ORDERED: SODIUM CHLORIDE 0.9% 1,000 ML IV ONE (09:52)
--- NOTE | 2019-02-04 10:06 | P.PN ---
Subjective Progress Note Date: 02/04/19 CHIEF COMPLAINT: abdominal pain HISTORY OF PRESENT ILLNESS: Patient examined at the bedside. Patient lethargic this morning. Denies abdominal pain. Denies nausea or vomiting. Patient hypotensive this AM with a BP of 80/50. PHYSICAL EXAM: VITAL SIGNS: Reviewed. GENERAL: Well-developed in no acute distress. HEENT: No sclera icterus. Extraocular movements grossly intact. Moist buccal mucosa. Head is atraumatic, normocephalic. ABDOMEN: Soft. Nondistended. Nontender. Hernia present. Reducible. NEUROLOGIC: Lethargic. Cranial nerves II through XII grossly intact. ASSESSMENT: 1. Ventral hernia PLAN: 1. 1L 0.9NS bolus. Monitor BP 2. Continue current diet. NPO after midnight 3. Patient to undergo ventral hernia repair tomorrow with Dr. Buchanan Nurse practitioner note has been reviewed by physician. Signing provider agrees with the documented findings, assessment, and plan of care. Objective - Vital Signs Vital signs: Vital Signs Temp 97.8 F 02/04/19 07:27 Pulse 67 02/04/19 07:27 Resp 19 02/04/19 01:45 BP 80/50 02/04/19 07:27 Pulse Ox 98 02/04/19 07:27 Intake & Output 02/03/19 02/04/19 02/04/19 18:59 06:59 18:59 Intake Total 600 Output Total 800 500 Balance -800 100 Intake: Intake, IV Titration 600 Amount Dextrose 5%-0.9% NaCl 1, 600 000 ml @ 75 mls/hr IV . [id number] [facility] Rx#:[id number] Output: Urine 800 500 Other: Voiding Method Incontinent Incontinent # Voids 0 - Labs CBC & Chem 7: 02/03/19 07:42 02/03/19 07:42 Labs: Abnormal Lab Results - Last 24 Hours (Table) 02/03/19 02/03/19 02/03/19 Range/Units 11:51 16:48 20:30 POC Glucose (mg/dL) 176 H 165 H 203 H (75-99) mg/dL 02/04/19 Range/Units 06:58 POC Glucose (mg/dL) 160 H (75-99) mg/dL Microbiology - Last 24 Hours (Table) 01/31/19 10:43 Blood Culture - Preliminary Blood No Growth after 72 hours
[2019-02-04] MEDS: FUROSEMIDE 20 MG TAB PO SCH (10:12)
[2019-02-04 11:28] LABS: Glucose,Whole Blood 132 mg/dL (75-99)
[2019-02-04 16:29] LABS: Glucose,Whole Blood 156 mg/dL (75-99)
[2019-02-04] MEDS: DEXTROSE 5%-0.9% NACL 1,000 ML IV SCH (17:12)
--- NOTE | 2019-02-04 19:21 | PN ---
PROGRESS NOTE DATE OF SERVICE: 02/04/2019. REASON FOR FOLLOWUP: Multiple pressure ulcer. INTERVAL HISTORY: The patient is currently afebrile. The patient seems to be more calmer and no agitation has been noticed. Currently sleepy. No nausea, vomiting or diarrhea reported. PHYSICAL EXAMINATION: Blood pressure is 91/51 with a pulse of 82. Temperature is 97.1. She is 97% on room air. General description is a middle aged female lying in bed in no distress. Respiratory system: Unlabored breathing, clear to auscultation anteriorly. Heart S1, S2. Regular rate and rhythm. Abdomen soft, no tenderness. LABS: No new labs have been obtained today. Blood culture has been negative. DIAGNOSTIC IMPRESSION/PLAN: 1. Patient with a stage II sacral pressure ulcer with no evidence of any cellulitis. Local care with Aquacel Silver dressing and keep the area off the pressure. 2. Unstageable pressure ulcer to the left heel with no evidence of cellulitis. Keep the area off the pressure with the heel protector. 3. Patient with constipation and abnormal CT currently covered with Zosyn, possible repair of the hernia tomorrow for surgery. 4. Continue supportive care. MMODL / IJN: [id number] /
[2019-02-04 19:48] LABS: Glucose,Whole Blood 171 mg/dL (75-99)
[2019-02-04] MEDS: QUEtiapine 50 MG TAB PO SCH (21:37)
[2019-02-05] MEDS: DIVALPROEX SPRINKLE 125 MG CAP.SPRINK PO SCH ×3 (03:37→15:56)
[2019-02-05] MEDS: MELATONIN 3 MG TABLET PO SCH (03:37)
[2019-02-05] MEDS: ALPRAZolam 0.5 MG TAB PO SCH ×2 (03:37→09:53)
[2019-02-05] MEDS: PIPERACILLIN-TAZOBACTAM 3.375 GM in SODIUM CHLORIDE 0.9% 100 ML IVPB SCH ×3 (04:56→23:35)
[2019-02-05] MEDS: LEVOTHYROXINE 125 MCG TAB PO SCH (05:18)
[2019-02-05] MEDS ORDERED: ONDANSETRON 4 MG/2 ML VIAL IVP ONE (05:36)
[2019-02-05] MEDS ORDERED: SCOPOLAMINE 1.5MG/72HR PATCH TRANSDERM ONE (05:36)
[2019-02-05] MEDS ORDERED: LIDOCAINE 1% 20 ML VIAL (10MG/ML) FOR IV START INTRADERMA PRN (05:36)
[2019-02-05 07:13] LABS: Glucose,Whole Blood 109 mg/dL (75-99)
[2019-02-05] MEDS: INSULIN ASPART (NovoLOG) 100 UNIT/ML VIAL SQ SCH ×4 (09:53→23:35)
[2019-02-05] MEDS: FUROSEMIDE 20 MG TAB PO SCH (09:53)
[2019-02-05] MEDS: DEXTROSE 5%-0.9% NACL 1,000 ML IV SCH ×2 (09:55→23:36)
[2019-02-05] MEDS ORDERED: LACTATED RINGERS 1,000 ML IV ONE ×2 (11:00)
[2019-02-05] MEDS ORDERED: HEPARIN SODIUM,PORCINE 5,000 UNIT/ML 1 ML VIAL SQ ONE (11:25)
[2019-02-05 11:31] LABS: Glucose,Whole Blood 105 mg/dL (75-99)
[2019-02-05] MEDS ORDERED: LIDOCAINE 1% INJ 10MG/ML (20 ML MDV) ONE (11:39)
[2019-02-05] MEDS ORDERED: NEOSTIGMINE 1 MG/ML 10 ML VIAL ONE (11:39)
[2019-02-05] MEDS ORDERED: VECURONIUM 10 MG VIAL IV ONE (11:39)
[2019-02-05] MEDS ORDERED: fentaNYL (PF) 50 MCG/ML 2 ML AMP ONE (11:39)
[2019-02-05] MEDS ORDERED: GLYCOPYRROLATE 0.2 MG/ML 2 ML VIAL ONE (11:39)
[2019-02-05] MEDS ORDERED: PROPOFOL 10 MG/ML 20 ML VIAL IV ONE (11:39)
[2019-02-05] MEDS ORDERED: ePHEDrine SULFATE/0.9% NACL/PF 50 MG/5 ML SYRINGE IV ONE (11:39)
[2019-02-05] MEDS ORDERED: SUCCINYLCHOLINE CHLORIDE 100 MG/5 ML SYR IV ONE (11:39)
[2019-02-05] MEDS ORDERED: HYDROmorphone 1 MG/ML 1 ML SYRINGE IM PRN (12:56)
--- NOTE | 2019-02-05 14:14 | PN ---
PROGRESS NOTE DATE OF SERVICE: 02/04/2019 SUBJECTIVE: A 73-year-old white female who was admitted with a 3-year hernia, is scheduled for surgery on Sunday. Discussed with the family. She is sleepy, lethargic. She has a history of dementia. CARDIOVASCULAR: S1-S2. LUNGS: Clear. GI: Soft. HEMATOLOGIC: 2+ edema. ASSESSMENT: 1. Bowel perforation, ventral hernia, perforated secondary to possible constipation. Surgically will be fixed tomorrow. 2. History of dementia. 3. Diabetes with delirium. 4. Hypertension. Possible surgery on Sunday and then postop care will be given. MMODL / IJN: [id number] /
[2019-02-05] MEDS: LACTATED RINGERS 1,000 ML IV SCH (15:42)
[2019-02-05 17:15] LABS: Glucose,Whole Blood 119 mg/dL (75-99)
[2019-02-05] MEDS: HYDROmorphone 0.5 MG/0.5 ML SYRINGE IVP PRN (18:26)
[2019-02-05 20:10] LABS: Glucose,Whole Blood 163 mg/dL (75-99)
--- NOTE | 2019-02-05 21:47 | PN ---
PROGRESS NOTE DATE OF SERVICE: 02/05/2019 REASON FOR FOLLOWUP: Pressure ulcer to the sacral and left heel area and abnormal CT. INTERVAL HISTORY: The patient is currently afebrile. The patient just came back from surgery for her abdominal hernia. Operative report is currently pending. The patient has underlying dementia; unable to provide any history, though does not seem to be in any distress or agitation. PHYSICAL EXAMINATION: Blood pressure 123/82 with a pulse of 77, temperature of 98. She is 95% on room air. General description is an elderly female lying in bed in no distress. RESPIRATORY SYSTEM: Unlabored breathing. Clear to auscultation anteriorly. HEART: S1, S2. Regular rate and rhythm. ABDOMEN: Soft. No tenderness. Wounds have just been dressed up by the RN, who mentioned no worsening. Labs reviewed. DIAGNOSTIC IMPRESSION AND PLAN: 1. Patient with a stage II sacral pressure ulcer. Local care with Aquacel Silver dressing. Keep the area off pressure. 2. Left heel unstageable pressure ulcer. Local care with heel protector. 3. Patient with abnormal CT, status post laparotomy and hernia repair. Will wait for the final operative report. Continue Emili. CLAYTONL / IJN: [id number] /
[2019-02-05 22:21] LABS: Glucose,Whole Blood 156 mg/dL (75-99)
[2019-02-06] MEDS: HYDROmorphone 0.5 MG/0.5 ML SYRINGE IVP PRN (00:21)
[2019-02-06] MEDS: ONDANSETRON 4 MG/2 ML VIAL IVP PRN ×2 (00:22→23:01)
[2019-02-06] MEDS: MELATONIN 3 MG TABLET PO SCH ×2 (04:14→23:59)
[2019-02-06] MEDS: QUEtiapine 50 MG TAB PO SCH (04:14)
[2019-02-06] MEDS: ALPRAZolam 0.5 MG TAB PO SCH ×2 (04:14→08:58)
[2019-02-06] MEDS: DIVALPROEX SPRINKLE 125 MG CAP.SPRINK PO SCH ×3 (04:16→16:11)
[2019-02-06] MEDS: DEXTROSE 5%-0.9% NACL 1,000 ML IV SCH (05:50)
[2019-02-06] MEDS: LEVOTHYROXINE 125 MCG TAB PO SCH (06:16)
[2019-02-06] MEDS: LACTATED RINGERS 1,000 ML IV SCH (06:16)
[2019-02-06 07:04] LABS: Glucose,Whole Blood 191 mg/dL (75-99)
[2019-02-06] MEDS: PIPERACILLIN-TAZOBACTAM 3.375 GM in SODIUM CHLORIDE 0.9% 100 ML IVPB SCH ×2 (08:57→16:06)
[2019-02-06] MEDS: FUROSEMIDE 20 MG TAB PO SCH (08:58)
[2019-02-06] MEDS: INSULIN ASPART (NovoLOG) 100 UNIT/ML VIAL SQ SCH ×4 (08:58→23:02)
[2019-02-06] MEDS: MORPHINE SULFATE 4 MG/ML SYRINGE IV PRN ×4 (10:57→23:01)
--- NOTE | 2019-02-06 11:30 | P.PN ---
Subjective Progress Note Date: 02/06/19 CHIEF COMPLAINT: abdominal pain HISTORY OF PRESENT ILLNESS: Patient examined at the bedside. Patient is status post ventral hernia repair. Patient states her pain is tolerable at this time. She denies nausea or vomiting. Vital signs are stable. Temperature this morning 99.3. PHYSICAL EXAM: VITAL SIGNS: Reviewed. GENERAL: Well-developed in no acute distress. HEENT: No sclera icterus. Extraocular movements grossly intact. Moist buccal mucosa. Head is atraumatic, normocephalic. ABDOMEN: Soft. Nondistended. Minimal tenderness. PREVENA wound management system intact. ZEKE drain with serosanguineous drainage. NEUROLOGIC: Awake. Cranial nerves II through XII grossly intact. ASSESSMENT: 1. Ventral hernia PLAN: 1. Begin clear liquid diet 2. Activity as tolerated 3. Pain control 4. Incentive spirometry Nurse practitioner note has been reviewed by physician. Signing provider agrees with the documented findings, assessment, and plan of care. Objective - Vital Signs Vital signs: Vital Signs Temp 99.3 F 02/06/19 07:18 Pulse 78 02/06/19 08:58 Resp 15 02/06/19 08:58 BP 158/96 02/06/19 07:18 Pulse Ox 97 02/06/19 07:18 Intake & Output 02/05/19 02/06/19 02/06/19 18:59 06:59 18:59 Intake Total 750 Output Total 120 1015 Balance 630 -1015 Intake: IV 750 Output: Drainage 70 40 Right Upper Abdomen 70 40 Urine 975 Estimated Blood Loss 50 Other: Voiding Method Incontinent Incontinent Incontinent - Labs CBC & Chem 7: 02/03/19 07:42 02/03/19 07:42 Labs: Abnormal Lab Results - Last 24 Hours (Table) 02/05/19 02/05/19 02/05/19 Range/Units 11:23 17:02 20:08 POC Glucose (mg/dL) 105 H 119 H 163 H (75-99) mg/dL 02/05/19 02/06/19 Range/Units 22:17 07:02 POC Glucose (mg/dL) 156 H 191 H (75-99) mg/dL Microbiology - Last 24 Hours (Table) 01/31/19 10:43 Blood Culture - Preliminary Blood No Growth after 120 hours
[2019-02-06 11:31] LABS: Glucose,Whole Blood 147 mg/dL (75-99)
--- NOTE | 2019-02-06 12:21 | PN ---
PROGRESS NOTE DATE OF SERVICE: 02/05/2019 SUBJECTIVE: This is a 73-year-old white female. She is down getting surgery during this dictation. After I saw her, she was cleared preoperatively for umbilical hernia repair with perforation. She has been stable mentally with her dementia and bipolar. Vital signs are stable. Await further surgical recommendations, status post surgery. MMODL / IJN: [id number] /
[2019-02-06 17:05] LABS: Glucose,Whole Blood 143 mg/dL (75-99)
[2019-02-06 17:23] LABS: Hemoglobin A1C 6.3 % (4.0-6.0)
--- NOTE | 2019-02-06 17:59 | PN ---
PROGRESS NOTE DATE OF SERVICE: 02/06/2019 REASON FOR FOLLOWUP: Multiple pressure ulcers. INTERVAL HISTORY: The patient is currently afebrile. The patient has been awake, alert; did answer some simple questions. has been worried, as the patient has not eaten since . Dietitian has been consulted. No report of any nausea, vomiting or diarrhea. PHYSICAL EXAMINATION: Blood pressure is 90/63 with a pulse of 63, temperature 98.9. General description is an elderly female lying in bed in no distress. RESPIRATORY SYSTEM: Unlabored breathing. Clear to auscultation anteriorly. HEART: S1, S2. Regular rate and rhythm. ABDOMEN: Soft. No tenderness. LABS: No new labs have been obtained today. DIAGNOSTIC IMPRESSION AND PLAN: 1. Patient with a stage II sacral pressure ulcer. Local wound care with Aquacel Silver dressing. Keep the area dry and off pressure. 2. Unstageable pressure ulcer to the left heel. Heel protector. No need for any specific treatment for the same. Continue supportive care. MMODL / IJN: [id number] /
[2019-02-06 21:24] LABS: Glucose,Whole Blood 196 mg/dL (75-99)
[2019-02-07] MEDS: PIPERACILLIN-TAZOBACTAM 3.375 GM in SODIUM CHLORIDE 0.9% 100 ML IVPB SCH ×2 (01:02→07:23)
[2019-02-07 04:04] LABS: Amorphous Sediment,Urine Occasional /hpf; Appearance,Urine Cloudy (Clear); Bilirubin,Urine Negative (Negative); Blood,Urine Trace (Negative); Color,Urine Yellow; Glucose,Urine (UA) Negative (Negative); Ketones,Urine Negative (Negative); Leukocyte Esterase,Urine Negative (Negative); Mucus,Urine Rare /hpf; Nitrite,Urine Negative (Negative); Protein,Urine Trace (Negative); RBC,Urine 8 /hpf (0-5); Specific Gravity,Urine 1.025 (1.001-1.035); Squamous Epithelial Cell,Urine 2 /hpf (0-4); Transitional Epi Cells,Urine <1 /hpf (0-1); Urobilinogen,Urine <2.0 mg/dL (<2.0); WBC,Urine 2 /hpf (0-5)
[2019-02-07] MEDS: LACTATED RINGERS 1,000 ML IV SCH (06:04)
[2019-02-07 07:13] LABS: Glucose,Whole Blood 142 mg/dL (75-99)
[2019-02-07] MEDS: INSULIN ASPART (NovoLOG) 100 UNIT/ML VIAL SQ SCH ×4 (07:22→20:41)
[2019-02-07] MEDS: LEVOTHYROXINE 125 MCG TAB PO SCH (07:22)
[2019-02-07 08:25] LABS: Basophils % (A) 0 %; Calcium 7.7 mg/dL (8.4-10.2); Eosinophils # (A) 0.2 k/uL (0-0.7); Eosinophils % (A) 3 %; HGB 8.4 gm/dL (11.4-16.0); Hypochromasia Slight; Lymphocytes # (A) 0.5 k/uL (1.0-4.8); Lymphocytes % (A) 10 %; MCHC 32.3 g/dL (31.0-37.0); MCV 99.1 fL (80.0-100.0); Mean Platelet Volume 7.4; Monocytes # (A) 0.5 k/uL (0-1.0); Monocytes % (A) 9 %; Neutrophils # (A) 4.1 k/uL (1.3-7.7); Neutrophils % (A) 76 %; Platelet Count 181 k/uL (150-450); Poikilocytosis Slight; Potassium 3.5 mmol/L (3.5-5.1); RBC 2.63 m/uL (3.80-5.40); RDW 14.2 % (11.5-15.5); WBC 5.3 k/uL (3.8-10.6)
[2019-02-07] MEDS: ALPRAZolam 0.5 MG TAB PO SCH ×2 (09:16)
[2019-02-07] MEDS: DIVALPROEX SPRINKLE 125 MG CAP.SPRINK PO SCH ×4 (09:17→20:38)
[2019-02-07] MEDS: MORPHINE SULFATE 4 MG/ML SYRINGE IV PRN ×3 (09:17→20:39)
[2019-02-07] MEDS: FUROSEMIDE 20 MG TAB PO SCH (09:17)
[2019-02-07 11:24] LABS: Glucose,Whole Blood 132 mg/dL (75-99)
--- NOTE | 2019-02-07 13:50 | P.PN ---
Subjective Progress Note Date: 02/07/19 CHIEF COMPLAINT: abdominal pain HISTORY OF PRESENT ILLNESS: Patient examined at the bedside. Slightly more agitated today. Patient is status post ventral hernia repair. Patient states her pain is tolerable at this time. She denies nausea or vomiting. Nursing r eports patient is tolerating clear liquid diet but overall intake is decreased. No BM per nursing. WBC 5.3. Hemoglobin 8.4. PHYSICAL EXAM: VITAL SIGNS: Reviewed. GENERAL: Well-developed in no acute distress. HEENT: No sclera icterus. Extraocular movements grossly intact. Moist buccal mucosa. Head is atraumatic, normocephalic. ABDOMEN: Soft. Nondistended. Minimal tenderness. PREVENA wound management system intact. ZEKE drain with serosanguineous drainage. NEUROLOGIC: Awake. Cranial nerves II through XII grossly intact. ASSESSMENT: 1. Ventral hernia PLAN: 1. Advance diet to full liquid 2. Activity as tolerated 3. Pain control 4. Incentive spirometry. Patient requires help and encouragement to perform IS 5. Await bowel movement Nurse practitioner note has been reviewed by physician. Signing provider agrees with the documented findings, assessment, and plan of care. Objective - Vital Signs Vital signs: Vital Signs Temp 98.1 F 02/07/19 07:00 Pulse 61 02/07/19 08:30 Resp 14 02/07/19 08:30 BP 94/59 02/07/19 07:00 Pulse Ox 94 L 02/07/19 01:10 Intake & Output 02/06/19 02/07/19 02/07/19 18:59 06:59 18:59 Output Total 30 1540 Balance -30 -1540 Weight 83.915 kg Output: Drainage 30 Right Upper Abdomen 30 Urine 790 Post Void Residual 750 Other: Voiding Method Incontinent Incontinent Incontinent - Labs CBC & Chem 7: 02/07/19 07:37 02/07/19 07:37 Labs: Abnormal Lab Results - Last 24 Hours (Table) 02/03/19 02/06/19 02/06/19 Range/Units 07:42 17:03 21:22 RBC (3.80-5.40) m/uL Hgb (11.4-16.0) gm/dL Hct (34.0-46.0) % Lymphocytes # (1.0-4.8) k/uL Chloride (98-107) mmol/L Glucose (74-99) mg/dL POC Glucose (mg/dL) 143 H 196 H (75-99) mg/dL Hemoglobin A1c 6.3 H (4.0-6.0) % Calcium (8.4-10.2) mg/dL Urine Appearance (Clear) Urine Protein (Negative) Urine Blood (Negative) Urine RBC (0-5) /hpf Amorphous Sediment (None) /hpf Urine Mucus (None) /hpf 02/07/19 02/07/19 02/07/19 Range/Units 03:48 07:12 07:37 RBC 2.63 L (3.80-5.40) m/uL Hgb 8.4 L (11.4-16.0) gm/dL Hct 26.0 L (34.0-46.0) % Lymphocytes # 0.5 L (1.0-4.8) k/uL Chloride (98-107) mmol/L Glucose (74-99) mg/dL POC Glucose (mg/dL) 142 H (75-99) mg/dL Hemoglobin A1c (4.0-6.0) % Calcium (8.4-10.2) mg/dL Urine Appearance Cloudy H (Clear) Urine Protein Trace H (Negative) Urine Blood Trace H (Negative) Urine RBC 8 H (0-5) /hpf Amorphous Sediment Occasional H (None) /hpf Urine Mucus Rare H (None) /hpf 02/07/19 02/07/19 Range/Units 07:37 11:22 RBC (3.80-5.40) m/uL Hgb (11.4-16.0) gm/dL Hct (34.0-46.0) % Lymphocytes # (1.0-4.8) k/uL Chloride 113 H (98-107) mmol/L Glucose 131 H (74-99) mg/dL POC Glucose (mg/dL) 132 H (75-99) mg/dL Hemoglobin A1c (4.0-6.0) % Calcium 7.7 L (8.4-10.2) mg/dL Urine Appearance (Clear) Urine Protein (Negative) Urine Blood (Negative) Urine RBC (0-5) /hpf Amorphous Sediment (None) /hpf Urine Mucus (None) /hpf Microbiology - Last 24 Hours (Table) 02/07/19 03:48 Urine Culture - Preliminary Urine,Catheterized 01/31/19 10:43 Blood Culture - Final Blood No Growth after 144 hours
[2019-02-07] MEDS: DEXTROSE 5%-0.9% NACL 1,000 ML IV SCH ×2 (16:47)
--- NOTE | 2019-02-07 17:05 | P.PN ---
Subjective Progress Note Date: 02/07/19 02/07/2019: Patient seen and examined. Patient's is at bedside. The patient has had a decreased appetite and only ate Jell-O and a little bit of ice cream today. She is also having issues with urinary retention and had to have straight catheterization overnight. The patient's is worried about her being discharged back to her facility before she is ready. The patient's is reassured that she will be kept in the hospital until all of her medical condition stabilizes. Objective - Vital Signs Vital signs: Vital Signs Temp 98.8 F 02/07/19 15:00 Pulse 70 02/07/19 15:00 Resp 16 02/07/19 15:00 BP 98/59 02/07/19 15:00 Pulse Ox 96 02/07/19 15:00 Intake & Output 02/06/19 02/07/19 02/07/19 18:59 06:59 18:59 Output Total 30 1540 550 Balance -30 -1540 -550 Weight 83.915 kg Output: Drainage 30 Right Upper Abdomen 30 Urine 790 550 Straight 550 Post Void Residual 750 Other: Voiding Method Incontinent Incontinent Incontinent # Voids 0 - Exam Gen.: Patient is alert, no acute distress, confused Cardiovascular: Regular rate and rhythm, S1/S2 Lungs: Diminished breath sounds bilaterally otherwise clear Abdomen: Soft mildly diffusely tender to palpation, diminished bowel sounds, wound VAC in place Extremities: Trace edema - Labs CBC & Chem 7: 02/07/19 07:37 02/07/19 07:37 Labs: Abnormal Lab Results - Last 24 Hours (Table) 02/03/19 02/06/19 02/06/19 Range/Units 07:42 17:03 21:22 RBC (3.80-5.40) m/uL Hgb (11.4-16.0) gm/dL Hct (34.0-46.0) % Lymphocytes # (1.0-4.8) k/uL Chloride (98-107) mmol/L Glucose (74-99) mg/dL POC Glucose (mg/dL) 143 H 196 H (75-99) mg/dL Hemoglobin A1c 6.3 H (4.0-6.0) % Calcium (8.4-10.2) mg/dL Urine Appearance (Clear) Urine Protein (Negative) Urine Blood (Negative) Urine RBC (0-5) /hpf Amorphous Sediment (None) /hpf Urine Mucus (None) /hpf 02/07/19 02/07/19 02/07/19 Range/Units 03:48 07:12 07:37 RBC 2.63 L (3.80-5.40) m/uL Hgb 8.4 L (11.4-16.0) gm/dL Hct 26.0 L (34.0-46.0) % Lymphocytes # 0.5 L (1.0-4.8) k/uL Chloride (98-107) mmol/L Glucose (74-99) mg/dL POC Glucose (mg/dL) 142 H (75-99) mg/dL Hemoglobin A1c (4.0-6.0) % Calcium (8.4-10.2) mg/dL Urine Appearance Cloudy H (Clear) Urine Protein Trace H (Negative) Urine Blood Trace H (Negative) Urine RBC 8 H (0-5) /hpf Amorphous Sediment Occasional H (None) /hpf Urine Mucus Rare H (None) /hpf 02/07/19 02/07/19 Range/Units 07:37 11:22 RBC (3.80-5.40) m/uL Hgb (11.4-16.0) gm/dL Hct (34.0-46.0) % Lymphocytes # (1.0-4.8) k/uL Chloride 113 H (98-107) mmol/L Glucose 131 H (74-99) mg/dL POC Glucose (mg/dL) 132 H (75-99) mg/dL Hemoglobin A1c (4.0-6.0) % Calcium 7.7 L (8.4-10.2) mg/dL Urine Appearance (Clear) Urine Protein (Negative) Urine Blood (Negative) Urine RBC (0-5) /hpf Amorphous Sediment (None) /hpf Urine Mucus (None) /hpf Microbiology - Last 24 Hours (Table) 02/07/19 03:48 Urine Culture - Preliminary Urine,Catheterized Assessment and Plan Assessment: Status post ventral hernia repair Wound VAC Stage II sacral decubitus ulcer Unstageable left heel ulcer Dementia Recent fall Constipation Anemia, normochromic normocytic Pain control Antibiotics per infectious disease Wound VAC History For urinary retention greater than 400 mL Diet per surgery Continue patient's home medications Activity as tolerated Incentive spirometry and pulmonary hygiene
[2019-02-07 17:17] LABS: Glucose,Whole Blood 146 mg/dL (75-99)
--- NOTE | 2019-02-07 20:30 | PN ---
PROGRESS NOTE DATE OF SERVICE: 02/07/2019. REASON FOR FOLLOWUP: Stage II sacral pressure ulcer and left heel unstageable pressure ulcer. INTERVAL HISTORY: The patient is currently afebrile. The patient has been breathing comfortably. No distress has been noted. No nausea, vomiting, or any diarrhea recorded. Oral intake remains to be poor per . The patient herself unable to provide any history. PHYSICAL EXAMINATION: Blood pressure 98/59 with a pulse of 73, temperature 98.8. She is 92% on room air. General description is an elderly female, lying in bed in no distress. Respiratory system: Unlabored breathing. Clear to auscultation anteriorly. HEART S1, S2. Regular rate and rhythm. ABDOMEN: Soft, no tenderness. Examination of sacral wound shows overall improvement with no slough tissue or surrounding redness. Left heel remains to be dry and necrotic with no surrounding redness or drainage. LABS: Hemoglobin 8.4, white count 5.3, BUN of 13, creatinine 0.84. DIAGNOSTIC IMPRESSION AND PLAN: 1. Patient with a stage II sacral pressure ulcer. The patient at this time will continue with local wound care, dry Aquacel silver. Keep the area off the pressure. 2. Left heel unstageable pressure ulcer. Local care with a heel protector. at the bedside. Questions answered. MMODL / IJN: [id number] /
[2019-02-07 20:32] LABS: Glucose,Whole Blood 182 mg/dL (75-99)
[2019-02-07] MEDS: QUEtiapine 50 MG TAB PO SCH ×2 (20:41)
[2019-02-07] MEDS: MELATONIN 3 MG TABLET PO SCH (21:38)
[2019-02-08] MEDS: ALPRAZolam 0.5 MG TAB PO SCH ×4 (01:04→19:29)
[2019-02-08] MEDS: MORPHINE SULFATE 4 MG/ML SYRINGE IV PRN ×3 (01:05→18:59)
[2019-02-08] MEDS: DEXTROSE 5%-0.9% NACL 1,000 ML IV SCH ×3 (02:13→18:52)
[2019-02-08] MEDS: LACTATED RINGERS 1,000 ML IV SCH (02:13)
[2019-02-08] MEDS: LEVOTHYROXINE 125 MCG TAB PO SCH (05:43)
[2019-02-08 06:57] LABS: Glucose,Whole Blood 135 mg/dL (75-99)
[2019-02-08] MEDS: INSULIN ASPART (NovoLOG) 100 UNIT/ML VIAL SQ SCH ×4 (07:34→21:06)
[2019-02-08 08:27] LABS: African American GFR (CKD) >90 (>60 ml/min/1.73 sqM); Anion Gap 2 mmol/L; Blood Urea Nitrogen 12 mg/dL (7-17); Calcium 7.3 mg/dL (8.4-10.2); Carbon Dioxide 30 mmol/L (22-30); Chloride 112 mmol/L (98-107); Glucose 120 mg/dL (74-99); Potassium 2.9 mmol/L (3.5-5.1); Sodium 144 mmol/L (137-145)
[2019-02-08] MEDS: DIVALPROEX SPRINKLE 125 MG CAP.SPRINK PO SCH ×4 (08:55→20:38)
[2019-02-08] MEDS: FUROSEMIDE 20 MG TAB PO SCH ×2 (08:55→09:05)
[2019-02-08 08:56] LABS: Basophils % (A) 0 %; Eosinophils # (A) 0.3 k/uL (0-0.7); Eosinophils % (A) 5 %; HCT 27.5 % (34.0-46.0); HGB 9.1 gm/dL (11.4-16.0); Lymphocytes # (A) 0.5 k/uL (1.0-4.8); Lymphocytes % (A) 9 %; MCH 31.9 pg (25.0-35.0); MCHC 33.1 g/dL (31.0-37.0); MCV 96.1 fL (80.0-100.0); Mean Platelet Volume 8.3; Monocytes # (A) 0.3 k/uL (0-1.0); Monocytes % (A) 6 %; Neutrophils # (A) 4.2 k/uL (1.3-7.7); Neutrophils % (A) 79 %; Platelet Count 150 k/uL (150-450); Poikilocytosis Slight; RBC 2.86 m/uL (3.80-5.40); RDW 14.6 % (11.5-15.5); WBC 5.3 k/uL (3.8-10.6)
[2019-02-08 11:32] LABS: Glucose,Whole Blood 160 mg/dL (75-99)
--- NOTE | 2019-02-08 16:19 | PN ---
PROGRESS NOTE SUBJECTIVE: A 73-year-old white female, with free air in the abdominal hernia which has been repaired. She still is not taking her medicines today and refusing oral food or liquids. Await for dietitian and to try to get her to eat. Continue with current postop care for bowel, abdominal hernia repair, dementia and delirium. Continue with home medicines. MMODL / IJN: [id number] /
[2019-02-08 17:08] LABS: Glucose,Whole Blood 159 mg/dL (75-99)
[2019-02-08] MEDS ORDERED: Potassium Replacement Protocol 1 EACH MISC MISCELLANE PRN (17:14)
[2019-02-08] MEDS: POTASSIUM CHLORIDE 10 MEQ in WATER FOR INJECTION 1 100ML.BAG IVPB SCH ×6 (17:45→23:42)
--- NOTE | 2019-02-08 18:40 | P.PN ---
Subjective Progress Note Date: 02/08/19 CHIEF COMPLAINT: Ventral hernia HISTORY OF PRESENT ILLNESS: The patient is a 73-year-old female postop day 3 status post open ventral hernia repair for incarcerated hernia. Her at bedside who provides additional history as the patient is nonverbal. He reports that prior she was speaking in the last several days she is no longer talking. She only grunts. This is a new mental status change per his observation. Additionally he reports that she had a fall in the [facility] within the last week and since then has had poor appetite as well. He reports only x-rays being done without a full workup for CT of the head. He reports her inability to look along the left side. ROS: No reports of nausea and vomiting. No bowel movements. No fevers or chills. PHYSICAL EXAM: VITAL SIGNS: Reviewed CONSTITUTIONAL: Well developed and in no acute distress. EYES: Conjuctivae without sclera icterus. Extraocular movements grossly intact. HEAD, EARS, NOSE, THROAT: Moist buccal mucosa. Head is atraumatic, normocephalic. Hears conversational speech. No nasal drainage. Poor dentition. History of fall with acute ecchymosis along bilateral eyes/orbits consistent with recent trauma. NECK: No thyroidomegaly. RESPIRATORY: Non-labored respirations and equal bilateral excursions. CARDIOVASCULAR: Palpable 2+ radial pulses. Regular rate. Regular rhythm. ABDOMEN: Incisions clean dry and intact. Soft. No peritonitis. MUSCULOSKELETAL: No gross deformity of the lower extremities noted. No clubbing. No cyanosis. SKIN: Good skin turgor. Well perfused. NEUROLOGIC: Limited due to cognition. PSYCH: Limited as the patient only grunts. CLINCAL LABS: White blood cell count normal. Hypokalemia, potassium 2.9 STUDIES: CT of the abdomen and pelvis in the pedicle review demonstrated a large small bowel containing hernia of the lower abdomen. ASSESSMENT: 1. Status post ventral hernia repair for acute incarcerated ventral hernia 2. Status post fall prior to admission with new mental status changes per family member 3. Severe hypokalemia 4. Mental status changes PLAN: 1. Recommend CT of the brain neck chest for history of trauma including new mental status changes per patient's family members 2. She has severe hypokalemia. Recommend check of magnesium for recalcitrant hypokalemia 3. Correction of the electrolyte ias which can also add altered mental status Objective - Vital Signs Vital signs: Vital Signs Temp 98.0 F 02/08/19 15:00 Pulse 66 02/08/19 16:00 Resp 18 02/08/19 16:00 BP 88/48 02/08/19 15:00 Pulse Ox 94 L 02/08/19 15:00 Intake & Output 02/07/19 02/08/19 02/08/19 18:59 06:59 18:59 Intake Total 750 525 Output Total 550 580 Balance -550 170 525 Weight 83.915 kg Intake: Intake, IV Titration 750 525 Amount Dextrose 5%-0.9% NaCl 1, 750 525 000 ml @ 75 mls/hr IV . [id number] [facility] Rx#:[id number] Output: Drainage 30 Right Upper Abdomen 30 Urine 550 550 Straight 550 Other: Voiding Method Incontinent Incontinent Indwelling Catheter # Voids 0 - Labs CBC & Chem 7: 02/08/19 07:11 02/08/19 07:11 Labs: Abnormal Lab Results - Last 24 Hours (Table) 02/07/19 02/08/19 02/08/19 Range/Units 20:31 06:55 07:11 RBC 2.86 L (3.80-5.40) m/uL Hgb 9.1 L (11.4-16.0) gm/dL Hct 27.5 L (34.0-46.0) % Lymphocytes # 0.5 L (1.0-4.8) k/uL Potassium (3.5-5.1) mmol/L Chloride (98-107) mmol/L Glucose (74-99) mg/dL POC Glucose (mg/dL) 182 H 135 H (75-99) mg/dL Calcium (8.4-10.2) mg/dL 02/08/19 02/08/19 02/08/19 Range/Units 07:11 11:31 17:06 RBC (3.80-5.40) m/uL Hgb (11.4-16.0) gm/dL Hct (34.0-46.0) % Lymphocytes # (1.0-4.8) k/uL Potassium 2.9 L (3.5-5.1) mmol/L Chloride 112 H (98-107) mmol/L Glucose 120 H (74-99) mg/dL POC Glucose (mg/dL) 160 H 159 H (75-99) mg/dL Calcium 7.3 L (8.4-10.2) mg/dL Microbiology - Last 24 Hours (Table) 02/07/19 03:48 Urine Culture - Final Urine,Catheterized Assessment and Plan (1) Change in mental status Current Visit: Yes Status: Acute Code(s): R41.82 - ALTERED MENTAL STATUS, UNSPECIFIED SNOMED Code(s): 772701869 (2) Hypokalemia Current Visit: Yes Status: Acute Code(s): E87.6 - HYPOKALEMIA SNOMED Code(s): 96377348 (3) Dementia Current Visit: Yes Status: Acute Code(s): F03.90 - UNSPECIFIED DEMENTIA WITHOUT BEHAVIORAL DISTURBANCE SNOMED Code(s): 11096873 (4) Hernia of abdominal wall Current Visit: Yes Status: Acute Code(s): K43.9 - VENTRAL HERNIA WITHOUT OBSTRUCTION OR GANGRENE SNOMED Code(s): 640603261
[2019-02-08] MEDS: MELATONIN 3 MG TABLET PO SCH (19:29)
[2019-02-08] MEDS: QUEtiapine 50 MG TAB PO SCH (20:38)
[2019-02-08 21:05] LABS: Glucose,Whole Blood 143 mg/dL (75-99)
--- NOTE | 2019-02-08 21:59 | CT ---
EXAMINATION TYPE: CT brain wo/w con DATE OF EXAM: 02/08/2019 COMPARISON: Prior CT brain October 29, 2017. HISTORY: ams CT DLP: combined DLP 6007.1 mGycm Automated exposure control for dose reduction was used. CONTRAST: CT scan of the head is performed without and with IV Contrast, patient injected with 100 mL of Isovue 300. FINDINGS: Exam noted markedly suboptimal due to patient's inability to hold still despite multiple attempts. No obvious acute intracranial hemorrhage is present. There is diffuse ventricular and sulcal prominence seen. Some low-attenuation periventricular white matter is felt present. Postcontrast images show no definitive enhancing mass. Calvarium is grossly intact. IMPRESSION: Suboptimal study. Moderate to severe diffuse cerebral atrophy without obvious hemorrhage or suspicious enhancement.
--- NOTE | 2019-02-08 22:02 | CT ---
EXAMINATION TYPE: CT soft tissue neck wo/w con DATE OF EXAM: 02/08/2019 HISTORY: ams neck pain. COMPARISON: NONE CT DLP: combined DLP 6007.1 mGycm. Automated Exposure Control for Dose Reduction was Utilized. TECHNIQUE: CT scan of the neck is performed without and with IV Contrast, patient injected with 100 mL of Isovue 300, axial images are obtained, coronal and sagittal reformatted images are reviewed. FINDINGS: Exam noted markedly suboptimal as patient is not cooperative and will not hold still Airway: Likely subcentimeter calcified right thyroid nodule axial image 46 series 201. Parotid/submandibular glands: No gross abnormality seen. Carotid/Vascular Structures: Moderate calcified plaque bilateral carotid bulbs, right greater than le ft without greater than 50% stenosis seen . Some calcified plaque distal vertebral arteries is presen t. Osseous Structures: Dextroconvex scoliotic curvature persisting centered in the upper thoracic spine. Moderate to severe disc space narrowing with mild to moderate anterior spurring C5-C6 and C6-C7 leve ls. Other: No suspicious greater than 1 cm adenopathy. IMPRESSION: Suboptimal study without obvious suspicious mass or adenopathy.
--- NOTE | 2019-02-08 22:17 | CT ---
EXAMINATION TYPE: CT chest wo/w con DATE OF EXAM: 02/08/2019 COMPARISON: CT chest abdomen and pelvis August 15, 2013 HISTORY: ams CT DLP: combined DLP 6007.1 mGycm. Automated Exposure Control for Dose Reduction was Utilized. TECHNIQUE: CT scan of the thorax is performed following without and with IV Contrast, patient inject ed with 100 mL of Isovue 300. FINDINGS: Exam note is suboptimal as there is significant patient motion present limiting evaluation for subcentimeter nodularity LUNGS: There are small bilateral pleural effusions with associated compressive atelectasis. Upper heather gs are clear without pneumothorax. No suspicious masses are seen. MEDIASTINUM: There are no greater than 1 cm hilar or mediastinal lymph nodes. No cardiomegaly or pe ricardial effusion is seen. Coronary artery calcification is present which is noted marker for under lying coronary artery disease. There are enlarged pulmonary arteries, CT findings consistent with und erlying pulmonary artery hypertension. OTHER: Gallbladder has distended margins and is dilated. There is trace ascites adjacent to liver and spleen. There is exaggerated thoracic kyphosis with mild to moderate multilevel spurring. IMPRESSION: Suboptimal study. Small bilateral pleural effusions are present.
[2019-02-09] MEDS: MAGNESIUM SULFATE-D5W PMX 1 GM in DEXTROSE/WATER 1 100ML.BAG IVPB SCH ×4 (00:44→04:23)
[2019-02-09] MEDS: LACTATED RINGERS 1,000 ML IV SCH (04:28)
[2019-02-09] MEDS: LEVOTHYROXINE 125 MCG TAB PO SCH (04:28)
[2019-02-09] MEDS: MORPHINE SULFATE 4 MG/ML SYRINGE IV PRN ×2 (04:50→19:53)
[2019-02-09 07:02] LABS: Glucose,Whole Blood 169 mg/dL (75-99)
[2019-02-09 07:45] LABS: Magnesium 2.4 mg/dL (1.6-2.3); Potassium 3.1 mmol/L (3.5-5.1)
[2019-02-09] MEDS: INSULIN ASPART (NovoLOG) 100 UNIT/ML VIAL SQ SCH ×4 (08:26→20:28)
[2019-02-09] MEDS: POTASSIUM CHLORIDE 10 MEQ in WATER FOR INJECTION 1 100ML.BAG IVPB SCH ×5 (08:50→12:48)
[2019-02-09] MEDS: DIVALPROEX SPRINKLE 125 MG CAP.SPRINK PO SCH ×3 (09:59→20:29)
[2019-02-09] MEDS: FUROSEMIDE 20 MG TAB PO SCH (09:59)
[2019-02-09] MEDS: ALPRAZolam 0.5 MG TAB PO SCH ×2 (09:59→20:29)
[2019-02-09 11:27] LABS: Glucose,Whole Blood 133 mg/dL (75-99)
--- NOTE | 2019-02-09 14:16 | P.PN ---
Subjective Progress Note Date: 02/09/19 CHIEF COMPLAINT: Ventral hernia HISTORY OF PRESENT ILLNESS: The patient is a 73-year-old female postop day 4 status post open ventral hernia repair for incarcerated hernia. Yesterday, per discussion with her family at bedside, patient had this blade altered sensorium. Today, she is much more alert. In fact, she is forming words. She is less agitated. ROS: No reports of nausea and vomiting. No bowel movements. No fevers or chills. PHYSICAL EXAM: VITAL SIGNS: Reviewed CONSTITUTIONAL: Well developed and in no acute distress. EYES: Conjuctivae without sclera icterus. Extraocular movements grossly intact. HEAD, EARS, NOSE, THROAT: Moist buccal mucosa. Head is atraumatic, normocepha lic. Hears conversational speech. No nasal drainage. Poor dentition. History of fall with acute ecchymosis along bilateral eyes/orbits consistent with recent trauma. NECK: No thyroidomegaly. RESPIRATORY: Non-labored respirations and equal bilateral excursions. CARDIOVASCULAR: Palpable 2+ radial pulses. Regular rate. Regular rhythm. ABDOMEN: Incisions clean dry and intact. Soft. No peritonitis. MUSCULOSKELETAL: No gross deformity of the lower extremities noted. No clubbing. No cyanosis. SKIN: Good skin turgor. Well perfused. NEUROLOGIC: No focal or lateralizing signs. PSYCH: Awake and alert and oriented to person. CLINCAL LABS: White blood cell count normal. Hypokalemia, potassium 2.9. Magnesium under 1.3 now improved STUDIES: CT of the head, spine, chest independently reviewed without any large bleed identified along the brain. REPORT: Reviewed demonstrated no acute hemorrhagic bleeds or pathology with limited study from patient's movement ASSESSMENT: 1. Status post ventral hernia repair for acute incarcerated ventral hernia 2. Status post fall prior to admission with new mental status changes per family member 3. Severe hypokalemia 4. Mental status changes, now improved 5. Hypo-magnesia PLAN: 1. Magnesium levels were corrected which should allow for correction of her potassium 2. Clinically, patient stable. 3. May need reevaluation for transfer back to retirement Objective - Vital Signs Vital signs: Vital Signs Temp 97.5 F L 02/09/19 07:49 Pulse 57 L 02/09/19 08:00 Resp 15 02/09/19 08:00 BP 132/81 02/09/19 08:56 Pulse Ox 100 02/09/19 07:49 Intake & Output 02/08/19 02/09/19 02/09/19 18:59 06:59 18:59 Intake Total 525 750 Output Total 300 330 10 Balance 225 420 -10 Intake: Intake, IV Titration 525 750 Amount Dextrose 5%-0.9% NaCl 1, 525 750 000 ml @ 75 mls/hr IV . [id number] [facility] Rx#:[id number] Output: Drainage 30 10 Right Upper Abdomen 30 10 Urine 300 300 Other: Voiding Method Incontinent Indwelling Catheter Indwelling Catheter Indwelling Catheter - Labs CBC & Chem 7: 02/08/19 07:11 02/09/19 06:50 Labs: Abnormal Lab Results - Last 24 Hours (Table) 02/08/19 02/08/19 02/08/19 Range/Units 17:06 18:40 21:03 Potassium (3.5-5.1) mmol/L POC Glucose (mg/dL) 159 H 143 H (75-99) mg/dL Magnesium 1.3 L (1.6-2.3) mg/dL 02/09/19 02/09/19 02/09/19 Range/Units 06:50 07:01 11:25 Potassium 3.1 L (3.5-5.1) mmol/L POC Glucose (mg/dL) 169 H 133 H (75-99) mg/dL Magnesium 2.4 H (1.6-2.3) mg/dL Microbiology - Last 24 Hours (Table) 02/07/19 03:48 Urine Culture - Final Urine,Catheterized Assessment and Plan (1) Change in mental status Current Visit: Yes Status: Acute Code(s): R41.82 - ALTERED MENTAL STATUS, UNSPECIFIED SNOMED Code(s): 391273285 (2) Hypokalemia Current Visit: Yes Status: Acute Code(s): E87.6 - HYPOKALEMIA SNOMED Code(s): 29830656 (3) Dementia Current Visit: Yes Status: Acute Code(s): F03.90 - UNSPECIFIED DEMENTIA WITHOUT BEHAVIORAL DISTURBANCE SNOMED Code(s): 19779917 (4) Hernia of abdominal wall Current Visit: Yes Status: Acute Code(s): K43.9 - VENTRAL HERNIA WITHOUT OBSTRUCTION OR GANGRENE SNOMED Code(s): 000025185 (5) Hypomagnesemia Current Visit: Yes Status: Acute Code(s): E83.42 - HYPOMAGNESEMIA SNOMED Code(s): 899199975
[2019-02-09 16:59] LABS: Glucose,Whole Blood 182 mg/dL (75-99)
[2019-02-09] MEDS: DEXTROSE 5%-0.9% NACL 1,000 ML IV SCH (19:33)
[2019-02-09] MEDS: QUEtiapine 50 MG TAB PO SCH (19:53)
[2019-02-09 20:25] LABS: Glucose,Whole Blood 205 mg/dL (75-99)
[2019-02-09] MEDS: MELATONIN 3 MG TABLET PO SCH ×2 (20:29→21:44)
--- NOTE | 2019-02-09 22:27 | P.PN ---
Progress Note - Text Progress Note Date: 02/09/19 PROGRESS NOTE DATE OF SERVICE: 02/09/2019 REASON FOR FOLLOWUP: Stage II sacral pressure ulcer and left heel unstageable pressure ulcer. INTERVAL HISTORY: The patient remains to be afebrile. The patient has been breathing comfortably. No distress has been noted. No nausea, vomiting, or any diarrhea recorded. Patient seems to more awake and alert today and answered simple questions PHYSICAL EXAMINATION: Blood pressure 142/50 with a pulse of 72, temperature 99. She is 92% on room air. General description is an elderly female, lying in bed in no distress. Respiratory system: Unlabored breathing. Clear to auscultation anteriorly. HEART S1, S2. Regular rate and rhythm. ABDOMEN: Soft, no tenderness. Examination of sacral wound currently dressed by RN And no worsening reported Left heel remains to be dry and necrotic with no surrounding redness or drainage. LABS: Reviewed DIAGNOSTIC IMPRESSION AND PLAN: 1. Patient with a stage II sacral pressure ulcer. The patient at this time will continue with local wound care with dry Aquacel silver. Keep the area off the pressure and no need for systemic antibiotic therapy 2. Left heel unstageable pressure ulcer. Local care with a heel protector.
--- NOTE | 2019-02-10 00:09 | PN ---
PROGRESS NOTE SUBJECTIVE: 73-year-old white female, status post free air hernia repair. Dementia is worsening. She is waking up and taking a few bites here and there. Her clear liquid soft diet, mostly some puddings and some ice cream. CARDIOVASCULAR: S1, S2. Abdomen incision has got a healing patch. Wound VAC on. ASSESSMENT: 1. Free . 2. Hernia repair. 3. Constipation. 4. Dementia. 5. Hypertension. 6. Diabetes. Continue current treatment. Follow up in the next 24-48 hours[address] Re[address] placement. MMODL / IJN: [id number] /
[2019-02-10] MEDS: LEVOTHYROXINE 125 MCG TAB PO SCH (05:14)
[2019-02-10] MEDS: LACTATED RINGERS 1,000 ML IV SCH (05:14)
[2019-02-10] MEDS: DEXTROSE 5%-0.9% NACL 1,000 ML IV SCH (05:15)
[2019-02-10 07:00] LABS: Glucose,Whole Blood 133 mg/dL (75-99)
[2019-02-10] MEDS: ALPRAZolam 0.5 MG TAB PO SCH (08:05)
[2019-02-10] MEDS: DIVALPROEX SPRINKLE 125 MG CAP.SPRINK PO SCH ×2 (08:05→08:12)
[2019-02-10] MEDS: FUROSEMIDE 20 MG TAB PO SCH (08:06)
[2019-02-10] MEDS: INSULIN ASPART (NovoLOG) 100 UNIT/ML VIAL SQ SCH (08:06)
[2019-02-10] MEDS ORDERED: BISACODYL 10 MG SUPP RECTAL SCH (09:00)
[2019-02-10 09:45] VITALS: BP 99/64; PULSE 70; RESP 21; TEMP 96.5
--- NOTE | 2019-02-10 10:22 | P.PN ---
Subjective Progress Note Date: 02/10/19 CHIEF COMPLAINT: abdominal pain HISTORY OF PRESENT ILLNESS: Patient examined at the bedside. Patient is status post ventral hernia repair. Patient states her pain is tolerable at this time. She denies nausea or vomiting. Patient is tolerating diet. Passing flatus. No BM. PHYSICAL EXAM: VITAL SIGNS: Reviewed. GENERAL: Well-developed in no acute distress. HEENT: No sclera icterus. Extraocular movements grossly intact. Moist buccal mucosa. Head is atraumatic, normocephalic. ABDOMEN: Soft. Nondistended. Minimal tenderness. PREVENA wound management system intact. ZEKE drain with serosanguineous drainage. NEUROLOGIC: Awake. Cranial nerves II through XII grossly intact. ASSESSMENT: 1. Ventral hernia PLAN: 1. Continue dysphagia diet 2. Activity as tolerated 3. Pain control 4. Incentive spirometry. Patient requires help and encouragement to perform IS 5. Dulcolax rectally x 1 dose 6. Discontinue ZEKE drain 7. PREVENA may be discontinued sunday at [facility] Nurse practitioner note has been reviewed by physician. Signing provider agrees with the documented findings, assessment, and plan of care. Objective - Vital Signs Vital signs: Vital Signs Temp 96.5 F L 02/10/19 09:44 Pulse 70 02/10/19 09:44 Resp 21 02/10/19 09:44 BP 99/64 02/10/19 09:44 Pulse Ox 94 L 02/10/19 09:44 Intake & Output 02/09/19 02/10/19 02/10/19 18:59 06:59 18:59 Intake Total 225 Output Total 315 300 Balance -315 -75 Intake: Intake, IV Titration 225 Amount Dextrose 5%-0.9% NaCl 1, 225 000 ml @ 75 mls/hr IV . [id number] [facility] Rx#:[id number] Output: Drainage 15 Right Upper Abdomen 15 Urine 300 300 Other: Voiding Method Indwelling Catheter Indwelling Catheter Indwelling Catheter - Labs CBC & Chem 7: 02/08/19 07:11 02/09/19 14:27 Labs: Abnormal Lab Results - Last 24 Hours (Table) 02/09/19 02/09/19 02/09/19 Range/Units 11:25 16:58 20:24 POC Glucose (mg/dL) 133 H 182 H 205 H (75-99) mg/dL 02/10/19 Range/Units 06:58 POC Glucose (mg/dL) 133 H (75-99) mg/dL
--- NOTE | 2019-02-10 10:23 | CDI ---
Unable to determine - KM 02/13/19 @ 21:07 Documentation Clarification Form Date: 02/10/2019 9:50:40 AM From: Thania Granger RN CCDS Admit Date: 01/31/2019 11:54:00 AM Patient Name: Carla Crowley Visit Number: [id number] Discharge Date: ATTENTION: The Clinical Documentation Specialists (CDI) and [facility] Coding Staff appreciate your assistance in clarifying documentation. Please respond to the clarification below the line at the bottom and electronically sign. The CDI & [facility] Coding staff will review the response and follow-up if needed. Please note: Queries are made part of the Legal Health Record. If you have any questions, please contact the author of this message via ITS. Dr. Gissell Smith Altered Mental Status was documented your progress note dated 02/08/2019 History/Risk Factors: 73 year old female presents to the ED with severe abdominal swelling and crying out in pain. Clinical Indicators: Progress note 02/08/2019 Per the she is no longer talking only grunting. This is a new observation Progress note 02/09/2019 Mental status changes, now improved. Labs: Potassium 2.9; Calcium 7.3; Magnesium 1.3; CT Brain: Moderate to severe diffuse cerebral atrophy without obvious hemorrhage or suspicious enhancement. Treatment: Potassium Chloride IVPB; In your professional opinion, please clarify the etiology of the Altered Mental Status, if known. * Metabolic Encephalopathy due to * Other condition (please specify) * Unable to determine (Last Revision: December 2017) MTDD
--- NOTE | 2019-02-10 11:16 | P.DS ---
Providers Date of admission: 01/31/19 11:54 Expected date of discharge: 02/10/19 Attending physician: Rc Barr Consults: 01/31/19 11:59 Consult Physician Stat Consulting Provider: Nader Buchanan Consult Reason/Comments: free air hernia, med mgmt Do you want consulting provider notified?: Already Contacted 02/01/19 09:48 Consult Physician Routine Consulting Provider: Josy Borden Consult Reason/Comments: decubitus ulcer Do you want consulting provider notified?: Yes [facility] Course: Final Diagnoses: Status post ventral hernia repair Wound VAC Stage II sacral decubitus ulcer Unstageable left heel ulcer Dementia Recent fall Constipation Anemia, normochromic normocytic Urinary retention Hospital Course: Patient is a 73-year-old female resident of [facility], status post ventral hernia repair and multiple other medical issues. Required Camara catheter placement for urinary retention, follow-up with urology outpatient next week. Patient consuming about 25% of diet intake and 25-50% of ensure; patient eats more when is around. Positive flatus, positive bowel movement. Wound care as per infectious disease. Pain controlled. Cleared by all consults for discharge. Patient is being discharged back to [facility] in a stable condition with guarded prognosis. - Exam Gen.: Patient is alert, no acute distress, confused Cardiovascular: Regular rate and rhythm, S1/S2 Lungs: Diminished breath sounds bilaterally otherwise clear Abdomen: Soft, s/p surgery, diminished bowel sounds, wound VAC in place Extremities: Trace edema The impression and plan of care has been dictated as directed. : I performed a history and examination of this patient, discussed the same with the dictator. I agree with the dictator's note ,documented as a scribe. Any additional findings or plans will be noted. Time taken: 35 minutes Patient Condition at Discharge: Stable Plan - Discharge Summary Discharge Rx Participant: No New Discharge Prescriptions: New Ibuprofen [Motrin] 400 mg PO Q6HR PRN tab PRN Reason: Mild Pain Or Fever > 100.5 INSULIN LISPRO (HumaLOG) [humaLOG] 0 unit SQ ACHS #1 vial Continue Simvastatin [Zocor] 40 mg PO HS Ferrous Sulfate [Iron (65 MG Elemental)] 325 mg PO DAILY Melatonin 3 mg PO HS@2000 Cranberry Fruit Concentrate [Cranberry] 450 mg PO BID Acetaminophen [Tylenol Arthritis] 650 mg PO DAILY Aspirin EC [Ecotrin Low Dose] 81 mg PO HS Cetirizine HCl [Zyrtec] 10 mg PO HS Divalproex Sodium [Depakote Sprinkle] 250 mg PO TID Furosemide [Lasix] 20 mg PO DAILY Levothyroxine Sodium [Synthroid] 125 mcg PO DAILY Magnesium Hydroxide [Milk of Magnesia] 2,400 mg PO DAILY PRN PRN Reason: Constipation QUEtiapine [SEROquel] 150 mg PO HS Ranitidine HCl [Zantac] 75 mg PO BID ALPRAZolam [Xanax] 0.5 mg PO BID #6 tab Changed Insulin Glargine [Lantus] 7 unit SQ HS #0 Discharge Medication List Simvastatin [Zocor] 40 mg PO HS 07/08/16 [History] Ferrous Sulfate [Iron (65 MG Elemental)] 325 mg PO DAILY 10/29/17 [History] Cranberry Fruit Concentrate [Cranberry] 450 mg PO BID 02/13/18 [History] Melatonin 3 mg PO HS@199902/13/18 [History] Acetaminophen [Tylenol Arthritis] 650 mg PO DAILY 01/31/19 [History] Aspirin EC [Ecotrin Low Dose] 81 mg PO HS 01/31/19 [History] Cetirizine HCl [Zyrtec] 10 mg PO HS 01/31/19 [History] Divalproex Sodium [Depakote Sprinkle] 250 mg PO TID 01/31/19 [History] Furosemide [Lasix] 20 mg PO DAILY 01/31/19 [History] Levothyroxine Sodium [Synthroid] 125 mcg PO DAILY 01/31/19 [History] Magnesium Hydroxide [Milk of Magnesia] 2,400 mg PO DAILY PRN 01/31/19 [History] QUEtiapine [SEROquel] 150 mg PO HS 01/31/19 [History] Ranitidine HCl [Zantac] 75 mg PO BID 01/31/19 [History] ALPRAZolam [Xanax] 0.5 mg PO BID #6 tab 02/10/19 [Rx] INSULIN LISPRO (HumaLOG) [humaLOG] 0 unit SQ ACHS #1 vial 02/10/19 [Rx] Ibuprofen [Motrin] 400 mg PO Q6HR PRN tab 02/10/19 [Rx] Insulin Glargine [Lantus] 7 unit SQ HS #0 02/10/19 [Rx] Follow up Appointment(s)/Referral(s): Rc Barr MD [Primary Care Provider] - 3 Days [facility], [NON-STAFF] - As Needed Bola Ureña MD [STAFF PHYSICIAN] - 1 Week (urinary retention) Nader Buchanan MD [STAFF PHYSICIAN] - 1 Week Activity/Diet/Wound Care/Special Instructions: PH [facility] wound care as per ID Please remove PREVENA system on Tuesday February 12, 2019 Activity as tolerated No lifting over 10 lbs Diet as tolerated cbc,bmp in 3 days
[2019-02-10 11:43] LABS: Glucose,Whole Blood 182 mg/dL (75-99)
--- NOTE | 2019-02-17 14:32 | P.OP ---
Date of Procedure: 02/05/19 Preoperative Diagnosis: Incarcerated ventral hernia Postoperative Diagnosis: Incarcerated ventral hernia Procedure(s) Performed: (Incarcerated ventral hernia Partial omentectomy Removal of mesh Anesthesia: BAR Surgeon: Nader Buchanan Estimated Blood Loss (ml): 5 Pathology: other (Omentum, mesh) Condition: stable Disposition: PACU Description of Procedure: Patient's placed on the operative table in the supine position. She received general anesthesia. Her abdomen was prepped and draped usual sterile fashion. A skin incision was made over the hernia and then using blunt and sharp dissection with cautery the subcutaneous tissue divided. The patient appeared to have recurrent incisional hernia. There was a portion of mesh which was nonadherent to the abdominal wall. Using left cautery and sharp dissection this was dissected free and sent to pathology. The incarcerated omentum was within the hernia. This was divided with cautery and sent to pathology. The fascial defect was then closed with [id number] Ethibond suture. Prolene mesh was placed over top the repair and secured with the secure strap tacker. A ZEKE drains placed through separate stab incision. Leeroy's fascia close [place]. Skin was closed abhijeet. Patient top she will was sent to recovery in stable condition.
== END 2019-02-10 14:36 | DRG 353 ==
LOC: EC 09:22 → 4SSUR 11:54
PROVIDERS: ADMIT Family Medicine; ATTEND Family Medicine
PROC: 0DBU0ZZ Excision of Omentum, Open Approach (ICD-10-PCS; 2019-02-05)
PROC: 0WPF0JZ Removal of Synthetic Substitute from Abdominal Wall, Open Approach (ICD-10-PCS; 2019-02-05)
PROC: 0WUF0JZ Supplement Abdominal Wall with Synthetic Substitute, Open Approach (ICD-10-PCS; principal; 2019-02-05 13:00)
DX: K43.0 Incisional hernia with obstruction, without gangrene (principal); K63.1 Perforation of intestine (nontraumatic); E87.2 Acidosis; F05 Delirium due to known physiological condition; D64.9 Anemia, unspecified; E03.9 Hypothyroidism, unspecified; E11.22 Type 2 diabetes mellitus with diabetic chronic kidney disease; E11.40 Type 2 diabetes mellitus with diabetic neuropathy, unspecified; Z79.4 Long term (current) use of insulin; E78.5 Hyperlipidemia, unspecified; E83.42 Hypomagnesemia; E87.6 Hypokalemia; F03.90 Unspecified dementia, unspecified severity, without behavioral disturbance, psychotic disturbance, mood disturbance, and anxiety; I12.9 Hypertensive chronic kidney disease with stage 1 through stage 4 chronic kidney disease, or unspecified chronic kidney disease; I48.0 Paroxysmal atrial fibrillation; K21.9 Gastro-esophageal reflux disease without esophagitis; K59.00 Constipation, unspecified; L89.152 Pressure ulcer of sacral region, stage 2; L89.620 Pressure ulcer of left heel, unstageable; L89.309 Pressure ulcer of unspecified buttock, unspecified stage; L89.121 Pressure ulcer of left upper back, stage 1; M19.90 Unspecified osteoarthritis, unspecified site; N18.3 Chronic kidney disease, stage 3 (moderate); Z91.81 History of falling; Z79.890 Hormone replacement therapy; Z79.899 Other long term (current) drug therapy; Z80.49 Family history of malignant neoplasm of other genital organs; Z85.72 Personal history of non-Hodgkin lymphomas; Z92.21 Personal history of antineoplastic chemotherapy; Z98.42 Cataract extraction status, left eye; Z98.41 Cataract extraction status, right eye; Z96.1 Presence of intraocular lens; Z96.611 Presence of right artificial shoulder joint; Z96.651 Presence of right artificial knee joint; R32 Unspecified urinary incontinence; Z87.440 Personal history of urinary (tract) infections; E66.9 Obesity, unspecified; Z68.30 Body mass index [BMI] 30.0-30.9, adult; R13.10 Dysphagia, unspecified; Z79.82 Long term (current) use of aspirin; M54.5 Low back pain
CPT/HCPCS: 36415; 51702; 70470; 70492; 71270; 74176; 74177; 80048; 80053; 81001; 82150; 83036; 83605; 83690; 83735; 84132; 85025; 85027; 87040; 87086; 88302; 88305; 96361; 96365; 99291

== ENCOUNTER 2019-02-13 12:10 | Inpatient (IN) | payer MEDICARE ==
[2019-02-13] MEDS ORDERED: PANTOPRAZOLE 40 MG/10 ML VIAL IVP STA (12:15)
[2019-02-13] MEDS ORDERED: ONDANSETRON 4 MG/2 ML VIAL IVP STA (12:15)
[2019-02-13] MEDS ORDERED: SODIUM CHLORIDE 0.9% 500 ML 500 ML IV STA (12:15)
--- NOTE | 2019-02-13 12:45 | ED ---
General Adult HPI - General Chief complaint: GI Bleed Stated complaint: GI bleed Time Seen by Provider: 02/13/19 12:15 Source: patient, family, EMS, RN notes reviewed, old records reviewed Mode of arrival: EMS Limitations: altered mental status, physical limitation - History of Present Illness Initial comments: 73-year-old female with history of dementia presenting with coffee-ground emesis. Patient [facility] from the [facility] with a single large episode of dark emesis. Patient is unable to significantly contribute to history secondary to her dementia. Her is at bedside. History is obtained from EMS and the medical record as well. She is 2 weeks postop ventral hernia repair, she did have an incarcerated ventral hernia. No reported anticoagulation by the . No preceding episodes of vomiting. - Related Data Home Medications Medication Instructions Recorded Confirmed Simvastatin [Zocor] 40 mg PO DAILY 07/08/16 02/13/19 Ferrous Sulfate [Iron (65 MG 325 mg PO DAILY 10/29/17 02/13/19 Elemental)] Cranberry Fruit Concentrate 450 mg PO BID 02/13/18 02/13/19 [Cranberry] Melatonin 3 mg PO HS@199902/13/18 02/13/19 Aspirin EC [Ecotrin Low Dose] 81 mg PO HS 01/31/19 02/13/19 Cetirizine HCl [Zyrtec] 10 mg PO HS 01/31/19 02/13/19 Furosemide [Lasix] 20 mg PO DAILY PRN 01/31/19 02/13/19 Levothyroxine Sodium [Synthroid] 125 mcg PO DAILY 01/31/19 02/13/19 Magnesium Hydroxide [Milk of 2,400 mg PO DAILY PRN 01/31/19 02/13/19 Magnesia] QUEtiapine [SEROquel] 150 mg PO HS 01/31/19 02/13/19 Ranitidine HCl [Zantac] 75 mg PO BID 01/31/19 02/13/19 Atorvastatin [Lipitor] 40 mg PO HS 02/13/19 02/13/19 Divalproex [Depakote] 250 mg PO TID@0800,1200,1800 02/13/19 02/13/19 Docusate [Colace] 100 mg PO PC-SUPPER 02/13/19 02/13/19 Escitalopram [Lexapro] 5 mg PO DAILY PRN 02/13/19 02/13/19 Furosemide [Lasix] 40 mg PO DAILY PRN 02/13/19 02/13/19 Gabapentin [Neurontin] 300 mg PO DAILY 02/13/19 02/13/19 INSULIN LISPRO (HumaLOG) [humaLOG] See Protocol SQ ACHS 02/13/19 02/13/19 Losartan [Cozaar] 12.5 mg PO DAILY 02/13/19 02/13/19 Metoprolol Tartrate [Lopressor] 100 mg PO BID 02/13/19 02/13/19 Nitroglycerin Sl Tabs [Nitrostat] 0.4 mg SL Q5M 02/13/19 02/13/19 Omeprazole 20 mg PO DAILY 02/13/19 02/13/19 Potassium Chloride ER [K-Dur 20] 20 meq PO DAILY 02/13/19 02/13/19 Pro-Stat Sugar Free 30 ml PO BID 02/13/19 02/13/19 Previous Rx's Medication Instructions Recorded ALPRAZolam [Xanax] 0.5 mg PO BID #6 tab 02/10/19 Acetaminophen Tab [Tylenol] 650 mg PO Q6HR PRN tab 02/10/19 Ibuprofen [Motrin] 400 mg PO Q6HR PRN tab 02/10/19 Insulin Glargine [Lantus] 7 unit SQ HS #0 02/10/19 Allergies Allergy/AdvReac Type Severity Reaction Status Date / Time atorvastatin [From Lipitor] Allergy Unknown Verified 02/13/19 12:13 codeine Allergy Unknown Verified 02/13/19 12:20 enalaprilat [From Vasotec] Allergy Unknown Verified 02/13/19 12:13 propoxyphene napsylate Allergy Unknown Verified 02/13/19 12:13 [From Darvocet-N] Sulfa (Sulfonamide Allergy Itching,daniela Verified 02/13/19 12:13 Antibiotics) h Review of Systems ROS Statement: Those systems with pertinent positive or pertinent negative responses have been documented in the HPI. ROS Other: All systems not noted in ROS Statement are negative. Past Medical History Past Medical History: Atrial Fibrillation, Cancer, Diabetes Mellitus, GERD/Reflux, Hyperlipidemia, Hypertension, Memory Impairment, Osteoarthritis (OA), Renal Disease, Thyroid Disorder Additional Past Medical History / Comment(s): IDDM type II, neuropathy bilateral legs/feet, paroxysmal afib, Vtach, severe dementia, dysphagia, nonhodgkins lymphoma with last chemo 2015, neutropenia, anemia, goiter, received radioactive iodine-hypothyroid, CKD stage III, UTIs, UTI with sepsis, varicosities, generalized arthritis, low back pain, R shoulder injury from fall in 2014, constipation, current wound coccyx-/L heel, L shoulder blister, allergic rhinitis, sleep disorder, incontinence. History of Any Multi-Drug Resistant Organisms: None Reported Past Surgical History: Back Surgery, Breast Surgery, Hernia Repair, Joint Replacement, Tubal Ligation Additional Past Surgical History / Comment(s): rt knee replacement, rt shoulder replacement, low back surgery-has screws, back injections, bilateral cataracts removed/lens implants, L breast biopsy, colonoscopy. Past Anesthesia/Blood Transfusion Reactions: Previous Problems w/ Anesthesia Additional Past Anesthesia/Blood Transfusion Reaction / Comment(s): years ago had diff breathing with anesthesia Past Psychological History: Anxiety Smoking Status: Never smoker Past Alcohol Use History: None Reported Past Drug Use History: None Reported - Past Family History Sister(s) Family Medical History: Cancer Additional Family Medical History / Comment(s): Uterine cancer General Exam Limitations: altered mental status, physical limitation General appearance: alert, in no apparent distress Head exam: Present: atraumatic, normocephalic Eye exam: Present: normal appearance, PERRL ENT exam: Present: mucous membranes dry, other (perioral dark emesis) Respiratory exam: Present: rhonchi, decreased breath sounds. Absent: respiratory distress Cardiovascular Exam: Present: regular rate, normal rhythm GI/Abdominal exam: Present: soft, tenderness (Mild generalized tenderness, no rebound or guarding, anterior incision is clean dry and intact). Absent: distended Extremities exam: Present: normal inspection, normal capillary refill Neurological exam: Present: alert, oriented X3, CN II-XII intact. Absent: motor sensory deficit Psychiatric exam: Present: normal affect, normal mood Skin exam: Present: warm, dry, intact. Absent: cyanosis, diaphoretic Course Vital Signs 02/13/19 12:11 Temperature 98.4 F Pulse Rate 84 Respiratory 18 Rate Blood Pressure 132/81 O2 Sat by Pulse 94 L Oximetry EKG Findings - EKG Comments: EKG Findings:: EKG: Sinus rhythm with PAC, left axis, low voltage, rate of 85, KS interval 174, QRS duration 74, QTC 476 Medical Decision Making - Medical Decision Making 73-year-old female with history of [facility]ground emesis at the [facility]. Patient has had no vomiting while she is observed in the emergency department. She has a mild drop in hemoglobin with crit hemoglobin 10.7. She has a lactic acid 3.5, likely secondary to dehydration. Given her recent abdominal surgery, CT is performed of the abdomen and pelvis with IV contrast, this is negative for any acute abnormalities. Patient will be admitted for IV hydration, serial hemoglobin monitoring, and both gastroenterology and general surgery are placed on consult. I did discuss this case with Dr. Barr who will admit. - Lab Data Result diagrams: 02/13/19 12:38 02/13/19 12:38 Lab Results 02/13/19 02/13/19 02/13/19 Range/Units 12:38 12:38 12:38 WBC 7.6 (3.8-10.6) k/uL RBC 3.31 L (3.80-5.40) m/uL Hgb 10.7 L (11.4-16.0) gm/dL Hct 31.8 L (34.0-46.0) % MCV 96.1 (80.0-100.0) fL MCH 32.4 (25.0-35.0) pg MCHC 33.7 (31.0-37.0) g/dL RDW 14.5 (11.5-15.5) % Plt Count 267 (150-450) k/uL Neutrophils % 87 % Lymphocytes % 8 % Monocytes % 3 % Eosinophils % 1 % Basophils % 0 % Neutrophils # 6.6 (1.3-7.7) k/uL Lymphocytes # 0.6 L (1.0-4.8) k/uL Monocytes # 0.2 (0-1.0) k/uL Eosinophils # 0.0 (0-0.7) k/uL Basophils # 0.0 (0-0.2) k/uL Hypochromasia Slight Poikilocytosis Slight APTT (22.0-30.0) sec Sodium 139 (137-145) mmol/L Potassium 3.9 (3.5-5.1) mmol/L Chloride 103 (98-107) mmol/L Carbon Dioxide 29 (22-30) mmol/L Anion Gap 7 mmol/L BUN 22 H (7-17) mg/dL Creatinine 0.67 (0.52-1.04) mg/dL Est GFR (CKD-EPI)AfAm >90 (>60 ml/min/1.73 sqM) Est GFR (CKD-EPI)NonAf 89 (>60 ml/min/1.73 sqM) Glucose 215 H (74-99) mg/dL Plasma Lactic Acid Ismael 3.5 H* (0.7-2.0) mmol/L Calcium 8.2 L (8.4-10.2) mg/dL Magnesium 1.5 L (1.6-2.3) mg/dL Total Bilirubin 0.4 (0.2-1.3) mg/dL AST 20 (14-36) U/L ALT 12 (9-52) U/L Alkaline Phosphatase 172 H (38-126) U/L Total Protein 4.7 L (6.3-8.2) g/dL Albumin 2.5 L (3.5-5.0) g/dL Blood Type Blood Type Recheck Antibody Screen Spec Expiration Date 02/13/19 02/13/19 Range/Units 12:38 12:38 WBC (3.8-10.6) k/uL RBC (3.80-5.40) m/uL Hgb (11.4-16.0) gm/dL Hct (34.0-46.0) % MCV (80.0-100.0) fL MCH (25.0-35.0) pg MCHC (31.0-37.0) g/dL RDW (11.5-15.5) % Plt Count (150-450) k/uL Neutrophils % % Lymphocytes % % Monocytes % % Eosinophils % % Basophils % % Neutrophils # (1.3-7.7) k/uL Lymphocytes # (1.0-4.8) k/uL Monocytes # (0-1.0) k/uL Eosinophils # (0-0.7) k/uL Basophils # (0-0.2) k/uL Hypochromasia Poikilocytosis APTT 24.8 (22.0-30.0) sec Sodium (137-145) mmol/L Potassium (3.5-5.1) mmol/L Chloride (98-107) mmol/L Carbon Dioxide (22-30) mmol/L Anion Gap mmol/L BUN (7-17) mg/dL Creatinine (0.52-1.04) mg/dL Est GFR (CKD-EPI)AfAm (>60 ml/min/1.73 sqM) Est GFR (CKD-EPI)NonAf (>60 ml/min/1.73 sqM) Glucose (74-99) mg/dL Plasma Lactic Acid Ismael (0.7-2.0) mmol/L Calcium (8.4-10.2) mg/dL Magnesium (1.6-2.3) mg/dL Total Bilirubin (0.2-1.3) mg/dL AST (14-36) U/L ALT (9-52) U/L Alkaline Phosphatase (38-126) U/L Total Protein (6.3-8.2) g/dL Albumin (3.5-5.0) g/dL Blood Type A Positive Blood Type Recheck No Antibody Screen NEGATIVE Spec Expiration Date 02/16/2019 2330 Disposition Clinical Impression: Lactic acidosis, Dehydration, GI bleed Disposition: ADMITTED IP TO THIS [facility] Condition: Stable Is patient prescribed a controlled substance at d/c from ED?: No Referrals: Rc Barr MD [Primary Care Provider] - 1-2 days Decision to Admit Reason: Admit from EC Decision Date: 02/13/19 Decision Time: 15:27
[2019-02-13 13:11] LABS: Basophils % (A) 0 %; Eosinophils % (A) 1 %; HCT 31.8 % (34.0-46.0); HGB 10.7 gm/dL (11.4-16.0); Hypochromasia Slight; Lymphocytes # (A) 0.6 k/uL (1.0-4.8); Lymphocytes % (A) 8 %; MCH 32.4 pg (25.0-35.0); MCHC 33.7 g/dL (31.0-37.0); MCV 96.1 fL (80.0-100.0); Mean Platelet Volume 7.4; Monocytes # (A) 0.2 k/uL (0-1.0); Monocytes % (A) 3 %; Neutrophils # (A) 6.6 k/uL (1.3-7.7); Neutrophils % (A) 87 %; Platelet Count 267 k/uL (150-450); Poikilocytosis Slight; RBC 3.31 m/uL (3.80-5.40); RDW 14.5 % (11.5-15.5); WBC 7.6 k/uL (3.8-10.6)
[2019-02-13 13:15] LABS: ALT 12 U/L (9-52); AST 20 U/L (14-36); African American GFR (CKD) >90 (>60 ml/min/1.73 sqM); Albumin 2.5 g/dL (3.5-5.0); Alkaline Phosphatase 172 U/L (38-126); Anion Gap 7 mmol/L; Blood Urea Nitrogen 22 mg/dL (7-17); Calcium 8.2 mg/dL (8.4-10.2); Carbon Dioxide 29 mmol/L (22-30); Chloride 103 mmol/L (98-107); Glucose 215 mg/dL (74-99); Magnesium 1.5 mg/dL (1.6-2.3); Potassium 3.9 mmol/L (3.5-5.1); Sodium 139 mmol/L (137-145); Total Bilirubin 0.4 mg/dL (0.2-1.3); Total Protein 4.7 g/dL (6.3-8.2)
[2019-02-13] MEDS ORDERED: SODIUM CHLORIDE 0.9% 500 ML 500 ML IV ONE (13:52)
[2019-02-13] MEDS ORDERED: MAGNESIUM SULFATE-D5W PMX 1 GM in DEXTROSE/WATER 1 100ML.BAG IVPB ONE (13:53)
[2019-02-13] MEDS: SODIUM CHLORIDE 0.9% 1,000 ML IV SCH (15:02)
--- NOTE | 2019-02-13 15:13 | CT ---
EXAMINATION TYPE: CT abdomen pelvis w con DATE OF EXAM: 02/13/2019 COMPARISON: 02/01/2019 INDICATION: GI bleed DLP: 1850.9 mGycm, Automated exposure control for dose reduction was used. CONTRAST: 100 mL of Isovue 300. Study performed without Oral Contrast TECHNIQUE: Axial images were obtained from above the diaphragm to the pubic rami in the axial plane a t 5 mm thick sections. Reconstructed images are reviewed on the computer in the coronal plane. FINDINGS: Limited CT sections are obtained the lung bases. The lung bases are clear. There is a small left an d small right pleural effusion. Small amount of compressive atelectasis is likely adjacent to the rig ht pleural effusion. A nodule is not excluded measuring 0.6 cm. Series 201 image 5. Follow-up is theresa mmended. Moderate size hiatal hernia is present. Vascular calcification within the aortic valve or aortic root may be present. CT ABDOMEN: Liver: Normal Spleen: Normal Pancreas: Normal Adrenal glands: The adrenal glands are normal. Gallbladder: Normal Kidneys: No masses are evident. No hydronephrosis is present. No cysts are present. Delayed images were obtained through the kidneys, which remain unremarkable. Aorta: Vascular calcification is within the aorta. Inferior vena cava: Normal. CT PELVIS: Loops of bowel within the abdomen and pelvis are normal. There are loops of bowel which are incom pletely distended or lack oral contrast limiting their evaluation. Appendix: Not identified. Suspicious inflammatory changes or dilated tubular structures are not ident ified. Urinary bladder: Decompressed with a Camara catheter. Genitourinary structures: Uterus appears normal. Adnexal regions are clear. Osseous structures: No suspicious lytic or sclerotic lesions. IMPRESSIONS: 1. Small bilateral pleural effusions. 2. Small nodule at the right lung base. This is adjacent to the pleural effusion and the compressive atelectasis. 3. No suspicious bowel loops identified.
[2019-02-13] MEDS ORDERED: NALOXONE 0.4 MG/ML 1 ML VIAL IV PRN (15:24)
[2019-02-13] MEDS ORDERED: ACETAMINOPHEN TAB 325 MG TAB PO PRN (15:24)
[2019-02-13 16:40] LABS: Glucose,Whole Blood 186 mg/dL (75-99)
[2019-02-13] MEDS ORDERED: ESCITALOPRAM 5 MG TAB PO PRN (18:13)
[2019-02-13] MEDS: ALPRAZolam 0.5 MG TAB PO SCH (18:53)
[2019-02-13] MEDS: MELATONIN 3 MG TABLET PO SCH (20:27)
[2019-02-13] MEDS: QUEtiapine 50 MG TAB PO SCH (20:27)
[2019-02-13] MEDS: PANTOPRAZOLE 40 MG/10 ML VIAL IVP SCH (20:27)
[2019-02-13 20:35] LABS: Glucose,Whole Blood 168 mg/dL (75-99)
[2019-02-13] MEDS: INSULIN DETEMIR (LEVEMIR) 100 UNIT/ML SYR SQ SCH (20:42)
[2019-02-13] MEDS: INSULIN ASPART (NovoLOG) 100 UNIT/ML VIAL SQ SCH (20:42)
[2019-02-14 05:37] LABS: HCT 24.4 % (34.0-46.0); HGB 8.4 gm/dL (11.4-16.0); MCH 33.4 pg (25.0-35.0); MCHC 34.6 g/dL (31.0-37.0); MCV 96.5 fL (80.0-100.0); Mean Platelet Volume 7.3; Platelet Count 198 k/uL (150-450); Poikilocytosis Slight; RBC 2.52 m/uL (3.80-5.40); RDW 15.1 % (11.5-15.5); WBC 6.5 k/uL (3.8-10.6)
[2019-02-14 05:40] LABS: Glucose,Whole Blood 94 mg/dL (75-99)
[2019-02-14] MEDS: SODIUM CHLORIDE 0.9% 1,000 ML IV SCH ×4 (05:46→23:15)
[2019-02-14] MEDS: INSULIN ASPART (NovoLOG) 100 UNIT/ML VIAL SQ SCH ×3 (05:55→18:21)
[2019-02-14] MEDS ORDERED: SODIUM CHLORIDE 0.9% 1,000 ML IV ONE ×2 (06:28→09:07)
[2019-02-14 06:29] LABS: Calcium 7.6 mg/dL (8.4-10.2); Magnesium 1.7 mg/dL (1.6-2.3); Phosphorus 2.9 mg/dL (2.5-4.5); Potassium 4.3 mmol/L (3.5-5.1)
--- NOTE | 2019-02-14 08:35 | HP ---
HISTORY AND PHYSICAL This 73-year-old female with dementia, coffee-ground emesis, had a large coffee-grounds emesis at which time she came to the hospital. She appears to be hypotensive overnight with blood pressures in the 70s over 60s up to 90 over 60s. She is resting comfortably at this time. She has bad dementia. MEDICATIONS: Medications at home include Zocor, iron, melatonin, aspirin, Zyrtec, Lasix, Synthroid, Seroquel, Lipitor, Zantac, Colace, Lexapro, Lasix, Neurontin, Cozaar, Lopressor, omeprazole, K-Dur. ALLERGIES: LIPITOR, VASOTEC, DARVOCET. PAST MEDICAL HISTORY: Atrial fibrillation, cancer, diabetes mellitus, GERD, dyslipidemia, hypertension, severe dementia, renal disease, hypothyroidism, history of paroxysmal atrial fib, ventricular tachycardia, non-Hodgkin's lymphoma, chemotherapy in 2016, chronic renal disease stage 3, varicosities, generalized anxiety, low back pain, right shoulder injury, left shoulder blister, allergic rhinitis, sleep disorder, impotence. PAST SURGICAL HISTORY: Breast surgery, hernia repair, joint replacement, tubal ligation, right knee replacement, right shoulder replacement, bilateral cataracts removed. FAMILY HISTORY: Sister with cancer of the uterus. PHYSICAL EXAMINATION: Temp 98.4, blood pressure is 90 to100 systolic over 60s to 70s, pulse 84, respiratory 16 to 18. Multiple fluid boluses were given overnight. ABDOMEN: Seems soft, normal bowel sounds. Incision clean, dry, intact. She does not appear to be tender. NEUROLOGIC: Alert and oriented x0. PSYCH: She is responding to her normal affect at this time. SKIN: No rashes. ENDOCRINE: BMI is over 40. ENT: No mass. EKG sinus rhythm. ASSESSMENT: 1. Acute coffee-ground emesis, suspect acute upper gastrointestinal bleed. 2. Acute on chronic anemia. Hemoglobin dropped a point. 3. Elevated lactic acidosis at 3.5. Rehydrate the patient, give her increased fluids today due to hypotension. Await for possibly EGD by either Surgery who operated on her last week for free air abdominal hernia or Gastroenterology whoever sees her first. MMODL / IJN: [id number] /
[2019-02-14] MEDS ORDERED: ePHEDrine SULFATE/0.9% NACL/PF 50 MG/5 ML SYRINGE IV ONE (08:44)
[2019-02-14] MEDS ORDERED: LIDOCAINE 1% INJ 10MG/ML (20 ML MDV) ONE (08:44)
[2019-02-14] MEDS ORDERED: PROPOFOL 10 MG/ML 20 ML VIAL IV ONE (08:44)
[2019-02-14] MEDS ORDERED: MIDAZOLAM 2 MG/2 ML VIAL ONE (08:44)
--- NOTE | 2019-02-14 08:53 | P.GSCN ---
History of Present Illness Consult date: 02/13/19 Reason for Consult: Upper GI bleed History of present illness: This a 73-year-old female who had a recent hospital admission for an incarcerate d ventral hernia. Patient was at the group home and had an episode of hematemesis. Patient was admitted to hospital for upper GI bleed. Patient is anemic. She is a poor historian due to underlying dementia Past Medical History Past Medical History: Atrial Fibrillation, Cancer, Diabetes Mellitus, GERD/Reflux, Hyperlipidemia, Hypertension, Memory Impairment, Osteoarthritis (OA), Renal Disease, Thyroid Disorder Additional Past Medical History / Comment(s): IDDM type II, neuropathy bilateral legs/feet, paroxysmal afib, Vtach, severe dementia, dysphagia, nonhodgkins lymphoma with last chemo 2015, neutropenia, anemia, goiter, received radioactive iodine-hypothyroid, CKD stage III, UTIs, UTI with sepsis, varicosities, generali zed arthritis, low back pain, R shoulder injury from fall in 2014, constipation, current wound coccyx-/L heel, L shoulder blister, allergic rhinitis, sleep disorder, incontinence. History of Any Multi-Drug Resistant Organisms: None Reported Past Surgical History: Back Surgery, Breast Surgery, Hernia Repair, Joint Replacement, Tubal Ligation Additional Past Surgical History / Comment(s): rt knee replacement, rt shoulder replacement, low back surgery-has screws, back injections, bilateral cataracts removed/lens implants, L breast biopsy, colonoscopy. Past Anesthesia/Blood Transfusion Reactions: Previous Problems w/ Anesthesia Additional Past Anesthesia/Blood Transfusion Reaction / Comm: years ago had diff breathing with anesthesia Smoking Status: Never smoker - Past Family History Sister(s) Family Medical History: Cancer Additional Family Medical History / Comment(s): Uterine cancer Medications and Allergies Home Medications Medication Instructions Recorded Confirmed Type Simvastatin [Zocor] 40 mg PO DAILY 07/08/16 02/13/19 History Ferrous Sulfate [Iron (65 MG 325 mg PO DAILY 10/29/17 02/13/19 History Elemental)] Cranberry Fruit Concentrate 450 mg PO BID 02/13/18 02/13/19 History [Cranberry] Melatonin 3 mg PO HS@199902/13/18 02/13/19 History Aspirin EC [Ecotrin Low Dose] 81 mg PO HS 01/31/19 02/13/19 History Cetirizine HCl [Zyrtec] 10 mg PO HS 01/31/19 02/13/19 History Furosemide [Lasix] 20 mg PO DAILY PRN 01/31/19 02/13/19 History Levothyroxine Sodium [Synthroid] 125 mcg PO DAILY 01/31/19 02/13/19 History Magnesium Hydroxide [Milk of 2,400 mg PO DAILY PRN 01/31/19 02/13/19 History Magnesia] QUEtiapine [SEROquel] 150 mg PO HS 01/31/19 02/13/19 History Ranitidine HCl [Zantac] 75 mg PO BID 01/31/19 02/13/19 History ALPRAZolam [Xanax] 0.5 mg PO BID #6 tab 02/10/19 02/13/19 Rx Acetaminophen Tab [Tylenol] 650 mg PO Q6HR PRN tab 02/10/19 02/13/19 Rx Ibuprofen [Motrin] 400 mg PO Q6HR PRN tab 02/10/19 02/13/19 Rx Insulin Glargine [Lantus] 7 unit SQ HS #0 02/10/19 02/13/19 Rx Atorvastatin [Lipitor] 40 mg PO HS 02/13/19 02/13/19 History Divalproex [Depakote] 250 mg PO TID@0800,1200,1800 02/13/19 02/13/19 History Docusate [Colace] 100 mg PO PC-SUPPER 02/13/19 02/13/19 History Escitalopram [Lexapro] 5 mg PO DAILY PRN 02/13/19 02/13/19 History Furosemide [Lasix] 40 mg PO DAILY PRN 02/13/19 02/13/19 History Gabapentin [Neurontin] 300 mg PO DAILY 02/13/19 02/13/19 History INSULIN LISPRO (HumaLOG) [humaLOG] See Protocol SQ ACHS 02/13/19 02/13/19 History Losartan [Cozaar] 12.5 mg PO DAILY 02/13/19 02/13/19 History Metoprolol Tartrate [Lopressor] 100 mg PO BID 02/13/19 02/13/19 History Nitroglycerin Sl Tabs [Nitrostat] 0.4 mg SL Q5M 02/13/19 02/13/19 History Omeprazole 20 mg PO DAILY 02/13/19 02/13/19 History Potassium Chloride ER [K-Dur 20] 20 meq PO DAILY 02/13/19 02/13/19 History Pro-Stat Sugar Free 30 ml PO BID 02/13/19 02/13/19 History Allergies Allergy/AdvReac Type Severity Reaction Status Date / Time atorvastatin [From Lipitor] Allergy Unknown Verified 02/13/19 12:13 codeine Allergy Unknown Verified 02/13/19 12:20 enalaprilat [From Vasotec] Allergy Unknown Verified 02/13/19 12:13 propoxyphene napsylate Allergy Unknown Verified 02/13/19 12:13 [From Darvocet-N] Sulfa (Sulfonamide Allergy Itching,daniela Verified 02/13/19 12:13 Antibiotics) h Surgical - Exam Vital Signs Temp Pulse Resp BP Pulse Ox 98.4 F 84 18 132/81 94 L 02/13/19 12:11 02/13/19 12:11 02/13/19 12:11 02/13/19 12:11 02/13/19 12:11 - General well developed, well nourished, no distress - Eyes PERRL - ENT normal pinna - Neck no masses - Respiratory normal expansion - Cardiovascular Rhythm: regular - Abdomen Healing laparotomy scar Abdomen: soft, non tender Results - Labs 02/14/19 05:21 02/14/19 05:21 Abnormal Lab Results - Last 24 Hours (Table) 02/13/19 02/13/19 02/13/19 Range/Units 12:38 12:38 12:38 RBC 3.31 L (3.80-5.40) m/uL Hgb 10.7 L (11.4-16.0) gm/dL Hct 31.8 L (34.0-46.0) % Lymphocytes # 0.6 L (1.0-4.8) k/uL BUN 22 H (7-17) mg/dL Glucose 215 H (74-99) mg/dL POC Glucose (mg/dL) (75-99) mg/dL Plasma Lactic Acid Ismael 3.5 H* (0.7-2.0) mmol/L Calcium 8.2 L (8.4-10.2) mg/dL Magnesium 1.5 L (1.6-2.3) mg/dL Alkaline Phosphatase 172 H (38-126) U/L Total Protein 4.7 L (6.3-8.2) g/dL Albumin 2.5 L (3.5-5.0) g/dL 02/13/19 02/13/19 02/14/19 Range/Units 16:38 20:34 05:21 RBC 2.52 L (3.80-5.40) m/uL Hgb 8.4 L D (11.4-16.0) gm/dL Hct 24.4 L (34.0-46.0) % Lymphocytes # (1.0-4.8) k/uL BUN (7-17) mg/dL Glucose (74-99) mg/dL POC Glucose (mg/dL) 186 H 168 H (75-99) mg/dL Plasma Lactic Acid Ismael (0.7-2.0) mmol/L Calcium (8.4-10.2) mg/dL Magnesium (1.6-2.3) mg/dL Alkaline Phosphatase (38-126) U/L Total Protein (6.3-8.2) g/dL Albumin (3.5-5.0) g/dL 02/14/19 Range/Units 05:21 RBC (3.80-5.40) m/uL Hgb (11.4-16.0) gm/dL Hct (34.0-46.0) % Lymphocytes # (1.0-4.8) k/uL BUN 22 H (7-17) mg/dL Glucose (74-99) mg/dL POC Glucose (mg/dL) (75-99) mg/dL Plasma Lactic Acid Ismael (0.7-2.0) mmol/L Calcium 7.6 L (8.4-10.2) mg/dL Magnesium (1.6-2.3) mg/dL Alkaline Phosphatase (38-126) U/L Total Protein (6.3-8.2) g/dL Albumin (3.5-5.0) g/dL Diabetes panel 02/13/19 02/14/19 Range/Units 12:38 05:21 Sodium 139 137 (137-145) mmol/L Potassium 3.9 4.3 (3.5-5.1) mmol/L Chloride 103 107 (98-107) mmol/L Carbon Dioxide 29 27 (22-30) mmol/L BUN 22 H 22 H (7-17) mg/dL Creatinine 0.67 0.77 (0.52-1.04) mg/dL Glucose 215 H 83 (74-99) mg/dL Calcium 8.2 L 7.6 L (8.4-10.2) mg/dL AST 20 (14-36) U/L ALT 12 (9-52) U/L Alkaline Phosphatase 172 H (38-126) U/L Total Protein 4.7 L (6.3-8.2) g/dL Albumin 2.5 L (3.5-5.0) g/dL Calcium panel 02/13/19 02/14/19 Range/Units 12:38 05:21 Calcium 8.2 L 7.6 L (8.4-10.2) mg/dL Phosphorus 2.9 (2.5-4.5) mg/dL Albumin 2.5 L (3.5-5.0) g/dL Pituitary panel 02/13/19 02/14/19 Range/Units 12:38 05:21 Sodium 139 137 (137-145) mmol/L Potassium 3.9 4.3 (3.5-5.1) mmol/L Chloride 103 107 (98-107) mmol/L Carbon Dioxide 29 27 (22-30) mmol/L BUN 22 H 22 H (7-17) mg/dL Creatinine 0.67 0.77 (0.52-1.04) mg/dL Glucose 215 H 83 (74-99) mg/dL Calcium 8.2 L 7.6 L (8.4-10.2) mg/dL Adrenal panel 02/13/19 02/14/19 Range/Units 12:38 05:21 Sodium 139 137 (137-145) mmol/L Potassium 3.9 4.3 (3.5-5.1) mmol/L Chloride 103 107 (98-107) mmol/L Carbon Dioxide 29 27 (22-30) mmol/L BUN 22 H 22 H (7-17) mg/dL Creatinine 0.67 0.77 (0.52-1.04) mg/dL Glucose 215 H 83 (74-99) mg/dL Calcium 8.2 L 7.6 L (8.4-10.2) mg/dL Total Bilirubin 0.4 (0.2-1.3) mg/dL AST 20 (14-36) U/L ALT 12 (9-52) U/L Alkaline Phosphatase 172 H (38-126) U/L Total Protein 4.7 L (6.3-8.2) g/dL Albumin 2.5 L (3.5-5.0) g/dL Assessment and Plan Assessment: Upper GI bleed. Patient will undergo EGD.
--- NOTE | 2019-02-14 09:01 | P.CNPUL ---
History of Present Illness Consult date: 02/14/19 Reason for consult: dyspnea, other Chief complaint: Coffee-ground emesis, lactic acidosis, pleural effusion, nodule rll History of present illness: This is a 73-year-old female who has advanced dementia, presented into emergency department after that noted to have coffee-ground emesis patient is postop ventral hernia repair 2 weeks ago she is dehydrated as well she was found to have elevated lactic acid level which is thought to be related to dehydration due to advanced dementia but unable to obtain detailed history from the patient did I obtained from the chart, her hemoglobin came down to 8.4 from 10.7, patient is on Protonix in addition has been hydrated with 150mL/h, white cell count is normal Review of Systems All systems: negative Past Medical History Past Medical History: Atrial Fibrillation, Cancer, Diabetes Mellitus, GE RD/Reflux, Hyperlipidemia, Hypertension, Memory Impairment, Osteoarthritis (OA), Renal Disease, Thyroid Disorder Additional Past Medical History / Comment(s): IDDM type II, neuropathy bilateral legs/feet, paroxysmal afib, Vtach, severe dementia, dysphagia, nonhodgkins lymphoma with last chemo 2015, neutropenia, anemia, goiter, received radioactive iodine-hypothyroid, CKD stage III, UTIs, UTI with sepsis, varicosities, generalized arthritis, low back pain, R shoulder injury from fall in 2014, constipation, current wound coccyx-/L heel, L shoulder blister, allergic rhini tis, sleep disorder, incontinence. History of Any Multi-Drug Resistant Organisms: None Reported Past Surgical History: Back Surgery, Breast Surgery, Hernia Repair, Joint Replacement, Tubal Ligation Additional Past Surgical History / Comment(s): rt knee replacement, rt shoulder replacement, low back surgery-has screws, back injections, bilateral cataracts removed/lens implants, L breast biopsy, colonoscopy. Past Anesthesia/Blood Transfusion Reactions: Previous Problems w/ Anesthesia Additional Past Anesthesia/Blood Transfusion Reaction / Comment(s): years ago had diff breathing with anesthesia Smoking Status: Never smoker - Past Family History Sister(s) Family Medical History: Cancer Additional Family Medical History / Comment(s): Uterine cancer Medications and Allergies Home Medications Medication Instructions Recorded Confirmed Type Simvastatin [Zocor] 40 mg PO DAILY 07/08/16 02/13/19 History Ferrous Sulfate [Iron (65 MG 325 mg PO DAILY 10/29/17 02/13/19 History Elemental)] Cranberry Fruit Concentrate 450 mg PO BID 02/13/18 02/13/19 History [Cranberry] Melatonin 3 mg PO HS@199902/13/18 02/13/19 History Aspirin EC [Ecotrin Low Dose] 81 mg PO HS 01/31/19 02/13/19 History Cetirizine HCl [Zyrtec] 10 mg PO HS 01/31/19 02/13/19 History Furosemide [Lasix] 20 mg PO DAILY PRN 01/31/19 02/13/19 History Levothyroxine Sodium [Synthroid] 125 mcg PO DAILY 01/31/19 02/13/19 History Magnesium Hydroxide [Milk of 2,400 mg PO DAILY PRN 01/31/19 02/13/19 History Magnesia] QUEtiapine [SEROquel] 150 mg PO HS 01/31/19 02/13/19 History Ranitidine HCl [Zantac] 75 mg PO BID 01/31/19 02/13/19 History ALPRAZolam [Xanax] 0.5 mg PO BID #6 tab 02/10/19 02/13/19 Rx Acetaminophen Tab [Tylenol] 650 mg PO Q6HR PRN tab 02/10/19 02/13/19 Rx Ibuprofen [Motrin] 400 mg PO Q6HR PRN tab 02/10/19 02/13/19 Rx Insulin Glargine [Lantus] 7 unit SQ HS #0 02/10/19 02/13/19 Rx Atorvastatin [Lipitor] 40 mg PO HS 02/13/19 02/13/19 History Divalproex [Depakote] 250 mg PO TID@0800,1200,1800 02/13/19 02/13/19 History Docusate [Colace] 100 mg PO PC-SUPPER 02/13/19 02/13/19 History Escitalopram [Lexapro] 5 mg PO DAILY PRN 02/13/19 02/13/19 History Furosemide [Lasix] 40 mg PO DAILY PRN 02/13/19 02/13/19 History Gabapentin [Neurontin] 300 mg PO DAILY 02/13/19 02/13/19 History INSULIN LISPRO (HumaLOG) [humaLOG] See Protocol SQ ACHS 02/13/19 02/13/19 History Losartan [Cozaar] 12.5 mg PO DAILY 02/13/19 02/13/19 History Metoprolol Tartrate [Lopressor] 100 mg PO BID 02/13/19 02/13/19 History Nitroglycerin Sl Tabs [Nitrostat] 0.4 mg SL Q5M 02/13/19 02/13/19 History Omeprazole 20 mg PO DAILY 02/13/19 02/13/19 History Potassium Chloride ER [K-Dur 20] 20 meq PO DAILY 02/13/19 02/13/19 History Pro-Stat Sugar Free 30 ml PO BID 02/13/19 02/13/19 History Allergies Allergy/AdvReac Type Severity Reaction Status Date / Time atorvastatin [From Lipitor] Allergy Unknown Verified 02/13/19 12:13 codeine Allergy Unknown Verified 02/13/19 12:20 enalaprilat [From Vasotec] Allergy Unknown Verified 02/13/19 12:13 propoxyphene napsylate Allergy Unknown Verified 02/13/19 12:13 [From Darvocet-N] Sulfa (Sulfonamide Allergy Itching,daniela Verified 02/13/19 12:13 Antibiotics) h Physical Exam Vitals: Vital Signs Temp Pulse Pulse Resp BP BP Pulse Ox 02/14/19 08:12 96.4 F L 75 16 79/42 99 02/14/19 07:59 96.4 F L 75 16 90/52 99 02/14/19 05:47 107/65 02/14/19 05:40 76 89/61 98 02/14/19 05:26 79 91/61 02/14/19 05:10 67/41 02/14/19 04:55 96/63 02/14/19 04:15 85 85/49 95 02/14/19 03:40 98.2 F 80 16 109/67 94 L 02/14/19 00:46 102 H 15 129/70 97 02/13/19 20:21 98.4 F 87 15 123/55 98 02/13/19 16:00 79 17 128/72 97 02/13/19 12:11 98.4 F 84 18 132/81 94 L Intake and Output 02/13/19 02/14/19 02/14/19 22:59 06:59 14:59 Intake Total 1600 Output Total 925 Balance 675 Intake: Intake, IV Titration 1600 Amount Sodium Chloride 0.9% 1, 600 000 ml @ 150 mls/hr IV . Q6H40M [facility] Rx#:[id number] Sodium Chloride 0.9% 1, 1000 000 ml @ 999 mls/hr IV . Q1H1M [facility] Rx#:[id number] Output: Urine 925 Other: Voiding Method Indwelling Catheter # Voids 0 1 # Bowel Movements 0 0 Weight 91.5 kg - Constitutional General appearance: average body habitus, cooperative, disheveled - EENT Periorbital ecchymosis bilaterally noted probably related to fall Eyes: EOMI, PERRLA, poor dentition, normal appearance Ears: bilateral: normal - Neck Carotids: bilateral: upstroke normal Thyroid: bilateral: normal size - Respiratory Respiratory: bilateral: CTA - Cardiovascular Rhythm: regular Heart sounds: normal: S1, S2 - Gastrointestinal General gastrointestinal: decreased bowel sounds, normal bowel sounds, soft - Integumentary Integumentary: decreased turgor - Neurologic Neurologic: CNII-XII intact - Musculoskeletal Musculoskeletal: gait normal, generalized weakness, strength equal bilaterally - Psychiatric Oriented 1 only Psychiatric: appropriate affect Results - Laboratory Findings CBC and BMP: 02/14/19 05:21 02/14/19 05:21 Abnormal lab findings: Abnormal Labs 02/13/19 02/13/19 02/13/19 12:38 12:38 12:38 RBC 3.31 L Hgb 10.7 L Hct 31.8 L Lymphocytes # 0.6 L BUN 22 H Glucose 215 H POC Glucose (mg/dL) Plasma Lactic Acid Ismael 3.5 H* Calcium 8.2 L Magnesium 1.5 L Alkaline Phosphatase 172 H Total Protein 4.7 L Albumin 2.5 L 02/13/19 02/13/19 02/14/19 16:38 20:34 05:21 RBC 2.52 L Hgb 8.4 L D Hct 24.4 L Lymphocytes # BUN Glucose POC Glucose (mg/dL) 186 H 168 H Plasma Lactic Acid Ismael Calcium Magnesium Alkaline Phosphatase Total Protein Albumin 02/14/19 05:21 RBC Hgb Hct Lymphocytes # BUN 22 H Glucose POC Glucose (mg/dL) Plasma Lactic Acid Ismael Calcium 7.6 L Magnesium Alkaline Phosphatase Total Protein Albumin Assessment and Plan Assessment: Small pleural effusion most likely related to protein calorie malnourishment Right lower lobe lung nodule, will observe Exertional shortness of breath Lactic acidosis likely related to dehydration repeat levels are normal Coffee-ground emesis with falling hemoglobin some contribution appears to be related to rehydration Plan: Agree with GI consult/surgical consult Monitor hemoglobin closely if less than 8 we'll type and crossmatch and transfuse In the meantime we'll rehydrate the patient however in next 12 hours we'll cut down the IV fluid to 75 mL Proton pump inhibitor Improved nutritional status Further recommendations pending plan of care as per clinical response of patient Time with Patient: Greater than 30
--- NOTE | 2019-02-14 09:07 | P.OP ---
Date of Procedure: 02/14/19 Preoperative Diagnosis: Upper GI bleed Postoperative Diagnosis: Antral gastritis Large hiatal hernia Esophagitis Procedure(s) Performed: EGD Anesthesia: MAC Surgeon: Nader Buchanan Pathology: other (Antrum, esophagus) Condition: stable Disposition: PACU Description of Procedure: The patient's placed on the endoscopy table in the lateral position. She received IV sedation. The gastroscope placed oropharynx passed in the esophagus and the stomach. Scope some placed through the pylorus. The first and second portion of the duodenum appeared normal. There is no evidence of blood in the upper GI tract. The scope was then brought back the antrum this was mildly inflamed. A biopsies performed. The scope was then retroflexed and the remainder of the stomach appeared normal. There was a moderate size hiatal hernia. The distal esophagus appeared inflamed. The GE junction was at 38 cm. There was evidence of scarring esophagus. This area was biopsied. The proximal esophagus appeared normal. Scope withdrawn for patient.
[2019-02-14] MEDS ORDERED: SODIUM CHLORIDE 0.9% 500 ML 500 ML IV ONE ×3 (09:09→16:23)
[2019-02-14] MEDS: ALPRAZolam 0.5 MG TAB PO SCH ×2 (11:06→18:21)
--- NOTE | 2019-02-14 11:33 | CDI ---
Documentation Clarification Form Date: 02/14/2019 11:23:04 AM From: Beverley CareyGermanERICK moore, CCDS Admit Date: 02/14/2019 10:15:00 AM Patient Name: Carla Crowley Visit Number: [id number] Discharge Date: ATTENTION: The Clinical Documentation Specialists (CDI) and [facility] Coding Staff appreciate your assistance in clarifying documentation. Please respond to the clarification below the line at the bottom and electronically sign. The CDI & [facility] Coding staff will review the response and follow-up if needed. Please note: Queries are made part of the Legal Health Record. If you have any questions, please contact the author of this message via ITS. Dr. Rc Barr: A diagnosis of anemia lacks specificity to accurately reflect your patients severity of condition and clarification is needed. Per the History & Physical: Acute on chronic anemia with hemoglobin drop. History/Risk Factors: 2 weeks postop incarcerated ventral hernia. Paroxysmal Atrial Fibrillation, IDDM II, Severe dementia, Hypothyroidism, Non-Hodgkin's Lymphoma. Clinical indicators: Presented with upper GI bleed from [facility], dehydrated, anemic. Hemoglobin: 10.7 - 8.4* Hematocrit: 31.8 - 24.4 Treatment: EGD on 02/14: Gastritis, Large hiatal hernia. IV Zofran, IV PPI, IV fluid bolus x2, IV MagSulfate. EGD on 02/14. In order to capture the severity of condition, please clarify the type of anemia and etiology if known: Acute blood loss anemia Acute on chronic blood loss anemia Chronic blood loss anemia Iron deficiency anemia Hemolytic anemia Drug induced anemia Nutritional anemia Anemia of chronic kidney disease, specify if known Unable to determine Other, please specify (Last Revision: June 2017) MTDD
--- NOTE | 2019-02-14 11:49 | CDI ---
Documentation Clarification Form Date: 02/14/2019 11:34:45 AM From: Beverley GermanERICK moore, CCDS Admit Date: 02/14/2019 10:15:00 AM Patient Name: Carla Crwoley Visit Number: [id number] Discharge Date: ATTENTION: The Clinical Documentation Specialists (CDI) and [facility] Coding Staff appreciate your assistance in clarifying documentation. Please respond to the clarification below the line at the bottom and electronically sign. The CDI & [facility] Coding staff will review the response and follow-up if needed. Please note: Queries are made part of the Legal Health Record. If you have any questions, please contact the author of this message via ITS. Dr. Kip Uriarte: Per your pulmonary consult: "Small pleural effusion most likely related to protein calorie malnourishment". History/Risk Factors: Paroxysmal Atrial Fibrillation, IDDM II, GERD, Hypertension, Severe dementia, Chronic renal disease. Hx non-Hodgkin's lymphoma status post chemo in 2015. Clinical Indicators: Presented from skilled nursing with upper GI bleed, EGD 02/14: gastritis & large hiatal hernia. 2 weeks postop repair of incarcerated ventral hernia. Per nursing notes: Pressure Ulcers: left buttock stage II, left heel unstageable, left shoulder stage II. Severely weak, rigid poor motor strength, mild pitting 1+ bilateral lower extremities. Moderate pitting edema 2+ left foot. Labs: total protein: 4.7*, Albumin 2.5* Current BMI: 32.6 Treatment: Insulin sliding scale, IV Zofran, IV Protonix, IV fluid bolus x2, IV MagSulfate, IV fluid rate 75, H & H. In your professional opinion, can you please clarify if these findings signify one of the following conditions? Severe Protein-Calorie Malnutrition Malnutrition following GI surgery (Last Revision: December 2017) MTDD
[2019-02-14] MEDS: DIVALPROEX 250 MG TABLET.DR PO SCH ×3 (11:53→19:06)
[2019-02-14] MEDS: PANTOPRAZOLE 40 MG/10 ML VIAL IVP SCH ×2 (11:53→20:13)
[2019-02-14 11:58] LABS: Glucose,Whole Blood 90 mg/dL (75-99)
--- NOTE | 2019-02-14 12:04 | CDI ---
Documentation Clarification Form Date: 02/14/2019 11:54:34 AM From: Beverley German CCS, CCDS Admit Date: 02/14/2019 10:15:00 AM Patient Name: Carla Crowley Visit Number: [id number] Discharge Date: ATTENTION: The Clinical Documentation Specialists (CDI) and [facility] Coding Staff appreciate your assistance in clarifying documentation. Please respond to the clarification below the line at the bottom and electronically sign. The CDI & [facility] Coding staff will review the response and follow-up if needed. Please note: Queries are made part of the Legal Health Record. If you have any questions, please contact the author of this message via ITS. Dr. Rc Barr: Pressure ulcers have been documented by nursing in the wound assessment as Left Buttock Stage II, Left Heel Unstageable, Left Shoulder Stage II. History/Risk Factors: IDDM II, Anemia, Hypertension, Paroxysmal Atrial Fibrillation, severe dementia, CKD III, Hypothyroidism, non-Hodgkin's lymphoma status post chemo in 2016, Generalized anxiety. Clinical Indicators: Admitted from [facility] with upper GI bleed & anemia, documented malnourishment. Pressure ulcers as described above. Treatment: IV fluid hydration, IV Zofran, IV PPI, IV MagSulf, EGD: gastritis & hiatal hernia. In your professional opinion, can you please clarify the diagnosis, location, laterality of the documented pressure ulcer and whether present on admission (POA): Stage 1 Pressure/Decubitus Ulcer (intact skin, non-blanching redness of local area) Stage 2 Pressure/Decubitus Ulcer (Partial thickness, loss of dermis, pink wound bed) Stage 3 Pressure/Decubitus Ulcer (Full thickness tissue loss) Stage 4 Pressure/Decubitus Ulcer (Full thickness tissue loss with exposed bone, tendon, or muscle. May have slough or eschar present) Unstageable Other condition, please specify Unable to determine Please indicate etiology of pressure ulcer (if known): POA: Yes or No (Last Revision: June 2017) MTDD
--- NOTE | 2019-02-14 13:18 | P.CONS ---
History of Present Illness - Reason for Consult Consult date: 02/14/19 GI bleeding Requesting physician: Rc Barr - Chief Complaint Coffee-ground emesis - History of Present Illness 73-year-old female with a history of non-Hodgkin's lymphoma, anemia, dementia recent incarcerated ventral hernia repair less than 2 weeks ago; history obtain ed from medical records and nursing staff admitted with coffee-ground emesis. She underwent EGD evaluation with general surgery this morning with findings of large hiatal hernia antral gastritis and esophagitis. Per nursing no further reports of hematemesis. No reports of hematochezia or melena. Admission hemoglobin 10.7 presently 8.4. MCV 96. Platelet 198. White count 6.5. BUN 22. Creatinine 0.6. Review of previous hemoglobins averages between 7-11. According to medical records no recent colonoscopy in fact ensure patient is ever had a colonoscopy. No fevers or chills. Patient was receiving Zantac twice daily as well as Motrin as needed prior to admission. CT abdomen small bilateral pleural effusions no suspicious bowel loops identified. Review of Systems Constitutional: Denies fever, chills, sweats, weight gain, or loss. Dementia. HEENT: Negative for migraines, blurred vision or loss, earaches, drainage, tinnitus, oral mucosal lesions, dysphagia, or odynophagia. CARDIAC: Negative for chest pain, arrhythmias, or palpitation. RESPIRATORY: Negative for shortness of breath, hemoptysis, cough, or sputum production. GI: See HPI for pertinent findings. : Negative for hematuria, urgency, frequency, polyuria, or dysuria. GYNc: Denies possibility of . Negative vaginal discharge. MUSCULOSKELETAL: Negative for muscle aches, swelling, arthritis, and arthralgias. NEUROLOGIC: Negative for stroke or TIA. ENDOCRINE: Negative for thyroid problems. SKIN: Negative for rash or itching. PSYCHIATRIC: Dementia. ROS unobtainable: due to mental status Past Medical History Past Medical History: Atrial Fibrillation, Cancer, Diabetes Mellitus, GERD/Reflu x, Hyperlipidemia, Hypertension, Memory Impairment, Osteoarthritis (OA), Renal Disease, Thyroid Disorder Additional Past Medical History / Comment(s): IDDM type II, neuropathy bilateral legs/feet, paroxysmal afib, Vtach, severe dementia, dysphagia, nonhodgkins lymphoma with last chemo 2015, neutropenia, anemia, goiter, received radioactive iodine-hypothyroid, CKD stage III, UTIs, UTI with sepsis, varicosities, generalized arthritis, low back pain, R shoulder injury from fall in 2014, constipation, current wound coccyx-/L heel, L shoulder blister, allergic rhinitis, sleep disorder, incontinence. History of Any Multi-Drug Resistant Organisms: None Reported Past Surgical History: Back Surgery, Breast Surgery, Hernia Repair, Joint Replacement, Tubal Ligation Additional Past Surgical History / Comment(s): rt knee replacement, rt shoulder replacement, low back surgery-has screws, back injections, bilateral cataracts removed/lens implants, L breast biopsy, colonoscopy. Past Anesthesia/Blood Transfusion Reactions: Previous Problems w/ Anesthesia Additional Past Anesthesia/Blood Transfusion Reaction / Comm: years ago had diff breathing with anesthesia Smoking Status: Never smoker - Past Family History Sister(s) Family Medical History: Cancer Additional Family Medical History / Comment(s): Uterine cancer Medications and Allergies Home Medications Medication Instructions Recorded Confirmed Type Simvastatin [Zocor] 40 mg PO DAILY 07/08/16 02/13/19 History Ferrous Sulfate [Iron (65 MG 325 mg PO DAILY 10/29/17 02/13/19 History Elemental)] Cranberry Fruit Concentrate 450 mg PO BID 02/13/18 02/13/19 History [Cranberry] Melatonin 3 mg PO HS@199902/13/18 02/13/19 History Aspirin EC [Ecotrin Low Dose] 81 mg PO HS 01/31/19 02/13/19 History Cetirizine HCl [Zyrtec] 10 mg PO HS 01/31/19 02/13/19 History Furosemide [Lasix] 20 mg PO DAILY PRN 01/31/19 02/13/19 History Levothyroxine Sodium [Synthroid] 125 mcg PO DAILY 01/31/19 02/13/19 History Magnesium Hydroxide [Milk of 2,400 mg PO DAILY PRN 01/31/19 02/13/19 History Magnesia] QUEtiapine [SEROquel] 150 mg PO HS 01/31/19 02/13/19 History Ranitidine HCl [Zantac] 75 mg PO BID 01/31/19 02/13/19 History ALPRAZolam [Xanax] 0.5 mg PO BID #6 tab 02/10/19 02/13/19 Rx Acetaminophen Tab [Tylenol] 650 mg PO Q6HR PRN tab 02/10/19 02/13/19 Rx Ibuprofen [Motrin] 400 mg PO Q6HR PRN tab 02/10/19 02/13/19 Rx Insulin Glargine [Lantus] 7 unit SQ HS #0 02/10/19 02/13/19 Rx Atorvastatin [Lipitor] 40 mg PO HS 02/13/19 02/13/19 History Divalproex [Depakote] 250 mg PO TID@0800,1200,1800 02/13/19 02/13/19 History Docusate [Colace] 100 mg PO PC-SUPPER 02/13/19 02/13/19 History Escitalopram [Lexapro] 5 mg PO DAILY PRN 02/13/19 02/13/19 History Furosemide [Lasix] 40 mg PO DAILY PRN 02/13/19 02/13/19 History Gabapentin [Neurontin] 300 mg PO DAILY 02/13/19 02/13/19 History INSULIN LISPRO (HumaLOG) [humaLOG] See Protocol SQ ACHS 02/13/19 02/13/19 History Losartan [Cozaar] 12.5 mg PO DAILY 02/13/19 02/13/19 History Metoprolol Tartrate [Lopressor] 100 mg PO BID 02/13/19 02/13/19 History Nitroglycerin Sl Tabs [Nitrostat] 0.4 mg SL Q5M 02/13/19 02/13/19 History Omeprazole 20 mg PO DAILY 02/13/19 02/13/19 History Potassium Chloride ER [K-Dur 20] 20 meq PO DAILY 02/13/19 02/13/19 History Pro-Stat Sugar Free 30 ml PO BID 02/13/19 02/13/19 History Allergies Allergy/AdvReac Type Severity Reaction Status Date / Time atorvastatin [From Lipitor] Allergy Unknown Verified 02/13/19 12:13 codeine Allergy Unknown Verified 02/13/19 12:20 enalaprilat [From Vasotec] Allergy Unknown Verified 02/13/19 12:13 propoxyphene napsylate Allergy Unknown Verified 02/13/19 12:13 [From Darvocet-N] Sulfa (Sulfonamide Allergy Itching,daniela Verified 02/13/19 12:13 Antibiotics) h Physical Exam Vitals: Vital Signs Temp Pulse Pulse Resp BP BP Pulse Ox 02/14/19 12:21 68 16 102/64 95 02/14/19 10:50 74 16 96/52 02/14/19 10:35 68 16 106/62 98 02/14/19 10:17 76 18 90/52 97 02/14/19 09:50 16 89/54 97 02/14/19 09:30 68 16 94/58 99 02/14/19 08:15 90/52 02/14/19 08:12 96.4 F L 75 16 79/42 99 02/14/19 07:59 96.4 F L 75 16 90/52 99 02/14/19 05:47 107/65 02/14/19 05:40 76 89/61 98 02/14/19 05:26 79 91/61 02/14/19 05:10 67/41 02/14/19 04:55 96/63 02/14/19 04:15 85 85/49 95 02/14/19 03:40 98.2 F 80 16 109/67 94 L 02/14/19 00:46 102 H 15 129/70 97 02/13/19 20:21 98.4 F 87 15 123/55 98 02/13/19 16:00 79 17 128/72 97 Intake and Output 02/13/19 02/14/19 02/14/19 22:59 06:59 14:59 Intake Total 1600 750 Output Total 925 200 Balance 675 550 Intake: IV 300 Intake, IV Titration 1600 450 Amount Sodium Chloride 0.9% 1, 600 450 000 ml @ 150 mls/hr IV . Q6H40M [facility] Rx#:[id number] Sodium Chloride 0.9% 1, 1000 000 ml @ 999 mls/hr IV . Q1H1M ONE Rx#:[id number] Output: Urine 925 200 Other: Voiding Method Indwelling Catheter # Voids 0 1 # Bowel Movements 0 0 Weight 91.5 kg General appearance: The patient is awake in no acute distress. HET: Head is normocephalic and atraumatic. Pupils are equal and reactive. Oropharynx is clear without lesions. Neck: Supple without lymphadenopathy. Trachea midline. Heart: S1 S2. Regular rate and rhythm. Lungs: No crackles or wheezes are heard. Abdomen: Soft, midline incision with abhijeet will proximal main without erythema or drainage, nontender, nondistended with bowel sounds. No peritoneal signs. No palpable organomegaly or masses. Extremities: Trace lower extremity edema. Camara with clear lois urine. Neurological: No focal deficits. Strength and sensation are grossly intact. Results CBC & Chem 7: 02/14/19 05:21 02/14/19 05:21 Labs: Abnormal Lab Results - Last 24 Hours (Table) 02/13/19 02/13/19 02/13/19 Range/Units 12:38 12:38 12:38 RBC 3.31 L (3.80-5.40) m/uL Hgb 10.7 L (11.4-16.0) gm/dL Hct 31.8 L (34.0-46.0) % Lymphocytes # 0.6 L (1.0-4.8) k/uL BUN 22 H (7-17) mg/dL Glucose 215 H (74-99) mg/dL POC Glucose (mg/dL) (75-99) mg/dL Plasma Lactic Acid Ismael 3.5 H* (0.7-2.0) mmol/L Calcium 8.2 L (8.4-10.2) mg/dL Magnesium 1.5 L (1.6-2.3) mg/dL Alkaline Phosphatase 172 H (38-126) U/L Total Protein 4.7 L (6.3-8.2) g/dL Albumin 2.5 L (3.5-5.0) g/dL 02/13/19 02/13/19 02/14/19 Range/Units 16:38 20:34 05:21 RBC 2.52 L (3.80-5.40) m/uL Hgb 8.4 L D (11.4-16.0) gm/dL Hct 24.4 L (34.0-46.0) % Lymphocytes # (1.0-4.8) k/uL BUN (7-17) mg/dL Glucose (74-99) mg/dL POC Glucose (mg/dL) 186 H 168 H (75-99) mg/dL Plasma Lactic Acid Ismael (0.7-2.0) mmol/L Calcium (8.4-10.2) mg/dL Magnesium (1.6-2.3) mg/dL Alkaline Phosphatase (38-126) U/L Total Protein (6.3-8.2) g/dL Albumin (3.5-5.0) g/dL 02/14/19 Range/Units 05:21 RBC (3.80-5.40) m/uL Hgb (11.4-16.0) gm/dL Hct (34.0-46.0) % Lymphocytes # (1.0-4.8) k/uL BUN 22 H (7-17) mg/dL Glucose (74-99) mg/dL POC Glucose (mg/dL) (75-99) mg/dL Plasma Lactic Acid Ismael (0.7-2.0) mmol/L Calcium 7.6 L (8.4-10.2) mg/dL Magnesium (1.6-2.3) mg/dL Alkaline Phosphatase (38-126) U/L Total Protein (6.3-8.2) g/dL Albumin (3.5-5.0) g/dL CT scan - abdomen: report reviewed (Dr. Masters) Assessment and Plan (1) Coffee ground emesis Narrative/Plan: 73-year-old female advanced dementia history of non-Hodgkin's lymphoma acute on chronic anemia hiatal hernia with recent incarcerated ventral hernia repair presents with episode of coffee-ground emesis component of acute blood loss anemia. Status post EGD with findings of hiatal hernia and gastritis. No evidence of peptic ulcer disease or bleeding sources. Coffee-ground emesis could be on the basis of a Margaret-Avilez tear possible Jem erosions. On underlying small bowel possible colonic source cannot be excluded to account for her chronic anemia. Current Visit: Yes Status: Acute Code(s): K92.0 - HEMATEMESIS SNOMED Code(s): 88892499 (2) Hiatal hernia Current Visit: Yes Status: Acute Code(s): K44.9 - DIAPHRAGMATIC HERNIA WITHOUT OBSTRUCTION OR GANGRENE SNOMED Code(s): 70810061 (3) H/O ventral hernia repair Current Visit: Yes Status: Acute Code(s): Z98.890 - OTHER SPECIFIED POSTPROCEDURAL STATES; Z87.19 - PERSONAL HISTORY OF OTHER DISEASES OF THE DIGESTIVE SYSTEM SNOMED Code(s): 77617709594256 (4) Acute blood loss anemia Current Visit: Yes Status: Acute Code(s): D62 - ACUTE POSTHEMORRHAGIC ANEMIA SNOMED Code(s): 925357380 Plan: 1. Protonix 40 mg twice daily. CBC monitoring. Diet as tolerated. EGD performed by general surgery. Patient is not a candidate for inpatient colonoscopy at this time. Considerations for small bowel capsule endoscopy for further evaluation anemia as clinically necessary. Iron indices requested. Discharge per medicine. Thank you for this kind referral and the opportunity to participate in the care of your patient. This consultation was discussed with Dr. Masters. The impression and plan of care have been directed as dictated.
[2019-02-14] MEDS: GABAPENTIN 300 MG CAP PO SCH (15:36)
[2019-02-14 17:18] LABS: Glucose,Whole Blood 95 mg/dL (75-99)
[2019-02-14] MEDS: SUCRALFATE 1 GM TAB PO SCH (19:06)
[2019-02-14] MEDS: MELATONIN 3 MG TABLET PO SCH (20:13)
[2019-02-14] MEDS: QUEtiapine 50 MG TAB PO SCH (20:13)
[2019-02-14 20:52] LABS: Glucose,Whole Blood 131 mg/dL (75-99)
--- NOTE | 2019-02-14 21:42 | US ---
EXAMINATION TYPE: US venous doppler duplex LE LT DATE OF EXAM: 02/14/2019 9:18 PM COMPARISON: NONE CLINICAL HISTORY: swelling. SIDE PERFORMED: TECHNIQUE: The lower extremity deep venous system is examined utilizing real time linear array sonog wilman with graded compression, doppler sonography and color-flow sonography. VESSELS IMAGED: External Iliac Vein (EIV) Common Femoral Vein Deep Femoral Vein Greater Saphenous Vein * Femoral Vein Popliteal Vein Small Saphenous Vein * Proximal Calf Veins, not seen due to patient position (* superficial vessels) Preliminary results given to Terry Haile immediately following exam. Left Leg: Positive for DVT in left popliteal v., no flow and enlarged vein seen here. Probable superficial thrombus seen left mid thigh, this is believed to be a branch of GSV. IMPRESSION: There is acute deep venous thrombosis in the popliteal vein.
[2019-02-14] MEDS: INSULIN DETEMIR (LEVEMIR) 100 UNIT/ML SYR SQ SCH (23:14)
[2019-02-14] MEDS: HEPARIN SOD,PORK IN 0.45% NACL 25,000 UNIT in 0.45% NACL 1 250ML.BAG IV SCH (23:15)
--- NOTE | 2019-02-15 00:47 | P.CONS ---
History of Present Illness - Reason for Consult Consult date: 02/14/19 Sacrum and the left heel wound Requesting physician: cR Barr - Chief Complaint Coffee-ground emesis 1 day - History of Present Illness Patient is a 73-year-old female who has been brought into the ER at [facility] yesterday after pending the patient did have one episode of coffee-ground emesis subsequently the patient has been evaluated by the physician the patient did have CT of abdominal pelvis completed did not show any acute abnormality patient was subsequently admitted to the hospital for further management of her acute GI bleed she has been taken to endoscopy suite this morning and is status post EGD with evidence of antral gastritis and esophagitis and large irritable hernia and no evidence of any active bleeding patient has been started on proton pump inhibitor and sucralfate as the patient did have a wound to her circulating LFTs for which I was asked to see the patient for further recommendation regarding local wound care. History has been provided mostly by the and the patient to have advanced dementia and unable to provide reliable history and did not mention any specific issue to her sacral or the left heel wound , not very clear about current local wound care Review of Systems Positive points has been mentioned in HPI complete review could not be obtained because of advanced dementia Past Medical History Past Medical History: Atrial Fibrillation, Cancer, Diabetes Mellitus, GERD/Reflux, Hyperlipidemia, Hypertension, Memory Impairment, Osteoarthritis (OA), Renal Disease, Thyroid Disorder Additional Past Medical History / Comment(s): IDDM type II, neuropathy bilateral legs/feet, paroxysmal afib, Vtach, severe dementia, dysphagia, nonhodgkins lymphoma with last chemo 2015, neutropenia, anemia, goiter, received radioactive iodine-hypothyroid, CKD stage III, UTIs, UTI with sepsis, varicosities, ge neralized arthritis, low back pain, R shoulder injury from fall in 2014, constipation, current wound coccyx-/L heel, L shoulder blister, allergic rhinitis, sleep disorder, incontinence. History of Any Multi-Drug Resistant Organisms: None Reported Past Surgical History: Back Surgery, Breast Surgery, Hernia Repair, Joint Replacement, Tubal Ligation Additional Past Surgical History / Comment(s): rt knee replacement, rt shoulder replacement, low back surgery-has screws, back injections, bilateral cataracts removed/lens implants, L breast biopsy, colonoscopy. Past Anesthesia/Blood Transfusion Reactions: Previous Problems w/ Anesthesia Additional Past Anesthesia/Blood Transfusion Reaction / Comm: years ago had diff breathing with anesthesia Smoking Status: Never smoker - Past Family History Sister(s) Family Medical History: Cancer Additional Family Medical History / Comment(s): Uterine cancer Medications and Allergies Home Medications Medication Instructions Recorded Confirmed Type RX: Simvastatin [Zocor] 40 mg PO DAILY 07/08/16 02/13/19 History RX: Ferrous Sulfate [Iron (65 MG 325 mg PO DAILY 10/29/17 02/13/19 History Elemental)] RX: Cranberry Fruit Concentrate 450 mg PO BID 02/13/18 02/13/19 History [Cranberry] RX: Melatonin 3 mg PO HS@199902/13/18 02/13/19 History RX: Aspirin EC [Ecotrin Low Dose] 81 mg PO HS 01/31/19 02/13/19 History RX: Cetirizine HCl [Zyrtec] 10 mg PO HS 01/31/19 02/13/19 History RX: Furosemide [Lasix] 20 mg PO DAILY PRN 01/31/19 02/13/19 History RX: Levothyroxine Sodium 125 mcg PO DAILY 01/31/19 02/13/19 History [Synthroid] RX: Magnesium Hydroxide [Milk of 2,400 mg PO DAILY PRN 01/31/19 02/13/19 History Magnesia] RX: QUEtiapine [SEROquel] 150 mg PO HS 01/31/19 02/13/19 History RX: Ranitidine HCl [Zantac] 75 mg PO BID 01/31/19 02/13/19 History RX: ALPRAZolam [Xanax] 0.5 mg PO BID #6 tab 02/10/19 02/13/19 Rx RX: Acetaminophen Tab [Tylenol] 650 mg PO Q6HR PRN tab 02/10/19 02/13/19 Rx RX: Ibuprofen [Motrin] 400 mg PO Q6HR PRN tab 02/10/19 02/13/19 Rx RX: Insulin Glargine [Lantus] 7 unit SQ HS #0 02/10/19 02/13/19 Rx Divalproex [Depakote] 250 mg PO TID@0800,1200,1800 02/13/19 02/13/19 History Docusate [Colace] 100 mg PO PC-SUPPER 02/13/19 02/13/19 History Escitalopram [Lexapro] 5 mg PO DAILY PRN 02/13/19 02/13/19 History Furosemide [Lasix] 40 mg PO DAILY PRN 02/13/19 02/13/19 History Gabapentin [Neurontin] 300 mg PO DAILY 02/13/19 02/13/19 History Metoprolol Tartrate [Lopressor] 100 mg PO BID 02/13/19 02/13/19 History Nitroglycerin Sl Tabs [Nitrostat] 0.4 mg SL Q5M 02/13/19 02/13/19 History Pro-Stat Sugar Free 30 ml PO BID 02/13/19 02/13/19 History RX: Atorvastatin [Lipitor] 40 mg PO HS 02/13/19 02/13/19 History RX: INSULIN LISPRO (HumaLOG) See Protocol SQ ACHS 02/13/19 02/13/19 History [humaLOG] RX: Losartan [Cozaar] 12.5 mg PO DAILY 02/13/19 02/13/19 History RX: Omeprazole 20 mg PO DAILY 02/13/19 02/13/19 History RX: Potassium Chloride ER [K-Dur 20 meq PO DAILY 02/13/19 02/13/19 History 20] Allergies Allergy/AdvReac Type Severity Reaction Status Date / Time atorvastatin [From Lipitor] Allergy Unknown Verified 02/13/19 12:13 codeine Allergy Unknown Verified 02/13/19 12:20 enalaprilat [From Vasotec] Allergy Unknown Verified 02/13/19 12:13 propoxyphene napsylate Allergy Unknown Verified 02/13/19 12:13 [From Darvocet-N] Sulfa (Sulfonamide Allergy Itching,daniela Verified 02/13/19 12:13 Antibiotics) h Physical Exam Vitals: Vital Signs Temp Pulse Pulse Resp BP BP Pulse Ox 02/14/19 12:21 68 16 102/64 95 02/14/19 10:50 74 16 96/52 02/14/19 10:35 68 16 106/62 98 02/14/19 10:17 76 18 90/52 97 02/14/19 09:50 16 89/54 97 02/14/19 09:30 68 16 94/58 99 02/14/19 08:15 90/52 02/14/19 08:12 96.4 F L 75 16 79/42 99 02/14/19 07:59 96.4 F L 75 16 90/52 99 02/14/19 05:47 107/65 02/14/19 05:40 76 89/61 98 02/14/19 05:26 79 91/61 02/14/19 05:10 67/41 02/14/19 04:55 96/63 02/14/19 04:15 85 85/49 95 02/14/19 03:40 98.2 F 80 16 109/67 94 L 02/14/19 00:46 102 H 15 129/70 97 02/13/19 20:21 98.4 F 87 15 123/55 98 02/13/19 16:00 79 17 128/72 97 Intake and Output 02/13/19 02/14/19 02/14/19 22:59 06:59 14:59 Intake Total 1600 750 Output Total 925 200 Balance 675 550 Intake: IV 300 Intake, IV Titration 1600 450 Amount Sodium Chloride 0.9% 1, 600 450 000 ml @ 150 mls/hr IV . Q6H40M [facility] Rx#:[id number] Sodium Chloride 0.9% 1, 1000 000 ml @ 999 mls/hr IV . Q1H1M ONE Rx#:[id number] Output: Urine 925 200 Other: Voiding Method Indwelling Catheter # Voids 0 1 # Bowel Movements 0 0 Weight 91.5 kg 91.5 kg GENERAL DESCRIPTION: Elderly female lying in bed, no distress. No tachypnea or accessory muscle of respiration use. HEENT: Shows Pallor , no scleral icterus. Oral mucous membrane is dry. No pharyngeal erythema or thrush NECK: Trachea central, no thyromegaly. LUNGS: Unlabored breathing. Decreased breath sound at the lung bases No wheeze or crackle. HEART: S1, S2, regular rate and rhythm. No loud murmur ABDOMEN: Soft, no tenderness , guarding or rigidity, no organomegaly EXTREMITIES: Swelling left leg and no redness SKIN: Stage II sacral pressure ulcer with some slough tissue no surrounding redness, unstageable pressure ulcer to the left heel with no evidence of any cellulitis NEUROLOGICAL: The patient is awake, alert, oriented x1, mood and affect normal Results CBC & Chem 7: 02/14/19 05:21 02/14/19 05:21 Labs: Abnormal Lab Results - Last 24 Hours (Table) 02/13/19 02/13/19 02/14/19 Range/Units 16:38 20:34 05:21 RBC 2.52 L (3.80-5.40) m/uL Hgb 8.4 L D (11.4-16.0) gm/dL Hct 24.4 L (34.0-46.0) % BUN (7-17) mg/dL POC Glucose (mg/dL) 186 H 168 H (75-99) mg/dL Calcium (8.4-10.2) mg/dL 02/14/19 Range/Units 05:21 RBC (3.80-5.40) m/uL Hgb (11.4-16.0) gm/dL Hct (34.0-46.0) % BUN 22 H (7-17) mg/dL POC Glucose (mg/dL) (75-99) mg/dL Calcium 7.6 L (8.4-10.2) mg/dL Assessment and Plan Assessment: 1-patient with stage II sacral pressure ulcer with some slough tissue but no surrounding cellulitis 2-unstageable pressure ulcer to the left heel 3-left leg swelling rule out DVT (1) Pressure ulcer of sacral region, stage 2 Current Visit: Yes Status: Acute Code(s): L89.152 - PRESSURE ULCER OF SACRAL REGION, STAGE 2 SNOMED Code(s): 796054197 (2) Unstageable pressure ulcer of left heel Current Visit: Yes Status: Acute Code(s): L89.620 - PRESSURE ULCER OF LEFT HEEL, UNSTAGEABLE SNOMED Code(s): 936773701 (3) Left leg swelling Current Visit: Yes Status: Acute Code(s): M79.89 - OTHER SPECIFIED SOFT TISSUE DISORDERS SNOMED Code(s): 938776872 Plan: 1-we will obtain state left lower extremity Doppler to rule out DVT 2-med[place] to the sacral pressure ulcer keep the area of the pressure and dry 3-heel protectors to the left heel and avoid any creams or lotions to the area keep it dry 4-no need for systemic antibiotic therapy we will follow up on clinical condition and cultures to further adjust medication if needed Thank you for this consultation will follow this patient along with you Time with Patient: Greater than 30
[2019-02-15] MEDS: INSULIN ASPART (NovoLOG) 100 UNIT/ML VIAL SQ SCH ×5 (03:00→22:31)
[2019-02-15 04:54] LABS: Basophils % (A) 0 %; Eosinophils # (A) 0.2 k/uL (0-0.7); Eosinophils % (A) 4 %; HGB 7.1 gm/dL (11.4-16.0); Hypochromasia Slight; Lymphocytes % (A) 26 %; MCV 99.9 fL (80.0-100.0); Macrocytosis Slight; Mean Platelet Volume 7.3; Monocytes # (A) 0.2 k/uL (0-1.0); Monocytes % (A) 4 %; Neutrophils # (A) 2.4 k/uL (1.3-7.7); Neutrophils % (A) 63 %; Platelet Count 178 k/uL (150-450); Poikilocytosis Slight; RDW 14.6 % (11.5-15.5); WBC 3.8 k/uL (3.8-10.6)
[2019-02-15] MEDS: SODIUM CHLORIDE 0.9% 1,000 ML IV SCH ×3 (05:52→17:26)
[2019-02-15 05:57] LABS: Basophils % (A) 1 %; Eosinophils # (A) 0.2 k/uL (0-0.7); Eosinophils % (A) 5 %; HCT 22.6 % (34.0-46.0); HGB 7.3 gm/dL (11.4-16.0); Hypochromasia Moderate; Lymphocytes # (A) 1.1 k/uL (1.0-4.8); Lymphocytes % (A) 26 %; MCH 32.7 pg (25.0-35.0); MCHC 32.2 g/dL (31.0-37.0); MCV 101.7 fL (80.0-100.0); Macrocytosis Slight; Mean Platelet Volume 7.4; Monocytes # (A) 0.2 k/uL (0-1.0); Monocytes % (A) 5 %; Neutrophils # (A) 2.5 k/uL (1.3-7.7); Neutrophils % (A) 61 %; Platelet Count 174 k/uL (150-450); Poikilocytosis Slight; RBC 2.22 m/uL (3.80-5.40); RDW 15.2 % (11.5-15.5); WBC 4.2 k/uL (3.8-10.6)
[2019-02-15 06:04] LABS: Glucose,Whole Blood 79 mg/dL (75-99)
[2019-02-15] MEDS: SUCRALFATE 1 GM TAB PO SCH ×2 (06:27→17:26)
--- NOTE | 2019-02-15 09:19 | DS ---
DISCHARGE SUMMARY ADDENDUM: Acute blood loss anemia. MMODL / IJN: [id number] /
--- NOTE | 2019-02-15 09:19 | DS ---
DISCHARGE SUMMARY ADDENDUM: Stage II pressure ulcer, decubitus ulcer. MMODL / IJN: [id number] /
--- NOTE | 2019-02-15 09:36 | P.GSCN ---
History of Present Illness Consult date: 02/15/19 Reason for Consult: Urinary retention Requesting physician: Rc Barr History of present illness: The patient is a 73-year-old white female with advanced dementia. She underwent a ventral hernia repair approximately 2 weeks ago. She was unable to void postoperatively, and was thus discharged to [facility] with a Camara catheter in place. She was given an appointment to see Dr. Ureña next week, but she is now admitted with coffee-ground emesis. EGD revealed a hiatal hernia. The Camara catheter remains in place. She is unable to provide meaningful history. Review of Systems - Gastrointestinal Reports vomiting - Genitourinary Genitourinary: Reports as per HPI Past Medical History Past Medical History: Atrial Fibrillation, Cancer, Diabetes Mellitus, GERD/Reflux, Hyperlipidemia, Hypertension, Memory Impairment, Osteoarthritis (OA), Renal Disease, Thyroid Disorder Additional Past Medical History / Comment(s): IDDM type II, neuropathy bilateral legs/feet, paroxysmal afib, Vtach, severe dementia, dysphagia, nonhodgkins lymphoma with last chemo 2015, neutropenia, anemia, goiter, received radioactive iodine-hypothyroid, CKD stage III, UTIs, UTI with sepsis, varicosities, generalized arthritis, low back pain, R shoulder injury from fall in 2014, constipation, current wound coccyx-/L heel, L shoulder blister, allergic rhinitis, sleep disorder, incontinence. History of Any Multi-Drug Resistant Organisms: None Reported Past Surgical History: Back Surgery, Breast Surgery, Hernia Repair, Joint Replacement, Tubal Ligation Additional Past Surgical History / Comment(s): rt knee replacement, rt shoulder replacement, low back surgery-has screws, back injections, bilateral cataracts removed/lens implants, L breast biopsy, colonoscopy. Past Anesthesia/Blood Transfusion Reactions: Previous Problems w/ Anesthesia Additional Past Anesthesia/Blood Transfusion Reaction / Comm: years ago had diff breathing with anesthesia Smoking Status: Never smoker - Past Family History Sister(s) Family Medical History: Cancer Additional Family Medical History / Comment(s): Uterine cancer Medications and Allergies Home Medications Medication Instructions Recorded Confirmed Type Simvastatin [Zocor] 40 mg PO DAILY 07/08/16 02/13/19 History Ferrous Sulfate [Iron (65 MG 325 mg PO DAILY 10/29/17 02/13/19 History Elemental)] Cranberry Fruit Concentrate 450 mg PO BID 02/13/18 02/13/19 History [Cranberry] Melatonin 3 mg PO HS@199902/13/18 02/13/19 History Aspirin EC [Ecotrin Low Dose] 81 mg PO HS 01/31/19 02/13/19 History Cetirizine HCl [Zyrtec] 10 mg PO HS 01/31/19 02/13/19 History Furosemide [Lasix] 20 mg PO DAILY PRN 01/31/19 02/13/19 History Levothyroxine Sodium [Synthroid] 125 mcg PO DAILY 01/31/19 02/13/19 History Magnesium Hydroxide [Milk of 2,400 mg PO DAILY PRN 01/31/19 02/13/19 History Magnesia] QUEtiapine [SEROquel] 150 mg PO HS 01/31/19 02/13/19 History Ranitidine HCl [Zantac] 75 mg PO BID 01/31/19 02/13/19 History ALPRAZolam [Xanax] 0.5 mg PO BID #6 tab 02/10/19 02/13/19 Rx Acetaminophen Tab [Tylenol] 650 mg PO Q6HR PRN tab 02/10/19 02/13/19 Rx Ibuprofen [Motrin] 400 mg PO Q6HR PRN tab 02/10/19 02/13/19 Rx Insulin Glargine [Lantus] 7 unit SQ HS #0 02/10/19 02/13/19 Rx Atorvastatin [Lipitor] 40 mg PO HS 02/13/19 02/13/19 History Divalproex [Depakote] 250 mg PO TID@0800,1200,1800 02/13/19 02/13/19 History Docusate [Colace] 100 mg PO PC-SUPPER 02/13/19 02/13/19 History Escitalopram [Lexapro] 5 mg PO DAILY PRN 02/13/19 02/13/19 History Furosemide [Lasix] 40 mg PO DAILY PRN 02/13/19 02/13/19 History Gabapentin [Neurontin] 300 mg PO DAILY 02/13/19 02/13/19 History INSULIN LISPRO (HumaLOG) [humaLOG] See Protocol SQ ACHS 02/13/19 02/13/19 History Losartan [Cozaar] 12.5 mg PO DAILY 02/13/19 02/13/19 History Metoprolol Tartrate [Lopressor] 100 mg PO BID 02/13/19 02/13/19 History Nitroglycerin Sl Tabs [Nitrostat] 0.4 mg SL Q5M 02/13/19 02/13/19 History Omeprazole 20 mg PO DAILY 02/13/19 02/13/19 History Potassium Chloride ER [K-Dur 20] 20 meq PO DAILY 02/13/19 02/13/19 History Pro-Stat Sugar Free 30 ml PO BID 02/13/19 02/13/19 History Allergies Allergy/AdvReac Type Severity Reaction Status Date / Time atorvastatin [From Lipitor] Allergy Unknown Verified 02/13/19 12:13 codeine Allergy Unknown Verified 02/13/19 12:20 enalaprilat [From Vasotec] Allergy Unknown Verified 02/13/19 12:13 propoxyphene napsylate Allergy Unknown Verified 02/13/19 12:13 [From Darvocet-N] Sulfa (Sulfonamide Allergy Itching,daniela Verified 02/13/19 12:13 Antibiotics) h Surgical - Exam Vital Signs Temp Pulse Resp BP Pulse Ox 98.4 F 84 18 132/81 94 L 02/13/19 12:11 02/13/19 12:11 02/13/19 12:11 02/13/19 12:11 02/13/19 12:11 - General well developed, well nourished, no distress - Respiratory normal respiratory effort - Abdomen Abdomen: soft, non tender, no guarding, no rigid, no rebound Results - Labs 02/15/19 05:32 02/14/19 05:21 Abnormal Lab Results - Last 24 Hours (Table) 02/13/19 02/14/19 02/15/19 Range/Units 12:38 20:50 04:36 RBC 2.20 L (3.80-5.40) m/uL Hgb 7.1 L (11.4-16.0) gm/dL Hct 22.0 L (34.0-46.0) % MCV (80.0-100.0) fL POC Glucose (mg/dL) 131 H (75-99) mg/dL Crossmatch See Detail 02/15/19 Range/Units 05:32 RBC 2.22 L (3.80-5.40) m/uL Hgb 7.3 L (11.4-16.0) gm/dL Hct 22.6 L (34.0-46.0) % MCV 101.7 H (80.0-100.0) fL POC Glucose (mg/dL) (75-99) mg/dL Crossmatch Microbiology - Last 24 Hours (Table) 02/14/19 06:04 Blood Culture - Preliminary Blood No Growth after 24 hours Assessment and Plan (1) Urinary retention Current Visit: Yes Status: Acute Code(s): R33.9 - RETENTION OF URINE, UNSPECIFIED SNOMED Code(s): 976012676 Plan: I have ordered tamsulosin, and the Camara catheter may be removed tomorrow for a voiding trial. She may have an atonic bladder due to long-standing diabetes mellitus. If she fails the voiding trial, she may unfortunately require a long- term indwelling Camara catheter. Time with Patient: Less than 30
[2019-02-15] MEDS: GABAPENTIN 300 MG CAP PO SCH (09:57)
[2019-02-15] MEDS: SODIUM FERRIC GLUCONAT-SUCROSE 125 MG in SODIUM CHLORIDE 0.9% 100 ML IVPB SCH (09:57)
[2019-02-15] MEDS: PANTOPRAZOLE 40 MG/10 ML VIAL IVP SCH ×2 (09:58→19:43)
[2019-02-15] MEDS: ALPRAZolam 0.5 MG TAB PO SCH ×2 (09:58→19:43)
[2019-02-15] MEDS: TAMSULOSIN 0.4 MG CAP.ER.24H PO SCH (09:58)
[2019-02-15] MEDS: DIVALPROEX 250 MG TABLET.DR PO SCH ×3 (09:59→17:26)
--- NOTE | 2019-02-15 10:29 | P.PN ---
Progress Note - Text Progress Note Date: 02/15/19 The patient's resting comfortably in her bed. She does not appear to be any distress. Her hemoglobin stable. On exam her vital signs are still. Her abdomen soft. Resolved upper GI bleed. Patient will remain on Carafate and omeprazole.
[2019-02-15 11:39] LABS: Basophils % (A) 1 %; Eosinophils # (A) 0.2 k/uL (0-0.7); Eosinophils % (A) 7 %; HCT 20.5 % (34.0-46.0); Hypochromasia Slight; Lymphocytes # (A) 0.9 k/uL (1.0-4.8); Lymphocytes % (A) 31 %; MCH 32.7 pg (25.0-35.0); MCHC 32.7 g/dL (31.0-37.0); MCV 99.9 fL (80.0-100.0); Macrocytosis Slight; Mean Platelet Volume 7.6; Monocytes # (A) 0.1 k/uL (0-1.0); Monocytes % (A) 5 %; Neutrophils # (A) 1.7 k/uL (1.3-7.7); Neutrophils % (A) 55 %; Platelet Count 152 k/uL (150-450); Poikilocytosis Slight; RBC 2.05 m/uL (3.80-5.40); RDW 15.4 % (11.5-15.5); WBC 3.1 k/uL (3.8-10.6)
[2019-02-15 11:43] LABS: HGB 6.7 gm/dL (11.4-16.0)
[2019-02-15 11:50] LABS: Glucose,Whole Blood 94 mg/dL (75-99)
--- NOTE | 2019-02-15 12:15 | PN ---
PROGRESS NOTE This is a 73-year-old female with a history of dementia. Patient has been admitted to Medical Service for coffee ground emesis. Patient had an endoscopy done and found to have a no active bleeding noted. Patient also also at sacral region he has a decubitus ulcer and leg ulcer under care of Infectious Disease. The patient had a venous ultrasound which shows left popliteal vein DVT. Patient has been heparinized. She has dropped hemoglobin from 10 to 7. Patient has been evaluated by the test preparation tutor and braille proofreader. There is no evidence of any bleeding per rectum. MEDICAL HISTORY: History of atrial fibrillation, history of diabetes mellitus, history of hyperlipidemia, hypertension, dementia, history of renal disease. PHYSICAL EXAMINATION: Patient was seen in her room. NECK: Supple. CHEST: Clear. ABDOMEN: Soft. Femorals are 1+. No vascular compromise noted in lower extremity. IMPRESSION: Left popliteal deep venous thrombosis. Patient has a dropped some hemoglobin and we will wait for the recommendation from Hematology and GI if she is a candidate for filter placement or the source of bleeding is not known yet. We will follow up with you. MMODL / IJN: [id number] /
[2019-02-15 12:17] LABS: Iron Saturation 20.22 (12.00-45.00)
--- NOTE | 2019-02-15 12:36 | P.PN ---
Subjective Progress Note Date: 02/15/19 Principal diagnosis: Coffee-ground emesis, hiatal hernia, acute blood loss anemia Patient seen lying in bed. No acute events reported per nursing staff. No reports of abdominal pain or signs or symptoms of GI bleeding reported. Objective - Vital Signs Vital signs: Vital Signs Temp 97.6 F 02/15/19 08:00 Pulse 65 02/15/19 08:00 Resp 18 02/15/19 08:00 BP 118/55 02/15/19 08:00 Pulse Ox 94 L 02/15/19 08:00 Intake & Output 02/14/19 02/15/19 02/15/19 18:59 06:59 18:59 Intake Total 990 1350 Output Total 200 385 Balance 790 965 Weight 91.5 kg 92 kg Intake: IV 300 Intake, IV Titration 450 1350 Amount Sodium Chloride 0.9% 1, 450 1350 000 ml @ 150 mls/hr IV . Q6H40M [facility] Rx#:[id number] Oral 240 Output: Urine 200 385 Other: Voiding Method Indwelling Catheter Indwelling Catheter Indwelling Catheter # Bowel Movements 0 - Exam On physical examination, patient appears comfortable in no apparent distress. HEAD: Normocephalic, atraumatic. EYES: No scleral icterus. No conjunctival injection. MOUTH: No lesions, tongue midline. NECK: Trachea midline, no gross abnormalities. CHEST: Decreased air entry bilaterally. ABDOMEN: Soft, obese. Bowel sounds are positive. No organomegaly. No guarding or rigidity. EXTREMITIES: No pedal edema. SKIN: No rashes, no jaundice. NEUROLOGIC: Alert and oriented to person. No focal deficits. - Labs CBC & Chem 7: 02/15/19 11:13 02/14/19 05:21 Labs: Abnormal Lab Results - Last 24 Hours (Table) 02/13/19 02/14/19 02/15/19 Range/Units 12:38 20:50 04:36 WBC (3.8-10.6) k/uL RBC (3.80-5.40) m/uL Hgb (11.4-16.0) gm/dL Hct (34.0-46.0) % MCV (80.0-100.0) fL Lymphocytes # (1.0-4.8) k/uL POC Glucose (mg/dL) 131 H (75-99) mg/dL Iron 37 L (50-170) ug/dL TIBC 183 L (228-460) ug/dL Crossmatch See Detail 02/15/19 02/15/19 02/15/19 Range/Units 04:36 05:32 11:13 WBC 3.1 L (3.8-10.6) k/uL RBC 2.20 L 2.22 L 2.05 L (3.80-5.40) m/uL Hgb 7.1 L 7.3 L 6.7 L* (11.4-16.0) gm/dL Hct 22.0 L 22.6 L 20.5 L (34.0-46.0) % MCV 101.7 H (80.0-100.0) fL Lymphocytes # 0.9 L (1.0-4.8) k/uL POC Glucose (mg/dL) (75-99) mg/dL Iron (50-170) ug/dL TIBC (228-460) ug/dL Crossmatch Microbiology - Last 24 Hours (Table) 02/14/19 06:04 Blood Culture - Preliminary Blood No Growth after 24 hours Assessment and Plan (1) Coffee ground emesis Narrative/Plan: 73-year-old female with advanced dementia and history of non-Hodgkin's lymphoma, acute on chronic anemia, hiatal hernia, and recent incarcerated ventral hernia status post repair who presented to the hospital due to concerns over coffee- ground emesis. The patient is status post EGD with the surgical service with findings of hiatal hernia and gastritis with no evidence of peptic ulcer disease or a source of bleeding. Differential includes coffee-ground emesis from Mallor y-Avilez tear, Jem's erosions with small bowel source not totally excluded. Current Visit: Yes Status: Acute Code(s): K92.0 - HEMATEMESIS SNOMED Code(s): 56164247 (2) Acute blood loss anemia Current Visit: Yes Status: Acute Code(s): D62 - ACUTE POSTHEMORRHAGIC ANEMIA SNOMED Code(s): 343888035 (3) Hiatal hernia Current Visit: Yes Status: Acute Code(s): K44.9 - DIAPHRAGMATIC HERNIA WITHOUT OBSTRUCTION OR GANGRENE SNOMED Code(s): 84102570 Plan: Supportive care Continue Protonix twice daily Continue to monitor hemoglobin and hematocrit and transfuse as needed Continue to monitor CMP Continue to monitor for signs or symptoms of GI bleeding No plan for further endoscopic evaluation at this time Computed tomography scan abdomen and pelvis pending Thank you for allowing us to participate in the care of the patient we will continue to follow
--- NOTE | 2019-02-15 13:02 | P.PN ---
Subjective Progress Note Date: 02/15/19 Principal diagnosis: Small pleural effusion, right lower lobe small nodule, exertional shortness of breath, left lower extremity popliteal DVT, coffee-ground emesis history, acute on chronic anemia severe in nature, 02/15/2019, patient seen eval reexamined during the rounds overall mental status remains unchanged he is pleasantly confused she is oriented 1 due to advanced dementia, patient has been noted to have drop in hemoglobin no site of actual blood loss is seen and no globe and has come down to 6.7 patient is being transfused with 1 unit of packed RBC computed tomography scan of the abdominal pelvis reviewed at admitted no retroperitoneal hematoma is seen, EGD has been done by general surgery some gastritis was identified along with some esophagitis no bleeding ulcer is seen patient has no bowel movement overnight, vascular surgery and hematology has been consulted for the possible placement of IVC filter and etiology of anemia respectively patient has been on currently heparin drip care plan reviewed and discussed with the patient vascular surgery and GI service at length This is a 73-year-old female who has advanced dementia, presented into emergency department after that noted to have coffee-ground emesis patient is postop ventral hernia repair 2 weeks ago she is dehydrated as well she was found to have elevated lactic acid level which is thought to be related to dehydration due to advanced dementia but unable to obtain detailed history from the patient did I obtained from the chart, her hemoglobin came down to 8.4 from 10.7, patient is on Protonix in addition has been hydrated with 150mL/h, white cell count is normal Objective - Vital Signs Vital signs: Vital Signs Temp 97.6 F 02/15/19 08:00 Pulse 65 02/15/19 08:00 Resp 18 02/15/19 08:00 BP 118/55 02/15/19 08:00 Pulse Ox 94 L 02/15/19 08:00 Intake & Output 02/14/19 02/15/19 02/15/19 18:59 06:59 18:59 Intake Total 990 1350 124.44 Output Total 200 385 Balance 790 965 124.44 Weight 91.5 kg 92 kg Intake: IV 300 Intake, IV Titration 450 1350 124.44 Amount Heparin Sod,Pork in 0.45% 124.44 NaCl 25,000 unit In 0.45 % NaCl 1 250ml.bag @ 10 UNITS/KG/HR 9.15 mls/hr IV .Q24H [facility] Rx#: [id number] Sodium Chloride 0.9% 1, 450 1350 000 ml @ 150 mls/hr IV . Q6H40M [facility] Rx#:[id number] Oral 240 Output: Urine 200 385 Other: Voiding Method Indwelling Catheter Indwelling Catheter Indwelling Catheter # Bowel Movements 0 - Exam - Constitutional General appearance: average body habitus, cooperative, disheveled - EENT Periorbital ecchymosis bilaterally noted probably related to fall Eyes: EOMI, PERRLA, poor dentition, normal appearance Ears: bilateral: normal - Neck Carotids: bilateral: upstroke normal Thyroid: bilateral: normal size - Respiratory Respiratory: bilateral: CTA - Cardiovascular Rhythm: regular Heart sounds: normal: S1, S2 - Gastrointestinal General gastrointestinal: decreased bowel sounds, normal bowel sounds, soft - Integumentary Integumentary: decreased turgor - Neurologic Neurologic: CNII-XII intact - Musculoskeletal Musculoskeletal: gait normal, generalized weakness, strength equal bilaterally - Psychiatric Oriented 1 only Psychiatric: appropriate affect - Labs CBC & Chem 7: 02/15/19 11:13 02/14/19 05:21 Labs: Abnormal Lab Results - Last 24 Hours (Table) 02/13/19 02/14/19 02/15/19 Range/Units 12:38 20:50 04:36 WBC (3.8-10.6) k/uL RBC (3.80-5.40) m/uL Hgb (11.4-16.0) gm/dL Hct (34.0-46.0) % MCV (80.0-100.0) fL Lymphocytes # (1.0-4.8) k/uL APTT (22.0-30.0) sec POC Glucose (mg/dL) 131 H (75-99) mg/dL Iron 37 L (50-170) ug/dL TIBC 183 L (228-460) ug/dL Crossmatch See Detail 02/15/19 02/15/19 02/15/19 Range/Units 04:36 05:32 11:13 WBC 3.1 L (3.8-10.6) k/uL RBC 2.20 L 2.22 L 2.05 L (3.80-5.40) m/uL Hgb 7.1 L 7.3 L 6.7 L* (11.4-16.0) gm/dL Hct 22.0 L 22.6 L 20.5 L (34.0-46.0) % MCV 101.7 H (80.0-100.0) fL Lymphocytes # 0.9 L (1.0-4.8) k/uL APTT (22.0-30.0) sec POC Glucose (mg/dL) (75-99) mg/dL Iron (50-170) ug/dL TIBC (228-460) ug/dL Crossmatch 02/15/19 Range/Units 11:56 WBC (3.8-10.6) k/uL RBC (3.80-5.40) m/uL Hgb (11.4-16.0) gm/dL Hct (34.0-46.0) % MCV (80.0-100.0) fL Lymphocytes # (1.0-4.8) k/uL APTT >200.0 H* (22.0-30.0) sec POC Glucose (mg/dL) (75-99) mg/dL Iron (50-170) ug/dL TIBC (228-460) ug/dL Crossmatch Microbiology - Last 24 Hours (Table) 02/14/19 06:04 Blood Culture - Preliminary Blood No Growth after 24 hours Assessment and Plan Assessment: Acute on chronic anemia severe in nature, No source of bleeding has been identified DVT left lower extremity Small pleural effusion most likely related to protein calorie malnourishment versus heart failure chronic diastolic heart failure Right lower lobe lung nodule, will observe Exertional shortness of breath Lactic acidosis likely related to dehydration repeat levels are normal Coffee-ground emesis with falling hemoglobin some contribution appears to be related to rehydration Consult with vascular surgery and hematology Plan: Agree with GI consult/surgical consult Monitor hemoglobin closely if less than 8 we'll type and crossmatch and transfuse In the meantime we'll rehydrate the patient however in next 12 hours we'll cut down the IV fluid to 75 mL Proton pump inhibitor Improved nutritional status Further recommendations pending plan of care as per clinical response of patient Time with Patient: Greater than 30
[2019-02-15 17:15] LABS: Glucose,Whole Blood 85 mg/dL (75-99)
[2019-02-15] MEDS: MELATONIN 3 MG TABLET PO SCH (19:43)
[2019-02-15] MEDS: QUEtiapine 50 MG TAB PO SCH (19:43)
--- NOTE | 2019-02-15 19:43 | PN ---
PROGRESS NOTE DATE OF SERVICE: 02/15/2019. REASON FOR FOLLOWUP: Sacral pressure ulcer and left heel pressure ulcer. INTERVAL HISTORY: The patient is currently afebrile. The patient ultrasound has been positive for DVT left leg for which the patient is started on heparin per weight based protocol. The patient did have a drop in hemoglobin and is currently getting blood transfusion. The patient is currently sleepy, lethargic, unable to provide any history. Most of the information obtained from talking to the at the bedside. PHYSICAL EXAMINATION: Blood pressure 117/63 with a pulse of 53, temperature 97.5. She is 93% on 2 L nasal cannula. General description is an elderly female lying in bed in no distress. RESPIRATORY SYSTEM: Unlabored breathing, clear to auscultation anteriorly. HEART: S1, S2. Regular rate. ABDOMEN: Soft, no tenderness. LABS: Hemoglobin is 6.7, white count 3.1. Culture so far negative. IMPRESSION/PLAN: 1. Patient with sacral pressure ulcer with no evidence of any cellulitis. Local care to continue with [facility]. Keep the area off the pressure. 2. Left heel pressure ulcer. Heel protector. No need for any local cream or lotion. 3. No need for systemic antibiotic therapy. 4. at the bedside. His questions and concerns were answered. MMODL / IJN: [id number] /
[2019-02-15 20:14] LABS: Glucose,Whole Blood 93 mg/dL (75-99)
[2019-02-15] MEDS: INSULIN DETEMIR (LEVEMIR) 100 UNIT/ML SYR SQ SCH (22:30)
[2019-02-16 05:56] LABS: Glucose,Whole Blood 84 mg/dL (75-99)
[2019-02-16] MEDS: SODIUM CHLORIDE 0.9% 1,000 ML IV SCH ×4 (06:21→20:46)
[2019-02-16] MEDS: SUCRALFATE 1 GM TAB PO SCH ×2 (06:22→17:09)
[2019-02-16] MEDS: INSULIN ASPART (NovoLOG) 100 UNIT/ML VIAL SQ SCH ×4 (06:23→21:10)
[2019-02-16 06:54] LABS: Anisocytosis Slight; Basophils % (A) 1 %; Eosinophils # (A) 0.2 k/uL (0-0.7); Eosinophils % (A) 5 %; HCT 26.9 % (34.0-46.0); Hypochromasia Slight; Lymphocytes # (A) 0.9 k/uL (1.0-4.8); Lymphocytes % (A) 25 %; MCH 31.6 pg (25.0-35.0); MCV 95.8 fL (80.0-100.0); Mean Platelet Volume 7.5; Monocytes # (A) 0.1 k/uL (0-1.0); Monocytes % (A) 4 %; Neutrophils # (A) 2.2 k/uL (1.3-7.7); Neutrophils % (A) 63 %; Platelet Count 172 k/uL (150-450); Poikilocytosis Slight; RDW 16.8 % (11.5-15.5); WBC 3.5 k/uL (3.8-10.6)
[2019-02-16 07:04] LABS: HGB 8.9 gm/dL (11.4-16.0)
[2019-02-16] MEDS: HEPARIN SOD,PORK IN 0.45% NACL 25,000 UNIT in 0.45% NACL 1 250ML.BAG IV SCH (08:51)
[2019-02-16] MEDS: DIVALPROEX 250 MG TABLET.DR PO SCH ×3 (08:52→17:09)
[2019-02-16] MEDS: SODIUM FERRIC GLUCONAT-SUCROSE 125 MG in SODIUM CHLORIDE 0.9% 100 ML IVPB SCH ×2 (08:52→11:27)
[2019-02-16] MEDS: TAMSULOSIN 0.4 MG CAP.ER.24H PO SCH (08:52)
[2019-02-16] MEDS: GABAPENTIN 300 MG CAP PO SCH (08:52)
[2019-02-16] MEDS: ALPRAZolam 0.5 MG TAB PO SCH ×2 (08:52→20:07)
[2019-02-16] MEDS: PANTOPRAZOLE 40 MG/10 ML VIAL IVP SCH ×2 (08:52→20:07)
--- NOTE | 2019-02-16 10:57 | P.PN ---
Progress Note - Text Progress Note Date: 02/16/19 The patient remained stable. She had shows no sign of any upper GI bleed. On exam her abdomen is soft nontender. Status post upper GI bleed secondary to esophagitis. Patient remained stable. She'll be most likely discharge home tomorrow.
--- NOTE | 2019-02-16 11:35 | P.PN ---
Subjective Progress Note Date: 02/16/19 Principal diagnosis: Small pleural effusion, right lower lobe small nodule, exertional shortness of breath, left lower extremity popliteal DVT, coffee-ground emesis history, acute on chronic anemia severe in nature, 02/16/2019, overall mental status remains unchanged, denies any cough or sputum production, patient remains on heparin drip, hemoglobin stable no signs of overt bleeding or site of bleeding noted, and labs reviewed medications reviewed care plan discussed with staff at length 02/15/2019, patient seen eval reexamined during the rounds overall mental status remains unchanged he is pleasantly confused she is oriented 1 due to advanced dementia, patient has been noted to have drop in hemoglobin no site of actual blood loss is seen and no globe and has come down to 6.7 patient is being transfused with 1 unit of packed RBC computed tomography scan of the abdominal pelvis reviewed at admitted no retroperitoneal hematoma is seen, EGD has been done by general surgery some gastritis was identified along with some esophagitis no bleeding ulcer is seen patient has no bowel movement overnight, vascular surgery and hematology has been consulted for the possible placement of IVC filter and etiology of anemia respectively patient has been on currently heparin drip care plan reviewed and discussed with the patient vascular surgery and GI service at length This is a 73-year-old female who has advanced dementia, presented into emergency department after that noted to have coffee-ground emesis patient is postop ventral hernia repair 2 weeks ago she is dehydrated as well she was found to have elevated lactic acid level which is thought to be related to dehydration due to advanced dementia but unable to obtain detailed history from the patient did I obtained from the chart, her hemoglobin came down to 8.4 from 10.7, patient is on Protonix in addition has been hydrated with 150mL/h, white cell count is normal Objective - Vital Signs Vital signs: Vital Signs Temp 97.3 F L 02/16/19 07:55 Pulse 67 02/16/19 07:55 Resp 18 02/16/19 07:55 BP 136/72 02/16/19 07:55 Pulse Ox 96 02/16/19 07:55 Intake & Output 02/15/19 02/16/19 02/16/19 18:59 06:59 18:59 Intake Total 1034.44 1235.075 257.156 Output Total 875 700 Balance 159.44 535.075 257.156 Weight 108.5 kg Intake: Intake, IV Titration 724.44 1235.075 17.156 Amount Heparin Sod,Pork in 0.45% 124.44 35.075 17.156 NaCl 25,000 unit In 0.45 % NaCl 1 250ml.bag @ 10 UNITS/KG/HR 9.15 mls/hr IV .Q24H [facility] Rx#: [id number] Sodium Chloride 0.9% 1, 600 1200 000 ml @ 150 mls/hr IV . Q6H40M [facility] Rx#:[id number] Oral 240 Blood Product 310 Rc As-1 Unit 310 [id number] Output: Urine 875 700 Other: Voiding Method Indwelling Catheter Indwelling Catheter # Bowel Movements 0 - Exam - Constitutional General appearance: average body habitus, cooperative, disheveled - EENT Periorbital ecchymosis bilaterally noted probably related to fall Eyes: EOMI, PERRLA, poor dentition, normal appearance Ears: bilateral: normal - Neck Carotids: bilateral: upstroke normal Thyroid: bilateral: normal size - Respiratory Respiratory: bilateral: CTA - Cardiovascular Rhythm: regular Heart sounds: normal: S1, S2 - Gastrointestinal General gastrointestinal: decreased bowel sounds, normal bowel sounds, soft - Integumentary Integumentary: decreased turgor - Neurologic Neurologic: CNII-XII intact - Musculoskeletal Musculoskeletal: gait normal, generalized weakness, strength equal bilaterally - Psychiatric Oriented 1 only Psychiatric: appropriate affect - Labs CBC & Chem 7: 02/16/19 06:19 02/14/19 05:21 Labs: Abnormal Lab Results - Last 24 Hours (Table) 02/13/19 02/15/19 02/15/19 Range/Units 12:38 04:36 11:13 WBC 3.1 L (3.8-10.6) k/uL RBC 2.05 L (3.80-5.40) m/uL Hgb 6.7 L* (11.4-16.0) gm/dL Hct 20.5 L (34.0-46.0) % RDW (11.5-15.5) % Lymphocytes # 0.9 L (1.0-4.8) k/uL APTT (22.0-30.0) sec Iron 37 L (50-170) ug/dL TIBC 183 L (228-460) ug/dL Crossmatch See Detail 02/15/19 02/15/19 02/15/19 Range/Units 11:56 17:01 23:14 WBC (3.8-10.6) k/uL RBC (3.80-5.40) m/uL Hgb (11.4-16.0) gm/dL Hct (34.0-46.0) % RDW (11.5-15.5) % Lymphocytes # (1.0-4.8) k/uL APTT >200.0 H* 43.4 H 83.5 H (22.0-30.0) sec Iron (50-170) ug/dL TIBC (228-460) ug/dL Crossmatch 02/16/19 02/16/19 Range/Units 06:19 06:19 WBC 3.5 L (3.8-10.6) k/uL RBC 2.80 L (3.80-5.40) m/uL Hgb 8.9 L D (11.4-16.0) gm/dL Hct 26.9 L (34.0-46.0) % RDW 16.8 H (11.5-15.5) % Lymphocytes # 0.9 L (1.0-4.8) k/uL APTT 60.6 H (22.0-30.0) sec Iron (50-170) ug/dL TIBC (228-460) ug/dL Crossmatch Microbiology - Last 24 Hours (Table) 02/14/19 06:04 Blood Culture - Preliminary Blood No Growth after 48 hours Assessment and Plan Assessment: Acute on chronic anemia severe in nature, No source of bleeding has been identified DVT left lower extremity Small pleural effusion most likely related to protein calorie malnourishment versus heart failure chronic diastolic heart failure Right lower lobe lung nodule, will observe Exertional shortness of breath Lactic acidosis likely related to dehydration repeat levels are normal Coffee-ground emesis with falling hemoglobin some contribution appears to be related to rehydration Consult with vascular surgery and hematology Plan: Agree with GI consult/surgical consult Monitor hemoglobin closely if less than 8 we'll type and crossmatch and transfuse continue heparin Gentle rehydration Proton pump inhibitor Improved nutritional status Further recommendations pending plan of care as per clinical response of patient Time with Patient: Greater than 30
[2019-02-16 11:42] LABS: Glucose,Whole Blood 111 mg/dL (75-99)
--- NOTE | 2019-02-16 13:09 | P.PN ---
Progress Note - Text 73-year-old white female, history of dementia, patient has history of DVT left popliteal vein patient was on heparin she should drop hemoglobin and she got 1 unit of applied hemoglobin is bones and 8 today patient had a upper endoscopy and found to have no active bleeding patient had some mild esophagitis. No evidence of lower GI bleed. I was consulted for possible placement of a Copen filter at this point patient has no evidence of any G upper or lower GI bleed and patient has been consulted for hematology we'll follow with you if there is any contraindication to a decub ablation we consider placing filter
--- NOTE | 2019-02-16 14:11 | P.CONS ---
History of Present Illness - Reason for Consult Consult date: 02/16/19 History of non-Hodgkin's lymphoma, iron deficiency anemia. Chronic cytopen - History of Present Illness The patient is 73-year-old white female, well known to myself. She has been seen in the past for iron deficiency anemia, and subsequently found to have low- grade non-Hodgkin lymphoma. Her Hem - Onc history is as noted below Malignancy history: Patient seen initially seen in consult in 02/15 for acute anemia, workup showed borderline iron deficiency. EGD and colonoscopy were negative. she was briefly on oral iron supplement but had to stop due to side effects, hemoglobin returned to baseline. She did well until May 2013, routine CBC at PCP revealed hemoglobin of 7.5 with low iron indices, workup ordered, parenteral iron infused, however ferritin was elevated indicating inflammatory suppression. 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 She completed 6 cycles of chemotherapy in January 2014, had 8 cycles of maintenance Rituxan completed in February 2016, no evidence of disease since. Patient continues on monitoring. Patient does have episodes of pancytopenia with episodes of acute illness, which then usually resolved with resolution of the acute problem and supportive care. The patient has been declining over several months, due to loss of memory, increased immediately and decreased activity. She is now a resident at [facility] since late 2016. The patient has not been able to follow-up in the office for several months, as she is not able to get into a car anymore on her own. Her blood counts however have been overall stable. The patient was admitted about 2 weeks ago for mental hernia repair. She subsequently came back in because of weakness and an episode of coffee-ground vomiting. Hemoglobin on admission was 10.7 but then fell into the 6.7 range. The patient was transfused with appropriate improvement. He had an EGD showing some distal esophagitis but no active bleeding. She has been started on PPI. This situation is completed by the finding of left popliteal DVT, for which the patient needs anticoagulation. W BC is mildly low at 3.6. Consult was placed for further evaluation and recommendations Review of Systems Constitutional: Reports fatigue, Reports weakness Eyes: denies blurred vision, denies pain Ears: deny: decreased hearing, ear discharge, earache, tinnitus Ears, nose, mouth and throat: Denies headache, Denies sore throat Cardiovascular: Reports decreased exercise tolerance Respiratory: Denies cough Gastrointestinal: Reports as per HPI, Reports hematemesis Genitourinary: Reports mixed incontinence Menstruation: Reports postmenopausal Musculoskeletal: Reports gait dysfunction, Reports muscle weakness Integumentary: Reports dryness Neurological: Reports change in mentation, Reports confusion, Reports gait dysfunction, Reports memory loss, Reports spasticity Psychiatric: Reports confusion, Reports memory loss Endocrine: Reports fatigue Hematologic/Lymphatic: Reports as per HPI Past Medical History Past Medical History: Atrial Fibrillation, Cancer, Diabetes Mellitus, GERD/Reflux, Hyperlipidemia, Hypertension, Memory Impairment, Osteoarthritis (OA), Renal Disease, Thyroid Disorder Additional Past Medical History / Comment(s): IDDM type II, neuropathy bilateral legs/feet, paroxysmal afib, Vtach, severe dementia, dysphagia, nonhodgkins lymphoma with last chemo 2015, neutropenia, anemia, goiter, received radioactive iodine-hypothyroid, CKD stage III, UTIs, UTI with sepsis, varicosities, generalized arthritis, low back pain, R shoulder injury from fall in 2014, constipation, current wound coccyx-/L heel, L shoulder blister, allergic rhinitis, sleep disorder, incontinence. History of Any Multi-Drug Resistant Organisms: None Reported Past Surgical History: Back Surgery, Breast Surgery, Hernia Repair, Joint Replacement, Tubal Ligation Additional Past Surgical History / Comment(s): rt knee replacement, rt shoulder replacement, low back surgery-has screws, back injections, bilateral cataracts removed/lens implants, L breast biopsy, colonoscopy. Past Anesthesia/Blood Transfusion Reactions: Previous Problems w/ Anesthesia Additional Past Anesthesia/Blood Transfusion Reaction / Comm: years ago had diff breathing with anesthesia Smoking Status: Never smoker - Past Family History Sister(s) Family Medical History: Cancer Additional Family Medical History / Comment(s): Uterine cancer Medications and Allergies Home Medications Medication Instructions Recorded Confirmed Type Simvastatin [Zocor] 40 mg PO DAILY 07/08/16 02/13/19 History Ferrous Sulfate [Iron (65 MG 325 mg PO DAILY 10/29/17 02/13/19 History Elemental)] Cranberry Fruit Concentrate 450 mg PO BID 02/13/18 02/13/19 History [Cranberry] Melatonin 3 mg PO HS@199902/13/18 02/13/19 History Aspirin EC [Ecotrin Low Dose] 81 mg PO HS 01/31/19 02/13/19 History Cetirizine HCl [Zyrtec] 10 mg PO HS 01/31/19 02/13/19 History Furosemide [Lasix] 20 mg PO DAILY PRN 01/31/19 02/13/19 History Levothyroxine Sodium [Synthroid] 125 mcg PO DAILY 01/31/19 02/13/19 History Magnesium Hydroxide [Milk of 2,400 mg PO DAILY PRN 01/31/19 02/13/19 History Magnesia] QUEtiapine [SEROquel] 150 mg PO HS 01/31/19 02/13/19 History Ranitidine HCl [Zantac] 75 mg PO BID 01/31/19 02/13/19 History ALPRAZolam [Xanax] 0.5 mg PO BID #6 tab 02/10/19 02/13/19 Rx Acetaminophen Tab [Tylenol] 650 mg PO Q6HR PRN tab 02/10/19 02/13/19 Rx Ibuprofen [Motrin] 400 mg PO Q6HR PRN tab 02/10/19 02/13/19 Rx Insulin Glargine [Lantus] 7 unit SQ HS #0 02/10/19 02/13/19 Rx Atorvastatin [Lipitor] 40 mg PO HS 02/13/19 02/13/19 History Divalproex [Depakote] 250 mg PO TID@0800,1200,1800 02/13/19 02/13/19 History Docusate [Colace] 100 mg PO PC-SUPPER 02/13/19 02/13/19 History Escitalopram [Lexapro] 5 mg PO DAILY PRN 02/13/19 02/13/19 History Furosemide [Lasix] 40 mg PO DAILY PRN 02/13/19 02/13/19 History Gabapentin [Neurontin] 300 mg PO DAILY 02/13/19 02/13/19 History INSULIN LISPRO (HumaLOG) [humaLOG] See Protocol SQ ACHS 02/13/19 02/13/19 History Losartan [Cozaar] 12.5 mg PO DAILY 02/13/19 02/13/19 History Metoprolol Tartrate [Lopressor] 100 mg PO BID 02/13/19 02/13/19 History Nitroglycerin Sl Tabs [Nitrostat] 0.4 mg SL Q5M 02/13/19 02/13/19 History Omeprazole 20 mg PO DAILY 02/13/19 02/13/19 History Potassium Chloride ER [K-Dur 20] 20 meq PO DAILY 02/13/19 02/13/19 History Pro-Stat Sugar Free 30 ml PO BID 02/13/19 02/13/19 History Allergies Allergy/AdvReac Type Severity Reaction Status Date / Time atorvastatin [From Lipitor] Allergy Unknown Verified 02/13/19 12:13 codeine Allergy Unknown Verified 02/13/19 12:20 enalaprilat [From Vasotec] Allergy Unknown Verified 02/13/19 12:13 propoxyphene napsylate Allergy Unknown Verified 02/13/19 12:13 [From Darvocet-N] Sulfa (Sulfonamide Allergy Itching,daniela Verified 02/13/19 12:13 Antibiotics) h Physical Exam Vitals: Vital Signs Temp Pulse Pulse Resp BP BP Pulse Ox 02/16/19 07:55 97.3 F L 67 18 136/72 96 02/16/19 04:00 97.8 F 55 L 18 93/53 95 02/15/19 23:34 97 F L 60 17 116/67 98 02/15/19 19:54 96.6 F L 63 16 129/85 97 02/15/19 16:59 97.5 F L 59 L 18 107/59 02/15/19 16:00 60 18 02/15/19 13:50 97.5 F L 63 18 117/63 93 L 02/15/19 13:20 97.2 F L 59 L 18 91/50 96 02/15/19 13:10 97.2 F L 64 18 104/57 91 L Intake and Output 02/15/19 02/16/19 02/16/19 22:59 06:59 14:59 Intake Total 310 1235.075 257.156 Output Total 875 700 Balance -565 535.075 257.156 Intake: Intake, IV Titration 0 1235.075 17.156 Amount Heparin Sod,Pork in 0.45% 0 35.075 17.156 NaCl 25,000 unit In 0.45 % NaCl 1 250ml.bag @ 10 UNITS/KG/HR 9.15 mls/hr IV .Q24H JOSEPH Rx#: [id number] Sodium Chloride 0.9% 1, 1200 000 ml @ 150 mls/hr IV . Q6H40M JOSEPH Rx#:[id number] Oral 240 Blood Product 310 Rc As-1 Unit 310 [id number] Output: Urine 875 700 Other: Voiding Method Indwelling Catheter Indwelling Catheter # Bowel Movements 0 Weight 108.5 kg 108.5 kg - Constitutional General appearance: no acute distress - EENT Eyes: EOMI, PERRLA ENT: hearing grossly normal, normal oropharynx - Neck Neck: no lymphadenopathy Thyroid: bilateral: normal size - Respiratory Respiratory: bilateral: CTA - Cardiovascular Rhythm: regular Heart sounds: normal: S1, S2 - Gastrointestinal General gastrointestinal: normal bowel sounds, soft - Integumentary Integumentary: normal - Neurologic Marked generalized weakness. Lower extremity weaker than upper. Generalized muscle rigidity Neurologic: CNII-XII intact - Musculoskeletal Musculoskeletal: generalized weakness, strength equal bilaterally - Psychiatric Confused, speech is coherent intermittently only. Results CBC & Chem 7: 02/16/19 06:19 02/14/19 05:21 Labs: Abnormal Lab Results - Last 24 Hours (Table) 02/13/19 02/15/19 02/15/19 Range/Units 12:38 11:56 17:01 WBC (3.8-10.6) k/uL RBC (3.80-5.40) m/uL Hgb (11.4-16.0) gm/dL Hct (34.0-46.0) % RDW (11.5-15.5) % Lymphocytes # (1.0-4.8) k/uL APTT >200.0 H* 43.4 H (22.0-30.0) sec POC Glucose (mg/dL) (75-99) mg/dL Crossmatch See Detail 02/15/19 02/16/19 02/16/19 Range/Units 23:14 :19 06:19 WBC 3.5 L (3.8-10.6) k/uL RBC 2.80 L (3.80-5.40) m/uL Hgb 8.9 L D (11.4-16.0) gm/dL Hct 26.9 L (34.0-46.0) % RDW 16.8 H (11.5-15.5) % Lymphocytes # 0.9 L (1.0-4.8) k/uL APTT 83.5 H 60.6 H (22.0-30.0) sec POC Glucose (mg/dL) (75-99) mg/dL Crossmatch 02/16/19 Range/Units 11:41 WBC (3.8-10.6) k/uL RBC (3.80-5.40) m/uL Hgb (11.4-16.0) gm/dL Hct (34.0-46.0) % RDW (11.5-15.5) % Lymphocytes # (1.0-4.8) k/uL APTT (22.0-30.0) sec POC Glucose (mg/dL) 111 H (75-99) mg/dL Crossmatch Microbiology - Last 24 Hours (Table) 02/14/19 06:04 Blood Culture - Preliminary Blood No Growth after 48 hours Comments: Operative report, and multiple physician notes reviewed CT scan - abdomen: report reviewed CT scan - pelvis: report reviewed Venous US: report reviewed Assessment and Plan (1) Acute blood loss anemia Narrative/Plan: The patient had initially presented with iron deficiency anemia in 2007, which resolved with iron supplementation. She then had recurrent anemia as well as other cytopenias due to non-Hodgkin's lymphoma, which also improved with treatment. At baseline the patient does have a mild anemia and leukopenia with intermittent mild, cytopenia. Her counts do tend to drop significantly in case of any additional stress such as acute illnesses infections etc. - The patient appears to have had upper GI bleeding, most likely due to stress gastritis from her recent surgery. EGD did not show any active bleeding. Hemoglobin has responded appropriately to transfusion. Iron studies were normal, but will not change in the short-term with acute bleeding. - Given her findings, it is likely that this episode of bleeding is transient and resolved with appropriate treatment such as PPI and increasing duration from her surgical intervention. - Agree with IV iron. The patient has not tolerated oral iron well in the past. Monitor hemoglobin and iron studies as an outpatient with additional supplementation if needed. Current Visit: Yes Status: Acute Code(s): D62 - ACUTE POSTHEMORRHAGIC ANEMIA SNOMED Code(s): 210784004 (2) Deep vein thrombophlebitis of left leg Narrative/Plan: This would be considered a provoked clot, given the patient's recent surgery and immobility. At this time and feels that the patient is an acceptable risk for anticoagulation. As noted her GI bleed was most likely due to stress gastritis and is likely to be transient with appropriate management such as PPI. In addition the bleeding appears to have stopped, given appropriate response to transfusion. I would therefore recommend continuing the patient on anticoagulation with monitoring. At this time there does NOT appear to be any specific indication for IVC filter. She can be reevaluated for the same if bleeding recurs. - Even though this would be considered a provoked clot, the patient is likely to have ongoing risk factors, specifically very poor mobility. Therefore she would need to be considered for ongoing anticoagulation. - The patient tolerates IV heparin well, she can be switched over to one of the DOACs. After full dose treatment for 3-6 months (assuming she tolerates it well) she can have risk assessment and be potentially switch to the lower maintenance dose for ongoing treatment Current Visit: Yes Status: Acute Code(s): I80.202 - PHLBTS AND THOMBOPHLB OF UNSP DEEP VESSELS OF L LOW EXTREM SNOMED Code(s): 70156631 (3) Non-Hodgkin lymphoma Narrative/Plan: The patient has been on observation for the same, with no evidence of recurrence based on fairly stable blood counts. Again there appears to be no evidence of recurrence, with the change in counts during this admission related to GI bleed. Otherwise counts have been at baseline. The patient is not able to follow in the office regularly anymore, due to her severe debility. Recommend continua tion of serial CBCs which she is getting at the [facility]. It has been discussed with the patient's , that if the patient were to develop a relapse, she may not be a candidate for additional treatment because of her poor performance status. Current Visit: No Status: Chronic Priority: Low Code(s): C85.90 - NON- HODGKIN LYMPHOMA, UNSPECIFIED, UNSPECIFIED SITE SNOMED Code(s): 133724594
[2019-02-16 17:09] LABS: Glucose,Whole Blood 198 mg/dL (75-99)
--- NOTE | 2019-02-16 17:48 | P.PN ---
Subjective Progress Note Date: 02/16/19 Principal diagnosis: Coffee-ground emesis, hiatal hernia, acute blood loss anemia Patient seen lying in bed. No acute events reported per nursing staff. Patient has been tolerating full liquid diet, currently being fed by who is bedside. No further signs or symptoms of GI bleeding reported. Objective - Vital Signs Vital signs: Vital Signs Temp 97.2 F L 02/16/19 15:30 Pulse 72 02/16/19 15:30 Resp 18 02/16/19 15:30 BP 108/54 02/16/19 15:30 Pulse Ox 91 L 02/16/19 15:30 Intake & Output 02/15/19 02/16/19 02/16/19 18:59 06:59 18:59 Intake Total 1034.44 1235.075 697.156 Output Total 875 700 Balance 159.44 535.075 697.156 Weight 108.5 kg 108.5 kg Intake: Intake, IV Titration 724.44 1235.075 117.156 Amount Heparin Sod,Pork in 0.45% 124.44 35.075 17.156 NaCl 25,000 unit In 0.45 % NaCl 1 250ml.bag @ 10 UNITS/KG/HR 9.15 mls/hr IV .Q24H JOSEPH Rx#: [id number] Sodium Chloride 0.9% 1, 600 1200 000 ml @ 150 mls/hr IV . Q6H40M JOSEPH Rx#:[id number] Sodium Ferric Gluconat- 100 Sucrose 125 mg In Sodium Chloride 0.9% 100 ml @ 100 mls/hr IVPB DAILY JOSEPH Rx#:[id number] Oral 580 Blood Product 310 Rc As-1 Unit 310 [id number] Output: Urine 875 700 Other: Voiding Method Indwelling Catheter Indwelling Catheter # Bowel Movements 0 1 - Exam On physical examination, patient appears comfortable in no apparent distress. HEAD: Normocephalic, atraumatic. EYES: No scleral icterus. No conjunctival injection. MOUTH: No lesions, tongue midline. NECK: Trachea midline, no gross abnormalities. CHEST: Decreased air entry bilaterally. ABDOMEN: Soft, obese. Bowel sounds are positive. No organomegaly. No guarding or rigidity. EXTREMITIES: No pedal edema. SKIN: No rashes, no jaundice. NEUROLOGIC: Alert and oriented to person. No focal deficits. - Labs CBC & Chem 7: 02/16/19 06:19 02/14/19 05:21 Labs: Abnormal Lab Results - Last 24 Hours (Table) 02/13/19 02/15/19 02/15/19 Range/Units 12:38 17:01 23:14 WBC (3.8-10.6) k/uL RBC (3.80-5.40) m/uL Hgb (11.4-16.0) gm/dL Hct (34.0-46.0) % RDW (11.5-15.5) % Lymphocytes # (1.0-4.8) k/uL APTT 43.4 H 83.5 H (22.0-30.0) sec POC Glucose (mg/dL) (75-99) mg/dL Crossmatch See Detail 02/16/19 02/16/19 02/16/19 Range/Units 06:19 06:19 11:41 WBC 3.5 L (3.8-10.6) k/uL RBC 2.80 L (3.80-5.40) m/uL Hgb 8.9 L D (11.4-16.0) gm/dL Hct 26.9 L (34.0-46.0) % RDW 16.8 H (11.5-15.5) % Lymphocytes # 0.9 L (1.0-4.8) k/uL APTT 60.6 H (22.0-30.0) sec POC Glucose (mg/dL) 111 H (75-99) mg/dL Crossmatch 02/16/19 Range/Units 16:44 WBC (3.8-10.6) k/uL RBC (3.80-5.40) m/uL Hgb (11.4-16.0) gm/dL Hct (34.0-46.0) % RDW (11.5-15.5) % Lymphocytes # (1.0-4.8) k/uL APTT (22.0-30.0) sec POC Glucose (mg/dL) 198 H (75-99) mg/dL Crossmatch Microbiology - Last 24 Hours (Table) 02/14/19 06:04 Blood Culture - Preliminary Blood No Growth after 48 hours Assessment and Plan (1) Coffee ground emesis Narrative/Plan: 73-year-old female with advanced dementia and history of non-Hodgkin's lymphoma, acute on chronic anemia, hiatal hernia, and recent incarcerated ventral hernia status post repair who presented to the hospital due to concerns over coffee- ground emesis. The patient is status post EGD with the surgical service with findings of hiatal hernia and gastritis with no evidence of peptic ulcer disease or a source of bleeding. Differential includes coffee-ground emesis from Margaret-Avilez tear, Jem's erosions with small bowel source not totally excluded. Current Visit: Yes Status: Acute Code(s): K92.0 - HEMATEMESIS SNOMED Code(s): 94027513 (2) Acute blood loss anemia Current Visit: Yes Status: Acute Code(s): D62 - ACUTE POSTHEMORRHAGIC ANEMIA SNOMED Code(s): 306013002 (3) Hiatal hernia Current Visit: Yes Status: Acute Code(s): K44.9 - DIAPHRAGMATIC HERNIA WITHOUT OBSTRUCTION OR GANGRENE SNOMED Code(s): 28725596 Plan: Supportive care Diet advance today to dysphagia 1 Continue Protonix twice daily Continue to monitor hemoglobin and hematocrit and transfuse as needed Continue to monitor CMP Continue to monitor for signs or symptoms of GI bleeding Hematology service was consulted, and iron infusion ordered No plan for further endoscopic evaluation at this time Computed tomography scan abdomen and pelvis pending Thank you for allowing us to participate in the care of the patient, the GI service will stand by, please call us back with any questions or concerns
--- NOTE | 2019-02-16 19:39 | PN ---
PROGRESS NOTE DATE OF SERVICE: 02/16/2019. REASON FOR FOLLOWUP: Sacral pressure ulcer, left heel pressure ulcer. INTERVAL HISTORY: The patient is currently afebrile. Patient is slightly moaning, but no nausea, vomiting or diarrhea. Blood in the stool has been noted. provided most of the history. The patient herself is not able to provide any history. PHYSICAL EXAMINATION: VITAL SIGNS: Blood pressure 124/76, pulse of 55, temperature 97.4, she is 97% on room air. GENERAL DESCRIPTION is an elderly female, lying in bed in no distress. RESPIRATORY SYSTEM: Unlabored breathing. Clear to auscultation anteriorly. HEART S1, S2. Regular rate and rhythm. ABDOMEN: Soft, no tenderness. LABS: Hemoglobin 8.8, white count 3.5. Blood culture has been negative. DIAGNOSTIC IMPRESSION AND PLAN: Patient with Stage 2 sacral pressure ulcer. Local wound care with Medihoney followed by moist dressing to keep the area off the pressure. The patient with left heel pressure ulcer, heel protector to keep the area off the pressure. Continue supportive care. MMODL / IJN: [id number] /
[2019-02-16] MEDS: QUEtiapine 50 MG TAB PO SCH (20:07)
[2019-02-16] MEDS: MELATONIN 3 MG TABLET PO SCH (20:07)
[2019-02-16 21:06] LABS: Glucose,Whole Blood 220 mg/dL (75-99)
[2019-02-16] MEDS: INSULIN DETEMIR (LEVEMIR) 100 UNIT/ML SYR SQ SCH (21:10)
[2019-02-17] MEDS: SODIUM CHLORIDE 0.9% 1,000 ML IV SCH ×3 (02:18→17:14)
[2019-02-17] MEDS: HEPARIN SOD,PORK IN 0.45% NACL 25,000 UNIT in 0.45% NACL 1 250ML.BAG IV SCH (02:18)
[2019-02-17 04:18] LABS: HCT 25.4 % (34.0-46.0); HGB 8.2 gm/dL (11.4-16.0); Hypochromasia Slight; MCH 31.3 pg (25.0-35.0); MCHC 32.4 g/dL (31.0-37.0); MCV 96.7 fL (80.0-100.0); Mean Platelet Volume 6.8; Platelet Count 190 k/uL (150-450); Poikilocytosis Slight; RBC 2.63 m/uL (3.80-5.40); RDW 15.7 % (11.5-15.5); WBC 4.7 k/uL (3.8-10.6)
[2019-02-17 04:36] LABS: African American GFR (CKD) >90 (>60 ml/min/1.73 sqM); Anion Gap 4 mmol/L; Blood Urea Nitrogen 13 mg/dL (7-17); Calcium 7.1 mg/dL (8.4-10.2); Carbon Dioxide 22 mmol/L (22-30); Chloride 113 mmol/L (98-107); Glucose 75 mg/dL (74-99); Potassium 2.9 mmol/L (3.5-5.1); Sodium 139 mmol/L (137-145)
[2019-02-17] MEDS ORDERED: Potassium Replacement Protocol 1 EACH MISC MISCELLANE PRN (05:33)
[2019-02-17] MEDS: POTASSIUM CHLORIDE 10 MEQ in WATER FOR INJECTION 1 100ML.BAG IVPB SCH ×6 (05:47→12:52)
[2019-02-17 06:02] LABS: Glucose,Whole Blood 56 mg/dL (75-99)
[2019-02-17] MEDS: DEXTROSE 50% SYRINGE 50 ML IVP ONE ×2 (06:03→11:42)
[2019-02-17] MEDS: INSULIN ASPART (NovoLOG) 100 UNIT/ML VIAL SQ SCH ×4 (06:07→21:01)
[2019-02-17 06:20] LABS: Glucose,Whole Blood 153 mg/dL (75-99)
[2019-02-17] MEDS: PANTOPRAZOLE 40 MG/10 ML VIAL IVP SCH ×2 (08:15→20:13)
[2019-02-17] MEDS: SODIUM FERRIC GLUCONAT-SUCROSE 125 MG in SODIUM CHLORIDE 0.9% 100 ML IVPB SCH (10:34)
--- NOTE | 2019-02-17 11:31 | P.PN ---
Subjective Progress Note Date: 02/17/19 HISTORY OF PRESENT ILLNESS: Patient seen and examined at the bedside. Patient is resting comfortably. Patient denies abdominal pain. Hemoglobin today is 8.2. PHYSICAL EXAM: VITAL SIGNS: Reviewed. GENERAL: Well-developed in no acute distress. HEENT: No sclera icterus. Extraocular movements grossly intact. Moist buccal mucosa. Head is atraumatic, normocephalic. ABDOMEN: Soft. Nondistended. Nontender. NEUROLOGIC: Sleepy. Oriented 1. ASSESSMENT: 1. Status post upper GI bleed secondary to esophagitis PLAN: Continue current diet. Hemoglobin remains stable. No further surgical intervention recommended. Nurse practitioner note has been reviewed by physician. Signing provider agrees with the documented findings, assessment, and plan of care. Objective - Vital Signs Vital signs: Vital Signs Temp 96.8 F L 02/16/19 20:00 Pulse 55 L 02/17/19 08:00 Resp 17 02/17/19 08:00 BP 90/58 02/17/19 08:00 Pulse Ox 95 02/17/19 08:00 Intake & Output 02/16/19 02/17/19 02/17/19 18:59 06:59 18:59 Intake Total 697.156 240 Output Total 325 Balance 697.156 -85 Weight 108.5 kg 105.5 kg Intake: Intake, IV Titration 117.156 Amount Heparin Sod,Pork in 0.45% 17.156 NaCl 25,000 unit In 0.45 % NaCl 1 250ml.bag @ 10 UNITS/KG/HR 9.15 mls/hr IV .Q24H [facility]SE[facility] Rx#: [id number] Sodium Ferric Gluconat- 100 Sucrose 125 mg In Sodium Chloride 0.9% 100 ml @ 100 mls/hr IVPB DAILY JOSEPH Rx#:[id number] Oral 580 240 Output: Urine 325 Other: Voiding Method Indwelling Catheter Indwelling Catheter # Bowel Movements 1 - Labs CBC & Chem 7: 02/17/19 04:04 02/17/19 04:10 Labs: Abnormal Lab Results - Last 24 Hours (Table) 02/13/19 02/16/19 02/16/19 Range/Units 12:38 11:41 16:44 RBC (3.80-5.40) m/uL Hgb (11.4-16.0) gm/dL Hct (34.0-46.0) % RDW (11.5-15.5) % APTT (22.0-30.0) sec Potassium (3.5-5.1) mmol/L Chloride (98-107) mmol/L POC Glucose (mg/dL) 111 H 198 H (75-99) mg/dL Calcium (8.4-10.2) mg/dL Crossmatch See Detail 02/16/19 02/17/19 02/17/19 Range/Units 21:04 04:04 04:04 RBC 2.63 L (3.80-5.40) m/uL Hgb 8.2 L (11.4-16.0) gm/dL Hct 25.4 L (34.0-46.0) % RDW 15.7 H (11.5-15.5) % APTT 47.3 H (22.0-30.0) sec Potassium (3.5-5.1) mmol/L Chloride (98-107) mmol/L POC Glucose (mg/dL) 220 H (75-99) mg/dL Calcium (8.4-10.2) mg/dL Crossmatch 02/17/19 02/17/19 02/17/19 Range/Units 04:10 06:00 06:18 RBC (3.80-5.40) m/uL Hgb (11.4-16.0) gm/dL Hct (34.0-46.0) % RDW (11.5-15.5) % APTT (22.0-30.0) sec Potassium 2.9 L (3.5-5.1) mmol/L Chloride 113 H (98-107) mmol/L POC Glucose (mg/dL) 56 L 153 H (75-99) mg/dL Calcium 7.1 L (8.4-10.2) mg/dL Crossmatch Microbiology - Last 24 Hours (Table) 02/14/19 06:04 Blood Culture - Preliminary Blood No Growth after 72 hours
[2019-02-17] MEDS: ALPRAZolam 0.5 MG TAB PO SCH ×2 (11:40→20:14)
[2019-02-17] MEDS ORDERED: DEXTROSE 50% SYRINGE 50 ML IVP ONE (11:41)
[2019-02-17 11:42] LABS: Glucose,Whole Blood 56 mg/dL (75-99)
[2019-02-17] MEDS: GABAPENTIN 300 MG CAP PO SCH (11:53)
[2019-02-17] MEDS: DIVALPROEX 250 MG TABLET.DR PO SCH ×3 (11:53→17:10)
[2019-02-17 12:03] LABS: Glucose,Whole Blood 148 mg/dL (75-99)
[2019-02-17] MEDS: SUCRALFATE 1 GM TAB PO SCH ×2 (12:13→17:10)
[2019-02-17] MEDS: TAMSULOSIN 0.4 MG CAP.ER.24H PO SCH (12:48)
--- NOTE | 2019-02-17 12:50 | P.PN ---
Subjective Progress Note Date: 02/17/19 Principal diagnosis: GI Bleed, Acute on Chronic Anemia, Hx: Lymphoma Potassium 2.9, Hemoglobin 8.2 today Objective - Vital Signs Vital signs: Vital Signs Temp 96.8 F L 02/16/19 20:00 Pulse 55 L 02/17/19 08:00 Resp 17 02/17/19 08:00 BP 90/58 02/17/19 08:00 Pulse Ox 95 02/17/19 08:00 Intake & Output 02/16/19 02/17/19 02/17/19 18:59 06:59 18:59 Intake Total 697.156 240 Output Total 325 Balance 697.156 -85 Weight 108.5 kg 105.5 kg Intake: Intake, IV Titration 117.156 Amount Heparin Sod,Pork in 0.45% 17.156 NaCl 25,000 unit In 0.45 % NaCl 1 250ml.bag @ 10 UNITS/KG/HR 9.15 mls/hr IV .Q24H [facility] Rx#: [id number] Sodium Ferric Gluconat- 100 Sucrose 125 mg In Sodium Chloride 0.9% 100 ml @ 100 mls/hr IVPB DAILY [facility] Rx#:[id number] Oral 580 240 Output: Urine 325 Other: Voiding Method Indwelling Catheter Indwelling Catheter # Bowel Movements 1 - Exam - Constitutional General appearance: no acute distress - EENT Eyes: EOMI, PERRLA ENT: hearing grossly normal, normal oropharynx - Neck Neck: no lymphadenopathy Thyroid: bilateral: normal size - Respiratory Respiratory: bilateral: CTA - Cardiovascular Rhythm: regular Heart sounds: normal: S1, S2 - Gastrointestinal General gastrointestinal: normal bowel sounds, soft - Integumentary Integumentary: normal - Neurologic Marked generalized weakness. Lower extremity weaker than upper. Generalized muscle rigidity Neurologic: CNII-XII intact - Musculoskeletal Musculoskeletal: generalized weakness, strength equal bilaterally - Psychiatric Confused, speech is coherent intermittently only. - Labs CBC & Chem 7: 02/17/19 04:04 02/17/19 14:57 Labs: Abnormal Lab Results - Last 24 Hours (Table) 02/13/19 02/16/19 02/16/19 Range/Units 12:38 16:44 21:04 RBC (3.80-5.40) m/uL Hgb (11.4-16.0) gm/dL Hct (34.0-46.0) % RDW (11.5-15.5) % APTT (22.0-30.0) sec Potassium (3.5-5.1) mmol/L Chloride (98-107) mmol/L POC Glucose (mg/dL) 198 H 220 H (75-99) mg/dL Calcium (8.4-10.2) mg/dL Crossmatch See Detail 02/17/19 02/17/19 02/17/19 Range/Units 04:04 04:04 04:10 RBC 2.63 L (3.80-5.40) m/uL Hgb 8.2 L (11.4-16.0) gm/dL Hct 25.4 L (34.0-46.0) % RDW 15.7 H (11.5-15.5) % APTT 47.3 H (22.0-30.0) sec Potassium 2.9 L (3.5-5.1) mmol/L Chloride 113 H (98-107) mmol/L POC Glucose (mg/dL) (75-99) mg/dL Calcium 7.1 L (8.4-10.2) mg/dL Crossmatch 02/17/19 02/17/19 02/17/19 Range/Units 06:00 06:18 11:40 RBC (3.80-5.40) m/uL Hgb (11.4-16.0) gm/dL Hct (34.0-46.0) % RDW (11.5-15.5) % APTT (22.0-30.0) sec Potassium (3.5-5.1) mmol/L Chloride (98-107) mmol/L POC Glucose (mg/dL) 56 L 153 H 56 L (75-99) mg/dL Calcium (8.4-10.2) mg/dL Crossmatch 02/17/19 Range/Units 12:00 RBC (3.80-5.40) m/uL Hgb (11.4-16.0) gm/dL Hct (34.0-46.0) % RDW (11.5-15.5) % APTT (22.0-30.0) sec Potassium (3.5-5.1) mmol/L Chloride (98-107) mmol/L POC Glucose (mg/dL) 148 H (75-99) mg/dL Calcium (8.4-10.2) mg/dL Crossmatch Microbiology - Last 24 Hours (Table) 02/14/19 06:04 Blood Culture - Preliminary Blood No Growth after 72 hours Assessment and Plan Plan: Comments: Operative report, and multiple physician notes reviewed CT scan - abdomen: report reviewed CT scan - pelvis: report reviewed Venous US: report reviewed Assessment and Plan Acute blood loss anemia - History of iron deficiency anemia in 2007, which resolved with iron supplementation. - She then had recurrent anemia as well as other cytopenias due to non-Ho dgkin's lymphoma, which also improved with treatment. - At baseline the patient does have a mild anemia and leukopenia with intermittent mild, cytopenia. Her counts do tend to drop significantly in case of any additional stress such as acute illnesses infections etc. - The patient appears to have had upper GI bleeding, most likely due to stress gastritis from her recent surgery. EGD did not show any active bleeding. Hemoglobin has responded appropriately to transfusion. Iron studies were normal, but will not change in the short-term with acute bleeding. GI did evaluate and Parental Iron was given. Hemoglobin stable today 8.2 DVT of left leg - Provoked with given the patient's recent surgery and immobility. At this time and feels that the patient is an acceptable risk for anticoagulation. - She has been on Heparin Drip while inpatient and no worsening or active bleeding noted. I would therefore recommend continuing the patient on anticoagulation with monitoring. At this time there does NOT appear to be any specific indication for IVC filter. She can be reevaluated for the same if bleeding recurs. - Even though this would be considered a provoked clot, the patient is likely to have ongoing risk factors, specifically very poor mobility. Therefore she would need to be considered for ongoing anticoagulation. - The patient tolerates IV heparin well, she can be switched over to one of the DOACs. After full dose treatment for 3-6 months (assuming she tolerates it well) she can have risk assessment and be potentially switch to the lower maintenance dose for ongoing treatment Non-Hodgkin lymphoma - The patient has been on observation for the same, with no evidence of recurrence based on fairly stable blood counts. Again there appears to be no evidence of recurrence, with the change in counts during this admission related to GI bleed. Otherwise counts have been at baseline. The patient is not able to follow in the office regularly anymore, due to her severe debility. Recommend continuation of serial CBCs which she is getting at the [facility]. It has been discussed with the patient's , that if the patient were to develop a relapse, she may not be a candidate for additional treatment because of her poor performance status. Hypokalemia: Potassium 2.9 today: - Recheck Potassium after the 60meq supp given, check mag - Recheck lytes tomorrow as well
[2019-02-17 15:26] LABS: African American GFR (CKD) >90 (>60 ml/min/1.73 sqM); Anion Gap 3 mmol/L; Blood Urea Nitrogen 11 mg/dL (7-17); Calcium 7.4 mg/dL (8.4-10.2); Carbon Dioxide 24 mmol/L (22-30); Chloride 113 mmol/L (98-107); Glucose 114 mg/dL (74-99); Magnesium 1.4 mg/dL (1.6-2.3); Potassium 3.7 mmol/L (3.5-5.1); Sodium 140 mmol/L (137-145)
[2019-02-17] MEDS ORDERED: Magnesium Replacement Protocol 1 EACH MISC MISCELLANE PRN ×2 (16:29→17:37)
[2019-02-17 16:54] LABS: Glucose,Whole Blood 122 mg/dL (75-99)
[2019-02-17] MEDS: MAGNESIUM SULFATE-D5W PMX 1 GM in DEXTROSE/WATER 1 100ML.BAG IVPB SCH ×3 (17:50→20:14)
--- NOTE | 2019-02-17 18:21 | P.PN ---
Subjective Progress Note Date: 02/17/19 Principal diagnosis: Small pleural effusion, right lower lobe small nodule, exertional shortness of breath, left lower extremity popliteal DVT, coffee-ground emesis history, acute on chronic anemia severe in nature, 02/17/2019, patient seen eval reexamined during the rounds care plan discussed with the present at bedside patient has been tolerating heparin very well hemoglobin stable, potassium is 2.9 improved from 3. 7 repeat level swelling in the right upper extremity slightly improved, swelling in the left lower extremity improved as well 02/16/2019, overall mental status remains unchanged, denies any cough or sputum production, patient remains on heparin drip, hemoglobin stable no signs of overt bleeding or site of bleeding noted, and labs reviewed medications reviewed care plan discussed with staff at length 02/15/2019, patient seen eval reexamined during the rounds overall mental status remains unchanged he is pleasantly confused she is oriented 1 due to advanced dementia, patient has been noted to have drop in hemoglobin no site of actual blood loss is seen and no globe and has come down to 6.7 patient is being transfused with 1 unit of packed RBC computed tomography scan of the abdominal pelvis reviewed at admitted no retroperitoneal hematoma is seen, EGD has been done by general surgery some gastritis was identified along with some esopha gitis no bleeding ulcer is seen patient has no bowel movement overnight, vascular surgery and hematology has been consulted for the possible placement of IVC filter and etiology of anemia respectively patient has been on currently heparin drip care plan reviewed and discussed with the patient vascular surgery and GI service at length This is a 73-year-old female who has advanced dementia, presented into emergency department after that noted to have coffee-ground emesis patient is postop ventral hernia repair 2 weeks ago she is dehydrated as well she was found to have elevated lactic acid level which is thought to be related to dehydration due to advanced dementia but unable to obtain detailed history from the patient did I obtained from the chart, her hemoglobin came down to 8.4 from 10.7, patient is on Protonix in addition has been hydrated with 150mL/h, white cell count is normal Objective - Vital Signs Vital signs: Vital Signs Temp 97 F L 02/17/19 15:20 Pulse 78 02/17/19 15:20 Resp 17 02/17/19 15:20 BP 115/51 02/17/19 15:20 Pulse Ox 91 L 02/17/19 15:20 Intake & Output 02/16/19 02/17/19 02/17/19 18:59 06:59 18:59 Intake Total 697.156 240 240 Output Total 325 250 Balance 697.156 -85 -10 Weight 108.5 kg 105.5 kg Intake: Intake, IV Titration 117.156 Amount Heparin Sod,Pork in 0.45% 17.156 NaCl 25,000 unit In 0.45 % NaCl 1 250ml.bag @ 10 UNITS/KG/HR 9.15 mls/hr IV .Q24H [facility] Rx#: [id number] Sodium Ferric Gluconat- 100 Sucrose 125 mg In Sodium Chloride 0.9% 100 ml @ 100 mls/hr IVPB DAILY [facility] Rx#:[id number] Oral 580 240 240 Output: Urine 325 250 Other: Voiding Method Indwelling Catheter Indwelling Catheter # Bowel Movements 1 - Exam - Constitutional General appearance: average body habitus, cooperative, disheveled - EENT Periorbital ecchymosis bilaterally noted probably related to fall Eyes: EOMI, PERRLA, poor dentition, normal appearance Ears: bilateral: normal - Neck Carotids: bilateral: upstroke normal Thyroid: bilateral: normal size - Respiratory Respiratory: bilateral: CTA - Cardiovascular Rhythm: regular Heart sounds: normal: S1, S2 - Gastrointestinal General gastrointestinal: decreased bowel sounds, normal bowel sounds, soft - Integumentary Integumentary: decreased turgor - Neurologic Neurologic: CNII-XII intact - Musculoskeletal Musculoskeletal: gait normal, generalized weakness, strength equal bilaterally - Psychiatric Oriented 1 only Psychiatric: appropriate affect - Labs CBC & Chem 7: 02/17/19 04:04 02/17/19 14:57 Labs: Abnormal Lab Results - Last 24 Hours (Table) 02/16/19 02/17/19 02/17/19 Range/Units 21:04 04:04 04:04 RBC 2.63 L (3.80-5.40) m/uL Hgb 8.2 L (11.4-16.0) gm/dL Hct 25.4 L (34.0-46.0) % RDW 15.7 H (11.5-15.5) % APTT 47.3 H (22.0-30.0) sec Potassium (3.5-5.1) mmol/L Chloride (98-107) mmol/L Glucose (74-99) mg/dL POC Glucose (mg/dL) 220 H (75-99) mg/dL Calcium (8.4-10.2) mg/dL Magnesium (1.6-2.3) mg/dL 02/17/19 02/17/19 02/17/19 Range/Units 04:10 06:00 06:18 RBC (3.80-5.40) m/uL Hgb (11.4-16.0) gm/dL Hct (34.0-46.0) % RDW (11.5-15.5) % APTT (22.0-30.0) sec Potassium 2.9 L (3.5-5.1) mmol/L Chloride 113 H (98-107) mmol/L Glucose (74-99) mg/dL POC Glucose (mg/dL) 56 L 153 H (75-99) mg/dL Calcium 7.1 L (8.4-10.2) mg/dL Magnesium (1.6-2.3) mg/dL 02/17/19 02/17/19 02/17/19 Range/Units 11:40 12:00 14:57 RBC (3.80-5.40) m/uL Hgb (11.4-16.0) gm/dL Hct (34.0-46.0) % RDW (11.5-15.5) % APTT (22.0-30.0) sec Potassium (3.5-5.1) mmol/L Chloride 113 H (98-107) mmol/L Glucose 114 H (74-99) mg/dL POC Glucose (mg/dL) 56 L 148 H (75-99) mg/dL Calcium 7.4 L (8.4-10.2) mg/dL Magnesium 1.4 L (1.6-2.3) mg/dL 02/17/19 Range/Units 16:43 RBC (3.80-5.40) m/uL Hgb (11.4-16.0) gm/dL Hct (34.0-46.0) % RDW (11.5-15.5) % APTT (22.0-30.0) sec Potassium (3.5-5.1) mmol/L Chloride (98-107) mmol/L Glucose (74-99) mg/dL POC Glucose (mg/dL) 122 H (75-99) mg/dL Calcium (8.4-10.2) mg/dL Magnesium (1.6-2.3) mg/dL Microbiology - Last 24 Hours (Table) 02/14/19 06:04 Blood Culture - Preliminary Blood No Growth after 72 hours Assessment and Plan Assessment: Acute on chronic anemia severe in nature, No source of bleeding has been identified currently stable DVT left lower extremity Small pleural effusion most likely related to protein calorie malnourishment versus heart failure chronic diastolic heart failure Right lower lobe lung nodule, will observe Exertional shortness of breath Lactic acidosis likely related to dehydration repeat levels are normal Coffee-ground emesis with falling hemoglobin some contribution appears to be related to rehydration Reviewed reports of vascular surgery and hematology Plan: Agree with GI consult/surgical consult Monitor hemoglobin closely if less than 8 we'll type and crossmatch and transfuse continue heparin Gentle rehydration Proton pump inhibitor Improved nutritional status Further recommendations pending plan of care as per clinical response of patient Time with Patient: Greater than 30
[2019-02-17] MEDS: QUEtiapine 50 MG TAB PO SCH (20:13)
[2019-02-17] MEDS: MELATONIN 3 MG TABLET PO SCH (20:14)
[2019-02-17 20:53] LABS: Glucose,Whole Blood 197 mg/dL (75-99)
[2019-02-17] MEDS: INSULIN DETEMIR (LEVEMIR) 100 UNIT/ML SYR SQ SCH (21:01)
--- NOTE | 2019-02-17 21:49 | P.PN ---
Progress Note - Text Progress Note Date: 02/17/19 PROGRESS NOTE DATE OF SERVICE: 02/17/2019. REASON FOR FOLLOWUP: Sacral pressure ulcer, left heel pressure ulcer. INTERVAL HISTORY: The patient is afebrile. Patient is sleepy today , no vomiting or diarrhea or blood in the stool has been noted per . The patient herself is not able to provide any history. PHYSICAL EXAMINATION: VITAL SIGNS: Blood pressure 120/75, pulse of 65, temperature 97.4, she is 97% on room air. GENERAL DESCRIPTION is an elderly female, lying in bed in no distress. RESPIRATORY SYSTEM: Unlabored breathing. Clear to auscultation anteriorly. HEART S1, S2. Regular rate and rhythm. ABDOMEN: Soft, no tenderness. LABS: Reviewed . DIAGNOSTIC IMPRESSION AND PLAN: 1- Patient with Stage 2 sacral pressure ulcer. Local wound care with Medihoney followed by moist dressing to keep the area off the pressure. 2-The patient with left heel pressure ulcer, heel protector to keep the area off the pressure. No need for systemic antibiotic therapy , Continue supportive care.
[2019-02-18] MEDS: HEPARIN SOD,PORK IN 0.45% NACL 25,000 UNIT in 0.45% NACL 1 250ML.BAG IV SCH (01:39)
[2019-02-18] MEDS: SODIUM CHLORIDE 0.9% 1,000 ML IV SCH ×3 (01:41→09:21)
[2019-02-18 05:58] LABS: Glucose,Whole Blood 82 mg/dL (75-99)
[2019-02-18] MEDS: INSULIN ASPART (NovoLOG) 100 UNIT/ML VIAL SQ SCH ×3 (06:22→17:07)
[2019-02-18 07:17] LABS: Anisocytosis Slight; Basophils % (A) 1 %; Eosinophils # (A) 0.2 k/uL (0-0.7); Eosinophils % (A) 4 %; HCT 29.1 % (34.0-46.0); HGB 9.6 gm/dL (11.4-16.0); Hypochromasia Slight; Lymphocytes % (A) 19 %; MCH 32.1 pg (25.0-35.0); MCV 97.1 fL (80.0-100.0); Macrocytosis Slight; Mean Platelet Volume 7.7; Monocytes # (A) 0.3 k/uL (0-1.0); Monocytes % (A) 5 %; Neutrophils # (A) 3.5 k/uL (1.3-7.7); Neutrophils % (A) 69 %; Platelet Count 184 k/uL (150-450); Poikilocytosis Slight
[2019-02-18 07:29] LABS: ALT 15 U/L (9-52); AST 16 U/L (14-36); African American GFR (CKD) >90 (>60 ml/min/1.73 sqM); Albumin 1.8 g/dL (3.5-5.0); Alkaline Phosphatase 135 U/L (38-126); Anion Gap 3 mmol/L; Blood Urea Nitrogen 11 mg/dL (7-17); Calcium 7.2 mg/dL (8.4-10.2); Carbon Dioxide 22 mmol/L (22-30); Chloride 114 mmol/L (98-107); Glucose 71 mg/dL (74-99); Potassium 3.4 mmol/L (3.5-5.1); Sodium 139 mmol/L (137-145); Total Bilirubin 0.2 mg/dL (0.2-1.3); Total Protein 3.6 g/dL (6.3-8.2)
[2019-02-18] MEDS: DIVALPROEX 250 MG TABLET.DR PO SCH (08:00)
[2019-02-18] MEDS: PANTOPRAZOLE 40 MG/10 ML VIAL IVP SCH (08:50)
[2019-02-18] MEDS: POTASSIUM CHLORIDE 10 MEQ in WATER FOR INJECTION 1 100ML.BAG IVPB SCH ×4 (08:52→14:43)
[2019-02-18] MEDS ORDERED: Potassium Replacement Protocol 1 EACH MISC MISCELLANE PRN (09:13)
[2019-02-18] MEDS: GABAPENTIN 300 MG CAP PO SCH (09:22)
[2019-02-18] MEDS: DIVALPROEX SPRINKLE 125 MG CAP.SPRINK PO SCH ×3 (09:22→17:45)
[2019-02-18] MEDS: SUCRALFATE 1 GM TAB PO SCH ×2 (09:22→17:45)
--- NOTE | 2019-02-18 10:07 | P.PN ---
Subjective Progress Note Date: 02/17/19 This is a 73-year-old female who has advanced dementia, presented into emergency department after that noted to have coffee-ground emesis patient is postop ventral hernia repair 2 weeks ago she is dehydrated as well she was found to have elevated lactic acid level which is thought to be related to dehydration due to advanced dementia but unable to obtain detailed history from the patient did I obtained from the chart, her hemoglobin came down to 8.4 from 10.7, patient is on Protonix in addition has been hydrated with 150mL/h, white cell count is normal. 02/17/2019 Receiving supplementation for magnesium 1.4. Receiving supplements for potassium 2.9 currently up to 3.7. Evaluated by oncology, recommending oral anticoagulation with no IVC filter indicated at this time. Maintained on heparin drip with current hemoglobin 8.2.Status post EGD rpeporting some gastritis ,esophagitis no bleeding ulcer is seen, possible Margaret-Avilez tear, jem erosions, possible small bowel source. Tolerating dysphagia 1 diet with no nausea vomiting or diarrhea. Denies abdominal pain. Objective - Vital Signs Vital signs: Vital Signs Temp 97 F L 02/17/19 15:20 Pulse 78 02/17/19 15:20 Resp 17 02/17/19 15:20 BP 115/51 02/17/19 15:20 Pulse Ox 91 L 02/17/19 15:20 Intake & Output 02/16/19 02/17/19 02/17/19 18:59 06:59 18:59 Intake Total 697.156 240 240 Output Total 325 250 Balance 697.156 -85 -10 Weight 108.5 kg 105.5 kg Intake: Intake, IV Titration 117.156 Amount Heparin Sod,Pork in 0.45% 17.156 NaCl 25,000 unit In 0.45 % NaCl 1 250ml.bag @ 10 UNITS/KG/HR 9.15 mls/hr IV .Q24H [facility] Rx#: [id number] Sodium Ferric Gluconat- 100 Sucrose 125 mg In Sodium Chloride 0.9% 100 ml @ 100 mls/hr IVPB DAILY [facility] Rx#:[id number] Oral 580 240 240 Output: Urine 325 250 Other: Voiding Method Indwelling Catheter Indwelling Catheter # Bowel Movements 1 - Exam PHYSICAL EXAM: VITAL SIGNS: As above GENERAL: Lying in bed, no acute distress, confused,sleepy HEENT: Conjunctivae normal. eyes normal. Oral mucosa dry NECK: No JVD. No thyroid enlargement. No LNs CARDIOVASCULAR: S1, S2 regular.. No murmur RESPIRATION: Breath sounds diminished in the bases. No rhonchi or crackles. No bronchial breathing. ABDOMEN: Soft, nontender . No guarding. no masses palpable. Bowel sounds heard. LEGS: No edema. no swelling PSYCHIATRY: Alert and oriented lert and oriented to person, mood and affect normal. NERVOUS SYSTEM: Cranial N 2-12 grossly normal. Moves all 4 limbs. Diffuse weakness No focal deficits. Strength and sensation grossly intact. Skin: no lesions, no rash . Stage II sacral pressure ulcer with dressing clean dry and intact, left heel pressure ulcer with heel protector present. Please refer to nursing documentation/measurements/pictures. Lymphatic system. No LN neck axilla or groin. - Labs CBC & Chem 7: 02/18/19 06:35 02/18/19 06:35 Labs: Abnormal Lab Results - Last 24 Hours (Table) 02/16/19 02/16/19 02/17/19 Range/Units 16:44 21:04 04:04 RBC (3.80-5.40) m/uL Hgb (11.4-16.0) gm/dL Hct (34.0-46.0) % RDW (11.5-15.5) % APTT 47.3 H (22.0-30.0) sec Potassium (3.5-5.1) mmol/L Chloride (98-107) mmol/L Glucose (74-99) mg/dL POC Glucose (mg/dL) 198 H 220 H (75-99) mg/dL Calcium (8.4-10.2) mg/dL Magnesium (1.6-2.3) mg/dL 02/17/19 02/17/19 02/17/19 Range/Units 04:04 04:10 06:00 RBC 2.63 L (3.80-5.40) m/uL Hgb 8.2 L (11.4-16.0) gm/dL Hct 25.4 L (34.0-46.0) % RDW 15.7 H (11.5-15.5) % APTT (22.0-30.0) sec Potassium 2.9 L (3.5-5.1) mmol/L Chloride 113 H (98-107) mmol/L Glucose (74-99) mg/dL POC Glucose (mg/dL) 56 L (75-99) mg/dL Calcium 7.1 L (8.4-10.2) mg/dL Magnesium (1.6-2.3) mg/dL 02/17/19 02/17/19 02/17/19 Range/Units 06:18 11:40 12:00 RBC (3.80-5.40) m/uL Hgb (11.4-16.0) gm/dL Hct (34.0-46.0) % RDW (11.5-15.5) % APTT (22.0-30.0) sec Potassium (3.5-5.1) mmol/L Chloride (98-107) mmol/L Glucose (74-99) mg/dL POC Glucose (mg/dL) 153 H 56 L 148 H (75-99) mg/dL Calcium (8.4-10.2) mg/dL Magnesium (1.6-2.3) mg/dL 02/17/19 Range/Units 14:57 RBC (3.80-5.40) m/uL Hgb (11.4-16.0) gm/dL Hct (34.0-46.0) % RDW (11.5-15.5) % APTT (22.0-30.0) sec Potassium (3.5-5.1) mmol/L Chloride 113 H (98-107) mmol/L Glucose 114 H (74-99) mg/dL POC Glucose (mg/dL) (75-99) mg/dL Calcium 7.4 L (8.4-10.2) mg/dL Magnesium 1.4 L (1.6-2.3) mg/dL Microbiology - Last 24 Hours (Table) 02/14/19 06:04 Blood Culture - Preliminary Blood No Growth after 72 hours Assessment and Plan Assessment: -Acute on chronic blood loss anemia, Coffee-ground emesis, status post EGD re vealing hiatal hernia, gastritis with no evidence of peptic ulcer disease or active bleeding; possible Margaret-Avilez tear, Jem's erosions with possible small bowel source. History of iron deficient anemia in a patient with history of non-Hodgkin's lymphoma. DVT left lower extremity Small pleural effusion most likely related to protein calorie malnourishment versus heart failure chronic diastolic heart failure Right lower lobe lung nodule, will observe, further outpatient follow-up with p ulmonary -Lactic acidosis likely related to dehydration repeat levels are normal -Stage II sacral pressure ulcer -Left heel pressure ulcer -Hypokalemia -Hypomagnesemia -Dementia, type unknown Plan: Continue on current medication regime , PPI, monitoring and symptomatic treatment. Gentle IV fluid hydration. Diet advanced as per GI. Wound care as per ID. No antibiotic therapy recommended. Close monitoring of hemoglobin, coags. and lytes with repeat labs ordered for a.m. anticoagulation as per hematology/oncology .subacute rehab at discharge. The impression and plan of care has been dictated as directed. : I performed a history and examination of this patient, discussed the same with the dictator. I agree with the dictator's note ,documented as a scribe. Any additional findings or plans will be noted.
[2019-02-18] MEDS: SODIUM FERRIC GLUCONAT-SUCROSE 125 MG in SODIUM CHLORIDE 0.9% 100 ML IVPB SCH (10:47)
[2019-02-18] MEDS: ALPRAZolam 0.5 MG TAB PO SCH ×2 (11:51→13:07)
[2019-02-18 12:20] VITALS: TEMP 96.7
[2019-02-18 12:21] LABS: Glucose,Whole Blood 116 mg/dL (75-99)
[2019-02-18] MEDS: TAMSULOSIN 0.4 MG CAP.ER.24H PO SCH (12:34)
--- NOTE | 2019-02-18 14:11 | P.DS ---
Providers Date of admission: 02/14/19 10:15 Expected date of discharge: 02/18/19 Attending physician: Rc Barr Consults: 02/13/19 17:50 Consult Physician Routine Consulting Provider: Josy Borden Consult Reason/Comments: Wound Care, known to patient Do you want consulting provider notified?: Yes 02/13/19 17:51 Consult Physician Routine Consulting Provider: Bola Ureña Consult Reason/Comments: urinary retention Do you want consulting provider notified?: Yes 02/14/19 06:26 Consult Physician Routine Consulting Provider: Kip Uriarte Consult Reason/Comments: decreased BP, infection? low urine output Do you want consulting provider notified?: Yes 02/15/19 05:58 Consult Physician Routine Consulting Provider: Sidney Dean Consult Reason/Comments: DROP IN HGB-7.1 Do you want consulting provider notified?: Yes, Notify in am 02/15/19 11:44 Consult Physician Routine Consulting Provider: Kenny Alves Consult Reason/Comments: BLOOD LOSS Do you want consulting provider notified?: Yes Primary care physician: Corey Hospital Course: Final Diagnoses: -Acute on chronic blood loss anemia, Coffee-ground emesis, status post EGD revealing hiatal hernia, gastritis with no evidence of peptic ulcer disease or active bleeding; possible Margaret-Avilez tear, Jem's erosions with possible small bowel source. History of iron deficient anemia in a patient with history of non-Hodgkin's lymphoma. DVT left lower extremity Small pleural effusion most likely related to protein calorie malnourishment versus heart failure chronic diastolic heart failure Right lower lobe lung nodule, will observe, further outpatient follow-up with pulmonary -Lactic acidosis likely related to dehydration repeat levels are normal -Stage II sacral pressure ulcer -Left heel pressure ulcer -Hypokalemia -Hypomagnesemia -Dementia, type unknown Hospital COurse:This is a 73-year-old female who has advanced dementia, presented into emergency department after that noted to have coffee-ground emesis patient is postop ventral hernia repair 2 weeks ago she is dehydrated as well she was found to have elevated lactic acid level which is thought to be related to dehydration due to advanced dementia but unable to obtain detailed history from the patient did I obtained from the chart, her hemoglobin came down to 8.4 from 10.7, patient is on Protonix in addition has been hydrated with 150mL/h, white cell count is normal. 02/17/2019 Receiving supplementation for magnesium 1.4. Receiving supplements for potassium 2.9 currently up to 3.7. Evaluated by oncology, recommending oral anticoagulation with no IVC filter indicated at this time. Maintained on heparin drip with current hemoglobin 8.2.Status post EGD rpeporting some gastritis ,esophagitis no bleeding ulcer is seen, possible Margaret-Avilez tear, jem erosions, possible small bowel source. Tolerating dysphagia 1 diet with no nausea vomiting or diarrhea. Denies abdominal pain. Significant clinical improvement. Magnesium 2, potassium 3.4 receiving supplements. Eliquis per pack ordered for discharge. Hemoglobin 9.6. Patient is being discharged back to [facility] in a stable condition with her prognosis. EXAM: GENERAL: ALert & oriented X 2, no acute distress CARDIOVASCULAR: S1, S2 regular. No murmur RESPIRATION: Breath sounds diminished in the bases. No rhonchi or crackles. ABDOMEN: Soft, nontender . No guarding. no masses palpable. Bowel sounds heard. NERVOUS SYSTEM: Cranial N 2-12 grossly normal. Moves all 4 limbs. Diffuse weakness No focal deficits. Strength and sensation grossly intact. Skin: Stage II sacral pressure ulcer with dressing clean dry and intact, left heel pressure ulcer with heel protector present. Please refer to nursing documentation/measurements/pictures. The impression and plan of care has been dictated as directed. : I performed a history and examination of this patient, discussed the same with the dictator. I agree with the dictator's note ,documented as a scribe. Any additional findings or plans will be noted. Time taken: 35 minutes Patient Condition at Discharge: Stable Plan - Discharge Summary Discharge Rx Participant: No New Discharge Prescriptions: New Apixaban [Eliquis Starter Pack (for VTE)] 0 mg PO DIRECTED 30 Days #1 pack Tamsulosin [Flomax] 0.4 mg PO DAILY cap.er.24h Continue Simvastatin [Zocor] 40 mg PO DAILY Ferrous Sulfate [Iron (65 MG Elemental)] 325 mg PO DAILY Melatonin 3 mg PO HS@2000 Cranberry Fruit Concentrate [Cranberry] 450 mg PO BID Aspirin EC [Ecotrin Low Dose] 81 mg PO HS Cetirizine HCl [Zyrtec] 10 mg PO HS Furosemide [Lasix] 20 mg PO DAILY PRN PRN Reason: EDEMMA Levothyroxine Sodium [Synthroid] 125 mcg PO DAILY Magnesium Hydroxide [Milk of Magnesia] 2,400 mg PO DAILY PRN PRN Reason: Constipation QUEtiapine [SEROquel] 150 mg PO HS Ranitidine HCl [Zantac] 75 mg PO BID Ibuprofen [Motrin] 400 mg PO Q6HR PRN tab PRN Reason: Mild Pain Or Fever > 100.5 ALPRAZolam [Xanax] 0.5 mg PO BID #6 tab Insulin Glargine [Lantus] 7 unit SQ HS #0 Acetaminophen Tab [Tylenol] 650 mg PO Q6HR PRN tab PRN Reason: Mild Pain Or Fever > 100.5 Pro-Stat Sugar Free 30 ml PO BID INSULIN LISPRO (HumaLOG) [humaLOG] See Protocol SQ ACHS Divalproex [Depakote] 250 mg PO TID@0800,1200,1800 Metoprolol Tartrate [Lopressor] 100 mg PO BID Omeprazole 20 mg PO DAILY Gabapentin [Neurontin] 300 mg PO DAILY Losartan [Cozaar] 12.5 mg PO DAILY Escitalopram [Lexapro] 5 mg PO DAILY PRN PRN Reason: MOOD DISORDER Furosemide [Lasix] 40 mg PO DAILY PRN PRN Reason: PSYCHOTIC DISORDER WITH DELUSI Docusate [Colace] 100 mg PO PC-SUPPER Atorvastatin [Lipitor] 40 mg PO HS Nitroglycerin Sl Tabs [Nitrostat] 0.4 mg SL Q5M Changed Potassium Chloride ER [K-Dur 20] 40 meq PO DAILY #0 Discharge Medication List Simvastatin [Zocor] 40 mg PO DAILY 07/08/16 [History] Ferrous Sulfate [Iron (65 MG Elemental)] 325 mg PO DAILY 10/29/17 [History] Cranberry Fruit Concentrate [Cranberry] 450 mg PO BID 02/13/18 [History] Melatonin 3 mg PO HS@199902/13/18 [History] Aspirin EC [Ecotrin Low Dose] 81 mg PO HS 01/31/19 [History] Cetirizine HCl [Zyrtec] 10 mg PO HS 01/31/19 [History] Furosemide [Lasix] 20 mg PO DAILY PRN 01/31/19 [History] Levothyroxine Sodium [Synthroid] 125 mcg PO DAILY 01/31/19 [History] Magnesium Hydroxide [Milk of Magnesia] 2,400 mg PO DAILY PRN 01/31/19 [History] QUEtiapine [SEROquel] 150 mg PO HS 01/31/19 [History] Ranitidine HCl [Zantac] 75 mg PO BID 01/31/19 [History] ALPRAZolam [Xanax] 0.5 mg PO BID #6 tab 02/10/19 [Rx] Acetaminophen Tab [Tylenol] 650 mg PO Q6HR PRN tab 02/10/19 [Rx] Ibuprofen [Motrin] 400 mg PO Q6HR PRN tab 02/10/19 [Rx] Insulin Glargine [Lantus] 7 unit SQ HS #0 02/10/19 [Rx] Atorvastatin [Lipitor] 40 mg PO HS 02/13/19 [History] Divalproex [Depakote] 250 mg PO TID@0800,1200,1800 02/13/19 [History] Docusate [Colace] 100 mg PO PC-SUPPER 02/13/19 [History] Escitalopram [Lexapro] 5 mg PO DAILY PRN 02/13/19 [History] Furosemide [Lasix] 40 mg PO DAILY PRN 02/13/19 [History] Gabapentin [Neurontin] 300 mg PO DAILY 02/13/19 [History] INSULIN LISPRO (HumaLOG) [humaLOG] See Protocol SQ ACHS 02/13/19 [History] Losartan [Cozaar] 12.5 mg PO DAILY 02/13/19 [History] Metoprolol Tartrate [Lopressor] 100 mg PO BID 02/13/19 [History] Nitroglycerin Sl Tabs [Nitrostat] 0.4 mg SL Q5M 02/13/19 [History] Omeprazole 20 mg PO DAILY 02/13/19 [History] Pro-Stat Sugar Free 30 ml PO BID 02/13/19 [History] Apixaban [Eliquis Starter Pack (for VTE)] 0 mg PO DIRECTED 30 Days #1 pack 02/18/19 [Rx] Potassium Chloride ER [K-Dur 20] 40 meq PO DAILY #0 02/18/19 [Rx] Tamsulosin [Flomax] 0.4 mg PO DAILY cap.er.24h 02/18/19 [Rx] Follow up Appointment(s)/Referral(s): Rc Barr MD [Primary Care Provider] - 3 Days Nader Buchanan MD [Family Provider] - 1 Week Arpan Bautista MD [STAFF PHYSICIAN] - 1 Week Activity/Diet/Wound Care/Special Instructions: [place] Diet: Dysphagia I, Strict Aspirations Precautions Activity: As tolerated cbc,bmp, Magnesium in 3 days Wound Care as per ID
[2019-02-18] MEDS ORDERED: APIXABAN 5 MG TAB PO SCH ×3 (14:15→21:00)
--- NOTE | 2019-02-18 14:41 | P.PN ---
Subjective Progress Note Date: 02/18/19 Principal diagnosis: GI Bleed, Acute on Chronic Anemia, Hx: Lymphoma Spoke to primary and to RN, will plan to discontinue Heparin drip and give first dose in hospital. Since pill is q12 hours would recommend discontinuing heparin drip at 5:30 and administering eliquis at 6pm, second dose of eliquis would then be due at 6am on 02/19/19. patient aware and understands risks and benefits of proceeding with or without anticoagulation, have decided to proceed with anticoagulation therapy. She did receive iron infusion today as well. Objective - Vital Signs Vital signs: Vital Signs Temp 96.7 F L 02/18/19 12:00 Pulse 72 02/18/19 12:00 Resp 20 02/18/19 12:00 BP 151/88 02/18/19 12:00 Pulse Ox 96 02/18/19 12:00 Intake & Output 02/17/19 02/18/19 02/18/19 18:59 06:59 18:59 Intake Total 300 2750 894.002 Output Total 450 275 Balance -150 2475 894.002 Weight 107.5 kg Intake: IV 420 Heparin Sod,Pork in 0.45% 20 NaCl 25,000 unit In 0.45 % NaCl 1 250ml.bag @ 10 UNITS/KG/HR 9.15 mls/hr IV .Q24H [facility] Rx#: [id number] Potassium Chloride 10 meq 200 In Water For Injection 1 100ml.bag @ 100 mls/hr IVPB Q1HR [facility]SE[facility] Rx#: [id number] Sodium Chloride 0.9% 1, 100 000 ml @ 150 mls/hr IV . Q6H40M [facility] Rx#:[id number] Sodium Ferric Gluconat- 100 Sucrose 125 mg In Sodium Chloride 0.9% 100 ml @ 100 mls/hr IVPB DAILY JOSEPH Rx#:[id number] Intake, IV Titration 2750 134.002 Amount Heparin Sod,Pork in 0.45% 134.002 NaCl 25,000 unit In 0.45 % NaCl 1 250ml.bag @ 10 UNITS/KG/HR 9.15 mls/hr IV .Q24H [facility]PH Rx#: [id number] Magnesium Sulfate-D5w Pmx 400 1 gm In Dextrose/Water 1 100ml.bag @ 100 mls/hr IVPB Q1H [facility]SEPH Rx#: [id number] Potassium Chloride 10 meq 600 In Water For Injection 1 100ml.bag @ 100 mls/hr IVPB Q1HR [facility] Rx#: [id number] Sodium Chloride 0.9% 1, 1650 000 ml @ 150 mls/hr IV . Q6H40M [facility]SE[facility] Rx#:[id number] Sodium Ferric Gluconat- 100 Sucrose 125 mg In Sodium Chloride 0.9% 100 ml @ 100 mls/hr IVPB DAILY [facility]PH Rx#:[id number] Oral 300 340 Output: Urine 450 275 Other: Voiding Method Indwelling Catheter Indwelling Catheter Indwelling Catheter - Exam - Constitutional General appearance: no acute distress - EENT Eyes: EOMI, PERRLA ENT: hearing grossly normal, normal oropharynx - Neck Neck: no lymphadenopathy Thyroid: bilateral: normal size - Respiratory Respiratory: bilateral: CTA - Cardiovascular Rhythm: regular Heart sounds: normal: S1, S2 - Gastrointestinal General gastrointestinal: normal bowel sounds, soft - Integumentary Integumentary: normal - Neurologic Marked generalized weakness. Lower extremity weaker than upper. Generalized muscle rigidity Neurologic: CNII-XII intact - Musculoskeletal Musculoskeletal: generalized weakness, strength equal bilaterally - Psychiatric Confused, speech is coherent intermittently only. - Labs CBC & Chem 7: 02/18/19 06:35 02/18/19 06:35 Labs: Abnormal Lab Results - Last 24 Hours (Table) 02/17/19 02/17/19 02/17/19 Range/Units 14:57 16:43 20:52 RBC (3.80-5.40) m/uL Hgb (11.4-16.0) gm/dL Hct (34.0-46.0) % RDW (11.5-15.5) % APTT (22.0-30.0) sec Potassium (3.5-5.1) mmol/L Chloride 113 H (98-107) mmol/L Glucose 114 H (74-99) mg/dL POC Glucose (mg/dL) 122 H 197 H (75-99) mg/dL Calcium 7.4 L (8.4-10.2) mg/dL Magnesium 1.4 L (1.6-2.3) mg/dL Alkaline Phosphatase (38-126) U/L Total Protein (6.3-8.2) g/dL Albumin (3.5-5.0) g/dL 02/18/19 02/18/19 02/18/19 Range/Units 06:35 06:35 06:35 RBC 3.00 L (3.80-5.40) m/uL Hgb 9.6 L (11.4-16.0) gm/dL Hct 29.1 L (34.0-46.0) % RDW 17.0 H (11.5-15.5) % APTT 43.0 H (22.0-30.0) sec Potassium 3.4 L (3.5-5.1) mmol/L Chloride 114 H (98-107) mmol/L Glucose 71 L (74-99) mg/dL POC Glucose (mg/dL) (75-99) mg/dL Calcium 7.2 L (8.4-10.2) mg/dL Magnesium (1.6-2.3) mg/dL Alkaline Phosphatase 135 H (38-126) U/L Total Protein 3.6 L (6.3-8.2) g/dL Albumin 1.8 L (3.5-5.0) g/dL 02/18/19 Range/Units 12:00 RBC (3.80-5.40) m/uL Hgb (11.4-16.0) gm/dL Hct (34.0-46.0) % RDW (11.5-15.5) % APTT (22.0-30.0) sec Potassium (3.5-5.1) mmol/L Chloride (98-107) mmol/L Glucose (74-99) mg/dL POC Glucose (mg/dL) 116 H (75-99) mg/dL Calcium (8.4-10.2) mg/dL Magnesium (1.6-2.3) mg/dL Alkaline Phosphatase (38-126) U/L Total Protein (6.3-8.2) g/dL Albumin (3.5-5.0) g/dL Microbiology - Last 24 Hours (Table) 02/14/19 06:04 Blood Culture - Preliminary Blood No Growth after 96 hours Assessment and Plan Plan: Comments: Operative report, and multiple physician notes reviewed CT scan - abdomen: report reviewed CT scan - pelvis: report reviewed Venous US: report reviewed Assessment and Plan Acute blood loss anemia - History of iron deficiency anemia in 2007, which resolved with iron supplementation. - She then had recurrent anemia as well as other cytopenias due to non- Hodgkin's lymphoma, which also improved with treatment. - At baseline the patient does have a mild anemia and leukopenia with intermittent mild, cytopenia. Her counts do tend to drop significantly in case of any additional stress such as acute illnesses infections etc. - The patient appears to have had upper GI bleeding, most likely due to stress gastritis from her recent surgery. EGD did not show any active bleeding. Hemoglobin has responded appropriately to transfusion. Iron studies were normal, but will not change in the short-term with acute bleeding. GI did e valuate and Parental Iron was given. Hemoglobin stable today 8.2 DVT of left leg - Provoked with given the patient's recent surgery and immobility. At this time and feels that the patient is an acceptable risk for anticoagulation. - She has been on Heparin Drip while inpatient and no worsening or active bleeding noted. I would therefore recommend continuing the patient on anticoagulation with monitoring. At this time there does NOT appear to be any specific indication for IVC filter. She can be reevaluated for the same if bleeding recurs. - Even though this would be considered a provoked clot, the patient is likely to have ongoing risk factors, specifically very poor mobility. Therefore she would need to be considered for ongoing anticoagulation. - The patient tolerates IV heparin well, she can be switched over to one of the DOACs. After full dose treatment for 3-6 months (assuming she tolerates it well) she can have risk assessment and be potentially switch to the lower maintenance dose for ongoing treatment Non-Hodgkin lymphoma - The patient has been on observation with no evidence of recurrence. - Recommend continuation of serial CBCs which she is getting at the [facility]. - It has been discussed with the patient's , that if the patient were to develop a relapse, she may not be a candidate for additional treatment because of her poor performance status. Hypokalemia: Potassium 3.4 - improving PLAN: - Will Discontinue Heparin Drip arounf [id number] and give Eliquis Dose number one at that time. The second dose of eliquis will be due at 0600 on 02/19/19. Patient and aware of risks with anticoagulation and with safety as she is a fall risk. They have chosen to proceed with anticoagulation.
[2019-02-18 15:05] VITALS: BMI 38.2
[2019-02-18 16:23] VITALS: BP 142/79; PULSE 70; RESP 16
--- NOTE | 2019-02-18 16:53 | P.PN ---
Subjective Progress Note Date: 02/18/19 Principal diagnosis: Small pleural effusion, right lower lobe small nodule, exertional shortness of breath, left lower extremity popliteal DVT, coffee-ground emesis history, acute on chronic anemia severe in nature, 02/18/2019, patient seen eval reexamined during the rounds labs reviewed medications reviewed care plan discussed patient is being started on oral anticoagulants heparin is to be discontinued 02/17/2019, patient seen eval reexamined during the rounds care plan discussed with the present at bedside patient has been tolerating heparin very well hemoglobin stable, potassium is 2.9 improved from 3. 7 repeat level swelling in the right upper extremity slightly improved, swelling in the left lower extremity improved as well 02/16/2019, overall mental status remains unchanged, denies any cough or sputum production, patient remains on heparin drip, hemoglobin stable no signs of overt bleeding or site of bleeding noted, and labs reviewed medications reviewed care plan discussed with staff at length 02/15/2019, patient seen eval reexamined during the rounds overall mental status remains unchanged he is pleasantly confused she is oriented 1 due to advanced dementia, patient has been noted to have drop in hemoglobin no site of actual blood loss is seen and no globe and has come down to 6.7 patient is being transfused with 1 unit of packed RBC computed tomography scan of the abdominal pelvis reviewed at admitted no retroperitoneal hematoma is seen, EGD has been done by general surgery some gastritis was identified along with some esophagitis no bleeding ulcer is seen patient has no bowel movement overnight, vascular surgery and hematology has been consulted for the possible placement of IVC filter and etiology of anemia respectively patient has been on currently heparin drip care plan reviewed and discussed with the patient vascular surgery and GI service at length This is a 73-year-old female who has advanced dementia, presented into emergency department after that noted to have coffee-ground emesis patient is postop ventral hernia repair 2 weeks ago she is dehydrated as well she was found to have elevated lactic acid level which is thought to be related to dehydration due to advanced dementia but unable to obtain detailed history from the patient did I obtained from the chart, her hemoglobin came down to 8.4 from 10.7, masood ent is on Protonix in addition has been hydrated with 150mL/h, white cell count is normal Objective - Vital Signs Vital signs: Vital Signs Temp 96.7 F L 02/18/19 12:00 Pulse 70 02/18/19 16:00 Resp 16 02/18/19 16:00 BP 142/79 02/18/19 16:00 Pulse Ox 93 L 02/18/19 16:00 Intake & Output 02/17/19 02/18/19 02/18/19 18:59 06:59 18:59 Intake Total 300 2750 924.426 Output Total 450 275 Balance -150 2475 924.426 Weight 107.5 kg 107.5 kg Intake: IV 420 Heparin Sod,Pork in 0.45% 20 NaCl 25,000 unit In 0.45 % NaCl 1 250ml.bag @ 10 UNITS/KG/HR 9.15 mls/hr IV .Q24H [facility] Rx#: [id number] Potassium Chloride 10 meq 200 In Water For Injection 1 100ml.bag @ 100 mls/hr IVPB Q1HR [facility] Rx#: [id number] Sodium Chloride 0.9% 1, 100 000 ml @ 150 mls/hr IV . Q6H40M [facility] Rx#:[id number] Sodium Ferric Gluconat- 100 Sucrose 125 mg In Sodium Chloride 0.9% 100 ml @ 100 mls/hr IVPB DAILY [facility] Rx#:[id number] Intake, IV Titration 2750 164.426 Amount Heparin Sod,Pork in 0.45% 164.426 NaCl 25,000 unit In 0.45 % NaCl 1 250ml.bag @ 10 UNITS/KG/HR 9.15 mls/hr IV .Q24H [facility] Rx#: [id number] Magnesium Sulfate-D5w Pmx 400 1 gm In Dextrose/Water 1 100ml.bag @ 100 mls/hr IVPB Q1H [facility] Rx#: [id number] Potassium Chloride 10 meq 600 In Water For Injection 1 100ml.bag @ 100 mls/hr IVPB Q1HR [facility] Rx#: [id number] Sodium Chloride 0.9% 1, 1650 000 ml @ 150 mls/hr IV . Q6H40M [facility] Rx#:[id number] Sodium Ferric Gluconat- 100 Sucrose 125 mg In Sodium Chloride 0.9% 100 ml @ 100 mls/hr IVPB DAILY [facility] Rx#:[id number] Oral 300 340 Output: Urine 450 275 Other: Voiding Method Indwelling Catheter Indwelling Catheter Indwelling Catheter - Exam - Constitutional General appearance: average body habitus, cooperative, disheveled - EENT Periorbital ecchymosis bilaterally noted probably related to fall Eyes: EOMI, PERRLA, poor dentition, normal appearance Ears: bilateral: normal - Neck Carotids: bilateral: upstroke normal Thyroid: bilateral: normal size - Respiratory Respiratory: bilateral: CTA - Cardiovascular Rhythm: regular Heart sounds: normal: S1, S2 - Gastrointestinal General gastrointestinal: decreased bowel sounds, normal bowel sounds, soft - Integumentary Integumentary: decreased turgor - Neurologic Neurologic: CNII-XII intact - Musculoskeletal Musculoskeletal: gait normal, generalized weakness, strength equal bilaterally - Psychiatric Oriented 1 only Psychiatric: appropriate affect - Labs CBC & Chem 7: 02/18/19 06:35 02/18/19 06:35 Labs: Abnormal Lab Results - Last 24 Hours (Table) 02/17/19 02/17/19 02/18/19 Range/Units 16:43 20:52 06:35 RBC (3.80-5.40) m/uL Hgb (11.4-16.0) gm/dL Hct (34.0-46.0) % RDW (11.5-15.5) % APTT 43.0 H (22.0-30.0) sec Potassium (3.5-5.1) mmol/L Chloride (98-107) mmol/L Glucose (74-99) mg/dL POC Glucose (mg/dL) 122 H 197 H (75-99) mg/dL Calcium (8.4-10.2) mg/dL Alkaline Phosphatase (38-126) U/L Total Protein (6.3-8.2) g/dL Albumin (3.5-5.0) g/dL 02/18/19 02/18/19 02/18/19 Range/Units 06:35 06:35 12:00 RBC 3.00 L (3.80-5.40) m/uL Hgb 9.6 L (11.4-16.0) gm/dL Hct 29.1 L (34.0-46.0) % RDW 17.0 H (11.5-15.5) % APTT (22.0-30.0) sec Potassium 3.4 L (3.5-5.1) mmol/L Chloride 114 H (98-107) mmol/L Glucose 71 L (74-99) mg/dL POC Glucose (mg/dL) 116 H (75-99) mg/dL Calcium 7.2 L (8.4-10.2) mg/dL Alkaline Phosphatase 135 H (38-126) U/L Total Protein 3.6 L (6.3-8.2) g/dL Albumin 1.8 L (3.5-5.0) g/dL 02/18/19 Range/Units 15:34 RBC (3.80-5.40) m/uL Hgb (11.4-16.0) gm/dL Hct (34.0-46.0) % RDW (11.5-15.5) % APTT 88.8 H (22.0-30.0) sec Potassium (3.5-5.1) mmol/L Chloride (98-107) mmol/L Glucose (74-99) mg/dL POC Glucose (mg/dL) (75-99) mg/dL Calcium (8.4-10.2) mg/dL Alkaline Phosphatase (38-126) U/L Total Protein (6.3-8.2) g/dL Albumin (3.5-5.0) g/dL Microbiology - Last 24 Hours (Table) 02/14/19 06:04 Blood Culture - Preliminary Blood No Growth after 96 hours Assessment and Plan Assessment: Acute on chronic anemia severe in nature, No source of bleeding has been identified currently stable DVT left lower extremity Small pleural effusion most likely related to protein calorie malnourishment versus heart failure chronic diastolic heart failure Right lower lobe lung nodule, will observe Exertional shortness of breath Lactic acidosis likely related to dehydration repeat levels are normal Coffee-ground emesis with falling hemoglobin some contribution appears to be related to rehydration Reviewed reports of vascular surgery and hematology Plan: Agree with GI consult/surgical consult Monitor hemoglobin closely if less than 8 we'll type and crossmatch and transfuse Oral anticoagulants, and DC heparin Gentle rehydration Proton pump inhibitor Improved nutritional status Further recommendations pending plan of care as per clinical response of patient Time with Patient: Greater than 30
[2019-02-18 16:58] LABS: Glucose,Whole Blood 136 mg/dL (75-99)
--- NOTE | 2019-02-19 22:27 | P.PN ---
Progress Note - Text Progress Note Date: 02/18/19 REASON FOR FOLLOWUP: Sacral pressure ulcer, left heel pressure ulcer. INTERVAL HISTORY: The patient is afebrile. Patient is more awake and alert today , no vomiting or diarrhea or blood in the stool has been noted per . PHYSICAL EXAMINATION: VITAL SIGNS: Blood pressure 125/70, pulse of 60, temperature 97.4, she is 97% on room air. GENERAL DESCRIPTION is an elderly female, lying in bed in no distress. RESPIRATORY SYSTEM: Unlabored breathing. Clear to auscultation anteriorly. HEART S1, S2. Regular rate and rhythm. ABDOMEN: Soft, no tenderness. LABS: Reviewed . DIAGNOSTIC IMPRESSION AND PLAN: 1- Patient with Stage 2 sacral pressure ulcer. Local wound care with Medihoney followed by moist dressing to keep the area off the pressure with frequent change of her position 2-The patient with left heel pressure ulcer, heel protector to keep the area off the pressure. Continue supportive care.
== END 2019-02-18 19:20 | DRG 368 ==
LOC: EC 12:10 → 3SCARD 15:24 → INTOOBSV 15:24 → 3SCARD 16:08 → OBSVTOIN 02-14 10:15
PROVIDERS: ADMIT Family Medicine; ATTEND Family Medicine
PROC: 0DB48ZX Excision of Esophagogastric Junction, Via Natural or Artificial Opening Endoscopic, Diagnostic (ICD-10-PCS; 2019-02-14)
PROC: 0DB78ZX Excision of Stomach, Pylorus, Via Natural or Artificial Opening Endoscopic, Diagnostic (ICD-10-PCS; 2019-02-14)
PROC: 30230N1 Transfusion of Nonautologous Red Blood Cells into Peripheral Vein, Open Approach (ICD-10-PCS; principal; 2019-02-15)
DX: K22.6 Gastro-esophageal laceration-hemorrhage syndrome (principal); E43 Unspecified severe protein-calorie malnutrition; E87.2 Acidosis; D62 Acute posthemorrhagic anemia; J90 Pleural effusion, not elsewhere classified; I82.432 Acute embolism and thrombosis of left popliteal vein; L89.152 Pressure ulcer of sacral region, stage 2; I95.9 Hypotension, unspecified; E11.41 Type 2 diabetes mellitus with diabetic mononeuropathy; E11.22 Type 2 diabetes mellitus with diabetic chronic kidney disease; I48.0 Paroxysmal atrial fibrillation; L89.620 Pressure ulcer of left heel, unstageable; R13.10 Dysphagia, unspecified; E86.0 Dehydration; E83.42 Hypomagnesemia; D50.0 Iron deficiency anemia secondary to blood loss (chronic); N18.3 Chronic kidney disease, stage 3 (moderate); F03.90 Unspecified dementia, unspecified severity, without behavioral disturbance, psychotic disturbance, mood disturbance, and anxiety; K21.0 Gastro-esophageal reflux disease with esophagitis; I12.9 Hypertensive chronic kidney disease with stage 1 through stage 4 chronic kidney disease, or unspecified chronic kidney disease; K29.60 Other gastritis without bleeding; E87.6 Hypokalemia; S40.221A Blister (nonthermal) of right shoulder, initial encounter; K44.9 Diaphragmatic hernia without obstruction or gangrene; E78.5 Hyperlipidemia, unspecified; M19.90 Unspecified osteoarthritis, unspecified site; E89.0 Postprocedural hypothyroidism; R32 Unspecified urinary incontinence; R33.9 Retention of urine, unspecified; F41.1 Generalized anxiety disorder; G47.9 Sleep disorder, unspecified; K59.00 Constipation, unspecified; M54.5 Low back pain; R91.1 Solitary pulmonary nodule; Z79.82 Long term (current) use of aspirin; Z79.890 Hormone replacement therapy; Z79.4 Long term (current) use of insulin; Z79.899 Other long term (current) drug therapy; Z96.651 Presence of right artificial knee joint; Z96.611 Presence of right artificial shoulder joint; Z87.440 Personal history of urinary (tract) infections; Z98.890 Other specified postprocedural states; Z92.21 Personal history of antineoplastic chemotherapy; Z86.19 Personal history of other infectious and parasitic diseases; Z85.72 Personal history of non-Hodgkin lymphomas; Z86.79 Personal history of other diseases of the circulatory system; Z87.09 Personal history of other diseases of the respiratory system; Z91.81 History of falling; Z98.51 Tubal ligation status; Z98.42 Cataract extraction status, left eye; Z98.41 Cataract extraction status, right eye; Z96.1 Presence of intraocular lens; Z88.5 Allergy status to narcotic agent; Z88.2 Allergy status to sulfonamides; Z88.8 Allergy status to other drugs, medicaments and biological substances; Z80.49 Family history of malignant neoplasm of other genital organs
CPT/HCPCS: 36415; 43239; 74177; 80048; 80053; 82728; 83540; 83550; 83605; 83735; 84100; 85025; 85027; 85730; 86850; 86900; 86901; 86920; 87040; 88305; 88312; 93005; 96361; 96365; 96375; 99285

== ENCOUNTER 2019-02-27 11:04 | Inpatient (IN) | payer MEDICARE ==
[2019-02-27] MEDS ORDERED: PANTOPRAZOLE 40 MG/10 ML VIAL IVP STA (11:37)
[2019-02-27] MEDS ORDERED: SODIUM CHLORIDE 0.9% 500 ML 500 ML IV STA (11:37)
--- NOTE | 2019-02-27 11:42 | ED ---
General Adult HPI - General Chief complaint: GI Bleed Stated complaint: Poss GI Bleed Time Seen by Provider: 02/27/19 11:25 Source: family, EMS, RN notes reviewed Mode of arrival: wheelchair Limitations: no limitations - History of Present Illness Initial comments: This is a 73-year-old female with severe dementia. [facility] of what they described as coffee ground emesis. Patient is on a blood thinner because they are unsure at this time what it is. states the patient is acting at her baseline and he notices nothing different about her other than the fact that they said she had vomited what appears to be coffee grounds. Patient is normally awake but not alert or oriented. There is been no Radiation indicating any fever and at this time there is no further history available. - Related Data Home Medications Medication Instructions Recorded Confirmed Simvastatin [Zocor] 40 mg PO HS 07/08/16 02/27/19 Ferrous Sulfate [Iron (65 MG 325 mg PO DAILY 10/29/17 02/27/19 Elemental)] Cranberry Fruit Concentrate 450 mg PO BID 02/13/18 02/27/19 [Cranberry] Melatonin 3 mg PO HS@199902/13/18 02/27/19 Aspirin EC [Ecotrin Low Dose] 81 mg PO HS 01/31/19 02/27/19 Furosemide [Lasix] 20 mg PO DAILY 01/31/19 02/27/19 Levothyroxine Sodium [Synthroid] 125 mcg PO DAILY 01/31/19 02/27/19 Magnesium Hydroxide [Milk of 2,400 mg PO DAILY PRN 01/31/19 02/27/19 Magnesia] QUEtiapine [SEROquel] 150 mg PO HS 01/31/19 02/27/19 Ranitidine HCl [Zantac] 75 mg PO BID 01/31/19 02/27/19 Docusate [Colace] 100 mg PO PC-SUPPER 02/13/19 02/27/19 Losartan [Cozaar] 12.5 mg PO DAILY 02/13/19 02/27/19 Nitroglycerin Sl Tabs [Nitrostat] 0.4 mg SL Q5M 02/13/19 02/27/19 Pro-Stat Sugar Free 30 ml PO BID 02/13/19 02/27/19 Apixaban [Eliquis] 5 mg PO DIRECTED 02/27/19 02/27/19 Apixaban [Eliquis] 10 mg PO BID 02/27/19 02/27/19 Bisacodyl 10 mg RECTAL DAILY PRN 02/27/19 02/27/19 Divalproex Sodium [Depakote 250 mg PO TID 02/27/19 02/27/19 Sprinkle] Escitalopram Oxalate 5 mg PO DAILY 02/27/19 02/27/19 Gabapentin [Neurontin] 300 mg PO HS 02/27/19 02/27/19 Insulin Lispro [humaLOG Kwikpen] See Protocol SQ ACHS 02/27/19 02/27/19 Metoprolol Tartrate [Lopressor] 100 mg PO BID 02/27/19 02/27/19 Potassium Chloride ER [K-Dur 20] 20 meq PO DAILY 02/27/19 02/27/19 Previous Rx's Medication Instructions Recorded Acetaminophen Tab [Tylenol] 650 mg PO Q6HR PRN tab 02/10/19 Ibuprofen [Motrin] 400 mg PO Q6HR PRN tab 02/10/19 ALPRAZolam [Xanax] 0.5 mg PO BID #6 tab 02/18/19 Tamsulosin [Flomax] 0.4 mg PO DAILY cap.er.24h 02/18/19 Allergies Allergy/AdvReac Type Severity Reaction Status Date / Time atorvastatin [From Lipitor] Allergy Unknown Verified 02/27/19 11:16 codeine Allergy Unknown Verified 02/27/19 11:16 enalaprilat [From Vasotec] Allergy Unknown Verified 02/27/19 11:16 propoxyphene napsylate Allergy Unknown Verified 02/27/19 11:16 [From Darvocet-N] Sulfa (Sulfonamide Allergy Itching,daniela Verified 02/27/19 11:16 Antibiotics) h Review of Systems ROS Statement: Those systems with pertinent positive or pertinent negative responses have been documented in the HPI. ROS Other: All systems not noted in ROS Statement are negative. Past Medical History Past Medical History: Atrial Fibrillation, Cancer, Diabetes Mellitus, GERD/Reflux, Hyperlipidemia, Hypertension, Memory Impairment, Osteoarthritis (OA), Renal Disease, Thyroid Disorder Additional Past Medical History / Comment(s): IDDM type II, neuropathy bilateral legs/feet, paroxysmal afib, Vtach, severe dementia, dysphagia, nonhodgkins lymphoma with last chemo 2015, neutropenia, anemia, goiter, received radioactive iodine-hypothyroid, CKD stage III, UTIs, UTI with sepsis, varicosities, generalized arthritis, low back pain, R shoulder injury from fall in 2014, constipation, current wound coccyx-/L heel, L shoulder blister, allergic rhinitis, sleep disorder, incontinence. History of Any Multi-Drug Resistant Organisms: None Reported Past Surgical History: Back Surgery, Breast Surgery, Hernia Repair, Joint Replacement, Tubal Ligation Additional Past Surgical History / Comment(s): rt knee replacement, rt shoulder replacement, low back surgery-has screws, back injections, bilateral cataracts removed/lens implants, L breast biopsy, colonoscopy. Past Anesthesia/Blood Transfusion Reactions: Previous Problems w/ Anesthesia Additional Past Anesthesia/Blood Transfusion Reaction / Comment(s): years ago had diff breathing with anesthesia Past Psychological History: Anxiety Smoking Status: Never smoker Past Alcohol Use History: None Reported Past Drug Use History: None Reported - Past Family History Sister(s) Family Medical History: Cancer Additional Family Medical History / Comment(s): Uterine cancer General Exam - General Exam Comments Initial Comments: GENERAL: Patient is well-developed and well-nourished. Patient is nontoxic and well- hydrated and is in no acute distress. ENT: Neck is soft and supple. No significant lymphadenopathy is noted. Oropharynx is clear. Moist mucous membranes. Neck has full range of motion without eliciting any pain. EYES: The sclera were anicteric and conjunctiva were pink and moist. Extraocular movements were intact and pupils were equal round and reactive to light. Eyelids were unremarkable. PULMONARY: Unlabored respirations. Good breath sounds bilaterally. No audible rales rhonchi or wheezing was noted. CARDIOVASCULAR: There is a regular rate and rhythm without any murmurs gallops or rubs. ABDOMEN: Soft and nontender with normal bowel sounds. Patient has an incision from a ventral hernia repair that does not appear to be infected and healing well patient has decubitus ulcer on the sacral area which appears to be a stage III does not appear to be infected. SKIN: Skin is clear with no lesions or rashes and otherwise unremarkable. NEUROLOGIC: Patient is at her baseline according to her she is in bed not alert and responding to any questions which she states is normal. Patient is moaning quite consistently he says she does that when she gets agitated with all the movement. MUSCULOSKELETAL: Normal extremities with adequate strength and full range of motion. LYMPHATICS: No significant lymphadenopathy is noted PSYCHIATRIC: Normal psychiatric evaluation. Limitations: no limitations Course Vital Signs 02/27/19 02/27/19 02/27/19 11:27 11:29 14:29 Temperature 98.3 F Pulse Rate 84 84 95 Respiratory 26 H 26 H 24 Rate Blood Pressure 86/63 93/37 96/86 O2 Sat by Pulse 90 L 93 L 93 L Oximetry Medical Decision Making - Medical Decision Making KUB shows no acute abnormality. Type and screen the patient. Patient's alcohol positive from above and below. I spoke with Dr. Alves he wanted the patient admitted he had seen a counselor. I gave the patient Rocephin because of the possible urinary tract infection. Family stated the patient was a no code. Wrote admitting orders. - Lab Data Result diagrams: 02/27/19 11:40 02/27/19 11:40 Lab Results 02/27/19 02/27/19 02/27/19 Range/Units 11:40 11:40 11:40 WBC 8.7 (3.8-10.6) k/uL RBC 3.15 L (3.80-5.40) m/uL Hgb 9.8 L (11.4-16.0) gm/dL Hct 29.4 L (34.0-46.0) % MCV 93.4 (80.0-100.0) fL MCH 31.2 (25.0-35.0) pg MCHC 33.5 (31.0-37.0) g/dL RDW 16.2 H (11.5-15.5) % Plt Count 180 (150-450) k/uL Neutrophils % 77 % Lymphocytes % 13 % Monocytes % 7 % Eosinophils % 1 % Basophils % 0 % Neutrophils # 6.7 (1.3-7.7) k/uL Lymphocytes # 1.1 (1.0-4.8) k/uL Monocytes # 0.7 (0-1.0) k/uL Eosinophils # 0.1 (0-0.7) k/uL Basophils # 0.0 (0-0.2) k/uL Anisocytosis Slight APTT 27.7 (22.0-30.0) sec Sodium 133 L (137-145) mmol/L Potassium 4.6 (3.5-5.1) mmol/L Chloride 98 (98-107) mmol/L Carbon Dioxide 31 H (22-30) mmol/L Anion Gap 4 mmol/L BUN 31 H (7-17) mg/dL Creatinine 0.75 (0.52-1.04) mg/dL Est GFR (CKD-EPI)AfAm >90 (>60 ml/min/1.73 sqM) Est GFR (CKD-EPI)NonAf 81 (>60 ml/min/1.73 sqM) Glucose 123 H (74-99) mg/dL Plasma Lactic Acid Ismael (0.7-2.0) mmol/L Calcium 7.8 L (8.4-10.2) mg/dL Magnesium 1.5 L (1.6-2.3) mg/dL Total Bilirubin 0.2 (0.2-1.3) mg/dL AST 24 (14-36) U/L ALT 18 (9-52) U/L Alkaline Phosphatase 126 (38-126) U/L Troponin I (0.000-0.034) ng/mL Total Protein 4.2 L (6.3-8.2) g/dL Albumin 2.2 L (3.5-5.0) g/dL Urine Color Urine Appearance (Clear) Urine pH (5.0-8.0) Ur Specific [place] (1.001-1.035) Urine Protein (Negative) Urine Glucose (UA) (Negative) Urine Ketones (Negative) Urine Blood (Negative) Urine Nitrite (Negative) Urine Bilirubin (Negative) Urine Urobilinogen (<2.0) mg/dL Ur Leukocyte Esterase (Negative) Urine RBC (0-5) /hpf Urine WBC (0-5) /hpf Ur Squamous Epith Cells (0-4) /hpf Urine Bacteria (None) /hpf Urine Mucus (None) /hpf Gastric Occult Blood (Negative) Stool Occult Blood (Negative) Blood Type Blood Type Recheck Antibody Screen Spec Expiration Date 02/27/19 02/27/19 02/27/19 Range/Units 11:40 11:40 11:40 WBC (3.8-10.6) k/uL RBC (3.80-5.40) m/uL Hgb (11.4-16.0) gm/dL Hct (34.0-46.0) % MCV (80.0-100.0) fL MCH (25.0-35.0) pg MCHC (31.0-37.0) g/dL RDW (11.5-15.5) % Plt Count (150-450) k/uL Neutrophils % % Lymphocytes % % Monocytes % % Eosinophils % % Basophils % % Neutrophils # (1.3-7.7) k/uL Lymphocytes # (1.0-4.8) k/uL Monocytes # (0-1.0) k/uL Eosinophils # (0-0.7) k/uL Basophils # (0-0.2) k/uL Anisocytosis APTT (22.0-30.0) sec Sodium (137-145) mmol/L Potassium (3.5-5.1) mmol/L Chloride (98-107) mmol/L Carbon Dioxide (22-30) mmol/L Anion Gap mmol/L BUN (7-17) mg/dL Creatinine (0.52-1.04) mg/dL Est GFR (CKD-EPI)AfAm (>60 ml/min/1.73 sqM) Est GFR (CKD-EPI)NonAf (>60 ml/min/1.73 sqM) Glucose (74-99) mg/dL Plasma Lactic Acid Ismael 1.4 (0.7-2.0) mmol/L Calcium (8.4-10.2) mg/dL Magnesium (1.6-2.3) mg/dL Total Bilirubin (0.2-1.3) mg/dL AST (14-36) U/L ALT (9-52) U/L Alkaline Phosphatase (38-126) U/L Troponin I <0.012 (0.000-0.034) ng/mL Total Protein (6.3-8.2) g/dL Albumin (3.5-5.0) g/dL Urine Color Urine Appearance (Clear) Urine pH (5.0-8.0) Ur Specific [place] (1.001-1.035) Urine Protein (Negative) Urine Glucose (UA) (Negative) Urine Ketones (Negative) Urine Blood (Negative) Urine Nitrite (Negative) Urine Bilirubin (Negative) Urine Urobilinogen (<2.0) mg/dL Ur Leukocyte Esterase (Negative) Urine RBC (0-5) /hpf Urine WBC (0-5) /hpf Ur Squamous Epith Cells (0-4) /hpf Urine Bacteria (None) /hpf Urine Mucus (None) /hpf Gastric Occult Blood (Negative) Stool Occult Blood (Negative) Blood Type A Positive Blood Type Recheck No Antibody Screen NEGATIVE Spec Expiration Date 03/02/2019 - 233902/27/19 02/27/19 02/27/19 Range/Units 11:40 13:18 13:18 WBC (3.8-10.6) k/uL RBC (3.80-5.40) m/uL Hgb (11.4-16.0) gm/dL Hct (34.0-46.0) % MCV (80.0-100.0) fL MCH (25.0-35.0) pg MCHC (31.0-37.0) g/dL RDW (11.5-15.5) % Plt Count (150-450) k/uL Neutrophils % % Lymphocytes % % Monocytes % % Eosinophils % % Basophils % % Neutrophils # (1.3-7.7) k/uL Lymphocytes # (1.0-4.8) k/uL Monocytes # (0-1.0) k/uL Eosinophils # (0-0.7) k/uL Basophils # (0-0.2) k/uL Anisocytosis APTT (22.0-30.0) sec Sodium (137-145) mmol/L Potassium (3.5-5.1) mmol/L Chloride (98-107) mmol/L Carbon Dioxide (22-30) mmol/L Anion Gap mmol/L BUN (7-17) mg/dL Creatinine (0.52-1.04) mg/dL Est GFR (CKD-EPI)AfAm (>60 ml/min/1.73 sqM) Est GFR (CKD-EPI)NonAf (>60 ml/min/1.73 sqM) Glucose (74-99) mg/dL Plasma Lactic Acid Ismael (0.7-2.0) mmol/L Calcium (8.4-10.2) mg/dL Magnesium (1.6-2.3) mg/dL Total Bilirubin (0.2-1.3) mg/dL AST (14-36) U/L ALT (9-52) U/L Alkaline Phosphatase (38-126) U/L Troponin I (0.000-0.034) ng/mL Total Protein (6.3-8.2) g/dL Albumin (3.5-5.0) g/dL Urine Color Light Yellow Urine Appearance Clear (Clear) Urine pH 8.5 H (5.0-8.0) Ur Specific [place] 1.013 (1.001-1.035) Urine Protein Trace H (Negative) Urine Glucose (UA) Negative (Negative) Urine Ketones Negative (Negative) Urine Blood Small H (Negative) Urine Nitrite Positive H (Negative) Urine Bilirubin Negative (Negative) Urine Urobilinogen <2.0 (<2.0) mg/dL Ur Leukocyte Esterase Large H (Negative) Urine RBC 5 (0-5) /hpf Urine WBC 34 H (0-5) /hpf Ur Squamous Epith Cells 1 (0-4) /hpf Urine Bacteria Moderate H (None) /hpf Urine Mucus Rare H (None) /hpf Gastric Occult Blood Positive (Negative) Stool Occult Blood Positive H (Negative) Blood Type Blood Type Recheck Antibody Screen Spec Expiration Date Disposition Clinical Impression: GI bleeding, Urinary tract infection Disposition: ADMITTED IP TO THIS HOSP Referrals: Rc Barr MD [Primary Care Provider] - 1-2 days Time of Disposition: 14:59
[2019-02-27 12:04] LABS: ALT 18 U/L (9-52); AST 24 U/L (14-36); African American GFR (CKD) >90 (>60 ml/min/1.73 sqM); Albumin 2.2 g/dL (3.5-5.0); Alkaline Phosphatase 126 U/L (38-126); Anion Gap 4 mmol/L; Blood Urea Nitrogen 31 mg/dL (7-17); Calcium 7.8 mg/dL (8.4-10.2); Carbon Dioxide 31 mmol/L (22-30); Chloride 98 mmol/L (98-107); Glucose 123 mg/dL (74-99); Magnesium 1.5 mg/dL (1.6-2.3); Potassium 4.6 mmol/L (3.5-5.1); Sodium 133 mmol/L (137-145); Total Bilirubin 0.2 mg/dL (0.2-1.3); Total Protein 4.2 g/dL (6.3-8.2)
[2019-02-27 12:09] LABS: Anisocytosis Slight; Basophils % (A) 0 %; Eosinophils # (A) 0.1 k/uL (0-0.7); Eosinophils % (A) 1 %; HCT 29.4 % (34.0-46.0); HGB 9.8 gm/dL (11.4-16.0); Lymphocytes # (A) 1.1 k/uL (1.0-4.8); Lymphocytes % (A) 13 %; MCH 31.2 pg (25.0-35.0); MCHC 33.5 g/dL (31.0-37.0); MCV 93.4 fL (80.0-100.0); Mean Platelet Volume 7.8; Monocytes # (A) 0.7 k/uL (0-1.0); Monocytes % (A) 7 %; Neutrophils # (A) 6.7 k/uL (1.3-7.7); Neutrophils % (A) 77 %; Platelet Count 180 k/uL (150-450); RBC 3.15 m/uL (3.80-5.40); RDW 16.2 % (11.5-15.5); WBC 8.7 k/uL (3.8-10.6)
[2019-02-27] MEDS ORDERED: SODIUM CHLORIDE 0.9% 1,000 ML IV ONE ×2 (13:21→15:00)
[2019-02-27 13:47] LABS: Appearance,Urine Clear (Clear); Bacteria,Urine Moderate /hpf; Bilirubin,Urine Negative (Negative); Blood,Urine Small (Negative); Color,Urine Light Yellow; Glucose,Urine (UA) Negative (Negative); Ketones,Urine Negative (Negative); Leukocyte Esterase,Urine Large (Negative); Mucus,Urine Rare /hpf; Nitrite,Urine Positive (Negative); PH, Urine 8.5 (5.0-8.0); Protein,Urine Trace (Negative); RBC,Urine 5 /hpf (0-5); Specific Gravity,Urine 1.013 (1.001-1.035); Squamous Epithelial Cell,Urine 1 /hpf (0-4); Urobilinogen,Urine <2.0 mg/dL (<2.0); WBC,Urine 34 /hpf (0-5)
--- NOTE | 2019-02-27 13:58 | XR ---
KUB HISTORY: Coffee-ground emesis, history renal disease Frontal view submitted on 2 images, correlation CT 02/08/2019 There is some increased density at the level of the right lung base which is indeterminate but may re present some atelectasis, difficult to exclude effusion. Postop changes are noted at the lumbosacral junction. Patient is rotated. Vascular calcifications are present. Bone mineralization is reduced. No evident pneumoperitoneum or bowel obstruction. There are overlying cardiac leads. IMPRESSION: Correlate for right lower lobe atelectasis versus pneumonia, follow-up to resolution. Pos top changes. Nonobstructive bowel gas pattern.
[2019-02-27] MEDS ORDERED: LORazepam 2 MG/ML INJ IV STA (14:24)
[2019-02-27] MEDS ORDERED: cefTRIAXone IN SWFI 1,000 MG/10 ML SYRINGE IVP STA (14:26)
--- NOTE | 2019-02-27 17:11 | P.GSCN ---
History of Present Illness Consult date: 02/27/19 Reason for Consult: Coffee-ground emesis History of present illness: This a 73-year-old female well-known to myself. She was transferred from the long-term due to having a coffee-ground emesis. Patient had the same condition week ago. She underwent EGD at that time which showed evidence of a hiatal hernia. The patient does have some mild esophagitis. She is unable to give any significant history. Past Medical History Past Medical History: Atrial Fibrillation, Cancer, Diabetes Mellitus, Deep Vein Thrombosis (DVT), GERD/Reflux, Hyperlipidemia, Hypertension, Memory Impairment, Osteoarthritis (OA), Renal Disease, Thyroid Disorder Additional Past Medical History / Comment(s): Pt recently admitted to [facility] on 02/14/19 with acute on chronic blood loss anemia/coffee ground emesis/ egd showed hiatal hernia and gastritis/possible Margaret Avilez tear/leta erosions with possible small bowel source/DVT L leg/small pleural effusion/R lower lobe lung nodule/stage II decubitus ulcer/hypokalemia/hypomagnesium. Other Hx: IDDM type II, neuropathy bilateral legs/feet, paroxysmal afib, Vtach, severe dementia, dysphagia, nonhodgkins lymphoma with last chemo 2015, neutropenia, anemia, goiter, received radioactive iodine-hypothyroid, CKD stage III, UTIs, UTI with sepsis, varicosities, generalized arthritis, low back pain, R shoulder injury from fall in 2014, constipation, current wound coccyx-/L heel, L shoulder blister, allergic rhinitis, sleep disorder, incontinence. History of Any Multi-Drug Resistant Organisms: None Reported Past Surgical History: Back Surgery, Breast Surgery, Hernia Repair, Joint Replacement, Tubal Ligation Additional Past Surgical History / Comment(s): rt knee replacement, rt shoulder replacement, low back surgery-has screws, back injections, bilateral cataracts removed/lens implants, L breast biopsy, colonoscopy. Past Anesthesia/Blood Transfusion Reactions: Previous Problems w/ Anesthesia Additional Past Anesthesia/Blood Transfusion Reaction / Comm: years ago had diff breathing with anesthesia Smoking Status: Never smoker - Past Family History Sister(s) Family Medical History: Cancer Additional Family Medical History / Comment(s): Uterine cancer Medications and Allergies Home Medications Medication Instructions Recorded Confirmed Type Simvastatin [Zocor] 40 mg PO HS 07/08/16 02/27/19 History Ferrous Sulfate [Iron (65 MG 325 mg PO DAILY 10/29/17 02/27/19 History Elemental)] Cranberry Fruit Concentrate 450 mg PO BID 02/13/18 02/27/19 History [Cranberry] Melatonin 3 mg PO HS@199902/13/18 02/27/19 History Aspirin EC [Ecotrin Low Dose] 81 mg PO HS 01/31/19 02/27/19 History Furosemide [Lasix] 20 mg PO DAILY 01/31/19 02/27/19 History Levothyroxine Sodium [Synthroid] 125 mcg PO DAILY 01/31/19 02/27/19 History Magnesium Hydroxide [Milk of 2,400 mg PO DAILY PRN 01/31/19 02/27/19 History Magnesia] QUEtiapine [SEROquel] 150 mg PO HS 01/31/19 02/27/19 History Ranitidine HCl [Zantac] 75 mg PO BID 01/31/19 02/27/19 History Acetaminophen Tab [Tylenol] 650 mg PO Q6HR PRN tab 02/10/19 02/27/19 Rx Ibuprofen [Motrin] 400 mg PO Q6HR PRN tab 02/10/19 02/27/19 Rx Docusate [Colace] 100 mg PO PC-SUPPER 02/13/19 02/27/19 History Losartan [Cozaar] 12.5 mg PO DAILY 02/13/19 02/27/19 History Nitroglycerin Sl Tabs [Nitrostat] 0.4 mg SL Q5M 02/13/19 02/27/19 History Pro-Stat Sugar Free 30 ml PO BID 02/13/19 02/27/19 History ALPRAZolam [Xanax] 0.5 mg PO BID #6 tab 02/18/19 02/27/19 Rx Tamsulosin [Flomax] 0.4 mg PO DAILY cap.er.24h 02/18/19 02/27/19 Rx Apixaban [Eliquis] 5 mg PO DIRECTED 02/27/19 02/27/19 History Apixaban [Eliquis] 10 mg PO BID 02/27/19 02/27/19 History Bisacodyl 10 mg RECTAL DAILY PRN 02/27/19 02/27/19 History Divalproex Sodium [Depakote 250 mg PO TID 02/27/19 02/27/19 History Sprinkle] Escitalopram Oxalate 5 mg PO DAILY 02/27/19 02/27/19 History Gabapentin [Neurontin] 300 mg PO HS 02/27/19 02/27/19 History Insulin Lispro [humaLOG Kwikpen] See Protocol SQ ACHS 02/27/19 02/27/19 History Metoprolol Tartrate [Lopressor] 100 mg PO BID 02/27/19 02/27/19 History Potassium Chloride ER [K-Dur 20] 20 meq PO DAILY 02/27/19 02/27/19 History Allergies Allergy/AdvReac Type Severity Reaction Status Date / Time atorvastatin [From Lipitor] Allergy Unknown Verified 02/27/19 11:16 codeine Allergy Unknown Verified 02/27/19 11:16 enalaprilat [From Vasotec] Allergy Unknown Verified 02/27/19 11:16 propoxyphene napsylate Allergy Unknown Verified 02/27/19 11:16 [From Darvocet-N] Sulfa (Sulfonamide Allergy Itching,daniela Verified 02/27/19 11:16 Antibiotics) h Surgical - Exam Vital Signs Temp Pulse Resp BP Pulse Ox 98.3 F 84 26 H 86/63 90 L 02/27/19 11:27 02/27/19 11:27 02/27/19 11:27 02/27/19 11:27 02/27/19 11:27 - General well developed, well nourished, no distress - Eyes PERRL - ENT normal pinna - Neck no masses - Respiratory normal expansion - Cardiovascular Rhythm: regular - Abdomen Abdomen: soft, non tender Results - Labs 02/27/19 11:40 02/27/19 11:40 Abnormal Lab Results - Last 24 Hours (Table) 02/27/19 02/27/19 02/27/19 Range/Units 11:40 11:40 11:40 RBC 3.15 L (3.80-5.40) m/uL Hgb 9.8 L (11.4-16.0) gm/dL Hct 29.4 L (34.0-46.0) % RDW 16.2 H (11.5-15.5) % Sodium 133 L (137-145) mmol/L Carbon Dioxide 31 H (22-30) mmol/L BUN 31 H (7-17) mg/dL Glucose 123 H (74-99) mg/dL Calcium 7.8 L (8.4-10.2) mg/dL Magnesium 1.5 L (1.6-2.3) mg/dL Total Protein 4.2 L (6.3-8.2) g/dL Albumin 2.2 L (3.5-5.0) g/dL Urine pH (5.0-8.0) Urine Protein (Negative) Urine Blood (Negative) Urine Nitrite (Negative) Ur Leukocyte Esterase (Negative) Urine WBC (0-5) /hpf Urine Bacteria (None) /hpf Urine Mucus (None) /hpf Stool Occult Blood Positive H (Negative) 02/27/19 Range/Units 13:18 RBC (3.80-5.40) m/uL Hgb (11.4-16.0) gm/dL Hct (34.0-46.0) % RDW (11.5-15.5) % Sodium (137-145) mmol/L Carbon Dioxide (22-30) mmol/L BUN (7-17) mg/dL Glucose (74-99) mg/dL Calcium (8.4-10.2) mg/dL Magnesium (1.6-2.3) mg/dL Total Protein (6.3-8.2) g/dL Albumin (3.5-5.0) g/dL Urine pH 8.5 H (5.0-8.0) Urine Protein Trace H (Negative) Urine Blood Small H (Negative) Urine Nitrite Positive H (Negative) Ur Leukocyte Esterase Large H (Negative) Urine WBC 34 H (0-5) /hpf Urine Bacteria Moderate H (None) /hpf Urine Mucus Rare H (None) /hpf Stool Occult Blood (Negative) Diabetes panel 02/27/19 Range/Units 11:40 Sodium 133 L (137-145) mmol/L Potassium 4.6 (3.5-5.1) mmol/L Chloride 98 (98-107) mmol/L Carbon Dioxide 31 H (22-30) mmol/L BUN 31 H (7-17) mg/dL Creatinine 0.75 (0.52-1.04) mg/dL Glucose 123 H (74-99) mg/dL Calcium 7.8 L (8.4-10.2) mg/dL AST 24 (14-36) U/L ALT 18 (9-52) U/L Alkaline Phosphatase 126 (38-126) U/L Total Protein 4.2 L (6.3-8.2) g/dL Albumin 2.2 L (3.5-5.0) g/dL Calcium panel 02/27/19 Range/Units 11:40 Calcium 7.8 L (8.4-10.2) mg/dL Albumin 2.2 L (3.5-5.0) g/dL Pituitary panel 02/27/19 Range/Units 11:40 Sodium 133 L (137-145) mmol/L Potassium 4.6 (3.5-5.1) mmol/L Chloride 98 (98-107) mmol/L Carbon Dioxide 31 H (22-30) mmol/L BUN 31 H (7-17) mg/dL Creatinine 0.75 (0.52-1.04) mg/dL Glucose 123 H (74-99) mg/dL Calcium 7.8 L (8.4-10.2) mg/dL Adrenal panel 02/27/19 Range/Units 11:40 Sodium 133 L (137-145) mmol/L Potassium 4.6 (3.5-5.1) mmol/L Chloride 98 (98-107) mmol/L Carbon Dioxide 31 H (22-30) mmol/L BUN 31 H (7-17) mg/dL Creatinine 0.75 (0.52-1.04) mg/dL Glucose 123 H (74-99) mg/dL Calcium 7.8 L (8.4-10.2) mg/dL Total Bilirubin 0.2 (0.2-1.3) mg/dL AST 24 (14-36) U/L ALT 18 (9-52) U/L Alkaline Phosphatase 126 (38-126) U/L Total Protein 4.2 L (6.3-8.2) g/dL Albumin 2.2 L (3.5-5.0) g/dL Assessment and Plan Assessment: History of coffee-ground emesis. The patient is just undergone recent EGD week ago. I recommended observation this time. She'll have her hemoglobins checked in the a.m.
[2019-02-27] MEDS: ALPRAZolam 0.5 MG TAB PO SCH (20:36)
[2019-02-27] MEDS: QUEtiapine 50 MG TAB PO SCH (20:36)
[2019-02-27] MEDS: ZOCOR PO SCH (20:37)
[2019-02-27] MEDS: MAGNESIUM SULFATE-D5W PMX 1 GM in DEXTROSE/WATER 1 100ML.BAG IVPB SCH ×2 (22:40→23:44)
[2019-02-27 23:13] LABS: Anisocytosis Slight; Basophils % (A) 0 %; Eosinophils % (A) 0 %; HCT 26.8 % (34.0-46.0); HGB 8.7 gm/dL (11.4-16.0); Lymphocytes # (A) 0.5 k/uL (1.0-4.8); Lymphocytes % (A) 7 %; MCH 31.3 pg (25.0-35.0); MCHC 32.3 g/dL (31.0-37.0); MCV 96.9 fL (80.0-100.0); Macrocytosis Slight; Mean Platelet Volume 7.7; Monocytes # (A) 0.5 k/uL (0-1.0); Monocytes % (A) 6 %; Neutrophils # (A) 7.1 k/uL (1.3-7.7); Neutrophils % (A) 86 %; Platelet Count 127 k/uL (150-450); RBC 2.77 m/uL (3.80-5.40); RDW 16.3 % (11.5-15.5); WBC 8.2 k/uL (3.8-10.6)
--- NOTE | 2019-02-28 05:25 | HP ---
HISTORY AND PHYSICAL CHIEF COMPLAINT: This is a 73-year-old white female with severe dementia, came to hospital due to severe coffee-grounds emesis, altered mental status. She was found to have Hemoccult-positive stools and hematemesis. She was admitted for hemoglobin monitoring. Discussed going off anticoagulation despite the DVT in the left leg due to GI bleeding. Possibly going home on a lower dose of Eliquis or no anticoagulants. Surgical consult is pending. PAST MEDICAL HISTORY: Medical history includes prior GI bleed, DVT, atrial fibrillation, obesity, hypertension. MEDICATIONS: See list. REVIEW OF SYSTEMS: Fourteen-point review of systems negative except for mentioned in HPI. PHYSICAL EXAM: Vital signs stable, afebrile. She is sleepy, lethargic, alert, oriented x0. CARDIOVASCULAR: S1, S2. LUNGS: Transmitted upper airway sounds. mild bruising, periorbital. GI: Soft, distended. HEMATOLOGY: Negative Homans. ASSESSMENT: 1. Gastrointestinal bleeding. 2. Acute on chronic anemia. 3. Dementia. 4. Hypertension. 5. Chronic obstructive pulmonary disease. Please see further orders. 6. Diabetes mellitus. Continue home medications. Workup for GI bleed. No anticoagulation at this time due to admission with GI bleeding. If hemoglobin stabilizes, may send home on low-dose Eliquis 2.5 b.i.d. and see if her bleeding resolves. MMODL / IJN: [id number] /
[2019-02-28 07:02] LABS: Glucose,Whole Blood 85 mg/dL (75-99)
[2019-02-28] MEDS: ACETAMINOPHEN TAB 325 MG TAB PO PRN (07:23)
[2019-02-28] MEDS: ALPRAZolam 0.5 MG TAB PO SCH (07:25)
[2019-02-28] MEDS: POTASSIUM CHLORIDE ER 20 MEQ TAB.ER PO SCH (07:28)
--- NOTE | 2019-02-28 11:18 | P.PN ---
Progress Note - Text Progress Note Date: 02/28/19 The patient is resting comfortably in her bed. She shows no signs of GI bleed. She's had no further vomiting. On exam her vital signs are stable. Her abdomen soft. History of questionable coffee-ground emesis. Patient be observed. No EGD scheduled.
--- NOTE | 2019-02-28 13:33 | XR ---
EXAMINATION TYPE: XR chest 1V portable DATE OF EXAM: 02/28/2019 COMPARISON: 02/13/2018 HISTORY: Wheezing TECHNIQUE: Single frontal view of the chest is obtained. FINDINGS: Cardiomegaly. Right lower lobe consolidation and pleural effusion. Left lung clear. Arthro renny of the left shoulder and postsurgical change right shoulder. No pneumothorax. IMPRESSION: Right lower lobe area of infiltrate and small effusion correlate for pneumonia. Mucous p lug or endobronchial lesion in the differential diagnosis.
[2019-02-28 14:20] LABS: Anisocytosis Slight; Basophils % (A) 0 %; Eosinophils # (A) 0.1 k/uL (0-0.7); Eosinophils % (A) 2 %; HGB 8.6 gm/dL (11.4-16.0); Lymphocytes # (A) 0.7 k/uL (1.0-4.8); Lymphocytes % (A) 10 %; MCH 31.8 pg (25.0-35.0); MCHC 33.2 g/dL (31.0-37.0); MCV 95.8 fL (80.0-100.0); Mean Platelet Volume 8.3; Monocytes # (A) 0.5 k/uL (0-1.0); Monocytes % (A) 6 %; Neutrophils # (A) 5.9 k/uL (1.3-7.7); Neutrophils % (A) 81 %; Platelet Count 124 k/uL (150-450); RBC 2.71 m/uL (3.80-5.40); RDW 16.3 % (11.5-15.5); WBC 7.3 k/uL (3.8-10.6)
[2019-02-28] MEDS ORDERED: Magnesium Replacement Protocol 1 EACH MISC MISCELLANE PRN (14:31)
--- NOTE | 2019-02-28 14:55 | P.PN ---
Subjective Progress Note Date: 02/28/19 This is a 73-year-old female who has advanced dementia, presented into emergency department after that noted to have coffee-ground emesis patient is a recent ventral hernia repair.Due to advanced dementia,unable to obtain detailed history from the patient, obtained from the chart, staff. Hemoglobin on admission 9.8,( currently 8.6), positive UA.T-max 100.4 No signs of bleeding ,no further coffee ground emesis. Denies abdominal pain.VSS. Rocephin IVP back initiated, received IV fluid hydration in the ER. Chest x-ray reporting right lower lobe infiltrate, small effusion, possible pneumonia, mucous plug or endobronchial lesion.Evaluated by surgery, no EGD recommended at this time,continue with obs ervation. Objective - Vital Signs Vital signs: Vital Signs Temp 98 F 02/28/19 05:00 Pulse 87 02/28/19 05:00 Resp 16 02/28/19 05:00 BP 97/62 02/28/19 05:00 Pulse Ox 97 02/28/19 05:00 Intake & Output 02/27/19 02/28/19 02/28/19 18:59 06:59 18:59 Weight 99.337 kg Other: Voiding Method Diaper Incontinent # Voids 1 - Exam VITAL SIGNS: As above GENERAL: Lying in bed, no acute distress HEENT: Conjunctivae normal. eyes normal. Oral mucosa dry NECK: No JVD. No thyroid enlargement. No LNs CARDIOVASCULAR: S1, S2 regular.. No murmur RESPIRATION: Breath sounds diminished in the bases. No rhonchi or crackles. No bronchial breathing. ABDOMEN: Soft, nontender . No guarding. no masses palpable. Bowel sounds heard. LEGS: No edema. no swelling PSYCHIATRY: Alert and oriented lert and oriented to person, mood and affect normal. NERVOUS SYSTEM: Cranial N 2-12 grossly normal. Moves all 4 limbs. Diffuse weakness No focal deficits. Strength and sensation grossly intact. Skin: no lesions, no rash . Stage II sacral pressure ulcer with dressing clean dry and intact, left heel pressure ulcer with heel protector present. Please refer to nursing documentation/measurements/pictures. Lymphatic system. No LN neck axilla or groin. - Labs CBC & Chem 7: 02/28/19 13:38 02/27/19 11:40 Labs: Abnormal Lab Results - Last 24 Hours (Table) 02/27/19 02/27/19 02/27/19 Range/Units 11:40 11:40 11:40 RBC 3.15 L (3.80-5.40) m/uL Hgb 9.8 L (11.4-16.0) gm/dL Hct 29.4 L (34.0-46.0) % RDW 16.2 H (11.5-15.5) % Plt Count (150-450) k/uL Lymphocytes # (1.0-4.8) k/uL Sodium 133 L (137-145) mmol/L Carbon Dioxide 31 H (22-30) mmol/L BUN 31 H (7-17) mg/dL Glucose 123 H (74-99) mg/dL Calcium 7.8 L (8.4-10.2) mg/dL Magnesium 1.5 L (1.6-2.3) mg/dL Total Protein 4.2 L (6.3-8.2) g/dL Albumin 2.2 L (3.5-5.0) g/dL Urine pH (5.0-8.0) Urine Protein (Negative) Urine Blood (Negative) Urine Nitrite (Negative) Ur Leukocyte Esterase (Negative) Urine WBC (0-5) /hpf Urine Bacteria (None) /hpf Urine Mucus (None) /hpf Stool Occult Blood Positive H (Negative) 02/27/19 02/27/19 Range/Units 13:18 22:22 RBC 2.77 L (3.80-5.40) m/uL Hgb 8.7 L (11.4-16.0) gm/dL Hct 26.8 L (34.0-46.0) % RDW 16.3 H (11.5-15.5) % Plt Count 127 L (150-450) k/uL Lymphocytes # 0.5 L (1.0-4.8) k/uL Sodium (137-145) mmol/L Carbon Dioxide (22-30) mmol/L BUN (7-17) mg/dL Glucose (74-99) mg/dL Calcium (8.4-10.2) mg/dL Magnesium (1.6-2.3) mg/dL Total Protein (6.3-8.2) g/dL Albumin (3.5-5.0) g/dL Urine pH 8.5 H (5.0-8.0) Urine Protein Trace H (Negative) Urine Blood Small H (Negative) Urine Nitrite Positive H (Negative) Ur Leukocyte Esterase Large H (Negative) Urine WBC 34 H (0-5) /hpf Urine Bacteria Moderate H (None) /hpf Urine Mucus Rare H (None) /hpf Stool Occult Blood (Negative) Assessment and Plan Assessment: -Acute on chronic blood loss anemia, Coffee-ground emesis, recent EGD revealing hiatal hernia, gastritis with no evidence of peptic ulcer disease or active bleeding; possible Margaret-Avilez tear, Jem's erosions with possible small amy wel source. Possibly related to Eliquis-recently initiated on last visit for left lower extremity DVT. -Acute UTI -Possible right lower lobe pneumonia, mucous plug or endobronchial lesion per CXR. Rule out aspiration pneumonia. -Right lower lobe lung nodule, history of, further follow-up outpatient -Small right pleural effusion -Fever, related to the above ,workup in progress -History of iron deficient anemia in a patient with history of non-Hodgkin's lymphoma. -Recent DVT left lower extremity, on Eliquis -Stage II sacral pressure ulcer, chronic -Left heel pressure ulcer, chronic -Hypomagnesemia -Dementia, type unknown Plan: Continue on current medication regime ,monitoring and symptomatic treatment. Vascular surgery consulted for Bandar filter placement; recent diagnosis of left lower extremity DVT, placed on Eliquis and returned to the hospital with GI bleed. Infectious disease consulted for antibiotic/Wound Care. Pulmonary consulted for abnormal [id number] pneumonia versus endobronchial lesion. Speech therapy consulted for swallow eval , spouse reports patient coughing after eating. Anticoagulation currently on hold ,Transfuse 1 unit of packed RBCs if hemoglobin less than 7. Close monitoring of hemoglobin, electrolytes with repeat labs ordered for a.m. in Ensure supplements between meals. Plan of care discussed at bedside with spouse, who verbalizes understanding of and agreement with. Prognosis guarded given multiple complex medical issues. The impression and plan of care has been dictated as directed. : I performed a history and examination of this patient, discussed the same with the dictator. I agree with the dictator's note ,documented as a scribe. Any additional findings or plans will be noted.
[2019-02-28] MEDS ORDERED: IPRATROPIUM-ALBUTEROL 3 ML NEB INHALATION PRN (15:02)
[2019-02-28 15:32] VITALS: BMI 37.5
--- NOTE | 2019-02-28 15:42 | P.CNPUL ---
History of Present Illness Consult date: 02/28/19 Reason for consult: dyspnea, cough, pneumonia Chief complaint: Abnormal x-ray History of present illness: This is an 73-year-old female with prior medical history of dementia data has been obtained from the chart as patient not able to give a detailed history she is oriented 1 she is admitted into the hospital with coffee-ground emesis, patient is a status post recent ventral hernia repair chest x-ray done in the emergency department revealed right lower lobe atelectasis likely due to mucous plug less likely suspected endobronchial lesion and possible pneumonia she is being monitor observe no EGD being planned patient of note that had temperature 100.4 and has been placed on Rocephin and Zithromax her hemoglobin is stable so far no recurrent episode of coffee-ground emesis, however her latest hemoglobin is 8.6 which is down from 9.8 at the time of admission, white cell count remains stable in normal range Review of Systems All systems: negative Past Medical History Past Medical History: Atrial Fibrillation, Cancer, Diabetes Mellitus, Deep Vein Thrombosis (DVT), GERD/Reflux, Hyperlipidemia, Hypertension, Memory Impairment, Osteoarthritis (OA), Renal Disease, Thyroid Disorder Additional Past Medical History / Comment(s): Pt recently admitted to [facility] on 02/14/19 with acute on chronic blood loss anemia/coffee ground emesis/ egd showed hiatal hernia and gastritis/possible Margaret Avilez tear/leta erosions with possible small bowel source/DVT L leg/small pleural effusion/R lower lobe lung nodule/stage II decubitus ulcer/hypokalemia/hypomagnesium. Other Hx: IDDM type II, neuropathy bilateral legs/feet, paroxysmal afib, Vtach, severe dementia, dysphagia, nonhodgkins lymphoma with last chemo 2015, neutropenia, anemia, goiter, received radioactive iodine-hypothyroid, CKD stage III, UTIs, U TI with sepsis, varicosities, generalized arthritis, low back pain, R shoulder injury from fall in 2014, constipation, current wound coccyx-/L heel, L shoulder blister, allergic rhinitis, sleep disorder, incontinence. History of Any Multi-Drug Resistant Organisms: None Reported Past Surgical History: Back Surgery, Breast Surgery, Hernia Repair, Joint Replacement, Tubal Ligation Additional Past Surgical History / Comment(s): rt knee replacement, rt shoulder replacement, low back surgery-has screws, back injections, bilateral cataracts removed/lens implants, L breast biopsy, colonoscopy. Past Anesthesia/Blood Transfusion Reactions: Previous Problems w/ Anesthesia Additional Past Anesthesia/Blood Transfusion Reaction / Comment(s): years ago had diff breathing with anesthesia Smoking Status: Never smoker - Past Family History Sister(s) Family Medical History: Cancer Additional Family Medical History / Comment(s): Uterine cancer Medications and Allergies Home Medications Medication Instructions Recorded Confirmed Type Simvastatin [Zocor] 40 mg PO HS 07/08/16 02/27/19 History Ferrous Sulfate [Iron (65 MG 325 mg PO DAILY 10/29/17 02/27/19 History Elemental)] Cranberry Fruit Concentrate 450 mg PO BID 02/13/18 02/27/19 History [Cranberry] Melatonin 3 mg PO HS@199902/13/18 02/27/19 History Aspirin EC [Ecotrin Low Dose] 81 mg PO HS 01/31/19 02/27/19 History Furosemide [Lasix] 20 mg PO DAILY 01/31/19 02/27/19 History Levothyroxine Sodium [Synthroid] 125 mcg PO DAILY 01/31/19 02/27/19 History Magnesium Hydroxide [Milk of 2,400 mg PO DAILY PRN 01/31/19 02/27/19 History Magnesia] QUEtiapine [SEROquel] 150 mg PO HS 01/31/19 02/27/19 History Ranitidine HCl [Zantac] 75 mg PO BID 01/31/19 02/27/19 History Acetaminophen Tab [Tylenol] 650 mg PO Q6HR PRN tab 02/10/19 02/27/19 Rx Ibuprofen [Motrin] 400 mg PO Q6HR PRN tab 02/10/19 02/27/19 Rx Docusate [Colace] 100 mg PO PC-SUPPER 02/13/19 02/27/19 History Losartan [Cozaar] 12.5 mg PO DAILY 02/13/19 02/27/19 History Nitroglycerin Sl Tabs [Nitrostat] 0.4 mg SL Q5M 02/13/19 02/27/19 History Pro-Stat Sugar Free 30 ml PO BID 02/13/19 02/27/19 History ALPRAZolam [Xanax] 0.5 mg PO BID #6 tab 02/18/19 02/27/19 Rx Tamsulosin [Flomax] 0.4 mg PO DAILY cap.er.24h 02/18/19 02/27/19 Rx Apixaban [Eliquis] 5 mg PO DIRECTED 02/27/19 02/27/19 History Apixaban [Eliquis] 10 mg PO BID 02/27/19 02/27/19 History Bisacodyl 10 mg RECTAL DAILY PRN 02/27/19 02/27/19 History Divalproex Sodium [Depakote 250 mg PO TID 02/27/19 02/27/19 History Sprinkle] Escitalopram Oxalate 5 mg PO DAILY 02/27/19 02/27/19 History Gabapentin [Neurontin] 300 mg PO HS 02/27/19 02/27/19 History Insulin Lispro [humaLOG Kwikpen] See Protocol SQ ACHS 02/27/19 02/27/19 History Metoprolol Tartrate [Lopressor] 100 mg PO BID 02/27/19 02/27/19 History Potassium Chloride ER [K-Dur 20] 20 meq PO DAILY 02/27/19 02/27/19 History Allergies Allergy/AdvReac Type Severity Reaction Status Date / Time atorvastatin [From Lipitor] Allergy Unknown Verified 02/27/19 11:16 codeine Allergy Unknown Verified 02/27/19 11:16 enalaprilat [From Vasotec] Allergy Unknown Verified 02/27/19 11:16 propoxyphene napsylate Allergy Unknown Verified 02/27/19 11:16 [From Darvocet-N] Sulfa (Sulfonamide Allergy Itching,daniela Verified 02/27/19 11:16 Antibiotics) h Physical Exam Vitals: Vital Signs Temp Pulse Resp BP BP Pulse Ox 02/28/19 12:05 97.5 F L 74 18 104/61 99 02/28/19 08:00 74 18 02/28/19 05:00 98 F 87 16 97/62 97 02/28/19 00:07 99.1 F 02/28/19 00:00 20 02/27/19 19:24 100.4 F H 91 22 137/96 96 02/27/19 16:32 97.8 F 85 15 89/61 119/74 95 02/27/19 16:00 85 15 Intake and Output 02/28/19 02/28/19 02/28/19 06:59 14:59 22:59 Other: Voiding Method Diaper Diaper Incontinent Incontinent # Voids 1 Weight 99.337 kg - Constitutional General appearance: cooperative, disheveled, mild distress - EENT Eyes: EOMI, PERRLA, poor dentition ENT: normal oropharynx Ears: bilateral: normal - Neck Neck: normal ROM Carotids: bilateral: upstroke normal, bruit absent Thyroid: bilateral: normal size - Respiratory Respiratory: right: diminished, bilateral: rales, negative: dullness, rhonchi, wheezing, prolonged expiration, prolonged inspiration - Cardiovascular Rhythm: regular Heart sounds: normal: S1, S2 - Gastrointestinal General gastrointestinal: normal bowel sounds - Integumentary Integumentary: normal, normal turgor - Neurologic Neurologic: CNII-XII intact - Musculoskeletal Musculoskeletal: gait normal, generalized weakness, strength equal bilaterally - Psychiatric Psychiatric: appropriate affect, intact judgment & insight Results - Laboratory Findings CBC and BMP: 02/28/19 13:38 02/27/19 11:40 Abnormal lab findings: Abnormal Labs 02/27/19 02/27/19 02/27/19 11:40 11:40 11:40 RBC 3.15 L Hgb 9.8 L Hct 29.4 L RDW 16.2 H Plt Count Lymphocytes # Sodium 133 L Carbon Dioxide 31 H BUN 31 H Glucose 123 H Calcium 7.8 L Magnesium 1.5 L Total Protein 4.2 L Albumin 2.2 L Urine pH Urine Protein Urine Blood Urine Nitrite Ur Leukocyte Esterase Urine WBC Urine Bacteria Urine Mucus Stool Occult Blood Positive H 02/27/19 02/27/19 02/28/19 13:18 22:22 13:38 RBC 2.77 L 2.71 L Hgb 8.7 L 8.6 L Hct 26.8 L 26.0 L RDW 16.3 H 16.3 H Plt Count 127 L 124 L Lymphocytes # 0.5 L 0.7 L Sodium Carbon Dioxide BUN Glucose Calcium Magnesium Total Protein Albumin Urine pH 8.5 H Urine Protein Trace H Urine Blood Small H Urine Nitrite Positive H Ur Leukocyte Esterase Large H Urine WBC 34 H Urine Bacteria Moderate H Urine Mucus Rare H Stool Occult Blood - Diagnostic Findings Chest x-ray: report reviewed, image reviewed (Right lower lobe subsegmental atelectasis with right lower lobe bronchus cutoff is present likely mucous plug however endobronchial mass or pneumonia cannot be excluded) Assessment and Plan Assessment: Right lower lobe pneumonia Right lower lobe endobronchial mass versus mucous plug Coffee-ground emesis Upper GI bleed Acute blood loss anemia Hyponatremia Advanced dementia and Alzheimer's disease Atrial fibrillation anticoagulation Hypertension hypertensive cardiovascular disease Dyslipidemia Diabetes mellitus Plan: Continue bronchodilator Broad-spectrum antibiotics with Rocephin and Zithromax We will obtain a computed tomography scan of the chest without contrast Further recommendations pending plan of care as per clinical response of the patient Monitor hemoglobin closely Proton pump inhibitors Hold anticoagulation
[2019-02-28] MEDS: IPRATROPIUM-ALBUTEROL 3 ML NEB INHALATION SCH ×2 (16:03→19:28)
[2019-02-28] MEDS: PANTOPRAZOLE 40 MG/10 ML VIAL IVP SCH (16:34)
[2019-02-28] MEDS: AZITHROMYCIN 500 MG in SODIUM CHLORIDE 0.9% 250 ML IVPB SCH (16:39)
--- NOTE | 2019-02-28 17:17 | CT ---
EXAMINATION TYPE: CT chest wo con DATE OF EXAM: 02/28/2019 COMPARISON: 02/08/2019 HISTORY: chest mass CT DLP: 613.5 mGycm. Automated Exposure Control for Dose Reduction was Utilized. TECHNIQUE: CT scan of the thorax is performed without IV contrast. FINDINGS: There are moderate bilateral pleural effusions. There is extensive consolidation and atelectasis in t he right lower lobe. Heart is deviated to the right side. There is no mediastinal adenopathy. Exam is limited due to lack of contrast. There is bronchial cartilage calcification. There is mild interstit ial infiltrate right upper lobe. There is spurring in the prostate spine. I see no compression fractu re. There is osteopenia. Thoracic aorta is atheromatous. There is no aneurysm. There is posterior fus ion surgery in the upper lumbar spine. IMPRESSION: There is increased pleural effusions and right lower lobe consolidation and atelectasis c ompared to last exam. Gallbladder is dilated on the old exam and does not appear dilated on today's e xam.
[2019-02-28] MEDS ORDERED: IV FLUID CONTINUATION 600 ML IV ONE (17:50)
[2019-02-28] MEDS ORDERED: LIDOCAINE 1% INJ 10MG/ML (20 ML MDV) SQ ONE (18:49)
[2019-02-28] MEDS ORDERED: MIDAZOLAM (PF) 2 MG/2 ML VIAL IV ONE (18:50)
--- NOTE | 2019-02-28 19:33 | P.OP ---
Date of Procedure: 02/28/19 Preoperative Diagnosis: Left lower extremity deep venous thrombosis with a history of upper GI bleed and thus a contraindication to anticoagulation Postoperative Diagnosis: Same. Procedure(s) Performed: #1. Ultrasound-guided cannulation right femoral vein. #2 Inferior venacavogram. #3 placement of inferior vena cava filter. Anesthesia: local (With 0.5 mg Versed for moderate conscious sedation purposes) Surgeon: Mumtaz Anand Estimated Blood Loss (ml): 2 Urine output (ml): 0 Pathology: none sent Condition: stable Disposition: floor Indications for Procedure: Patient is a 73-year-old female who was recently admitted to the hospital with a history of coffee-ground emesis/upper GI bleed. She currently is on oral anticoagulation for diagnosis of left lower extremity deep venous thrombosis. Because of her upper GI bleed is felt the patient is a poor candidate for continuation of oral anticoagulation unless patient is offered placement of inferior vena cava filter. The procedure, risk and benefits were discussed with the patient's and the was agreeable to the procedure and consent form was signed. Operative Findings: Patient was brought to the special procedure suite. She received 0.5 mg of Versed for moderate conscious sedation purposes. The right lower extremity was sterilely prepped and draped in usual manner. 1% Xylocaine was utilized for local anesthesia of the tissues overlying the right common femoral vein. With the aid of ultrasound a multipurpose needle was utilized to cannulate the vein with the needle being advanced through the anesthetized skin and soft tissues. Once cannulated Softip guidewire was advanced into the iliac vein. The needle was withdrawn and a 5-Trinidadian sheath was placed. Right iliac and inferior venacavogram was performed. This demonstrated no evidence of right iliac or inferior vena cava thrombus. The cava measured to approximate 20 mm in greatest transverse diameter. The renal veins were clearly identified. The 5-Trinidadian sheath was exchanged for the Cook sheath and dilator over a guidewire. The guidewire and dilator were withdrawn and the tulip filter was advanced through the delivery sheath and deployed at the L2-L3 level. Repeat venogram was performed. This demonstrated the filter to be in good position without evidence of complication. With the above findings noted the sheath was withdrawn and pressure was held at the puncture site until all evidence of bleeding ceased. Patient tolerated the procedure well and was returned to her room in satisfactory condition. Total contrast volume 20 ML's of Isovue 370. Total conscious sedation time 14 minutes. Total fluoroscopy time 30 seconds.
[2019-02-28] MEDS: ZOCOR PO SCH (21:18)
[2019-02-28] MEDS: QUEtiapine 50 MG TAB PO SCH (21:18)
--- NOTE | 2019-02-28 23:54 | P.CONS ---
History of Present Illness - Reason for Consult Consult date: 02/28/19 wound in the urinary tract infection Requesting physician: Rc Barr - Chief Complaint Coffee-ground emesis per the [place] [facility] staff 1 day - History of Present Illness Patient is a 73-year-old female well known to my service from recent multiple admissions in this facility in this patient who did have a pressure ulcer to the sacral area as well as left heel, and this patient was recently diagnosed with left lower extremity DVT for the patient be started on anticoagulation patient has not been brought back to the ER at [facility] from the [place] [facility] with concern for patient having coffee- ground emesis patient during this admission also have a low-grade fever 100.4 and she did have a positive with concern for urinary tract infection has 5 was asked to see the patient today for evaluation and management of underlying infection history has been obtained mostly from the chart and the as the patient herself had advanced dementia and unable to provide any reliable history, the patient did have a wound to the cefepime that was currently being treated with the medahoney in the left heel and was supposed to be protected with a heel protector however her is not very clear what exactly dressing has been applied to these wounds patient did not have any Camara catheter during this last admission and on even at the [place] [facility] and is very hard to get information from her regarding her symptomatology Review of Systems Positive points has been mentioned in HPI Complete review could not be obtained because of underlying dementia Past Medical History Past Medical History: Atrial Fibrillation, Cancer, Diabetes Mellitus, Deep Vein Thrombosis (DVT), GERD/Reflux, Hyperlipidemia, Hypertension, Memory Impairment, Osteoarthritis (OA), Renal Disease, Thyroid Disorder Additional Past Medical History / Comment(s): Pt recently admitted to [facility] on 02/14/19 with acute on chronic blood loss anemia/coffee ground emesis/ egd showed hiatal hernia and gastritis/possible Margaret Avilez tear/leta erosions with possible small bowel source/DVT L leg/small pleural effusion/R lower lobe lung nodule/stage II decubitus ulcer/hypokalemia/hypomagnesium. Other Hx: IDDM type II, neuropathy bilateral legs/feet, paroxysmal afib, Vtach, severe dementia, dysphagia, nonhodgkins lymphoma with last chemo 2015, neutropenia, anemia, goiter, received radioactive iodine-hypothyroid, CKD stage III, UTIs, UTI with sepsis, varicosities, generalized arthritis, low back pain, R shoulder injury from fall in 2014, constipation, current wound coccyx-/L heel, L shoulder blister, allergic rhinitis, sleep disorder, incontinence. History of Any Multi-Drug Resistant Organisms: None Reported Past Surgical History: Back Surgery, Breast Surgery, Hernia Repair, Joint Replacement, Tubal Ligation Additional Past Surgical History / Comment(s): rt knee replacement, rt shoulder replacement, low back surgery-has screws, back injections, bilateral cataracts removed/lens implants, L breast biopsy, colonoscopy. Past Anesthesia/Blood Transfusion Reactions: Previous Problems w/ Anesthesia Additional Past Anesthesia/Blood Transfusion Reaction / Comm: years ago had diff breathing with anesthesia Smoking Status: Never smoker - Past Family History Sister(s) Family Medical History: Cancer Additional Family Medical History / Comment(s): Uterine cancer Medications and Allergies Home Medications Medication Instructions Recorded Confirmed Type Simvastatin [Zocor] 40 mg PO HS 07/08/16 02/27/19 History Ferrous Sulfate [Iron (65 MG 325 mg PO DAILY 10/29/17 02/27/19 History Elemental)] Cranberry Fruit Concentrate 450 mg PO BID 02/13/18 02/27/19 History [Cranberry] Melatonin 3 mg PO HS@199902/13/18 02/27/19 History Aspirin EC [Ecotrin Low Dose] 81 mg PO HS 01/31/19 02/27/19 History Furosemide [Lasix] 20 mg PO DAILY 01/31/19 02/27/19 History Levothyroxine Sodium [Synthroid] 125 mcg PO DAILY 01/31/19 02/27/19 History Magnesium Hydroxide [Milk of 2,400 mg PO DAILY PRN 01/31/19 02/27/19 History Magnesia] QUEtiapine [SEROquel] 150 mg PO HS 01/31/19 02/27/19 History Ranitidine HCl [Zantac] 75 mg PO BID 01/31/19 02/27/19 History Acetaminophen Tab [Tylenol] 650 mg PO Q6HR PRN tab 02/10/19 02/27/19 Rx Ibuprofen [Motrin] 400 mg PO Q6HR PRN tab 02/10/19 02/27/19 Rx Docusate [Colace] 100 mg PO PC-SUPPER 02/13/19 02/27/19 History Losartan [Cozaar] 12.5 mg PO DAILY 02/13/19 02/27/19 History Nitroglycerin Sl Tabs [Nitrostat] 0.4 mg SL Q5M 02/13/19 02/27/19 History Pro-Stat Sugar Free 30 ml PO BID 02/13/19 02/27/19 History ALPRAZolam [Xanax] 0.5 mg PO BID #6 tab 02/18/19 02/27/19 Rx Tamsulosin [Flomax] 0.4 mg PO DAILY cap.er.24h 02/18/19 02/27/19 Rx Apixaban [Eliquis] 5 mg PO DIRECTED 02/27/19 02/27/19 History Apixaban [Eliquis] 10 mg PO BID 02/27/19 02/27/19 History Bisacodyl 10 mg RECTAL DAILY PRN 02/27/19 02/27/19 History Divalproex Sodium [Depakote 250 mg PO TID 02/27/19 02/27/19 History Sprinkle] Escitalopram Oxalate 5 mg PO DAILY 02/27/19 02/27/19 History Gabapentin [Neurontin] 300 mg PO HS 02/27/19 02/27/19 History Insulin Lispro [humaLOG Kwikpen] See Protocol SQ ACHS 02/27/19 02/27/19 History Metoprolol Tartrate [Lopressor] 100 mg PO BID 02/27/19 02/27/19 History Potassium Chloride ER [K-Dur 20] 20 meq PO DAILY 02/27/19 02/27/19 History Allergies Allergy/AdvReac Type Severity Reaction Status Date / Time atorvastatin [From Lipitor] Allergy Unknown Verified 02/27/19 11:16 codeine Allergy Unknown Verified 02/27/19 11:16 enalaprilat [From Vasotec] Allergy Unknown Verified 02/27/19 11:16 propoxyphene napsylate Allergy Unknown Verified 02/27/19 11:16 [From Darvocet-N] Sulfa (Sulfonamide Allergy Itching,daniela Verified 02/27/19 11:16 Antibiotics) h Physical Exam Vitals: Vital Signs Temp Pulse Pulse Resp BP BP BP 02/28/19 12:05 97.5 F L 74 18 104/61 02/28/19 08:00 74 18 02/28/19 05:00 98 F 87 16 97/62 02/28/19 00:07 99.1 F 02/28/19 00:00 20 02/27/19 19:24 100.4 F H 91 22 137/96 02/27/19 16:32 97.8 F 85 15 89/61 119/74 02/27/19 16:00 85 15 02/27/19 15:35 86 18 115/84 02/27/19 14:29 95 24 96/86 Pulse Ox 02/28/19 12:05 99 02/28/19 08:00 02/28/19 05:00 97 02/28/19 00:07 02/28/19 00:00 02/27/19 19:24 96 02/27/19 16:32 95 02/27/19 16:00 02/27/19 15:35 93 L 02/27/19 14:29 93 L Intake and Output 02/27/19 02/28/19 02/28/19 22:59 06:59 14:59 Other: Voiding Method Diaper Diaper Incontinent Incontinent # Voids 2 1 GENERAL DESCRIPTION: An elderly female lying in bed, no distress. No tachypnea or accessory muscle of respiration use. HEENT: Shows Pallor , no scleral icterus. Oral mucous membrane is dry. No pharyngeal erythema or thrush NECK: Trachea central, no thyromegaly. LUNGS: Unlabored breathing. Decreased the base. No wheeze or crackle. HEART: S1, S2, regular rate and rhythm. No loud murmur ABDOMEN: Soft, no tenderness , guarding or rigidity, no organomegaly EXTREMITIES: Left heel with stage III pressure ulcer no surrounding cellulitis SKIN: No rash, no masses palpable. Patient with necrotic wound to the sacral area unstageable pressure ulcer at this point but no cellulitis NEUROLOGICAL: The patient is awake, but orientation could not be determined and no agitation noticed Results CBC & Chem 7: 02/28/19 13:38 02/27/19 11:40 Labs: Abnormal Lab Results - Last 24 Hours (Table) 02/27/19 Range/Units 22:22 RBC 2.77 L (3.80-5.40) m/uL Hgb 8.7 L (11.4-16.0) gm/dL Hct 26.8 L (34.0-46.0) % RDW 16.3 H (11.5-15.5) % Plt Count 127 L (150-450) k/uL Lymphocytes # 0.5 L (1.0-4.8) k/uL Assessment and Plan Assessment: 1-patient is being admitted to hospital with coffee-ground emesis concern for a GI bleed in this patient has been on and evaluation because of her leg source of DVT she also have a low-grade fever 100.4 and a positive with concern for possible urinary source and underlying pneumonia less likely not entirely excluded 2-patient with unstageable sacral pressure ulcer but no cellulitis 3-stage III left heel pressure ulcer no cellulitis Plan: 1-Rocephin 1 g daily while waiting for the urine culture finalized 2-medahoney to the sacral wound followed by moist dressing daily of the pressure 3-medahoney to the left heel pressure ulcer followed by moist dressing to keep the area off the pressure we will follow up on clinical condition and cultures to further adjust medication if needed Thank you for this consultation will follow this patient along with you
[2019-03-01] MEDS: ALPRAZolam 0.5 MG TAB PO SCH ×3 (02:02→10:31)
[2019-03-01] MEDS: IPRATROPIUM-ALBUTEROL 3 ML NEB INHALATION SCH ×4 (07:32→20:07)
[2019-03-01 08:54] LABS: Basophils % (A) 0 %; Eosinophils # (A) 0.2 k/uL (0-0.7); Eosinophils % (A) 5 %; HCT 24.7 % (34.0-46.0); HGB 8.2 gm/dL (11.4-16.0); Lymphocytes # (A) 0.5 k/uL (1.0-4.8); Lymphocytes % (A) 14 %; MCH 31.7 pg (25.0-35.0); MCV 96.1 fL (80.0-100.0); Monocytes # (A) 0.3 k/uL (0-1.0); Monocytes % (A) 8 %; Neutrophils # (A) 2.7 k/uL (1.3-7.7); Neutrophils % (A) 71 %; Platelet Count 102 k/uL (150-450); RBC 2.57 m/uL (3.80-5.40); WBC 3.7 k/uL (3.8-10.6)
[2019-03-01 08:55] LABS: Calcium 8.2 mg/dL (8.4-10.2); Magnesium 1.9 mg/dL (1.6-2.3); Potassium 4.1 mmol/L (3.5-5.1)
[2019-03-01] MEDS: PANTOPRAZOLE 40 MG/10 ML VIAL IVP SCH (09:42)
--- NOTE | 2019-03-01 10:25 | P.PN ---
Progress Note - Text Progress Note Date: 03/01/19 Patient remained stable. Her he will was a 0.2. There is been no evidence of GI bleed. History of GERD. Patient will be observed.
[2019-03-01] MEDS: AZITHROMYCIN 500 MG in SODIUM CHLORIDE 0.9% 250 ML IVPB SCH (10:31)
[2019-03-01] MEDS: POTASSIUM CHLORIDE ER 20 MEQ TAB.ER PO SCH (10:56)
[2019-03-01] MEDS: POTASSIUM BICARBONATE/CIT AC 20 MEQ TABLET.EFF PO SCH (10:59)
--- NOTE | 2019-03-01 12:30 | P.PN ---
Subjective Progress Note Date: 03/01/19 Principal diagnosis: Right lower lobe pneumonia, right endobronchial mucous plug versus mass, coffee- ground emesis, upper GI bleed, deep venous thrombosis left lower extremity, atri al fibrillation, hyponatremia, advanced dementia exam is disease, dyslipidemia, diabetes 03/01/2019, patient seen eval reexamined during the rounds she is breathing relatively stable denies any chest pain or cough or sputum production, patient underwent a computed tomography scan of the chest yesterday which have been reviewed findings revealed right lower lobe atelectasis possible pneumonia crow ateral small to moderate pleural effusion, patient's status was IVC filter due to poor candidate for anticoagulation therapy This is an 73-year-old female with prior medical history of dementia data has been obtained from the chart as patient not able to give a detailed history she is oriented 1 she is admitted into the hospital with coffee-ground emesis, patient is a status post recent ventral hernia repair chest x-ray done in the emergency department revealed right lower lobe atelectasis likely due to mucous plug less likely suspected endobronchial lesion and possible pneumonia she is being monitor observe no EGD being planned patient of note that had temperature 100.4 and has been placed on Rocephin and Zithromax her hemoglobin is stable so far no recurrent episode of coffee-ground emesis, however her latest hemoglobin is 8.6 which is down from 9.8 at the time of admission, white cell count remains stable in normal range Objective - Vital Signs Vital signs: Vital Signs Temp 96.4 F L 03/01/19 11:45 Pulse 67 03/01/19 11:45 Resp 17 03/01/19 11:45 BP 107/67 03/01/19 11:45 Pulse Ox 99 03/01/19 11:45 Intake & Output 02/28/19 03/01/19 03/01/19 18:59 06:59 18:59 Intake Total 1160 Balance 1160 Weight 99.337 kg Intake: IV 200 Intake, IV Titration 600 Amount Azithromycin 500 mg In 250 Sodium Chloride 0.9% 250 ml @ 250 mls/hr IVPB DAILY [facility] Rx#:[id number] Sodium Chloride 0.9% 1, 300 000 ml @ 75 mls/hr IV . [id number] Rx#:[id number] cefTRIAXone 1 gm In 50 Sodium Chloride 0.9% 50 ml @ 100 mls/hr IVPB Q24HR [facility] Rx#:[id number] Oral 360 Other: Voiding Method Diaper Diaper Diaper Incontinent Incontinent Incontinent # Voids 4 2 - Exam - Constitutional General appearance: cooperative, disheveled, mild distress - EENT Eyes: EOMI, PERRLA, poor dentition ENT: normal oropharynx Ears: bilateral: normal - Neck Neck: normal ROM Carotids: bilateral: upstroke normal, bruit absent Thyroid: bilateral: normal size - Respiratory Respiratory: right: diminished, bilateral: rales, negative: dullness, rhonchi, wheezing, prolonged expiration, prolonged inspiration - Cardiovascular Rhythm: regular Heart sounds: normal: S1, S2 - Gastrointestinal General gastrointestinal: normal bowel sounds - Integumentary Integumentary: normal, normal turgor - Neurologic Neurologic: CNII-XII intact - Musculoskeletal Musculoskeletal: gait normal, generalized weakness, strength equal bilaterally - Psychiatric Psychiatric: appropriate affect, intact judgment & insight - Labs CBC & Chem 7: 03/01/19 08:02 03/01/19 08:02 Labs: Abnormal Lab Results - Last 24 Hours (Table) 02/28/19 03/01/19 03/01/19 Range/Units 13:38 08:02 08:02 WBC 3.7 L (3.8-10.6) k/uL RBC 2.71 L 2.57 L (3.80-5.40) m/uL Hgb 8.6 L 8.2 L (11.4-16.0) gm/dL Hct 26.0 L 24.7 L (34.0-46.0) % RDW 16.3 H 16.0 H (11.5-15.5) % Plt Count 124 L 102 L (150-450) k/uL Lymphocytes # 0.7 L 0.5 L (1.0-4.8) k/uL Sodium 135 L (137-145) mmol/L BUN 26 H (7-17) mg/dL Glucose 70 L (74-99) mg/dL Calcium 8.2 L (8.4-10.2) mg/dL Assessment and Plan Assessment: Right lower lobe pneumonia Right lower lobe atelectasis due to mucous plug Bilateral small pleural effusion DVT left lower extremity poor candidate for long-term anticoagulation Coffee-ground emesis Upper GI bleed Acute blood loss anemia Hyponatremia Advanced dementia and Alzheimer's disease Atrial fibrillation anticoagulation Hypertension hypertensive cardiovascular disease Dyslipidemia Diabetes mellitus Plan: Continue bronchodilator Deep breathing exercise incentive spirometry Gentle diuresis Status post IVC filter Broad-spectrum antibiotics with Rocephin and Zithromax Reviewed computed tomography scan of the chest no plan for bronchoscopy and dissipate atelectasis with mucus plugging was improved with conservative measures Further recommendations pending plan of care as per clinical response of the patient Monitor hemoglobin closely Proton pump inhibitors Hold anticoagulation Time with Patient: Greater than 30
[2019-03-01] MEDS: MAGNESIUM SULFATE-D5W PMX 1 GM in DEXTROSE/WATER 1 100ML.BAG IVPB SCH ×2 (13:01→14:19)
--- NOTE | 2019-03-01 20:42 | P.PN ---
Subjective Progress Note Date: 03/01/19 Principal diagnosis: Urinary tract infection, unstageable sacral pressure ulcer, stage III left heel pressure ulcer Patient is a 73 year female admitted to hospital with coffee-ground emesis and this patient was noticed to have fever and a positive UA likely the source of her fever patient also have unstageable sacral pressure ulcer with a stage III pressure ulcer to the left heel area On today's evaluation and that is 03/01/2019 patient is afebrile, the patient h as been breathing comfortably she suddenly more awake and alert however unable to provide any history because of underlying dementia no nausea no vomiting or any diarrhea reported by the nursing staff Objective - Vital Signs Vital signs: Vital Signs Temp 98.2 F 03/01/19 19:36 Pulse 75 03/01/19 20:18 Resp 16 03/01/19 19:36 BP 105/57 03/01/19 19:36 Pulse Ox 98 03/01/19 20:08 Intake & Output 03/01/19 03/01/19 03/02/19 06:59 18:59 06:59 Other: Voiding Method Diaper Diaper Incontinent Incontinent # Voids 2 4 1 - Exam GENERAL DESCRIPTION:[ Patient is awake and in no distress] HEENT: [Oral mucosa is dry and no pharyngeal erythema] EYES : [No pallor or scleral icterus] RESPIRATORY SYSTEM: [Unlabored breathing clear to auscultation] CARDIA VASCULAR SYSTEM: [S1-S2 regular rate and rhythm no murmur] GI: [Abdominal soft there's no tenderness no organomegaly] EXTREMITIES: [Bilateral leg swelling] - Labs CBC & Chem 7: 03/01/19 08:02 03/01/19 08:02 Labs: Abnormal Lab Results - Last 24 Hours (Table) 03/01/19 03/01/19 Range/Units 08:02 08:02 WBC 3.7 L (3.8-10.6) k/uL RBC 2.57 L (3.80-5.40) m/uL Hgb 8.2 L (11.4-16.0) gm/dL Hct 24.7 L (34.0-46.0) % RDW 16.0 H (11.5-15.5) % Plt Count 102 L (150-450) k/uL Lymphocytes # 0.5 L (1.0-4.8) k/uL Sodium 135 L (137-145) mmol/L BUN 26 H (7-17) mg/dL Glucose 70 L (74-99) mg/dL Calcium 8.2 L (8.4-10.2) mg/dL Assessment and Plan Assessment: 1-patient is being admitted to hospital with coffee-ground emesis concern for a GI bleed in this patient has been on and evaluation because of her leg source of DVT she also have a low-grade fever 100.4 and a positive UA and concern for possible urinary source and underlying pneumonia less likely not entirely excluded 2-patient with unstageable sacral pressure ulcer but no cellulitis 3-stage III left heel pressure ulcer no cellulitis Plan: 1-Rocephin 1 g daily to continue to patient fever has responded 2-medahoney to the sacral wound followed by moist dressing daily of the pressure 3-medahoney to the left heel pressure ulcer followed by moist dressing to keep the area off the pressure Time with Patient: Less than 30
[2019-03-01] MEDS: ZOCOR PO SCH (22:06)
[2019-03-01] MEDS: QUEtiapine 50 MG TAB PO SCH (22:07)
--- NOTE | 2019-03-02 00:30 | PN ---
PROGRESS NOTE SUBJECTIVE: 73-year-old white female, GI bleed, UTI, status post IVC filter. Inferior vena cava filter placed by vascular surgery yesterday. Her hemoglobin is stable off anticoagulation. She will probably go back to [facility] on Sunday with no anticoagulants. Otherwise, she is stable from medical standpoint. Cardiovascular S1, S2. Lungs clear. GI is soft. Hematology: Positive Homans left leg. Neurologic: Alert orient x1. ASSESSMENT: 1. Gastrointestinal bleed. 2. Urinary tract infection. 3. Deep vein thrombosis left leg, status post inferior vena cava filter placement. Discharge back on no blood thinners on Sunday. MMODL / IJN: [id number] /
[2019-03-02] MEDS: ALPRAZolam 0.5 MG TAB PO SCH ×2 (04:17→10:08)
[2019-03-02] MEDS: IPRATROPIUM-ALBUTEROL 3 ML NEB INHALATION SCH ×4 (08:26→19:46)
[2019-03-02 09:05] LABS: Basophils % (A) 0 %; Eosinophils # (A) 0.1 k/uL (0-0.7); Eosinophils % (A) 3 %; HCT 24.3 % (34.0-46.0); HGB 7.7 gm/dL (11.4-16.0); Lymphocytes # (A) 0.6 k/uL (1.0-4.8); Lymphocytes % (A) 16 %; MCHC 31.8 g/dL (31.0-37.0); MCV 97.7 fL (80.0-100.0); Macrocytosis Slight; Mean Platelet Volume 7.5; Monocytes # (A) 0.2 k/uL (0-1.0); Monocytes % (A) 5 %; Neutrophils # (A) 2.7 k/uL (1.3-7.7); Neutrophils % (A) 72 %; Platelet Count 114 k/uL (150-450); RBC 2.48 m/uL (3.80-5.40); RDW 15.5 % (11.5-15.5); WBC 3.8 k/uL (3.8-10.6)
[2019-03-02 09:14] LABS: Calcium 7.9 mg/dL (8.4-10.2); Magnesium 2.2 mg/dL (1.6-2.3); Potassium 4.4 mmol/L (3.5-5.1)
[2019-03-02] MEDS: PANTOPRAZOLE 40 MG/10 ML VIAL IVP SCH (10:08)
[2019-03-02] MEDS: POTASSIUM BICARBONATE/CIT AC 20 MEQ TABLET.EFF PO SCH (10:10)
[2019-03-02] MEDS: AZITHROMYCIN 500 MG in SODIUM CHLORIDE 0.9% 250 ML IVPB SCH (10:45)
--- NOTE | 2019-03-02 12:10 | PN ---
PROGRESS NOTE DATE OF SERVICE: 03/02/2019. REASON FOR FOLLOW UP: 1. Urinary tract infection. 2. Unstageable sacral pressure ulcer. 3. Stage III left heel pressure ulcer. INTERVAL HISTORY: The patient is currently afebrile. Patient has been breathing comfortably. Hemodynamically stable. No nausea, vomiting or diarrhea reported by the nursing staff. Patient herself is unable to provide any history because of underlying dementia. PHYSICAL EXAMINATION: Blood pressure is 100/67 with a pulse of 73, temperature 97.5. She is 98% on 2 L nasal cannula. General description is an elderly female, lying in bed in no distress. Respiratory system: Unlabored breathing. Clear to auscultation anteriorly. Heart S1, S2. Regular rate and rhythm. ABDOMEN: Soft, no tenderness. Wounds are currently dressed up. RN changed last night. No reported. LABS: Hemoglobin 7.7, white count 3.8. BUN of 24, creatinine 0.83. Unfortunately, no cultures were done on this patient. DIAGNOSTIC IMPRESSION/PLAN: 1. Patient admitted to the hospital with coffee-grounds emesis with concern for GI bleed in this patient who also has a fever and concern for a UTI. The patient was significantly positive. The patient's fever responded to the Rocephin. However, cultures were not done. RN has been advised to obtain another UA and culture. Keep the patient on Rocephin. 2. Patient with unstageable sacral pressure ulcer. Local wound care with Medihoney to keep the area off the pressure. 3. Left heel stage II pressure ulcer. Local wound care with Medihoney. Keep the area off the pressure. MMODL / IJN: [id number] /
--- NOTE | 2019-03-02 12:48 | P.PN ---
Progress Note - Text Progress Note Date: 03/02/19 Patient resting comfortably in bed. She shows no signs of distress. Her hemoglobin is stable at 7.7. There is been no signs of upper GI bleed. Chronic anemia most likely related to GERD and esophagitis. Patient shows no signs of active upper GI bleed. She'll be observed.
[2019-03-02 15:16] LABS: Appearance,Urine Clear (Clear); Bilirubin,Urine Negative (Negative); Blood,Urine Negative (Negative); Color,Urine Light Yellow; Glucose,Urine (UA) Negative (Negative); Ketones,Urine Negative (Negative); Leukocyte Esterase,Urine Small (Negative); Mucus,Urine Rare /hpf; Nitrite,Urine Negative (Negative); PH, Urine 7.5 (5.0-8.0); Protein,Urine Negative (Negative); RBC,Urine <1 /hpf (0-5); Urobilinogen,Urine <2.0 mg/dL (<2.0)
--- NOTE | 2019-03-02 21:21 | PN ---
PROGRESS NOTE DATE OF SERVICE: 03/02/2019. She is sleepy but arousable. Does not give me much history. She has been lying in bed with her at the bedside. She does not seem to be in any pain or in any respiratory distress. PHYSICAL EXAMINATION: Her blood pressure is 99/53, respiratory rate of 17, pulse rate of 77, temperature 97.8 degrees Fahrenheit. HEENT: Unremarkable. Chest is clear. Cardiovascular system reveals an S1, S2. Abdomen is soft. There is 1+ pedal edema. IMPRESSION: At this time: 1. Urinary tract infection. 2. Sacral pressure ulcer. 3. Left heel ulcer. 4. Dementia. 5. Chronic anemia. 6. Deep vein thrombosis in the left leg, status post inferior vena cava filter placement. Continue local wound care. Antibiotics. Appreciate surgery and ID input. Discharge plan is possible transfer back to the [facility] without anticoagulant. MMODL / IJN: [id number] /
[2019-03-02] MEDS: ZOCOR PO SCH (22:54)
[2019-03-03] MEDS: ALPRAZolam 0.5 MG TAB PO SCH ×2 (00:41→08:07)
[2019-03-03] MEDS: QUEtiapine 50 MG TAB PO SCH (00:41)
[2019-03-03 07:36] LABS: Basophils % (A) 1 %; Eosinophils # (A) 0.1 k/uL (0-0.7); Eosinophils % (A) 2 %; HCT 22.9 % (34.0-46.0); HGB 7.9 gm/dL (11.4-16.0); Lymphocytes # (A) 0.7 k/uL (1.0-4.8); Lymphocytes % (A) 16 %; MCH 33.2 pg (25.0-35.0); MCHC 34.7 g/dL (31.0-37.0); MCV 95.7 fL (80.0-100.0); Mean Platelet Volume 7.7; Monocytes # (A) 0.4 k/uL (0-1.0); Monocytes % (A) 9 %; Neutrophils # (A) 3.1 k/uL (1.3-7.7); Neutrophils % (A) 70 %; Platelet Count 133 k/uL (150-450); RBC 2.39 m/uL (3.80-5.40); RDW 15.9 % (11.5-15.5); WBC 4.4 k/uL (3.8-10.6)
[2019-03-03 07:48] LABS: Potassium 4.5 mmol/L (3.5-5.1)
[2019-03-03] MEDS: ACETAMINOPHEN TAB 325 MG TAB PO PRN (08:06)
[2019-03-03] MEDS: PANTOPRAZOLE 40 MG/10 ML VIAL IVP SCH (08:09)
[2019-03-03] MEDS: POTASSIUM BICARBONATE/CIT AC 20 MEQ TABLET.EFF PO SCH (08:10)
[2019-03-03] MEDS ORDERED: traMADol 50 MG TAB PO PRN (08:22)
[2019-03-03] MEDS: IPRATROPIUM-ALBUTEROL 3 ML NEB INHALATION SCH ×3 (08:31→15:43)
[2019-03-03] MEDS ORDERED: AZITHROMYCIN 500 MG TAB PO SCH (09:00)
[2019-03-03] MEDS ORDERED: KETOROLAC 30 MG/ML 1 ML VIAL IVP PRN (09:51)
[2019-03-03] MEDS ORDERED: diphenhydrAMINE 50 MG/ML 1 ML VIAL IVP STA (09:51)
--- NOTE | 2019-03-03 12:04 | IR ---
Fluoroscopy HISTORY: IVC filter placement 30 seconds fluoroscopy time supplied to the referring clinician. 124 i ntraoperative C-arm images document the procedure. See dictated report from vascular surgery.
[2019-03-03 12:28] VITALS: BP 115/71; RESP 20; TEMP 97.9
[2019-03-03] MEDS: KETOROLAC 30 MG/ML 1 ML VIAL IVP STA ×2 (13:07→13:13)
--- NOTE | 2019-03-03 14:28 | P.PN ---
Subjective Progress Note Date: 03/02/19 Principal diagnosis: Right lower lobe pneumonia, right endobronchial mucous plug versus mass, coffee- ground emesis, upper GI bleed, deep venous thrombosis left lower extremity, atri al fibrillation, hyponatremia, advanced dementia exam is disease, dyslipidemia, diabetes 03/02/2019, shouldn't seen evaluated examined during the rounds, or pains eyes not much communicative denies any chest pain she is being treated for UTI, being followed by surgical services for upper GI bleed 03/01/2019, patient seen eval reexamined during the rounds she is breathing relatively stable denies any chest pain or cough or sputum production, patient underwent a computed tomography scan of the chest yesterday which have been reviewed findings revealed right lower lobe atelectasis possible pneumonia bilateral small to moderate pleural effusion, patient's status was IVC filter due to poor candidate for anticoagulation therapy This is an 73-year-old female with prior medical history of dementia data has been obtained from the chart as patient not able to give a detailed history she is oriented 1 she is admitted into the hospital with coffee-ground emesis, patient is a status post recent ventral hernia repair chest x-ray done in the emergency department revealed right lower lobe atelectasis likely due to mucous plug less likely suspected endobronchial lesion and possible pneumonia she is being monitor observe no EGD being planned patient of note that had temperature 100.4 and has been placed on Rocephin and Zithromax her hemoglobin is stable so far no recurrent episode of coffee-ground emesis, however her latest hemoglobin is 8.6 which is down from 9.8 at the time of admission, white cell count remains stable in normal range Objective - Vital Signs Vital signs: Vital Signs Temp 98.2 F 03/02/19 20:36 Pulse 82 03/02/19 20:36 Resp 20 03/02/19 20:36 BP 113/76 03/02/19 20:36 Pulse Ox 98 03/02/19 20:36 Intake & Output 03/02/19 03/02/19 03/03/19 06:59 18:59 06:59 Other: Voiding Method Diaper Diaper Incontinent Incontinent # Voids 3 1 - Exam - Constitutional General appearance: cooperative, disheveled, mild distress - EENT Eyes: EOMI, PERRLA, poor dentition ENT: normal oropharynx Ears: bilateral: normal - Neck Neck: normal ROM Carotids: bilateral: upstroke normal, bruit absent Thyroid: bilateral: normal size - Respiratory Respiratory: right: diminished, bilateral: rales, negative: dullness, rhonchi, wheezing, prolonged expiration, prolonged inspiration - Cardiovascular Rhythm: regular Heart sounds: normal: S1, S2 - Gastrointestinal General gastrointestinal: normal bowel sounds - Integumentary Integumentary: normal, normal turgor - Neurologic Neurologic: CNII-XII intact - Musculoskeletal Musculoskeletal: gait normal, generalized weakness, strength equal bilaterally - Psychiatric Psychiatric: appropriate affect, intact judgment & insight - Labs CBC & Chem 7: 03/03/19 07:02 03/03/19 07:02 Labs: Abnormal Lab Results - Last 24 Hours (Table) 03/02/19 03/02/19 03/02/19 Range/Units 08:29 08:29 14:00 RBC 2.48 L (3.80-5.40) m/uL Hgb 7.7 L (11.4-16.0) gm/dL Hct 24.3 L (34.0-46.0) % Plt Count 114 L (150-450) k/uL Lymphocytes # 0.6 L (1.0-4.8) k/uL Sodium 134 L (137-145) mmol/L Carbon Dioxide 32 H (22-30) mmol/L BUN 24 H (7-17) mg/dL Calcium 7.9 L (8.4-10.2) mg/dL Ur Leukocyte Esterase Small H (Negative) Urine Mucus Rare H (None) /hpf Assessment and Plan Assessment: Right lower lobe pneumonia Right lower lobe atelectasis due to mucous plug Bilateral small pleural effusion DVT left lower extremity poor candidate for long-term anticoagulation Coffee-ground emesis Upper GI bleed Acute blood loss anemia Hyponatremia Advanced dementia and Alzheimer's disease Atrial fibrillation anticoagulation Hypertension hypertensive cardiovascular disease Dyslipidemia Diabetes mellitus Plan: Continue bronchodilator Deep breathing exercise incentive spirometry Gentle diuresis Status post IVC filter Broad-spectrum antibiotics with Rocephin and Zithromax Reviewed computed tomography scan of the chest no plan for bronchoscopy and dissipate atelectasis with mucus plugging was improved with conservative measures Further recommendations pending plan of care as per clinical response of the patient Monitor hemoglobin closely Proton pump inhibitors Hold anticoagulation Time with Patient: Greater than 30
--- NOTE | 2019-03-03 14:33 | P.PN ---
Subjective Progress Note Date: 03/03/19 Principal diagnosis: Right lower lobe pneumonia, right endobronchial mucous plug versus mass, coffee- ground emesis, upper GI bleed, deep venous thrombosis left lower extremity, atri al fibrillation, hyponatremia, advanced dementia exam is disease, dyslipidemia, diabetes 03/03/2019, patient seen eval examined during rounds, general surgery is following, she is status post IVC filter, breathing is stable and improved will get a repeat x-ray to monitor effusion and atelectasis 03/02/2019, shouldn't seen evaluated examined during the rounds, or pains eyes not much communicative denies any chest pain she is being treated for UTI, being followed by surgical services for upper GI bleed 03/01/2019, patient seen eval reexamined during the rounds she is breathing relatively stable denies any chest pain or cough or sputum production, patient underwent a computed tomography scan of the chest yesterday which have been reviewed findings revealed right lower lobe atelectasis possible pneumonia bilateral small to moderate pleural effusion, patient's status was IVC filter due to poor candidate for anticoagulation therapy This is an 73-year-old female with prior medical history of dementia data has been obtained from the chart as patient not able to give a detailed history she is oriented 1 she is admitted into the hospital with coffee-ground emesis, patient is a status post recent ventral hernia repair chest x-ray done in the emergency department revealed right lower lobe atelectasis likely due to mucous plug less likely suspected endobronchial lesion and possible pneumonia she is being monitor observe no EGD being planned patient of note that had temperature 100.4 and has been placed on Rocephin and Zithromax her hemoglobin is stable so far no recurrent episode of coffee-ground emesis, however her latest hemoglobin is 8.6 which is down from 9.8 at the time of admission, white cell count remains stable in normal range Objective - Vital Signs Vital signs: Vital Signs Temp 97.9 F 03/03/19 12:16 Pulse 83 03/03/19 12:16 Resp 20 03/03/19 12:16 BP 115/71 03/03/19 12:16 Pulse Ox 99 03/03/19 12:16 Intake & Output 03/02/19 03/03/19 03/03/19 18:59 06:59 18:59 Intake Total 590 Balance 590 Intake: Oral 590 Other: Voiding Method Diaper Diaper Incontinent Incontinent # Voids 3 2 - Exam - Constitutional General appearance: cooperative, disheveled, mild distress - EENT Eyes: EOMI, PERRLA, poor dentition ENT: normal oropharynx Ears: bilateral: normal - Neck Neck: normal ROM Carotids: bilateral: upstroke normal, bruit absent Thyroid: bilateral: normal size - Respiratory Respiratory: right: diminished, bilateral: rales, negative: dullness, rhonchi, wheezing, prolonged expiration, prolonged inspiration - Cardiovascular Rhythm: regular Heart sounds: normal: S1, S2 - Gastrointestinal General gastrointestinal: normal bowel sounds - Integumentary Integumentary: normal, normal turgor - Neurologic Neurologic: CNII-XII intact - Musculoskeletal Musculoskeletal: gait normal, generalized weakness, strength equal bilaterally - Psychiatric Psychiatric: appropriate affect, intact judgment & insight - Labs CBC & Chem 7: 03/03/19 07:02 03/03/19 07:02 Labs: Abnormal Lab Results - Last 24 Hours (Table) 03/02/19 03/03/19 03/03/19 Range/Units 14:00 07:02 07:02 RBC 2.39 L (3.80-5.40) m/uL Hgb 7.9 L (11.4-16.0) gm/dL Hct 22.9 L (34.0-46.0) % RDW 15.9 H (11.5-15.5) % Plt Count 133 L (150-450) k/uL Lymphocytes # 0.7 L (1.0-4.8) k/uL Sodium 133 L (137-145) mmol/L Chloride 97 L (98-107) mmol/L Carbon Dioxide 31 H (22-30) mmol/L BUN 20 H (7-17) mg/dL Glucose 107 H (74-99) mg/dL Calcium 8.0 L (8.4-10.2) mg/dL Ur Leukocyte Esterase Small H (Negative) Urine Mucus Rare H (None) /hpf Assessment and Plan Assessment: Right lower lobe pneumonia Right lower lobe atelectasis due to mucous plug Bilateral small pleural effusion DVT left lower extremity poor candidate for long-term anticoagulation Coffee-ground emesis Upper GI bleed Acute blood loss anemia Hyponatremia Advanced dementia and Alzheimer's disease Atrial fibrillation anticoagulation Hypertension hypertensive cardiovascular disease Dyslipidemia Diabetes mellitus Plan: Chest x-ray Continue bronchodilator Deep breathing exercise incentive spirometry Gentle diuresis Status post IVC filter Broad-spectrum antibiotics with Rocephin and Zithromax Reviewed computed tomography scan of the chest no plan for bronchoscopy and dissipate atelectasis with mucus plugging was improved with conservative measures Further recommendations pending plan of care as per clinical response of the patient Monitor hemoglobin closely Proton pump inhibitors Hold anticoagulation Time with Patient: Greater than 30
--- NOTE | 2019-03-03 15:27 | P.DS ---
Providers Date of admission: 03/01/19 12:44 Expected date of discharge: 03/03/19 Attending physician: Rc Barr Consults: 02/27/19 15:00 Consult Physician Urgent Consulting Provider: Nader Buchanan Consult Reason/Comments: GI bleed Do you want consulting provider notified?: Yes 02/28/19 13:30 Consult Physician Routine Consulting Provider: Josy Borden Consult Reason/Comments: Wound care Do you want consulting provider notified?: Yes 02/28/19 13:31 Consult Physician Routine Consulting Provider: Joseph Duncan Consult Reason/Comments: Filter, recent DVT Do you want consulting provider notified?: Yes 02/28/19 14:36 Consult Physician Routine Consulting Provider: Kip Uriarte Consult Reason/Comments: poss endobronchial lesion,pneumonia Do you want consulting provider notified?: Yes Primary care physician: [facility] Hospital Course: Final Diagnoses: -Acute on chronic blood loss anemia, Coffee-ground emesis, recent EGD revealing hiatal hernia, gastritis with no evidence of peptic ulcer disease or active bleeding; possible Margaret-Avilez tear, Jem's erosions with possible small bowel source. Possibly related to Eliquis-recently initiated on last visit for left lower extremity DVT. Blood thinners discontinued. Status post IVC filter. -Acute UTI -Possible right lower lobe pneumonia, mucous plug or endobronchial lesion per CXR. possible aspiration pneumonia. -Right lower lobe lung nodule, history of, further follow-up outpatient -Small right pleural effusion -Fever, related to the above ,workup in progress -History of iron deficient anemia in a patient with history of non-Hodgkin's lymphoma. -Recent DVT left lower extremity, status post IVC filter; no blood thinners. -Unstageable sacral pressure ulcer, chronic -Stage III Left heel pressure ulcer, chronic -Dementia, type unknown Hospital course:This is a 73-year-old female who has advanced dementia, presented into emergency department after that noted to have coffee-ground emesis patient is a recent ventral hernia repair.Due to advanced dementia,unable to obtain detailed history from the patient, obtained from the chart, staff. Hemoglobin on admission 9.8,( currently 8.6), positive UA.T-max 100.4 No signs of bleeding ,no further coffee ground emesis. Denies abdominal pain.VSS. Rocephin IVP back initiated, received IV fluid hydration in the ER. Chest x-ray reporting right lower lobe infiltrate, small effusion, possible pneumonia, mucous plug or endobronchial lesion.Evaluated by surgery, no EGD recommended at this time,continue with observation. Maintained on IV antibiotics, nebulized bronchodilators. Blood thinners have been discontinued. Status post IVC filter placed. Significant clinical improvement. Cleared by all consults. Patient is being discharged back to [facility] in a stable condition with guarded prognosis. - Exam GENERAL: Sitting up in bed, no acute distress, strict aspiration precautions maintained. HEENT: Conjunctivae normal. eyes normal. Oral mucosa dry NECK: No JVD. No thyroid enlargement. No LNs CARDIOVASCULAR: S1, S2 regular. No murmur RESPIRATION: Breath sounds diminished in the bases. No rhonchi or crackles. ABDOMEN: Soft, nontender . No guarding. no masses palpable. Bowel sounds heard. PSYCHIATRY: Alert and oriented lert and oriented to person, mood and affect normal. NERVOUS SYSTEM: No new focal deficits. Skin:Unstageable sacral pressure ulcer with dressing clean dry and intact, stage III left heel pressure ulcer with heel protector present. Please refer to nursing documentation/measurements/pictures. The impression and plan of care has been dictated as directed. : I performed a history and examination of this patient, discussed the same with the dictator. I agree with the dictator's note ,documented as a scribe. Any additional findings or plans will be noted. Time taken: 35 minutes Patient Condition at Discharge: Stable Plan - Discharge Summary Discharge Rx Participant: No New Discharge Prescriptions: New Ipratropium-Albuterol Nebulize [Duoneb 0.5 mg-3 mg/3 ml Soln] 3 ml INHALATION RT-QID ampul.neb Ipratropium-Albuterol Nebulize [Duoneb 0.5 mg-3 mg/3 ml Soln] 3 ml INHALATION Q4H PRN ampul.neb PRN Reason: Shortness Of Breath Or Wheezing Continue Simvastatin [Zocor] 40 mg PO HS Ferrous Sulfate [Iron (65 MG Elemental)] 325 mg PO DAILY Melatonin 3 mg PO HS@2000 Cranberry Fruit Concentrate [Cranberry] 450 mg PO BID Furosemide [Lasix] 20 mg PO DAILY Levothyroxine Sodium [Synthroid] 125 mcg PO DAILY Magnesium Hydroxide [Milk of Magnesia] 2,400 mg PO DAILY PRN PRN Reason: Constipation QUEtiapine [SEROquel] 150 mg PO HS Ranitidine HCl [Zantac] 75 mg PO BID Acetaminophen Tab [Tylenol] 650 mg PO Q6HR PRN tab PRN Reason: Mild Pain Or Fever > 100.5 Pro-Stat Sugar Free 30 ml PO BID Losartan [Cozaar] 12.5 mg PO DAILY Docusate [Colace] 100 mg PO PC-SUPPER Nitroglycerin Sl Tabs [Nitrostat] 0.4 mg SL Q5M Tamsulosin [Flomax] 0.4 mg PO DAILY cap.er.24h Bisacodyl 10 mg RECTAL DAILY PRN PRN Reason: Constipation Divalproex Sodium [Depakote Sprinkle] 250 mg PO TID Escitalopram Oxalate 5 mg PO DAILY Gabapentin [Neurontin] 300 mg PO HS Insulin Lispro [humaLOG Kwikpen] See Protocol SQ ACHS Metoprolol Tartrate [Lopressor] 100 mg PO BID Potassium Chloride ER [K-Dur 20] 20 meq PO DAILY ALPRAZolam [Xanax] 0.5 mg PO BID #6 tab Discontinued Aspirin EC [Ecotrin Low Dose] 81 mg PO HS Ibuprofen [Motrin] 400 mg PO Q6HR PRN tab PRN Reason: Mild Pain Or Fever > 100.5 Apixaban [Eliquis] 10 mg PO BID Apixaban [Eliquis] 5 mg PO DIRECTED Discharge Medication List Simvastatin [Zocor] 40 mg PO HS 07/08/16 [History] Ferrous Sulfate [Iron (65 MG Elemental)] 325 mg PO DAILY 10/29/17 [History] Cranberry Fruit Concentrate [Cranberry] 450 mg PO BID 02/13/18 [History] Melatonin 3 mg PO HS@199902/13/18 [History] Furosemide [Lasix] 20 mg PO DAILY 01/31/19 [History] Levothyroxine Sodium [Synthroid] 125 mcg PO DAILY 01/31/19 [History] Magnesium Hydroxide [Milk of Magnesia] 2,400 mg PO DAILY PRN 01/31/19 [History] QUEtiapine [SEROquel] 150 mg PO HS 01/31/19 [History] Ranitidine HCl [Zantac] 75 mg PO BID 01/31/19 [History] Acetaminophen Tab [Tylenol] 650 mg PO Q6HR PRN tab 02/10/19 [Rx] Docusate [Colace] 100 mg PO PC-SUPPER 02/13/19 [History] Losartan [Cozaar] 12.5 mg PO DAILY 02/13/19 [History] Nitroglycerin Sl Tabs [Nitrostat] 0.4 mg SL Q5M 02/13/19 [History] Pro-Stat Sugar Free 30 ml PO BID 02/13/19 [History] Tamsulosin [Flomax] 0.4 mg PO DAILY cap.er.24h 02/18/19 [Rx] Bisacodyl 10 mg RECTAL DAILY PRN 02/27/19 [History] Divalproex Sodium [Depakote Sprinkle] 250 mg PO TID 02/27/19 [History] Escitalopram Oxalate 5 mg PO DAILY 02/27/19 [History] Gabapentin [Neurontin] 300 mg PO HS 02/27/19 [History] Insulin Lispro [humaLOG Kwikpen] See Protocol SQ ACHS 02/27/19 [History] Metoprolol Tartrate [Lopressor] 100 mg PO BID 02/27/19 [History] Potassium Chloride ER [K-Dur 20] 20 meq PO DAILY 02/27/19 [History] ALPRAZolam [Xanax] 0.5 mg PO BID #6 tab 03/03/19 [Rx] Ipratropium-Albuterol Nebulize [Duoneb 0.5 mg-3 mg/3 ml Soln] 3 ml INHALATION Q4H PRN ampul.neb 03/03/19 [Rx] Ipratropium-Albuterol Nebulize [Duoneb 0.5 mg-3 mg/3 ml Soln] 3 ml INHALATION RT-QID ampul.neb 03/03/19 [Rx] Follow up Appointment(s)/Referral(s): Rc Barr MD [Primary Care Provider] - 3 Days Kip Uriarte MD [STAFF PHYSICIAN] - 2 Weeks Josy Borden MD [STAFF PHYSICIAN] - 10 Days (re: wound care) Activity/Diet/Wound Care/Special Instructions: Medi Wound care & antibiotics as per infectious disease Strict aspiration precautions at all times with head of bed upright 90. Direct supervision with all meals/snacks. Diet: Dysphagia Pured with thin liquids, straws okay, 1:1 feed. Activity: As tolerated cbc,bmp in 3 days Discharge Disposition: TRANSFER TO SNF/ECF
[2019-03-03] MEDS ORDERED: ALPRAZolam 0.5 MG TAB PO STA (15:43)
[2019-03-03] MEDS ORDERED: GABAPENTIN 300 MG CAP PO STA (17:20)
[2019-03-03 17:57] VITALS: PULSE 83
== END 2019-03-03 19:09 | DRG 356 ==
LOC: EC 11:04 → 3NMEDONC 15:11 → OBSVTOIN 03-01 12:44
PROVIDERS: ADMIT Family Medicine; ATTEND Family Medicine
PROC: B5191ZZ Fluoroscopy of Inferior Vena Cava using Low Osmolar Contrast (ICD-10-PCS; 2019-02-28)
PROC: 06H03DZ Insertion of Intraluminal Device into Inferior Vena Cava, Percutaneous Approach (ICD-10-PCS; principal; 2019-02-28 18:00)
DX: K25.4 Chronic or unspecified gastric ulcer with hemorrhage (principal); J18.9 Pneumonia, unspecified organism; L89.623 Pressure ulcer of left heel, stage 3; D62 Acute posthemorrhagic anemia; E87.1 Hypo-osmolality and hyponatremia; I82.402 Acute embolism and thrombosis of unspecified deep veins of left lower extremity; J44.0 Chronic obstructive pulmonary disease with (acute) lower respiratory infection; J98.11 Atelectasis; N39.0 Urinary tract infection, site not specified; T17.890A Other foreign object in other parts of respiratory tract causing asphyxiation, initial encounter; J90 Pleural effusion, not elsewhere classified; K22.6 Gastro-esophageal laceration-hemorrhage syndrome; L89.152 Pressure ulcer of sacral region, stage 2; L89.150 Pressure ulcer of sacral region, unstageable; E11.22 Type 2 diabetes mellitus with diabetic chronic kidney disease; E11.42 Type 2 diabetes mellitus with diabetic polyneuropathy; I48.0 Paroxysmal atrial fibrillation; E83.42 Hypomagnesemia; R13.10 Dysphagia, unspecified; F02.80 Dementia in other diseases classified elsewhere, unspecified severity, without behavioral disturbance, psychotic disturbance, mood disturbance, and anxiety; G30.9 Alzheimer's disease, unspecified; I13.10 Hypertensive heart and chronic kidney disease without heart failure, with stage 1 through stage 4 chronic kidney disease, or unspecified chronic kidney disease; N18.3 Chronic kidney disease, stage 3 (moderate); K44.9 Diaphragmatic hernia without obstruction or gangrene; E03.9 Hypothyroidism, unspecified; E78.5 Hyperlipidemia, unspecified; K21.0 Gastro-esophageal reflux disease with esophagitis; M13.0 Polyarthritis, unspecified; E66.9 Obesity, unspecified; F41.9 Anxiety disorder, unspecified; J30.9 Allergic rhinitis, unspecified; K29.70 Gastritis, unspecified, without bleeding; R32 Unspecified urinary incontinence; R91.1 Solitary pulmonary nodule; G47.9 Sleep disorder, unspecified; Z79.01 Long term (current) use of anticoagulants; Z79.4 Long term (current) use of insulin; Z79.890 Hormone replacement therapy; Z79.899 Other long term (current) drug therapy; Z79.82 Long term (current) use of aspirin; Z88.5 Allergy status to narcotic agent; Z88.2 Allergy status to sulfonamides; Z88.8 Allergy status to other drugs, medicaments and biological substances; Z96.651 Presence of right artificial knee joint; Z96.611 Presence of right artificial shoulder joint; Z98.42 Cataract extraction status, left eye; Z98.41 Cataract extraction status, right eye; Z96.1 Presence of intraocular lens; Z85.72 Personal history of non-Hodgkin lymphomas; Z92.21 Personal history of antineoplastic chemotherapy; Z91.81 History of falling; Z87.440 Personal history of urinary (tract) infections; Z68.37 Body mass index [BMI] 37.0-37.9, adult; Z80.49 Family history of malignant neoplasm of other genital organs
CPT/HCPCS: 36415; 37191; 71045; 71250; 74018; 80048; 80053; 81001; 82271; 82272; 83605; 83735; 84484; 85025; 85730; 86850; 86900; 86901; 93005; 94640; 94760; 96361; 96374; 96375; 99284